=== PATIENT | male | born 1950 | race Two or more races ===

== ENCOUNTER 2022-12-19 10:37 | Outpatient (OUT) | payer MEDICARE, SELFPAY ==
[2022-12-19 11:01] LABS: Basophils Absolute Auto 0.1 10^3/uL (0.0-0.1); Basophils Percent Auto 0.8 % (0.2-2.0); Eosinophils Absolute Auto 0.1 10^3/uL (0.0-0.7); Eosinophils Percent Auto 1.6 % (0.9-7.0); Hematocrit 41.3 % (42.0-54.0); Hemoglobin 13.6 g/dL (14.0-18.0); Immature Granulocytes Abs Auto 0.02 10^3/uL (0.00-0.03); Immature Granulocytes Pct Auto 0.3 % (0.0-0.5); Lymphocytes Absolute Auto 2.2 10^3/uL (1.2-3.8); Lymphocytes Percent Auto 30.1 % (20.5-60.0); Mean Corpuscular HGB Conc 32.9 g/dL (29.9-35.2); Mean Corpuscular Hemoglobin 27.7 pg (25.9-34.0); Mean Corpuscular Volume 84.1 fL (80.0-94.0); Mean Platelet Volume 9.8 fL (9.5-13.5); Monocytes Absolute Auto 0.5 10^3/uL (0.3-0.8); Monocytes Percent Auto 6.6 % (1.7-12.0); Neutrophils Absolute Auto 4.4 10^3/uL (1.4-6.5); Neutrophils Percent Auto 60.6 % (43.0-75.0); Platelet Count 244 10^3/uL (150-450); Red Blood Count 4.91 10^6/uL (4.70-6.10); Red Cell Distribution Width 12.3 % (11.0-15.0); White Blood Count 7.3 10^3/uL (4.0-11.0)
[2022-12-19 13:53] LABS: Alanine Aminotransferase 29 U/L (16-63); Albumin Globulin Ratio 0.8; Albumin Level 3.5 g/dL (3.4-5.0); Alkaline Phosphatase 108 U/L (46-116); Anion Gap 11.7; Aspartate Amino Transferase 14 U/L (15-37); BUN Creatinine Ratio 12.7; Bilirubin Total 0.4 mg/dL (0.2-1.0); Calcium 8.7 mg/dL (8.5-10.1); Carbon Dioxide 27.7 mmol/L (21.0-32.0); Chloride 103 mmol/L (98-107); Chol HDL Ratio 3.4; Cholesterol 151 mg/dL (<=200); Estimated GFR (African America >60 (>=60); Estimated GFR (Non-African Ame >60 (>=60); Globulin 4.3 g/dL; Glucose 103 mg/dL (74-106); HDL Cholesterol 44 mg/dL (40-60); LDL Cholesterol Calculated 78.8 mg/dL; Potassium 4.4 mmol/L (3.5-5.1); Sodium 138 mmol/L (136-145); Total Protein 7.8 g/dL (6.4-8.2); Triglycerides 141 mg/dL (<=150); VLDL CHOLESTEROL 28.2 mg/dL
== END 2022-12-19 10:38 | disposition home or self-care (01) ==
PROVIDERS: PCP Family Medicine; Visit Provider Nurse Practitioner Acute Care
DX: I25.10 Atherosclerotic heart disease of native coronary artery without angina pectoris (principal); R06.09 Other forms of dyspnea; R06.02 Shortness of breath
CPT/HCPCS: 36415; 80053; 80061; 83880; 85025

== ENCOUNTER 2024-05-14 13:32 | Outpatient (OUT) | payer MEDICARE, SELFPAY ==
[2024-05-14 14:20] LABS: BUN Creatinine Ratio 15.3; Calcium 9.3 mg/dL (8.5-10.1); Carbon Dioxide 26.2 mmol/L (21.0-32.0); Chloride 106 mmol/L (98-107); Estimated GFR (African America >60 (>=60 mL/min/1.73m^2); Estimated GFR (Non-African Ame >60 (>=60 mL/min/1.73m^2); Glucose 89 mg/dL (74-106); Potassium 4.2 mmol/L (3.5-5.1); Sodium 138 mmol/L (136-145)
== END 2024-05-14 13:33 | disposition home or self-care (01) ==
PROVIDERS: PCP Family Medicine
DX: I25.10 Atherosclerotic heart disease of native coronary artery without angina pectoris (principal); I10 Essential (primary) hypertension; R06.09 Other forms of dyspnea
CPT/HCPCS: 36415; 80048

== ENCOUNTER 2024-06-25 12:32 | Outpatient (OUT) | payer MEDICARE, SELFPAY ==
--- NOTE | 2024-06-25 13:00 | CA_ITS ---
Patient Name: FUAD PATEL MR#: [id number] : 1950 Exam Date: 06/25/2024 Ordering Doctor: MAGGI YOUNG ECHOCARDIOGRAM REPORT PROCEDURE: CA ECHO DOPPLER COMPLETE INDICATIONS: Dyspnea on exertion, hypertension, coronary artery disease, MO, cardiac stents x 4 COMPARISON: None. DESCRIPTION: COMPLETE ECHOCARDIOGRAM Real-time transthoracic echocardiography with 2D, M-mode, spectral and color flow Doppler performed. QUALITY: Technical quality was good. LEFT VENTRICLE: Normal chamber size. Borderline left ventricular hypertrophy. Normal systolic function. LV EF: Normal left ventricular ejection fraction, (>55%). DIASTOLIC: Normal diastolic function. ATRIAL SEPTUM: Visually appears intact. LEFT ATRIUM: Normal chamber size. RIGHT ATRIUM: Normal chamber size. RIGHT VENTRICLE: Normal chamber size. Normal right ventricular systolic function. TRICUSPID VALVE: Normal mobility and thickness. No stenosis with trivial regurgitation. No evidence of pulmonary hypertension. RVSP 34 mmHg MITRAL VALVE: Normal mobility and thickness. No evidence of mitral valve stenosis. There is no mitral annular calcification. No mitral regurgitation. AORTIC VALVE: Normal trileaflet appearance. No visible sclerosis. Normal leaflet mobility. No evidence of aortic valve stenosis. No aortic regurgitation. AORTIC ROOT: Normal diameter and appearance, measuring 3.5 cm. PULMONIC VALVE: Normal thickness and mobility. No stenosis. No regurgitation. PERICARDIUM: No evidence of pericardial effusion. IVC: Collapses with inspirations. IVC is normal in size. PLEURA: CONCLUSION: 1. Normal left ventricular size and systolic function. LVEF is estimated at 55 to 60%. 2. Normal right ventricular size and systolic function. 3. No significant valvular dysfunction. 4. Normal diastolic function. 5. Normal right-sided pressures. Adult Echocardiography Procedure Report Left Ventricle LVEDD (3.7 - 5.6 cm): 4.16 cm LVESD (2.2 - 4.0 cm): 3.00 cm LVIVS thickness (0.6 - 1.2 cm): 1.09 cm LVPW thickness (0.5 - 1.0 cm): 1.08 cm e': 0.12 m/s E - e': 6.11 LVOT Max Gradient: 3.00 mm[Hg] LVOT Area (cm2): 0.87 m/s Peak Velocity (LVOT): 0.87 m/s Mean Velocity (LVOT): 0.62 m/s LVOT Diameter 2.14 cm Left Atrium LA Volume Index (2D A2C): 25.04 ml/m2 Left Atrium Systolic Dimension: 3.59 cm Mitral Valve MV E to A Ratio: 0.92 Mitral Valve A-Wave Peak Velocity: 0.79 m/s Mitral Valve E-Wave Peak Velocity: 0.72 m/s Right Ventricle Aorta AO Root Diam: 3.46 cm Aortic Valve AoV Area (Peak Lenin): 2.62 cm2, 2.62 cm2 AoV Area (VTI): 2.67 cm2, 2.67 cm2 Peak Velocity(Antegrade Flow): 1.19 m/s Peak Gradient(Antegrade Flow): 5.68 mm[Hg] Mean Velocity(Antegrade Flow): 0.80 m/s Mean Gradient(Antegrade Flow): 2.97 mm[Hg] Velocity Time Integral: 26.53 cm Tricuspid Valve Peak Velocity (Regurgitant Flow): 2.18 m/s, 2.77 m/s Pulmonic Valve Mean Gradient: 2.18 mm[Hg] Mean Velocity: 0.68 m/s Peak Velocity: 1.13 m/s, 1.10 m/s Peak Gradient: 4.81 mm[Hg], 5.13 mm[Hg] Right Atrium Right Atrium Systolic Pressure: 37.89 ml, 37.89 ml Dictated by: Lyndon Hall M.D. on 06/25/2024 at 18:07 Approved by: Lyndon Hall M.D. on 06/25/2024 at 18:10
== END 2024-06-25 12:33 | disposition home or self-care (01) ==
LOC: CARD 12:33
PROVIDERS: PCP Family Medicine
DX: R06.09 Other forms of dyspnea (principal); I25.10 Atherosclerotic heart disease of native coronary artery without angina pectoris; I10 Essential (primary) hypertension
CPT/HCPCS: 93306

== ENCOUNTER 2024-07-24 08:48 | Outpatient (OUT) | payer MEDICARE, SELFPAY ==
--- NOTE | 2024-07-24 | NM_ITS ---
Patient Name: FUAD PATEL MR#: [id number] : 1950 Exam Date: 07/24/2024 Ordering Doctor: DR TIERRA ALBRIGHT M.D. RADIOLOGY REPORT PROCEDURE: NM DENA PERF SPECT REST STR COMPARISON: None. INDICATIONS: CAD, DYSPNEA ON EXERTION TECHNIQUE: Exam Description: Stress/Rest one day protocol gated SPECT Rest Imagin.0 mCi Tc-99m Cardiolite IV on 07/24/2024 Stress Imaging 28.5 mCi Tc-99m Cardiolite IV on 07/24/2024 Exercise Protocol: Haris Heart Rate (bpm): Rest: 74 Max: 127 PMHR: 86 Blood Pressure: Rest: 131/74 Max: 150/80 Exercise Time: Minutes: 6 Seconds: 25 Stage Reached: Stage: 2 Mets 7.0 Symptoms: SOB Rest and peak stress ECG findings were pending and the exercise portion of the study was pending per attending physician [facility] . For more details please see separate cardiac stress test report. FINDINGS: QUALITY OF STUDY: Good PERFUSION DEFECT: LOCATION: Inferolateral SIZE: small SEVERITY: mild TYPE: Reversible WALL MOTION: Normal LV SIZE: 79 mL. TID / TCD: 1.0 LVEF: Calculated EF 67%. SUMMARY: Abnormal Myocardial perfusion imaging study CONCLUSION: Abnormal myocardial nuclear perfusion stress test, evidence of small defect of mild ischemia at inferolateral wall Normal left ventricle systolic function, EF 67% No transient ischemic dilatation, TID 1.0 EKG portion of stress test is reported separately Dictated by: Blanca Stubbs MD on 07/24/2024 at 13:45 Approved by: Blanca Stubbs MD on 07/24/2024 at 13:52
--- OUTSIDE RECORDS SUMMARY | 2024-07-24 09:08 | XMS_ITS | CCD ---
Author Organization [facility] Care Team Providers Care Ux Design Lead Name Role Phone FLACO SINGH Admitting Unavailable FLACO SINGH Consulting Unavailable FLACO SINGH Attending Unavailable DR NETTA CHAUDHARI Primary Care Unavailable FARA, DR NETTA Ford Consulting Unavailable DR NETTA CHAUDHARI Attending Unavailable FARA, DR NETTA Ford Admitting Unavailable FARA, DR NETTA Ford Primary Care Unavailable Netta Chaudhari MD Primary Care Provider LEVAR YOUNG Attending Unavailable LEVAR YOUNG Attending Unavailable Allergies Allergy Classification Reported Allergen(s) Allergy Type Date of Onset Reaction(s) Facility (1 source) rosuvastatin; Translations: [ROSUVASTATIN] Drug Allergy 04-25-2023 [facility] Repository Medications Current Medications Medication Drug Class(es) Dates Sig (Normalized) Sig (Original) aspirin 81 mg delayed release oral tablet (2 sources) Platelet Aggregation Inhibitor, Nonsteroidal Anti-inflammatory Drug take 1 tablet by mouth in the morning aspirin 81 MG EC tablet Take 81 mg by mouth in the morning. Active atorvastatin 40 mg oral tablet (2 sources) HMG-CoA Reductase Inhibitor take 1 tablet by mouth in the morning atorvastatin (Lipitor) 40 MG tablet Take 40 mg by mouth in the morning. Active lisinopril 10 mg oral tablet (2 sources) Angiotensin Converting Enzyme Inhibitor take 1 tablet by mouth in the morning lisinopril 10 MG tablet Take 10 mg by mouth in the morning. Active metoprolol tartrate 25 mg oral tablet (2 sources) beta-Adrenergic Duy take 1 tablet by mouth in the morning metoprolol tartrate (Lopressor) 25 MG tablet Take 25 mg by mouth in the morning and 25 mg before bedtime. Active Problems Active Problems Problem Classification Problem Date Documented Date Episodic/Chronic Coronary atherosclerosis and other heart disease (8 sources) Atherosclerotic heart disease of [place] coronary artery without angina pectoris; Translations: [Coronary atherosclerosis] Onset: 09-26-2021 Chronic Disorders of lipid metabolism (5 sources) Hyperlipidemia, unspecified; Translations: [Dyslipidemia] Onset: 02-05-2022 01-31-2023 Chronic Essential hypertension (8 sources) Essential (primary) hypertension; Translations: [Benign hypertension] Onset: 01-04-2022 Chronic Other aftercare (1 source) Other detention (current) drug therapy; Translations: [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] Onset: 02-05-2022 Episodic Other lower respiratory disease (2 sources) Other forms of dyspnea; Translations: [Other forms of dyspnea] Onset: 06-04-2024 Episodic Other nutritional; endocrine; and metabolic disorders (1 source) Obesity, unspecified; Translations: [OBESITY UNSPECIFIED] Onset: 02-05-2022 Chronic Other nutritional; endocrine; and metabolic disorders (1 source) Body mass index (BMI) 30.0-30.9, adult; Translations: [BODY MASS INDEX BMI 30.0-30.9 ADULT] Onset: 02-05-2022 Chronic Other screening for suspected conditions (not mental disorders or infectious disease) (1 source) Encounter for screening for malignant neoplasm of prostate; Translations: [ENC SCREEN MALIG NEOPLASM PROSTATE] Onset: 02-05-2022 Episodic Past or Other Problems Problem Classification Problem Date Documented Da te Episodic/Chronic Screening and history of mental health and substance abuse codes (2 sources) Patient encounter status; Translations: [Encounter for screening for depression] Onset: 01-31-2023 01-31-2023 Episodic Results Test Name Value Interpretation Reference Range Facility CA ECHO DOPPLER COMPLETEon 0 06-25-2024 [place] [address] Cardiology Report Signed Patient: LAZARO JAMES MR#: [id number] : 1950 Acct:[id number] Age/Sex: 73 / M ADM Date: 06/25/24 Loc: CARD Attending Dr: Levar Young NP Ordering Physician: Levar Young NP Date of Service: 06/25/24 Procedure(s): CA echo doppler complete Accession Number(s): [id number] cc: Netta Chaudhari M.D.; Levar Young NP Patient Name: LAZARO JAMES MR#: [id number] : 1950 Exam Date: 06/25/2024 Ordering Doctor: LEVAR YOUNG ECHOCARDIOGRAM REPORT PROCEDURE: CA ECHO DOPPLER COMPLETE INDICATIONS: Dyspnea on exertion, hypertension, coronary artery disease, CT, cardiac stents x 4 COMPARISON: None. DESCRIPTION: COMPLETE ECHOCARDIOGRAM Real-time transthoracic echocardiography with 2D, M-mode, spectral and color flow Doppler performed. QUALITY: Technical quality was good. LEFT VENTRICLE: Normal chamber size. Borderline left ventricular hypertrophy. Normal systolic function. LV EF: Normal left ventricular ejection fraction, (>55%). DIASTOLIC: Normal diastolic function. ATRIAL SEPTUM: Visually appears intact. LEFT ATRIUM: Normal chamber size. RIGHT ATRIUM: Normal chamber size. RIGHT VENTRICLE: Normal chamber size. Normal right ventricular systolic function. TRICUSPID VALVE: Normal mobility and thickness. No stenosis with trivial regurgitation. No evidence of pulmonary hypertension. RVSP 34 mmHg MITRAL VALVE: Normal mobility and thickness. No evidence of mitral valve stenosis. There is no mitral annular calcification. No mitral regurgitation. AORTIC VALVE: Normal trileaflet appearance. No visible sclerosis. Normal leaflet mobility. No evidence of aortic valve stenosis. No aortic regurgitation. AORTIC ROOT: Normal diameter and appearance, measuring 3.5 cm. PULMONIC VALVE: Normal thickness and mobility. No stenosis. No regurgitation. PERICARDIUM: No evidence of pericardial effusion. IVC: Collapses with inspirations. IVC is normal in size. PLEURA: CONCLUSION: 1. Normal left ventricular size and systolic function. LVEF is estimated at 55 to 60%. 2. Normal right ventricular size and systolic function. 3. No significant valvular dysfunction. 4. Normal diastolic function. 5. Normal right-sided pressures. Adult Echocardiography Procedure Report Left Ventricle LVEDD (3.7 - 5.6 cm): 4.16 cm LVESD (2.2 - 4.0 cm): 3.00 cm LVIVS thickness (0.6 - 1.2 cm): 1.09 cm LVPW thickness (0.5 - 1.0 cm): 1.08 cm e': 0.12 m/s E - e': 6.11 LVOT Max Gradient: 3.00 mm[Hg] LVOT Area (cm2): 0.87 m/s Peak Velocity (LVOT): 0.87 m/s Mean Velocity (LVOT): 0.62 m/s LVOT Diameter 2.14 cm Left Atrium LA Volume Index (2D A2C): 25.04 ml/m2 Left Atrium Systolic Dimension: 3.59 cm Mitral Valve MV E to A Ratio: 0.92 Mitral Valve A-Wave Peak Velocity: 0.79 m/s Mitral Valve E-Wave Peak Velocity: 0.72 m/s Right Ventricle Aorta AO Root Diam: 3.46 cm Aortic Valve AoV Area (Peak Lenin): 2.62 cm2, 2.62 cm2 AoV Area (VTI): 2.67 cm2, 2.67 cm2 Peak Velocity(Antegrade Flow): 1.19 m/s Peak Gradient(Antegrade Flow): 5.68 mm[Hg] Mean Velocity(Antegrade Flow): 0.80 m/s Mean Gradient(Antegrade Flow): 2.97 mm[Hg] Velocity Time Integral: 26.53 cm Tricuspid Valve Peak Velocity (Regurgitant Flow): 2.18 m/s, 2.77 m/s Pulmonic Valve Mean Gradient: 2.18 mm[Hg] Mean Velocity: 0.68 m/s Peak Velocity: 1.13 m/s, 1.10 m/s Peak Gradient: 4.81 mm[Hg], 5.13 mm[Hg] Right Atrium Right Atrium Systolic Pressure: 37.89 ml, 37.89 ml Dictated by: Mari Hall M.D. on 06/25/2024 at 18:07 Approved by: Mari Hall M.D. on 06/25/2024 at 18:10 Dictated By: MARI HALL Signed By: (more content not included)... [facility] Radiology, Radiologist, MD - 06/25/2024 [place] [address] Cardiology Report Signed Patient: LAZARO JAMES MR#: [id number] : 1950 Acct:[id number] Age/Sex: 73 / M ADM Date: 06/25/24 Loc: CARD Attending Dr: Levar Young NP Ordering Physician: Levar Young NP Date of Service: 06/25/24 Procedure(s): CA echo doppler complete Accession Number(s): [id number] cc: Netta Chaudhari M.D.; Levar Young NP Patient Name: LAZARO JAMES MR#: [id number] : 1950 Exam Date: 06/25/2024 Ordering Doctor: LEVAR YOUNG ECHOCARDIOGRAM REPORT PROCEDURE: CA ECHO DOPPLER COMPLETE INDICATIONS: Dyspnea on exertion, hypertension, coronary artery disease, CT, cardiac stents x 4 COMPARISON: None. DESCRIPTION: COMPLETE ECHOCARDIOGRAM Real-time transthoracic echocardiography with 2D, M-mode, spectral and color flow Doppler performed. QUALITY: Technical quality was good. LEFT VENTRICLE: Normal chamber size. Borderline left ventricular hypertrophy. Normal systolic function. LV EF: Normal left ventricular ejection fraction, (>55%). DIASTOLIC: Normal diastolic function. ATRIAL SEPTUM: Visually appears intact. LEFT ATRIUM: Normal chamber size. RIGHT ATRIUM: Normal chamber size. RIGHT VENTRICLE: Normal chamber size. Normal right ventricular systolic function. TRICUSPID VALVE: Normal mobility and thickness. No stenosis with trivial regurgitation. No evidence of pulmonary hypertension. RVSP 34 mmHg MITRAL VALVE: Normal mobility and thickness. No evidence of mitral valve stenosis. There is no mitral annular calcification. No mitral regurgitation. AORTIC VALVE: Normal trileaflet appearance. No visible sclerosis. Normal leaflet mobility. No evidence of aortic valve stenosis. No aortic regurgitation. AORTIC ROOT: Normal diameter and appearance, measuring 3.5 cm. PULMONIC VALVE: Normal thickness and mobility. No stenosis. No regurgitation. PERICARDIUM: No evidence of pericardial effusion. IVC: Collapses with inspirations. IVC is normal in size. PLEURA: CONCLUSION: 1. Normal left ventricular size and systolic function. LVEF is estimated at 55 to 60%. 2. Normal right ventricular size and systolic function. 3. No significant valvular dysfunction. 4. Normal diastolic function. 5. Normal right-sided pressures. Adult Echocardiography Procedure Report Left Ventricle LVEDD (3.7 - 5.6 cm): 4.16 cm LVESD (2.2 - 4.0 cm): 3.00 cm LVIVS thickness (0.6 - 1.2 cm): 1.09 cm LVPW thickness (0.5 - 1.0 cm): 1.08 cm e': 0.12 m/s E - e': 6.11 LVOT Max Gradient: 3.00 mm[Hg] LVOT Area (cm2): 0.87 m/s Peak Velocity (LVOT): 0.87 m/s Mean Velocity (LVOT): 0.62 m/s LVOT Diameter 2.14 cm Left Atrium LA Volume Index (2D A2C): 25.04 ml/m2 Left Atrium Systolic Dimension: 3.59 cm Mitral Valve MV E to A Ratio: 0.92 Mitral Valve A-Wave Peak Velocity: 0.79 m/s Mitral Valve E-Wave Peak Velocity: 0.72 m/s Right Ventricle Aorta AO Root Diam: 3.46 cm Aortic Valve AoV Area (Peak Lenin): 2.62 cm2, 2.62 cm2 AoV Area (VTI): 2.67 cm2, 2.67 cm2 Peak Velocity(Antegrade Flow): 1.19 m/s Peak Gradient(Antegrade Flow): 5.68 mm[Hg] Mean Velocity(Antegrade Flow): 0.80 m/s Mean Gradient(Antegrade Flow): 2.97 mm[Hg] Velocity Time Integral: 26.53 cm Tricuspid Valve Peak Velocity (Regurgitant Flow): 2.18 m/s, 2.77 m/s Pulmonic Valve Mean Gradient: 2.18 mm[Hg] Mean Velocity: 0.68 m/s Peak Velocity: 1.13 m/s, 1.10 m/s Peak Gradient: 4.81 mm[Hg], 5.13 mm[Hg] Right Atrium Right Atrium Systolic Pressure: 37.89 ml, 37.89 ml Dictated by: Mari Hall M.D. on 06/25/2024 at 18:07 Approved by: Mari Hall M.D. on 06/25/2024 at 18:10 Dictated By: MARI HALL Signed By: 06/25/241810 DD/ 09 TD/TT: Service Center Representative: [facility] [employer] Radiology Study observation (narrative) [facility] CA ECHO DOPPLER COMPLETEOrde red By: Radiologist Radiology on 06-25-2024 [facility] [employer] Work Phone: Office Visiton 06-04-2024 Follow-up visit [id number] Lazaro James 1950 M Date Provider Department Center 06/04/2024 [id number] [facility]ARD [facility] Family History Problem Relation Age of Onset Dementia Mother Diabetes Father Heart attack Other Coronary artery disease Other Family Status - Relation Status Age at Mother Father Sister Alive Brother Alive Other Level of Service:58391 [place] OFFICE/OUTPATIENT ESTABLISHED LOW MDM 20 MIN Normal [facility] ALL BASIC METABOLIC PANELon 05-14-2024 Anion gap [Moles/Vol] 10 mmol/L [facility] Calcium [Mass/Vol] 9.3 mg/dL 8.5 - 10. 1 mg/dL [facility] Chloride [Moles/Vol] 106 mmol/L 98 - 10 7 mmol/L [facility] CO2 [Moles/Vol] 26.2 mmol/L 21.0 - 32.0 mmol/L [facility] Creatinine [Mass/Vol] 1.18 mg/dL 0.70 - 1.30 mg/dL [facility] GFR/1.73 sq M.predicted CKD-EPI (S/P/Bld) [Vol rate/Area] >60 >=60 mL/min/1.73m 2 [facility] Glucose [Mass/Vol] 89 mg/dL 74 - 106 mg/dL [facility] Potassium [Moles/Vol] 4.2 mmol/L 3.5 - 5.1 mmol/L [facility] Sodium [Moles/Vol] 138 mmol/L 136 - 145 mmol/L [facility] TBH EGFR-NON AF CAMEROONIAN >60 >=60 mL/min/1.73m 2 [facility] Urea nitrogen [Mass/Vol] 18 mg/dL 7.0 - 18.0 mg/dL [facility] Urea nitrogen/Creatinine [Mass ratio] 15.3 mg/mg [facility] Healthcare Office Visiton 05-14-2024 Follow-up visit [id number] Lazaro James 1950 M Date Provider Department Center 05/14/2024 [id number] CHAPIN [facility] Family History Problem Relation Age of Onset Diabetes Brother Heart attack Other Coronary artery disease Other Family Status - Relation Status Age at Brother Other Level of Service:56479 [place] OFFICE/OUTPATIENT ESTABLISHED LOW MDM 20 MIN Normal [facility] CBC AUTO DIFFon 02-01-2022 BASO # 0.1 103/ul Normal 0.0-0.1 [facility] Comment on above: Performed By: #### C BC #### [facility] [address] [place] [address] Dr. Loyda French Basophils/100 WBC (Bld) 0.9 % Normal 0.2-2.0 [facility] Comment on above: Performed By: #### C BC #### [facility] [address] [place] [address] Dr. Loyda French EO # 0.2 103/ul Normal 0.0-0.7 [facility] Comment on above: Performed By: #### C BC #### [facility] [address] [address] [address] Loyda French Eosinophils/100 WBC (Bld) 2.3 % Normal 0.9-7.0 [facility] Comment on above: Performed By: #### C BC #### [facility] [address] [place] [address] Dr. Loyda French Erythrocyte distribution width (RBC) [Ratio] 12.5 % Normal 11.0-15.0 [facility] Comment on above: Performed By: #### C BC #### [facility] [address] [place] [address] Dr. Loyda French Hematocrit (Bld) [Volume fraction] 41.2 % Critically low 42.0-54.0 [facility] Comment on above: Performed By: #### C BC #### [facility] [address] [place] [address] Dr. Loyda French Hemoglobin (Bld) [Mass/Vol] 14.1 g/dL Normal 14.0-18.0 [facility] Comment on above: Performed By: #### C BC #### [facility] [address] [place] [address] Dr. Loyda French IG # 0.02 10e3/ul Normal 0.00-0.03 [facility] Comment on above: Performed By: #### C BC #### [facility] [address] [place] [address] Dr. Loyda French IG % 0.3 % Normal 0.0-0.5 [facility] Comment on above: Performed By: #### C BC #### [facility] [address] [place] [address] Dr. Loyda French LYMPH # 2.1 103/ul Normal 1.2-3.8 [facility] Comment on above: Performed By: #### C BC #### [facility] [address] [place] [address] Dr. Loyda French Lymphocytes/100 WBC (Bld) 28.7 % Normal 20.5-60.0 [facility] Comment on above: Performed By: #### C BC #### [facility] [address] [place] [address] Dr. Loyda French MANUAL DIFF REQ NO Normal [facility] Comment on above: Performed By: #### C BC #### [facility] [address] [place] [address] Dr. Loyda French MCH (RBC) [Entitic mass] 27.9 pg Normal 25.9-34.0 [facility] Comment on above: Performed By: #### C BC #### [facility] [address] [place] [address] Dr. Loyda French MCHC (RBC) [Mass/Vol] 34.2 g/dL Normal 29.9-35.2 [facility] Comment on above: Performed By: #### C BC #### [facility] [address] [place] [address] Dr. Loyda French MCV (RBC) [Entitic vol] 81.4 fL Normal 80.0-94.0 [facility] Comment on above: Performed By: #### C BC #### [facility] [address] [place] [address] Dr. Loyda French MONO # 0.6 103/ul Normal 0.3-0.8 [facility] Comment on above: Performed By: #### C BC #### [facility] [address] [place] [address] Dr. Loyda French Monocytes/100 WBC (Bld) 7.4 % Normal 1.7-12.0 [facility] Comment on above: Performed By: #### C BC #### [facility] [address] [place] [address] Dr. Loyda French NEUT # 4.5 103/ul Normal 1.4-6.5 [facility] Comment on above: Performed By: #### C BC #### [facility] [address] [place] [address] Dr. Loyda French Neutrophils/100 WBC (Bld) 60.4 % Normal 43.0-75.0 [facility] Comment on above: Performed By: #### C BC #### [facility] [address] [place] [address] Dr. Loyda French Platelet mean volume (Bld) [Entitic vol] 10.1 fL Normal 9.5-13.5 [facility] Comment on above: Performed By: #### C BC #### [facility] [address] [place] [address] Dr. Loyda French PLT 261 103/ul Normal 150-450 [facility] Comment on above: Performed By: #### C BC #### [facility] [address] [place] [address] Dr. Loyda French RBC 5.06 106/ul Normal 4.70-6.10 [facility] Comment on above: Performed By: #### C BC #### [facility] [address] [place] [address] Dr. Loyda French WBC 7.5 103/ul Normal 4.0-11.0 [facility] Comment on above: Performed By: #### C BC #### [facility] [address] [place] [address] Dr. Loyda French LIPID PROFILEon 02-01-2022 CHOL-HDL RATIO NORM SEE BELOW Normal [facility] Comment on above: Result Comment: 3.3 - 4.4 LOW RISK 4.4 - 7.1 AVERAGE RISK 7.1 - 11.0 MODERATE RISK >11.0 HIGH RISK Performed By: #### L IPID, LIVER, BMP, TSH #### [facility] [address] [place] [address] Dr. Loyda French Cholesterol [Mass/Vol] 145 mg/dL Normal <=200 [facility] Comment on above: Performed By: #### L IPID, LIVER, BMP, TSH #### [facility] [address] [address] [address] Loyda Frnech Cholesterol in HDL [Mass/Vol] 48 mg/dL Normal 40-60 [facility] Comment on above: Performed By: #### L IPID, LIVER, BMP, TSH #### [facility] [address] [address] [address] Loyda French Cholesterol in LDL [Mass/Vol] 67.0 mg/dL Normal [facility] Comment on above: Performed By: #### L IPID, LIVER, BMP, TSH #### [facility] [address] [address] [address] Loyda French Cholesterol.total/Ch olesterol in HDL [Mass ratio] 3.0 {ratio} Normal [facility] Comment on above: Performed By: #### L IPID, LIVER, BMP, TSH #### [facility] [address] [address] [address] Loyda French HDL NORMAL > or = 60 mg/dl - LO W CARDIOVASCULAR RISK <40 mg/dl - HIGH CARDIOVASCULAR RISK Normal [facility] Comment on above: Performed By: #### L IPID, LIVER, BMP, TSH #### [facility] [address] [address] [address] Loyda French LDL CALC NORMAL SEE BELOW Normal [facility] Comment on above: Result Comment: <100 mg/dl OPTIMAL 100 - 129 mg/dl NEAR OR ABOVE OPTIMAL 130 - 159 mg/dl BORDERLINE HIGH 160 - 189 mg/dl HIGH >190 mg/dl VERY HIGH Performed By: #### L IPID, LIVER, BMP, TSH #### [facility] [address] [address] [address] Loyda French Triglyceride [Mass/Vol] 150 mg/dL Normal <=150 [facility] Comment on above: Performed By: #### L IPID, LIVER, BMP, TSH #### [facility] [address] [address] [address] Loyda French VLDL CALC 30.0 mg/dL Normal [facility] Comment on above: Performed By: #### L IPID, LIVER, BMP, TSH #### [facility] [address] [place] [address] Dr. Loyda French LIVER PROFILEon 02-01-2022 Albumin [Mass/Vol] 3.8 g/dL Normal 3.4-5.0 [facility] Comment on above: Performed By: #### L IPID, LIVER, BMP, TSH #### [facility] [address] [place] [address] Dr. Loyda French Albumin/Globulin [Mass ratio] 0.9 {ratio} Normal [facility] Comment on above: Performed By: #### L IPID, LIVER, BMP, TSH #### [facility] [address] [place] [address] Dr. Loyda French ALP [Catalytic activity/Vol] 105 U/L Normal 46-116 [facility] Comment on above: Performed By: #### L IPID, LIVER, BMP, TSH #### [facility] [address] [place] [address] Dr. Loyda French ALT [Catalytic activity/Vol] 32 U/L Normal 16-63 [facility] Comment on above: Performed By: #### L IPID, LIVER, BMP, TSH #### [facility] [address] [place] [address] Dr. Loyda French AST [Catalytic activity/Vol] 17 U/L Normal 15-37 [facility] Comment on above: Performed By: #### L IPID, LIVER, BMP, TSH #### [facility] [address] [place] [address] Dr. Loyda French BILI, CONJUGATED 0.1 mg/dL Normal 0.0-0.2 [facility] Comment on above: Performed By: #### L IPID, LIVER, BMP, TSH #### [facility] [address] [place] [address] Dr. Loyda French Bilirubin [Mass/Vol] 0.6 mg/dL Normal 0.2-1.0 [facility] Comment on above: Performed By: #### L IPID, LIVER, BMP, TSH #### [facility] [address] [place] [address] Dr. Loyda French Globulin (S) [Mass/Vol] 4.4 g/dL Normal [facility] Comment on above: Performed By: #### L IPID, LIVER, BMP, TSH #### [facility] [address] [address] [address] Loyda French Protein [Mass/Vol] 8.2 g/dL Normal 6.4-8.2 [facility] Comment on above: Performed By: #### L IPID, LIVER, BMP, TSH #### [facility] [address] [address] [address] Loyda French PROF CHEM 8 (BAS METB)on Anion gap [Moles/Vol] 12.7 mmol/L Normal [facility] Comment on above: Performed By: #### L IPID, LIVER, BMP, TSH #### [facility] [address] [address] [address] Loyda French Calcium [Mass/Vol] 9.1 mg/dL Normal 8.5-10.1 [facility] Comment on above: Performed By: #### L IPID, LIVER, BMP, TSH #### [facility] [address] [address] [address] Loyda French Chloride [Moles/Vol] 104 mmol/L Normal 98-107 [facility] Comment on above: Performed By: #### L IPID, LIVER, BMP, TSH #### [facility] [address] [address] [address] Loyda French CO2 [Moles/Vol] 27.3 mmol/L Normal 21.0-32.0 [facility] Comment on above: Performed By: #### L IPID, LIVER, BMP, TSH #### [facility] [address] [address] [address] Loyda French Creatinine [Mass/Vol] 1.15 mg/dL Normal 0.70-1.30 [facility] Comment on above: Performed By: #### L IPID, LIVER, BMP, TSH #### [facility] [address] [address] [address] Loyda French EGFR-AF CAMEROONIAN >60 Normal >=60 [facility] Comment on above: Performed By: #### L IPID, LIVER, BMP, TSH #### [facility] [address] [address] [address] Loyda French EGFR-NON AF CAMEROONIAN >60 Normal >=60 [facility] Comment on above: Performed By: #### L IPID, LIVER, BMP, TSH #### [facility] [address] [address] [address] Loyda French Glucose [Mass/Vol] 120 mg/dL Critically high 74-106 [facility] Comment on above: Performed By: #### L IPID, LIVER, BMP, TSH #### [facility] [address] [address] [address] Loyda French Potassium [Moles/Vol] 4.0 mmol/L Normal 3.5-5.1 [facility] Comment on above: Performed By: #### L IPID, LIVER, BMP, TSH #### [facility] [address] [address] [address] Loyda French Sodium [Moles/Vol] 140 mmol/L Normal 136-145 [facility] Comment on above: Performed By: #### L IPID, LIVER, BMP, TSH #### [facility] [address] [address] [address] Loyda French Urea nitrogen [Mass/Vol] 13.0 mg/dL Normal 7.0-18.0 [facility] Comment on above: Performed By: #### L IPID, LIVER, BMP, TSH #### [facility] [address] [place] [address] Dr. Loyda French Urea nitrogen/Creatinine [Mass ratio] 11.3 mg/mg Normal [facility] Comment on above: Performed By: #### L IPID, LIVER, BMP, TSH #### [facility] [address] [address] [address] Loyda French TSHon 02-01-2022 TSH 1.301 uIU/mL Normal 0.358-3.[address] [facility] Comment on above: Performed By: #### L IPID, LIVER, BMP, TSH #### [facility] [address] [address] [address] Loyda French LIPID PROFILEon 09-26-2021 CHOL-HDL RATIO NORM SEE BELOW Normal [facility] Comment on above: Result Comment: 3.3 - 4.4 LOW RISK 4.4 - 7.1 AVERAGE RISK 7.1 - 11.0 MODERATE RISK >11.0 HIGH RISK Performed By: #### L IPID, LIVER #### [facility] [address] [address] [address] Loyda French Cholesterol [Mass/Vol] 145 mg/dL Normal <=200 [facility] Comment on above: Performed By: #### L IPID, LIVER #### [facility] [address] [address] [address] Loyda French Cholesterol in HDL [Mass/Vol] 36 mg/dL Critically low 40-60 [facility] Comment on above: Performed By: #### L IPID, LIVER #### [facility] [address] [address] [address] Loyda French Cholesterol in LDL [Mass/Vol] 70.8 mg/dL Normal [facility] Comment on above: Performed By: #### L IPID, LIVER #### [facility] [address] [address] [address] Loyda French Cholesterol.total/Ch olesterol in HDL [Mass ratio] 4.0 {ratio} Normal [facility] Comment on above: Performed By: #### L IPID, LIVER #### [facility] [address] [address] [address] Loyda French HDL NORMAL > or = 60 mg/dl - LO W CARDIOVASCULAR RISK <40 mg/dl - HIGH CARDIOVASCULAR RISK Normal [facility] Comment on above: Performed By: #### L IPID, LIVER #### [facility] [address] [address] [address] Loyda French LDL CALC NORMAL SEE BELOW Normal [facility] Comment on above: Result Comment: <100 mg/dl OPTIMAL 100 - 129 mg/dl NEAR OR ABOVE OPTIMAL 130 - 159 mg/dl BORDERLINE HIGH 160 - 189 mg/dl HIGH >190 mg/dl VERY HIGH Performed By: #### L IPID, LIVER #### [facility] [address] [address] [address] Loyda French Triglyceride [Mass/Vol] 191 mg/dL Critically high <=150 [facility] Comment on above: Performed By: #### L IPID, LIVER #### [facility] [address] [address] [address] Loyda French VLDL CALC 38.2 mg/dL Normal [facility] Comment on above: Performed By: #### L IPID, LIVER #### [facility] [address] [address] [address] Loyda French LIVER PROFILEon 09-26-2021 Albumin [Mass/Vol] 3.5 g/dL Normal 3.4-5.0 [facility] Comment on above: Performed By: #### L IPID, LIVER #### [facility] [address] [place] [address] Dr. Loyda French Albumin/Globulin [Mass ratio] 0.9 {ratio} Normal [facility] Comment on above: Performed By: #### L IPID, LIVER #### [facility] [address] [place] [address] Dr. Loyda French ALP [Catalytic activity/Vol] 104 U/L Normal 46-116 [facility] Comment on above: Performed By: #### L IPID, LIVER #### [facility] [address] [place] [address] Dr. Loyda French ALT [Catalytic activity/Vol] 23 U/L Normal 16-63 [facility] Comment on above: Performed By: #### L IPID, LIVER #### [facility] [address] [place] [address] Dr. Loyda French AST [Catalytic activity/Vol] 14 U/L Critically low 15-37 [facility] Comment on above: Performed By: #### L IPID, LIVER #### [facility] [address] [place] [address] Dr. Loyda French BILI, CONJUGATED 0.1 mg/dL Normal 0.0-0.2 [facility] Comment on above: Performed By: #### L IPID, LIVER #### [facility] [address] [address] [address] Loyda French Bilirubin [Mass/Vol] 0.4 mg/dL Normal 0.2-1.0 [facility] Comment on above: Performed By: #### L IPID, LIVER #### [facility] [address] [address] [address] Loyda French Globulin (S) [Mass/Vol] 4.0 g/dL Normal [facility] Comment on above: Performed By: #### L IPID, LIVER #### [facility] [address] [address] [address] Loyda French Protein [Mass/Vol] 7.5 g/dL Normal 6.4-8.2 [facility] Comment on above: Performed By: #### L IPID, LIVER #### [facility] [address] [address] [address] Loyda French Encounters Encounter Date Encounter Type Care Provider Facility Start: 06-25-2024 End: 06-25-2024 [facility] Result Encounter Generic External Data Provider [facility] Unsolicited Start: 06-25-2024 End: 06-25-2024 [facility] Result Encounter Generic External Data Provider [facility] Unsolicited Start: 06-04-2024 End: 06-04-2024 ambulatory [facility] Start: 05-14-2024 End: 05-14-2024 Clinisync Result Encounter Generic External Data Provider [facility] Unsolicited Start: 05-14-2024 End: 05-14-2024 [facility] Result Encounter Generic External Data Provider [facility] Unsolicited Start: 05-14-2024 End: 05-14-2024 ambulatory [facility] Start: 02-01-2022 End: 02-02-[address] NETTA CHAUDHARI Facility:[facility] Start: 09-26-2021 End: 09-27-2021 ambulatory FLACO SINGH Facility:[facility] Procedures Date Procedure Procedure Detail Performing Clinician Start: 06-25-2024 CA ECHO DOPPLER COMPLETE Generic External Data Provider Start: 05-14-2024 ALL BASIC METABOLIC PANEL Generic External Data Provider Start: 02-01-2022 PSA screening FLACO EAGLE Comment on above: Performed By: #### P [facility] #### [facility] [address] [address] [address] Loyda French Plan of Treatment Date Care Activity Detail Author Start: 10-20-2024 Influenza vaccination Influenz a Vaccine (Season Ended) [facility] Start: 10-21-2023 Influenza vaccination Influenza Vacc ine (#1) [facility] Start: 1950 Medicare Annual Well ness (AWV) Medicare Annual Wellness (AWV) [facility] Start: 1950 Screening for malign ant neoplasm of colon [facility] Immunizations Immunization Date Immunization Notes Care Provider Rosmery daly 09-28-2022 influenza virus vacc ine, unspecified formulation Generic Provider [facility] Payers Date Payer Category Payer Medicare MEDICARE [id number] 1960 Medicare [id number] 1950 Unknown [id number] 1950 Unknown [id number] Social History Date Type Detail Facility Start: 01-31-2023 Tobacco smoking status NHIS Never sm oked tobacco [facility] Start: 01-31-2023 History of Social function [facility] Start: 01-31-2023 Tobacco use panel [facility] Start: 1950 Sex assigned at Not on file [facility] Progress note 04-16-2025 Note Date & Type Note Facility 06-04-2024 Note SUBJECTIVE Reason for Visit: Lazaro James is a 73 y.o. year old male patient being seen for follow-up visit. HPI: Lazaro James is a 73 y.o. year old male with significant medical history of CAD and CT s/p CHINMAY to RCA 2009, MCMAHON, hypertension, and hyperlipidemia. 06/04/2024 office visit: Patient was seen and evaluated in the office today for follow-up hypertension management. He reports he has not yet obtained a home blood pressure monitor. In-office blood pressure was elevated at 149/81. He otherwise has no complaints and denies chest pain, shortness of breath, palpitations, lightheadedness, or dizziness. 05/14/2024 office visit: Patient was seen and evaluated in the office today. His chief complaint is inability to obtain his lisinopril prescription. He reports that he has been off his blood pressure medication, including lisinopril, for at least the past few weeks. He attempted to refill it at the pharmacy, but was informed that he should still have pills remaining, and the prescription could not be filled. He otherwise denies chest pain, palpitations, lightheadedness, or dizziness. Endorses MCMAHON which he reports has remained stable without progression over the past year. 04/25/2023 office visit (Dr. Steven): Patient here for 6 mo follow up CAD, MCMAHON, hypertension, and hyperlipidemia. Lisinopril was increased to 20mg daily at last apt in Oct 2022. He had routine labs in Nov 2022. He denies chest pain, SOB, palpitations, and lightheadedness/syncope. Doing very well. He was unable to tolerate Crestor so he now takes Lipitor. Tolerating it well so far. Past Medical History: Diagnosis Date Coronary artery disease Hyperlipidemia Hypertension Myocardial infarction (CMS/HCC) Past Surgical History: Procedure Laterality Date CARDIAC CATHETERIZATION CORONARY STENT PLACEMENT Patient Active Problem List Diagnosis Benign prostatic hyperplasia Coronary atherosclerosis Essential hypertension Kidney stone Malaise and fatigue Old myocardial infarction Palpitations Sleep apnea Type 1 diabetes mellitus (CMS/HCC) Depression screen Dyslipidemia Tinnitus family history includes Coronary artery disease in an other family member; Diabetes in his brother; Heart attack in an other family member. Social History Tobacco Use Smoking status: Never Smokeless tobacco: Never Substance Use Topics Alcohol use: Yes Comment: occasional OBJECTIVE Visit Vitals Smoking Status Never Physical Exam Constitutional: General Appearance: well-developed, appears stated age. Level of Distress: no acute distress. Neck: Jugular Veins: normal jugular venous pressure. Lungs: Auscultation: no rales or rhonchi and normal breath sounds. Cardiovascular: Rate And Rhythm: regular Heart Sounds: normal S1 and s2; Systolic Murmur: not heard. Diastolic Murmur: not heard. Extremities: no edema Peripheral Pulses: Pulses: full and equal in all extremities except if noted. Abdomen: Inspection and Palpation: non distended or tender and soft. Musculoskeletal: Inspection: no joint tenderness or swelling. Neurologic: Gait: normal gait. Psychiatric: Mental Status: alert and normal affect. Skin: Inspection and Palpation: warm and dry. Allergies: Allergies Allergen Reactions Rosuvastatin cramping Outpatient Medications: Current Outpatient Medications Medication Instructions aspirin 81 mg EC tablet Take 1 tablet every day by oral route. atorvastatin (LIPITOR) 40 mg, oral, Daily RT ezetimibe (ZETIA) 10 mg, oral, Once Daily lisinopril 20 mg, oral, Every morning metoprolol tartrate (LOPRESSOR) 25 mg, oral, 2 times daily rosuvastatin (CRESTOR) 40 mg, oral, Nightly Recent Labs: No visits with results within 2 Month(s) from this visit. Latest known visit with results is: No results found for any previous visit. Labs 05/14/2024: Sodium 138, potassium 4.2, glucose 89, BUN 18, creatinine 1.18, EGFR greater than 60, calcium 9.3 I have personally reviewed and interpreted the following laboratory results: CBC, CMP, lipid profile, and any additional relevant lab work available at this time. These findings have been analyzed in the context of the patient's clinical presentation. Cardiovascular Diagnostic Studies: Coronary angiogram 04/20/2008: S/p CHINMAY to RCA 2008 Conclusion: 1. Acute coronary syndrome. 2. Single-vessel coronary artery disease. 3. Successful angioplasty and drug-eluting stent placement in the right coronary artery. 4. Normal right common femoral artery. ANGIOGRAPHY: Left ventriculography: This study demonstrated normal overall left ventricular systolic function with an estimated ejection fraction of 55%. There was no mitral regurgitation. 12 Lead ECG: No results found for this or any previous visit (from the past 4464 hour(s)). I have personally reviewed and interpreted all available cardiac diagnostic tests and imaging reports. Findings have been (more content not included)... [facility] Progress note 05-14-2024 Note Date & Type Note Facility 05-14-2024 Note SUBJECTIVE Reason for Visit: Lazaro James is a 73 y.o. year old male patient being seen for 1 year follow-up visit. HPI: Lazaro James is a 73 y.o. year old male with significant medical history of CAD and CT s/p CHINMAY to RCA 2009, MCMAHON, hypertension, and hyperlipidemia. 05/14/2024 office visit: Patient was seen and evaluated in the office today. His chief complaint is inability to obtain his lisinopril prescription. He reports that he has been off his blood pressure medication, including lisinopril, for at least the past few weeks. He attempted to refill it at the pharmacy, but was informed that he should still have pills remaining, and the prescription could not be filled. He otherwise denies chest pain, palpitations, lightheadedness, or dizziness. Endorses MCMAHON which he reports has remained stable without progression over the past year. 04/25/2023 office visit (Dr. Steven): Patient here for 6 mo follow up CAD, MCMAHON, hypertension, and hyperlipidemia. Lisinopril was increased to 20mg daily at last apt in Oct 2022. He had routine labs in Nov 2022. He denies chest pain, SOB, palpitations, and lightheadedness/syncope. Doing very well. He was unable to tolerate Crestor so he now takes Lipitor. Tolerating it well so far. Past Medical History: Diagnosis Date Coronary artery disease Hyperlipidemia Hypertension Myocardial infarction (CMS/HCC) Past Surgical History: Procedure Laterality Date CARDIAC CATHETERIZATION CORONARY STENT PLACEMENT Patient Active Problem List Diagnosis Benign prostatic hyperplasia Coronary atherosclerosis Essential hypertension Kidney stone Malaise and fatigue Old myocardial infarction Palpitations Sleep apnea Type 1 diabetes mellitus (CMS/HCC) Depression screen Dyslipidemia Tinnitus family history includes Coronary artery disease in an other family member; Diabetes in his brother; Heart attack in an other family member. Social History Tobacco Use Smoking status: Never Smokeless tobacco: Never Substance Use Topics Alcohol use: Yes Comment: occasional OBJECTIVE Visit Vitals BP 169/81 (BP Location: Right arm, Patient Position: Sitting) Pulse 79 Ht 1.727 m (5' 8 ) Wt 100 kg (221 lb) SpO2 97% BMI 33.60 kg/m??? Smoking Status Never BSA 2.19 m??? Physical Exam Constitutional: General Appearance: well-developed, appears stated age. Level of Distress: no acute distress. Neck: Jugular Veins: normal jugular venous pressure. Lungs: Auscultation: no rales or rhonchi and normal breath sounds. Cardiovascular: Rate And Rhythm: regular Heart Sounds: normal S1 and s2; Systolic Murmur: not heard. Diastolic Murmur: not heard. Extremities: no edema Peripheral Pulses: Pulses: full and equal in all extremities except if noted. Abdomen: Inspection and Palpation: non distended or tender and soft. Musculoskeletal: Inspection: no joint tenderness or swelling. Neurologic: Gait: normal gait. Psychiatric: Mental Status: alert and normal affect. Skin: Inspection and Palpation: warm and dry. Allergies: Allergies Allergen Reactions Rosuvastatin cramping Outpatient Medications: Current Outpatient Medications Medication Instructions aspirin 81 mg EC tablet Take 1 tablet every day by oral route. atorvastatin (LIPITOR) 40 mg, oral, Daily RT ezetimibe (ZETIA) 10 mg, oral, Once Daily lisinopril 20 mg, oral, Every morning metoprolol tartrate (LOPRESSOR) 25 mg, oral, 2 times daily rosuvastatin (CRESTOR) 40 mg, oral, Nightly Recent Labs: No visits with results within 2 Month(s) from this visit. Latest known visit with results is: No results found for any previous visit. I have personally reviewed and interpreted the following laboratory results: CBC, CMP, lipid profile, and any additional relevant lab work available at this time. These findings have been analyzed in the context of the patient's clinical presentation. Cardiovascular Diagnostic Studies: Coronary angiogram: S/p CHINMAY to RCA 2009 12 Lead ECG: No results found for this or any previous visit (from the past 4464 hour(s)). I have personally reviewed and interpreted all available cardiac diagnostic tests and imaging reports. Findings have been analyzed in the context of the patient's clinical status. Assessment and Plan #CORONARY ARTERY DISEASE Coronary angiography: 04/20/2008 Acute coronary syndrome: Single-vessel coronary artery disease successful angioplasty of drug-eluting stent placement in right coronary artery, normal right common femoral artery [x] Denies angina/chest pain [] Stable angina [] Exertional symptoms [x] Post-PCI/CABG [x] Prior CT: [x] Yes [] No Stress test: [x] Not indicated [] Pending [] Completed (Date: ___) LVEF: ___% (from last TTE on ___) GDMT / Secondary Prevention: [x] Aspirin (81 mg) [] High-intensity statin [x] Beta-duy (post-CT/LV dysfunction) [] ACEi/ARB/ARNI (EF <=40% or DM/CKD) [] SGLT2i (if (more content not included)... [facility] Summary Purpose Family History No Family History Records FoundNo Family History Records Found Advance Directives No Advanced Directives Records FoundNo Advanced Directives Records Found Additional Source Comments (unrecognized sect ion and content) No Status Records FoundNo Status Records Found INFORMATION SOURCE (unrecogn ized section and content) DATE CREATED AUTHOR 02/08/2022 [facility] DATE CREATED AUTHOR 'S ORGANIZ ATION 06/06/2024 [facility] Care Teams (unrecognized sec tion and content) [employer] Lead Relationship Specialty Start Date End Date Netta Chaudhari MD PCP - General Family Medicine 01/31/23 FOR RECORDS PERTAINING TO PATIENTS WHO ARE OR HAVE BEEN ENROLLED IN A CHEMICAL DEPENDENCY/SUBSTANCEABUSE PROGRAM, SOME INFORMATION MAY BE OMITTED. This clinical summary was aggregated from multiple sources. Caution should be exercised in using it in the provision of clinical care. This summary normalizes information from multiple sources, and as a consequence, information in this document may materially change the coding, format and clinical context of patient data. In addition, data may be omitted in some cases. CLINICAL DECISIONS SHOULD BE BASED ON THE PRIMARY CLINICAL RECORDS. [employer] provides no warranty or guarantee of the accuracy or completeness of information in this document.
--- NOTE | 2024-07-24 11:23 | PC.NURSE ---
Nursing Note Cardiac Stress Test Reviewed: Medication, allergies and patient history reviewed. Stress Test: [ ] Patient tolerated stress test well. [ ] Patient unable to tolerate walking on treadmill. Switched to Lexiscan stress test. [x ] No chest pain noted per patient [ ] Chest pain that resolved prior to leaving stress lab. [ ] No dyspnea noted. [x ] Dyspnea that resolved prior to leaving stress lab. [x ] Patient left stress lab asymptomatic and hemodynamically stable. [ ] Patient taken to the Emergency Room due to non-resolving symptoms following stress test. [x ] Patient achieved target heart rate. [ ] Patient unable to achieve target heart rate. [ ] Aminophylline administered as reversal agent to Lexiscan (Regadenoson). [ ] Nitro administered. Nursing Comments:Pt had Cardiolite test done. Pt had SOB while walking that subsided and went away with rest. Pt had no CP but had EKG changes which were shown to [facility] provider. These results along with the Nuclear images will be sent stat for [facility] Dr to read. When pt left the stress lab he was asymptomatic and aware that if he has any SOB or chest pain that he needs to go to the ER immediately. Pt states he understands and will do this if needed. Pt ambulated to cafeteria for breakfast prior to second set of images.
--- NOTE | 2024-07-24 20:02 | PM.STRESS ---
Stress Test Stress Test Requesting physician: Antoine Steven Procedure: This was a treadmill stress test with myocardial perfusion imaging performed at the [facility] on 07/24/2024. The patient exercised on the treadmill for 6 minutes and 25 seconds, reaching stage 2 of the Haris protocol and achieving 7.0 METS. Baseline heart rate was 74 bpm, and baseline blood pressure was 131/74. Peak heart rate was 127 bmp representing 86% of MPHR. Peak blood pressure was 150/80. The test was stopped due to reaching target heart rate and due to shortness of breath. General Information: Reason for Stress Test: dyspnea. Cardiac History and Risk Factors: hypertension, CAD, stents, hyperlipidemia, myocardial infarction. Resting 12 - Lead Electrocardiogram: Normal sinus rhythm. Stress Test: Protocol: Haris. Exercise Capacity: Average. Blood Pressure Response: resting hypertension, appropriate response to exercise. Rhythm: Sinus with no arrhythmias. ST - Response: Ischemic ST depressions up to 3 mm seen in leads II, III, aVF, V4, V5, V6. Those persisted into the recovery period. Final ECG was comparable to baseline. Patient Response: shortness of breath. Interpretation: 1. Positive treadmill stress test for exercise-induced ischemic ECG changes. 2. Tom treadmill score of -12.5 is associated with high risk of cardiac events. 3. Myocardial perfusion images will be reported separately.
== END 2024-07-24 08:49 | disposition home or self-care (01) ==
LOC: NM 08:49
PROVIDERS: PCP Family Medicine; Visit Provider Internal Medicine Interventional Cardiology
DX: R06.09 Other forms of dyspnea (principal); I25.10 Atherosclerotic heart disease of native coronary artery without angina pectoris; R94.8 Abnormal results of function studies of other organs and systems
CPT/HCPCS: 78452; 93017; A9500

== ENCOUNTER 2024-07-28 13:17 | Outpatient (OUT) | payer MEDICARE, SELFPAY ==
--- OUTSIDE RECORDS SUMMARY | 2024-07-23 11:00 | XMS_ITS | Encounter Summary ---
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 Phone Chris Villanueva MD Primary Care Provider [phone] Encounter Details Date Type Department Care Team (Late st Contact Info) Description 07/23/2024 11:00 AM EDT Office Visit [facility] Heart at [facility] [address] [place] [address] Antoine Steven MD [address] [facility] [address] [facility] [place] [address] Coronary artery disease, unspecified vessel or lesion type, unspecified whether angina present, unspecified whether pai[place]shoshone or transplanted heart (Primary Dx); MCMAHON (dyspnea on exertion); Essential hypertension Social History Tobacco Use Types Packs/Day Years Used Date Smoking Tobacco: Never Smokeless Tobacco: Never Alcohol Use Standard Drinks/Week Comments Yes 0 (1 standard drink = 0.6 oz pur e alcohol) occasional [place] Safety & Environment Answer Date Rec orded Fear of Current or Ex-Partner Not on file Emotionally Abused Not on file 04/12/2023 Physically Abused Not on file 04/12/2023 Sexually Abused Not on file 04/12/2023 Physically or Sexually Abused Not on file Sex and Gender Information Value Date Recorded Sex Assigned at Not on file Gender Identity Not on file Sexual Orientation Not on file documented as of this encounter Last Filed Vital Signs Vital Sign Reading Time Taken Comments Blood Pressure 145/77 07/23/2024 11:00 AM EDT Pulse 91 07/23/2024 11:00 AM EDT Temperature - - Respiratory Rate - - Oxygen Saturation 96% 07/23/2024 11:00 AM EDT Inhaled Oxygen Concentration - - Weight 103 kg (228 lb) 07/23/2024 11:00 AM EDT Height 172.7 cm (5' 8 ) 07/23/2024 11:00 AM EDT Body Mass Index 34.67 07/23/2024 11:00 AM EDT documented in this encounter Progress Notes * Antoine Steven MD - 07/23/2024 11:00 AM EDT Images from the original note were not included. [facility] Note Chief Complaint: Patient here for 3 mo follow up with ECHO. Patient states he needs a paper signed so he can drive. Patient states he is feel good. Patient states he has MCMAHON. HPI: Lazaro James is a 73 y.o. male with CAD and VT s/p CHINMAY to RCA 2008, HTN seen in follow-up. Doing well from a heart standpoint; no chest pain, no orthopnea, no paroxysmal, dyspnea, no lower extremity edema Had COVID recently and has noticed wheezing in the morning when he gets up. This resolves after some time Update 07/2024: Feels okay overall; his states that he is more short of breath when he climbs stairs. No chest pain. No orthopnea, paroxysmal external dyspnea, or lower extremity edema. Denies palpitations. Blood pressure has been improved after initiation of Norvasc. Cardiology ROS: Review of Systems Cardiovascular: Positive for dyspnea on exertion. All other systems reviewed and are negative. Past Medical History He has a past medical history of Coronary artery disease, Hyperlipidemia, Hypertension, and Myocardial infarction ([facility]). Surgical History He has a past surgical history that includes Cardiac catheterization and Coronary stent placement. Social History He reports that he has never smoked. He has never used smokeless tobacco. He reports current alcohol use. No history on file for drug use. Family History Family History Problem Relation Name Age of Onset Dementia Mother Diabetes Father Heart attack Other Coronary artery disease Other Allergies Rosuvastatin Medications Current Outpatient Medications: amLODIPine (Norvasc) 5 mg tablet, Take 1 tablet (5 mg) by mouth once daily as directed., Disp: 90 tablet, Rfl: 3 aspirin 81 mg EC tablet, Take 1 tablet every day by oral route., Disp: , Rfl: atorvastatin (Lipitor) 40 mg tablet, Take 40 mg by mouth in the morning., Disp: , Rfl: ezetimibe (Zetia) 10 mg tablet, Take 1 tablet (10 mg) by mouth once daily as directed., Disp: 90 tablet, Rfl: 3 lisinopril 20 mg tablet, Take 1 tablet (20 mg) by mouth in the morning., Disp: 90 tablet, Rfl: 3 metoprolol tartrate (Lopressor) 25 mg tablet, Take 1 tablet (25 mg) by mouth two times daily., Disp: 180 tablet, Rfl: 3 rosuvastatin (Crestor) 40 mg tablet, Take 1 tablet (40 mg) by mouth at bedtime., Disp: 90 tablet, Rfl: 3 Last Recorded Vitals BP 145/77 (BP Location: Right arm, Patient Position: Sitting) Pulse 91 Ht 1.727 m (5' 8 ) Wt 103 kg (228 lb) SpO2 96% BMI 34.67 kg/m?? Physical Examination: GENERAL: alert and oriented x3, well developed, in no acute distress. HEAD: atraumatic, normocephalic. EYES: TERRY, EOMI. NECK: trachea midline, no JVD present, no carotid bruits present. CARDIAC: S1, S2 present. RRR. No murmur, rubs, or gallops. RESPIRATORY: CTAB, no increased effort of breathing, no rales, rhonchi, or wheezing. ABDOMEN: soft, nontender, nondistended. EXTREMITIES: no lower extremity edema, peripheral pulses are 2+ bilaterally. No rash/skin discoloration present. NEURO: strength/sensation equal and symmetric in bilateral upper and lower extremities. PSYCH: appropriate mood, affect, and judgement. Investigations: Imaging and other tests Coronary angiography: 04/20/2008 Acute coronary syndrome Single-vessel coronary artery disease Successful angioplasty of drug-eluting stent placement in right coronary artery Normal right common femoral artery 02/01/2022 WBC 7.5, Hgb 14.1, Hct 41.2, platelets 261 Sodium 140, potassium 4, Chloride 104, BUN 13, SCr 1.15, eGFR >60%, AST 17, ALT 32 Cholesterol 145, HDL 48, TG 150, LDL 67 Labs 08/11/2020: CBC unremarkable, creatinine 1.16, BUN 16, K4.1, GFR greater than 60 Lipids: Cholesterol 147, HDL 39, trig 236, LDL 60 Lab 12/19/2022: Electrolytes, serum creatinine normal Cholesterol 151, LDL 70.8, HDL 44 Echocardiogram 06/26/2024: Global left ventricular systolic function is normal; EF 55 to 60% Normal right ventricular size and systolic function No significant valvular dysfunction Normal diastolic function Normal right-sided pressures Assessment: Coronary artery disease: History of prior PCI/stent placement Dyslipidemia Hypertension - Poorly controlled 'Wheezing' after recent COVID Plan: Continue optimal medical therapy for coronary artery disease including aspirin, moderate intensity statin, a beta-eulalia and an angiotensin-converting enzyme inhibitor His blood pressure is still poorly controlled; we will switch metoprolol tartrate to Coreg 25 mg p.o. twice daily Given the patient's worsening exertional shortness of breath, his history of coronary artery disease, and the need for clearance prior to driving, I have recommended a stress test; we will schedule him for an exercise treadmill Cardiolite stress test. If he is unable to exercise, this will be switched to a Lexiscan stress test. Return to clinic in 6 months or sooner should problems arise Antoine Steven MD, MPH, FACC, [facility], [facility] Interventional Cardiology Pager Email: [email or web address] documented in this encounter Plan of Treatment Upcoming Encounters Date Type Department Care Team (Late st Contact Info) Description 08/13/2024 12:30 PM EDT Hospital Encounter [facility] Heart formerly [facility] [address] [place] [address] Antoine Steven MD [address] [place] [address] Abnormal stress test 08/13/2024 12:30 PM EDT - 08/13/2024 1:30 PM EDT Surgery [facility] Heart formerly [facility] V[facility] [address] [place] [id number] Antoine Steven MD [address] [place] [address] Coronary angiography Scheduled Orders Name Type Priority Associated Diagnoses Orde r Schedule Treadmill Stress Myocardial Perfusion Imaging Cardiac Services Routine Coronary artery disease, unspecified vessel or lesion type, unspecified whether angina present, unspecified whether [place]sh[place] or transplanted heart MCMAHON (dyspnea on exertion) Expected: 07/23/2024 (Approximate), Expires: 07/23/2026 documented as of this encounter Visit Diagnoses Diagnosis Coronary artery disease, unspecified vessel or lesion type, unspecified whether angina present, unspecified whether [place]sh[place] or transplanted heart- Primary MCMAHON (dyspnea on exertion) Other dyspnea and respiratory abnormality Essential hypertension Unspecified essential hypertension Abnormal stress test- Primary Other nonspecific abnormal cardiovascular system function study Abnormal stress test Other nonspecific abnormal cardiovascular system function study documented in this encounter Care Teams 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
--- OUTSIDE RECORDS SUMMARY | 2024-07-28 13:21 | XMS_ITS | Encounter Summary ---
Author Organization [facility] Address [address] [place] [address] Care Team Providers Care Barrel Cap Setter Name Role Phone Chris Villanueva MD Primary Care Provider [phone] Encounter Details Date Type Department Care Team (Late st Contact Info) Description 07/25/2024 Orders Only [facility] [address] [place] [address] Kathy Garcia RN Coronary atherosclerosis (Primary Dx) Social History Tobacco Use Types Packs/Day Years [...] on file documented as of this encounter Plan of Treatment Upcoming Encounters Date Type Department Care Team (Late st Contact Info) Description 08/13/2024 12:30 PM EDT Hospital Encounter [facility] [address] [place] [address] Antoine Steven MD [address] [facility] [address] [facility] [place] [phone] Abnormal stress test 08/13/2024 12:30 PM EDT - 08/13/2024 1:30 PM EDT Surgery [facility] [address] [place] [phone] Antoine Steven MD [address] [facility] [address] [place] [address] Coronary angiography Scheduled Orders Name Type Priority Associated Diagnoses Orde r Schedule CBC Lab Routine Coronary atherosclerosis Expected: 07/25/2024 (Approximate), Expires: 07/25/2025 Basic metabolic panel Lab Routine Coronary atherosclerosis Expected: 07/25/2024 (Approximate), Expires: 07/25/2025 documented as of this encounter Visit Diagnoses Diagnosis Abnormal stress test- Primary Other nonspecific abnormal cardiovascular system function study Coronary atherosclerosis- Primary Coronary atherosclerosis of unspecified type of vessel, [place] or graft Abnormal stress test Other nonspecific abnormal cardiovascular system function study documented in this encounter Care Teams Barrel Cap Setter Relationship Specialty Start Date End Date Chris Villanueva MD [address] [place] [address] PCP - General 10/30/22 documented as of this encounter
--- OUTSIDE RECORDS SUMMARY | 2024-07-28 13:21 | XMS_ITS | Clinical Summary ---
Author Organization [facility] Address [address] [place] [address] Care Team Providers Care Booster Assembler Name Role Phone Chris Villanueva MD Primary Care Provider [phone] Allergies Active Allergy Reactions Criticality Noted Date Comments Rosuvastatin 04/25/2023 cramping Medications Medication Sig Dispensed Refills Start Date End Date Status aspirin 81 mg EC tablet Take 1 tablet every day by oral route. Active atorvastatin (Lipitor) 40 mg tablet Take 40 mg by mouth in the morning. Active lisinopril 20 mg tabletIndications:Es sential hypertension Take 1 tablet (20 mg) by mouth in the morning. 90 tablet 3 05/06/2024 Active rosuvastatin (Crestor) 40 mg tabletIndications:Hy perlipidemia, unspecified hyperlipidemia type Take 1 tablet (40 mg) by mouth at bedtime. 90 tablet 3 05/06/2024 Active metoprolol tartrate (Lopressor) 25 mg tabletIndications:Es sential hypertension Take 1 tablet (25 mg) by mouth two times daily. 180 tablet 3 05/06/2024 Active amLODIPine (Norvasc) 5 mg tabletIndications:Es sential hypertension Take 1 tablet (5 mg) by mouth once daily as directed. 90 tablet 3 06/04/2024 06/04/2025 Active ezetimibe (Zetia) 10 mg tabletIndications:Hy perlipidemia, unspecified hyperlipidemia type Take 1 tablet (10 mg) by mouth once daily as directed. 90 tablet 3 06/25/2024 Active carvedilol (Coreg) 25 mg tabletIndications:Co ronary artery disease, unspecified vessel or lesion type, unspecified whether angina present, unspecified whether [place] or transplanted heart Take 1 tablet (25 mg) by mouth with breakfast and with evening meal. STOP METOPROLOL 180 tablet 3 07/23/2024 07/23/2025 Active Active Problems Problem Noted Date Diagnosed Date Abnormal stress test 07/25/2024 Tinnitus 05/14/2024 Depression screen 01/31/2023 04/25/2023 Dyslipidemia 01/31/2023 04/25/2023 Malaise and fatigue 11/03/2013 Palpitations 03/27/2012 Benign prostatic hyperplasia 03/06/2012 Coronary atherosclerosis 03/06/2012 Essential hypertension 03/06/2012 Kidney stone 03/06/2012 Old myocardial infarction 03/06/2012 Sleep apnea 03/06/2012 Type 1 diabetes mellitus 03/06/2012 Encounters Date Type Department Care Team Description 07/28/2024 Orders Only [address] [address] ProviderParis MD 07/25/2024 Orders Only [facility] Vascular Lab [address] [place] [address] Kathy Garcia RN Coronary atherosclerosis (Primary Dx) 07/25/2024 Orders Only [address] [address] Anita Gray MA Abnormal stress test; Dyspnea, unspecified type; Encounter for pre-operative examination; Abnormal findings on diagnostic imaging of heart and coronary circulation 07/23/2024 11:00 AM EDT Office Visit [address] [place] [address] Antoine Steven MD Coronary artery disease, unspecified vessel or lesion type, unspecified whether angina present, unspecified whether [place] or transplanted heart (Primary Dx); MCMAHON (dyspnea on exertion); Essential hypertension 06/25/[address] [address] Anita Gray MA Hyperlipidemia, unspecified hyperlipidemia type 06/04/2024 1:00 PM EDT Office Visit [place] [address] [facility] [place] [address] Levar Peña CNP Coronary artery disease involving [place] coronary artery of [place] heart without angina pectoris (Primary Dx); Essential hypertension; Mixed hyperlipidemia; MCMAHON (dyspnea on exertion); Coronary artery disease, unspecified vessel or lesion type, unspecified whether angina present, unspecified whether [place] or transplanted heart 05/14/2024 1:00 PM EDT Office Visit [facility] [address] [place] [address] Levar Peña CNP Coronary artery disease involving [place] coronary artery of [place] heart without angina pectoris (Primary Dx); Dyspnea on exertion; Essential hypertension; Mixed hyperlipidemia 05/06/2024 Refill [facility] [address] [place] [address] Nicole Kenney MA Essential hypertension; Hyperlipidemia, unspecified hyperlipidemia type from Last 3 Months Family History Medical History Relation Name Comments Diabetes Father Dementia Mother Coronary artery disease Other Heart attack Other Relation Name Status Comments Brother Alive Father Mother Other Sister Alive Social History Tobacco Use Types Packs/Day Years Used Date Smoking Tobacco: Never Smokeless Tobacco: Never Tobacco Cessation:Counseling Given: Not Answered Alcohol Use Standard Drinks/Week Comments Yes 0 [...] on file Sexual Orientation Not on file Last Filed Vital Signs Vital Sign Reading [...] Mass Index 34.67 07/23/2024 11:00 AM EDT Plan of Treatment Upcoming Encounters Date Type Department Care Team (Late st Contact Info) Description 08/13/2024 12:30 PM EDT Hospital Encounter [facility] [place] [facility] [address] [place] [address] Antoine Steven MD [address] [place] [address] Abnormal stress test 08/13/2024 12:30 PM EDT - 08/13/2024 1:30 PM EDT Surgery [facility] [place] [facility] [address] [place] [address] Antoine Steven MD [address] [place] [address] Coronary angiography Health Maintenance Due Date Last Done Comments CT Colonography 1950 Colonoscopy 1950 Colorectal Cancer Screening 1950 Diabetes: Hemoglobin A1C 1950 FIT-DNA 1950 FIT 1950 FOBT 1950 Medicare Annual Wellness (AWV) 1950 Sigmoidoscopy 1950 Diabetes: Retinopathy Screening 10/28/1959 Depression Screening 1961 Diabetes: Urine Protein Screening 1968 Adult Tetanus 10/28/1971 Fall Risk Screening 2014 COVID-19 Vaccine ( season) 2023 07/22/2021, 12/16/2020, 05/18/2020, Additional history exists Influenza Vaccine (Season Ended) 2024 09/28/2022, 11/20/2019, 11/07/2019, Additional history exists Zoster Vaccines Completed 01/16/2020, 10/20, 11/29/2016 Pneumococcal Vaccine: 65+ Years Completed 09/28/2022, 06/10/2016, 01/01/2015 HIB Vaccines Aged Out No longer eligi ble based on patient's age to complete this topic HPV Vaccines Aged Out No longer eligi ble based on patient's age to complete this topic IPV Vaccines Aged Out No longer eligi ble based on patient's age to complete this topic Meningococcal B Vaccine Aged Out No l onger eligible based on patient's age to complete this topic Meningococcal Vaccine Aged Out No hector cathi eligible based on patient's age to complete this topic Rotavirus Vaccines Aged Out No longer eligible based on patient's age to complete this topic Procedures Procedure Name Priority Date/Time Associated Diagnosis Comments TREADMILL STRESS MYOCARDIAL PERFUSION IMAGING Routine 07/24/2024 8:40 AM EDT from Last 3 Months Results * Treadmill Stress Myocardial Perfusion Imaging (07/24/2024 8:40 AM EDT) Anatomical Region Laterality Modality Other Historical Provider CV STRESS PROCEDU RES from Last 3 Months Care Teams Booster Assembler Relationship Specialty Start Date End Date Chris Villanueva MD [address] [place] [address] PCP - General 10/30/22
--- OUTSIDE RECORDS SUMMARY | 2024-07-28 13:21 | XMS_ITS | Encounter Summary ---
Author Organization [facility] Address [address] [place] [address] Care Team Providers Care Pst Manager Name Role Phone Chris Villanueva MD Primary Care Provider Encounter Details Date Type Department Care Team (Late Contact Info) Description 07/28/2024 Orders Only [facility] Heart [facility] [address] [place] [address] Provider, MD Paris [address] [place] [address] Social History Tobacco Use Types Packs/Day Years [...] Description 08/13/2024 12:30 PM EDT Hospital Encounter [facility] Heart and Vascular Center Vascular Lab [address] [place] [address] Antoine Steven MD [address] [facility] [address] [facility] [place] [address] Abnormal stress test 08/13/2024 12:30 PM EDT - 08/13/2024 1:30 PM EDT Surgery [facility] Vascular Lab [address] [place] [address] Antoine Steven MD [address] [place] [address] [facility] [place] [address] Coronary angiography documented as of this encounter Procedures Procedure Name Priority Date/Time Associated Diagnosis Comments TREADMILL STRESS MYOCARDIAL PERFUSION IMAGING Routine 07/24/2024 8:40 AM EDT documented in this encounter Results * Treadmill Stress Myocardial Perfusion Imaging (07/24/2024 8:40 AM EDT) Anatomical Region Laterality Modality Other Historical Provider CV STRESS PROCEDU RES documented in this encounter Visit Diagnoses Not on filedocumented in this encounter Care Teams Pst Manager Relationship Specialty Start Date End Date Chris Villanueva MD [address] [place] [address] PCP - General 10/30/22 documented as of this encounter
--- OUTSIDE RECORDS SUMMARY | 2024-07-28 13:21 | XMS_ITS | Encounter Summary ---
Author Organization [facility] Address [address] [place] [address] Care Team Providers Care Electrician Helper Automotive Name Role Phone Chris Villanueva MD Primary Care Provider [phone] Encounter Details Date Type Department Care Team ([facility] Contact Info) Description 07/24/2024 Clinisync Result Encounter [facility] External Department Unsolicited Provider, Generic External Data Social History Tobacco Use Types Packs/Day Years Used Date Smoking Tobacco: Never Sex and Gender Information Value Date Recorded Sex Assigned at Not on file Legal Sex Male 6:37 PM EDT Gender Identity Not on file Sexual Orientation Not on file documented as of this encounter Plan of Treatment Upcoming Encounters Date Type Department Care Team (Late Contact Info) Description 09/03/2024 7:15 AM EDT Office Visit [facility] [address] [place] [address] Chris Villanueva MD [address] [place] [address] documented as of this encounter Procedures Procedure Name Priority Date/Time Associated Diagnosis Comments NM DENA PERF SPECT REST STR 07/24/2024 1:52 PM EDT documented in this encounter Results * NM DENA PERF SPECT REST STR (07/24/2024 1:52 PM EDT) Anatomical Region Laterality Modality Other 07/24/2024 1:52 PM EDT Narrative 07/24/2024 1:53 PM EDT The [address] [address] Nuclear Medicine Report Signed Patient: LAZARO JAMES MR#: [id number] : 1950 Acct:[id number] Age/Sex: 73 / M ADM Date: 07/24/24 Loc: [place] Attending Dr: Tierra Albright M.D. Ordering Physician: Tierra Albright M.D. Date of Service: 07/24/24 Procedure(s): NM dena perf SPECT rest str Accession Number(s): [id number] cc: Tierra Albright M.D.; Chris Villanueva M.D. Patient Name: LAZARO JAMES MR#: [id number] : 1950 Exam Date: 07/24/2024 Ordering Doctor: DR TIERRA ALBRIGHT M.D. RADIOLOGY REPORT PROCEDURE: NM DENA PERF SPECT REST STR COMPARISON: None. INDICATIONS: CAD, DYSPNEA ON EXERTION TECHNIQUE: Exam Description: Stress/Rest one day protocol gated SPECT Rest Imagin.0 mCi Tc-99m Cardiolite IV on 07/24/2024 Stress Imaging 28.5 mCi Tc-99m Cardiolite IV on 07/24/2024 Exercise Protocol: Haris Heart Rate (bpm): Rest: 74 Max: 127 PMHR: 86 Blood Pressure: Rest: 131/74 Max: 150/80 Exercise Time: Minutes: 6 Seconds: 25 Stage Reached: Stage: 2 Mets 7.0 Symptoms: SOB Rest and peak stress ECG findings were pending and the exercise portion of the study was pending per attending physician [facility] . For more details please see separate cardiac stress test report. FINDINGS: QUALITY OF STUDY: Good PERFUSION DEFECT: LOCATION: Inferolateral SIZE: small SEVERITY: mild TYPE: Reversible WALL MOTION: Normal LV SIZE: 79 mL. TID / TCD: 1.0 LVEF: Calculated EF 67%. SUMMARY: Abnormal Myocardial perfusion imaging study CONCLUSION: Abnormal myocardial nuclear perfusion stress test, evidence of small defect of mild ischemia at inferolateral wall Normal left ventricle systolic function, EF 67% No transient ischemic dilatation, TID 1.0 EKG portion of stress test is reported separately Dictated by: Blanca Stubbs MD on 07/24/2024 at 13:45 Approved by: Blanca Stubbs MD on 07/24/2024 at 13:52 Dictated By: Blanca Stubbs M.D. Signed By: 07/24/24 1353 DD/ 1352 TD/TT: Epic Trainer: Procedure Note Radiology, Radiologist, - 07/24/2024 [place] [address] Nuclear Medicine Report Signed Patient: LAZARO JAMESMR#: [id number] : 1950Acct:[id number] Age/Sex: 73 / MADM Date: 07/24/24 Loc: NM Attending Dr: Tierra Albright M.D. Ordering Physician: Tierra Albright M.D. Date of Service: 07/24/24 Procedure(s): NM dena perf SPECT rest str Accession Number(s): [id number] cc: Tierra Albright M.D.; Chris Villanueva M.D. Patient Name: LAZARO JAMES MR#: [id number] : 1950 Exam Date: 07/24/2024 Ordering Doctor: DR TIERRA ALBRIGHT M.D. RADIOLOGY REPORT PROCEDURE: NM DENA PERF SPECT REST STR COMPARISON: None. INDICATIONS: CAD, DYSPNEA ON EXERTION TECHNIQUE: Exam Description: Stress/Rest one day protocol gated SPECT Rest Imagin.0 mCi Tc-99m Cardiolite IV on 07/24/2024 Stress Imaging 28.5 mCi Tc-99m Cardiolite IV on 07/24/2024 Exercise Protocol: Haris Heart Rate (bpm): Rest: 74 Max: 127 PMHR: 86 Blood Pressure: Rest: 131/74 Max: 150/80 Exercise Time: Minutes: 6 Seconds: 25 Stage Reached: Stage: 2 Mets 7.0 Symptoms: SOB Rest and peak stress ECG findings were pending and the exercise portion ofthe study was pending per attending physician [facility] . For more details pleasesee separate cardiac stress test report. FINDINGS: QUALITY OF STUDY: Good PERFUSION DEFECT: LOCATION: Inferolateral SIZE: small SEVERITY: mild TYPE: Reversible WALL MOTION: Normal LV SIZE: 79 mL. TID / TCD: 1.0 LVEF: Calculated EF 67%. SUMMARY: Abnormal Myocardial perfusion imaging study CONCLUSION: Abnormal myocardial nuclear perfusion stress test, evidence of smalldefect of mild ischemia at inferolateral wall Normal left ventricle systolic function, EF 67% No transient ischemic dilatation, TID 1.0 EKG portion of stress test is reported separately Dictated by: Blanca Stubbs MD on 07/24/2024 at 13:45 Approved by: Blanca Stubbs MD on 07/24/2024 at 13:52 Dictated By: Blanca Stubbs M.D. Signed By:07/24/24 1353 DD/ 1352 TD/TT: Epic Trainer: us Generic External Data Provider [facility] Final Result documented in this encounter Visit Diagnoses Not on filedocumented in this encounter Care Teams Electrician Helper Automotive Relationship Specialty Start Date End Date Chris Villanueva MD PCP - General Family Medicine 01/31/23 documented as of this encounter
--- OUTSIDE RECORDS SUMMARY | 2024-07-28 13:21 | XMS_ITS | Referral Summary ---
Author Organization [facility] Address [address] [place] [address] Care Team Providers Care Plastic Parts Designer Name Role Phone Chris Villanueva MD Primary Care Provider [phone] Encounters Date Type Department Care Team Description 07/28/2024 Orders Only [address] [address] Paris Samuels MD 07/25/2024 Orders Only [facility] Heart and [facility] Vascular Lab [address] [place] [address] Kathy Garcia RN Coronary atherosclerosis (Primary Dx) 07/25/2024 Orders Only [address] [address] Anita Gray MA Abnormal stress test; Dyspnea, unspecified type; Encounter for pre-operative examination; Abnormal findings on diagnostic imaging of heart and coronary circulation 07/23/2024 11:00 AM EDT Office Visit [address] [address] Antoine Steven MD Coronary artery disease, unspecified vessel or lesion type, unspecified whether angina present, unspecified whether [place] or transplanted heart (Primary Dx); MCMAHON (dyspnea on exertion); Essential hypertension 06/25/[address] [address] Anita Gray MA Hyperlipidemia, unspecified hyperlipidemia type 06/04/2024 1:00 PM EDT Office Visit [address] [address] MarianaLevar win CNP Coronary artery disease involving [place] coronary artery of [place] heart without angina pectoris (Primary Dx); Essential hypertension; Mixed hyperlipidemia; MCMAHON (dyspnea on exertion); Coronary artery disease, unspecified vessel or lesion type, unspecified whether angina present, unspecified whether [place] or transplanted heart 05/14/2024 1:00 PM EDT Office Visit [facility] [address] [place] [facility] [address] Mariana MINESH Cristobal Coronary artery disease involving [place] coronary artery of [place] heart without angina pectoris (Primary Dx); Dyspnea on exertion; Essential hypertension; Mixed hyperlipidemia 05/06/2024 Refill [facility] [address] [place] [facility] [address] Nicole Kenney MA Essential hypertension; Hyperlipidemia, unspecified hyperlipidemia type from Last 3 Months Allergies Active Allergy Reactions Criticality Noted Date [...] type, unspecified whether angina present, unspecified whether [place] or transplanted heart Take 1 tablet (25 [...] apnea 03/06/2012 Type 1 diabetes mellitus 03/06/2012 Social History Tobacco Use Types Packs/Day Years [...] Description 08/13/2024 12:30 PM EDT Hospital Encounter [facility] [place] [facility] [address] [place] [address] Antoine Steven MD [address] [place] [address] Abnormal stress test 08/13/2024 12:30 PM EDT - 08/13/2024 1:30 PM EDT Surgery [facility] [place] [facility] [address] [place] [address] Antoine Steven MD [address] [place] [address] Coronary angiography Procedures Procedure Name Priority Date/Time Associated Diagnosis Comments TREADMILL STRESS MYOCARDIAL PERFUSION IMAGING Routine 07/24/2024 8:40 AM EDT from Last 3 Months Results * Treadmill Stress Myocardial Perfusion Imaging (07/24/2024 8:40 AM EDT) Anatomical Region Laterality Modality Other Historical Provider CV STRESS PROCEDU RES from Last 3 Months Care Teams Plastic Parts Designer Relationship Specialty Start Date End Date Chris Villanueva MD [address] [place] [address] PCP - General 10/30/22
--- OUTSIDE RECORDS SUMMARY | 2024-07-28 13:21 | XMS_ITS | Encounter Summary ---
Author Organization [facility] Address [address] [place] [address] Care Team Providers Care Glass Deposition Tender Name Role Phone Chris Villanueva MD Primary Care Provider [phone] Reason for Visit * Reason Comments Med Change Request Encounter Details Date Type Department Care Team (Late st Contact Info) Description 02/19/2023 Refill [facility] Heart at [facility] [address] [place] [address] Antoine Steven MD [address] [place] [address] Hyperlipidemia, unspecified hyperlipidemia type Social History Tobacco Use Types Packs/Day Years Used Date Smoking Tobacco: Never Smokeless Tobacco: Never Alcohol Use Standard Drinks/Week Comments Yes 0 (1 standard drink = 0.6 oz pur e alcohol) occasional Sex and Gender Information Value Date Recorded Sex Assigned at Not on file Gender Identity Not on file Sexual Orientation Not on file documented as of this encounter Plan of Treatment Upcoming Encounters Date Type Department Care Team (Late st Contact Info) Description 08/13/2024 12:30 PM EDT Hospital Encounter [facility] Vascular Lab [address] [place] [address] Antoine Stveen MD [address] [place] [address] Abnormal stress test 08/13/2024 12:30 PM EDT - 08/13/2024 1:30 PM EDT Surgery [facility] [address] [facility] [place] [address] Antoine Steven MD [address] [facility] [address] [facility] [place] [address] Coronary angiography documented as of this encounter Visit Diagnoses Diagnosis Hyperlipidemia, unspecified hyperlipidemia type Abnormal stress test- Primary Other nonspecific abnormal cardiovascular system function study Abnormal stress test Other nonspecific abnormal cardiovascular system function study documented in this encounter Care Teams Glass Deposition Tender Relationship Specialty Start Date End Date Chris Villanueva MD [address] [place] [address] PCP - General 10/30/22 documented as of this encounter
--- OUTSIDE RECORDS SUMMARY | 2024-07-28 13:21 | XMS_ITS | Clinical Summary ---
Author Organization [facility] Address [address] [place] [address] Care Team Providers Care Manager Restaurant Name Role Phone Chris Villanueva MD Primary Care Provider [phone] Allergies No known active allergies Medications aspirin 81 MG EC tablet Take 81 mg by mouth in the morning. Active atorvastatin (Lipitor) 40 MG tablet Take 40 mg by mouth in the morning. Active lisinopril 10 MG tablet Take 10 mg by mouth in the morning. Active metoprolol tartrate (Lopressor) 25 MG tablet Take 25 mg by mouth in the morning and 25 mg before bedtime. Active Active Problems Problem Noted Date Diagnosed Date Benign hypertension 01/31/2023 Coronary atherosclerosis of [place] coronary latisha ry 01/31/2023 Depression screen 01/31/2023 Dyslipidemia 01/31/2023 Encounters Date Type Department Care Team Description 07/25/2024 Orders Only [facility] [address] [place] [address] Antoine Albright MD 07/24/2024 Clinisync Result Encounter [facility] External Department Unsolicited Provider, Generic External Data 06/25/2024 Clinisync Result Encounter [facility] External Department Unsolicited Provider, Generic External Data 05/14/2024 Clinisync Result Encounter [facility] External Department Unsolicited Provider, Generic External Data from Last 3 Months Family History Medical History Relation Name Comments Coronary artery disease Father Relation Name Status Comments Father Social History Tobacco Use Types Packs/Day Years Used Date Smoking Tobacco: Never Tobacco Cessation:Counseling Given: Not Answered Sex and Gender Information Value Date Recorded Sex Assigned at Not on file Legal Sex Male 6:37 PM EDT Gender Identity Not on file Sexual Orientation Not on file Plan of Treatment Upcoming Encounters Date Type Department Care Team (Late st Contact Info) Description 09/03/2024 7:15 AM EDT Office Visit [facility] [address] [place] [address] Chris Villanueva MD [address] [place] [address] Health Maintenance Due Date Last Done Comments CT Colonography 1950 Colonoscopy 1950 Colorectal Cancer Screening 1950 FIT-DNA 1950 FIT 1950 FOBT 1950 Medicare Annual Wellness (AWV) 1950 Sigmoidoscopy 1950 Influenza Vaccine (Season Ended) 2024 09/28/2022, 11/07/2019, 10/19/2018, Additional history exists Pneumococcal Vaccine: 65+ Years Completed 09/28/2022, 06/10/2016, 01/01/2015 Procedures Procedure Name Priority Date/Time Associated Diagnosis Comments STRESS TEST Routine 07/25/2024 9:55 AM EDT NM MEÑO PERF SPECT REST STR 07/24/2024 1:52 PM EDT CA ECHO DOPPLER COMPLETE 06/25/2024 6:10 PM EDT ALL BASIC METABOLIC PANEL Routine 05/14/2024 1:54 PM EDT from Last 3 Months Results * STRESS TEST (07/25/2024 9:55 AM EDT) Anatomical Region Laterality Modality Radiographic Josi ging Ehab Maurizio GLOVER IMG XR PROCEDURES Final Result * NM MEÑO PERF SPECT REST STR (07/24/2024 1:52 PM EDT) Anatomical Region Laterality Modality Other 07/24/2024 1:52 PM EDT Narrative 07/24/2024 1:53 PM EDT The [address] [address] Nuclear Medicine Report Signed Patient: FUAD JAMES MR#: [id number] : 1950 Acct:[id number] Age/Sex: 73 / M ADM Date: 07/24/24 Loc: NM Attending Dr: Antoine Albright M.D. Ordering Physician: Antoine Albright M.D. Date of Service: 07/24/24 Procedure(s): NM meño perf SPECT rest str Accession Number(s): [id number] cc: Antoine Albright M.D.; Chris Villanueva M.D. Patient Name: FUAD JAMES MR#: [id number] : 1950 Exam Date: 07/24/2024 Ordering Doctor: DR ANTOINE ALBRIGHT M.D. RADIOLOGY REPORT PROCEDURE: NM MEÑO PERF SPECT REST STR COMPARISON: None. INDICATIONS: [...] the study was pending per attending physician [facility] . For more details please see [...] Signed By: 07/24/24 1353 DD/ 1352 TD/TT: Supplier Quality Specialist: Procedure Note Radiology, Radiologist, - 07/24/2024 [place] [address] Nuclear Medicine Report Signed Patient: FUAD JAMESMR#: [id number] : 1950Acct:[id number] Age/Sex: 73 / MADM Date: 07/24/24 Loc: NM Attending Dr: Antoine Albright M.D. Ordering Physician: Antoine Albright M.D. Date of Service: 07/24/24 Procedure(s): NM meño perf SPECT rest str Accession Number(s): [id number] cc: Antoine Albright M.D.; Chris Villanueva M.D. Patient Name: FUAD JAMES MR#: [id number] : 1950 Exam Date: 07/24/2024 Ordering Doctor: DR ANTOINE ALBRIGHT M.D. RADIOLOGY REPORT PROCEDURE: NM MEÑO PERF SPECT REST STR COMPARISON: None. INDICATIONS: [...] ofthe study was pending per attending physician [facility] . For more details pleasesee separate [...] M.D. Signed By:07/24/24 1353 DD/ 1352 TD/TT: Supplier Quality Specialist: us Generic External Data Provider [facility] Final Result * CA ECHO DOPPLER COMPLETE (06/25/2024 6:10 PM EDT) Anatomical Region Laterality Modality Other 06/25/2024 6:10 PM EDT Narrative 06/25/2024 6:11 [place] [address] Cardiology Report Signed Patient: FUAD JAMES MR#: [id number] : 1950 Acct:[id number] Age/Sex: 73 / M ADM Date: 06/25/24 Loc: CARD Attending Dr: Levar Young NP Ordering Physician: Levar Young NP Date of Service: 06/25/24 Procedure(s): CA echo doppler complete Accession Number(s): [id number] cc: Chris Villanueva M.D.; Levar Young NP Patient Name: FUAD JAMES MR#: [id number] : 1950 Exam Date: 06/25/2024 Ordering Doctor: LEVAR YOUNG ECHOCARDIOGRAM REPORT PROCEDURE: CA ECHO DOPPLER COMPLETE INDICATIONS: Dyspnea on exertion, hypertension, coronary artery disease, [place], cardiac stents x 4 COMPARISON: None. DESCRIPTION: [...] HALL Signed By: 06/25/241810 DD/ 09 TD/TT: Supplier Quality Specialist: Procedure Note Radiology, Radiologist, MD - 06/25/2024 [place] [address] Cardiology Report Signed Patient: FUAD JAMESMR#: [id number] : 1950Acct:[id number] Age/Sex: 73 / MADM Date: 06/25/24 Loc: CARD Attending Dr: Levra Young NP Ordering Physician: Levar Young NP Date of Service: 06/25/24 Procedure(s): CA echo doppler complete Accession Number(s): [id number] cc: Chris Villanueva M.D.; Levar Young NP Patient Name: FUAD JAMES MR#: [id number] : 1950 Exam Date: 06/25/2024 Ordering Doctor: LEVAR YOUNG ECHOCARDIOGRAM REPORT PROCEDURE: CA ECHO DOPPLER COMPLETE INDICATIONS: Dyspnea on exertion, hypertension, coronary arterydisease, [place], cardiac stents x 4 COMPARISON: None. DESCRIPTION: COMPLETE ECHOCARDIOGRAM Real-time transthoracic echocardiography with 2D, M-mode, spectral and color flow Dopplerperformed. QUALITY: Technical quality was good. LEFT VENTRICLE: Normal chamber size. Borderline left ventricular hypertrophy. Normal systolic function. LV EF: Normal left ventricular ejection fraction, (>55%). DIASTOLIC: Normal diastolic function. ATRIAL SEPTUM: Visually appears intact. LEFT ATRIUM: Normal chamber size. RIGHT ATRIUM: Normal chamber size. RIGHT VENTRICLE: Normal chamber size. Normal right ventricularsystolic function. TRICUSPID VALVE: Normal mobility and thickness. No stenosis withtrivial regurgitation. No evidence of pulmonary hypertension. RVSP 34 mmHg MITRAL VALVE: Normal mobility and thickness. No evidence of mitralvalve stenosis. There is no mitral annular calcification. No mitralregurgitation. AORTIC VALVE: Normal trileaflet appearance. No visible sclerosis.Normal leaflet mobility. No evidence of aortic valve stenosis. No aortic regurgitation. AORTIC ROOT: Normal diameter and appearance, measuring 3.5 cm. PULMONIC VALVE: Normal thickness and mobility. No stenosis. No regurgitation. PERICARDIUM: No evidence of pericardial effusion. IVC: Collapses with inspirations. IVC is normal in size. PLEURA: CONCLUSION: 1. Normal left ventricular size and systolic function. LVEF is estimatedat 55 to 60%. 2. Normal right ventricular [...] at 18:10 Dictated By: MARI HALL Signed By:06/25/241810 DD/ 09 TD/TT: Supplier Quality Specialist: [facility] [place] Data Provider [facility] Final Result * ALL BASIC METABOLIC PANEL (05/14/2024 1:54 PM EDT) SODIUM 138 136 - 145 mmol/L TBH POTASSIUM 4.2 3.5 - 5.1 mmol/L TB[facility] CHLORIDE 106 98 - 107 mmol/L TBH CARBON DIOXIDE 26.2 21.0 - 32.0 mmol/L TB[facility] ANION GAP 10.0 TBH GLUCOSE 89 74 - 106 mg/dL TB[facility] BLOOD UREA NITROGEN 18.0 7.0 - 18.0 mg/dL TB[facility] CREATININE 1.18 0.70 - 1.30 mg/dL TBH TBH EGFR-AF YEMENI >60 >=60 mL/min/1.7 3m 2 TBH TBH EGFR-NON AF YEMENI >60 >=60 mL/min/1.7 3m 2 TBH BUN CREATININE RATIO 15.3 TBH CALCIUM 9.3 8.5 - 10.1 mg/dL [facility] 05/14/2024 1:54 PM EDT 05/14/2024 1:56 PM EDT Narrative [facility] - 05/14/2024 2:21 PM EDT us Generic External Data Provider [facility] F inal Result [facility] TB from Last 3 Months Insurance MEDICARE Care Teams Manager Restaurant Relationship Specialty Start Date End Date Chris Villanueva MD PCP - General Family Medicine 01/31/23
--- OUTSIDE RECORDS SUMMARY | 2024-07-28 13:21 | XMS_ITS | Encounter Summary ---
Author Organization [facility] Address [address] [place] [address] Care Team Providers Care Airborne And Air Delivery Specialist Name Role Phone Chris Villanueva MD Primary Care Provider [phone] Encounter Details Date Type Department Care Team (Late Contact Info) Description 07/25/2024 Orders Only [facility] [address] [place] [address] Antoine Steven MD [address] [facility] [address] [facility] [place] [address] Social History Tobacco Use Types Packs/Day Years [...] 09/03/2024 7:15 AM EDT Office Visit [facility] [address] [place] [address] Chris Villanueva MD [address] [place] [address] documented as of this encounter Procedures Procedure Name Priority Date/Time Associated Diagnosis Comments STRESS TEST Routine 07/25/2024 9:55 AM EDT documented in this encounter Results * STRESS TEST (07/25/2024 9:55 AM EDT) Anatomical Region Laterality Modality Radiographic Josi ging Ehab Maurizio GLOVER IMG XR PROCEDURES Final Result documented in this encounter Visit Diagnoses Not on filedocumented in this encounter Care Teams Airborne And Air Delivery Specialist Relationship Specialty Start Date End Date Chris Villanueva MD PCP - General Family Medicine 01/31/23 documented as of this encounter
--- OUTSIDE RECORDS SUMMARY | 2024-07-28 13:21 | XMS_ITS | Encounter Summary ---
Author Organization [facility] Address [address] [place] [address] Care Team Providers Care [place]. Senator Name Role Phone Chris Villanueva MD Primary Care Provider [phone] Encounter Details Date Type Department Care Team (Late st Contact Info) Description 07/25/2024 Orders Only [facility] Heart at [facility] [address] [place] [address] Anita Gray MA Abnormal stress test; Dyspnea, unspecified type; Encounter for pre-operative examination; Abnormal findings on diagnostic imaging of heart and coronary circulation Social History Tobacco Use Types Packs/Day Years [...] Description 08/13/2024 12:30 PM EDT Hospital Encounter [facility] Heart and Vascular Center Vascular Lab [address] [place] [address] Antoine Steven MD [address] [facility] [place] [address] Abnormal stress test 08/13/2024 12:30 PM EDT - 08/13/2024 1:30 PM EDT Surgery [facility] Heart and Vascular Center Vascular Lab [address] [place] [address] Antoine Steven MD [address] [place] [address] Coronary angiography Scheduled Orders Name Type Priority Associated Diagnoses Orde r Schedule CBC and differential Lab Routine Encounter for pre-operative examination Expected: 07/25/2024 (Approximate), Expires: 07/25/2025 documented as of this encounter Visit Diagnoses Diagnosis Abnormal stress test Other nonspecific abnormal cardiovascular system function study Dyspnea, unspecified type Encounter for pre-operative examination Abnormal findings on diagnostic imaging of heart and coronary circulation Abnormal stress test- Primary Other nonspecific abnormal cardiovascular system function study Abnormal stress test Other nonspecific abnormal cardiovascular system function study documented in this encounter Care Teams U.[place]. Senator Relationship Specialty Start Date End Date Chris Villanueva MD [address] [place] [address] PCP - General 10/30/22 documented as of this encounter
--- OUTSIDE RECORDS SUMMARY | 2024-07-28 13:21 | XMS_ITS | Encounter Summary ---
Author Organization [facility] Address [address] [place] [address] Care Team Providers Care Manager Department Name Role Phone Chris Villanueva MD Primary Care Provider [phone] Reason for Visit * Reason Comments Med Refill Encounter Details Date Type Department Care Team (Late st Contact Info) Description 06/23/2023 Refill [facility] at [facility] [address] [place] [address] Antoine Steven MD [address] [place] [address] Hyperlipidemia, unspecified hyperlipidemia type Social [...] Description 08/13/2024 12:30 PM EDT Hospital Encounter [facility] Heart and Vascular Center Vascular Lab [address] [place] [phone] Antoine Steven MD [address] [place] [address] Abnormal stress test 08/13/2024 12:30 PM EDT - 08/13/2024 1:30 PM EDT Surgery [facility] Heart and Vascular Center Vascular Lab [address] [place] [address] Antoine Steven MD [address] [facility] [address] [facility] [address] Coronary angiography documented as of this encounter Visit Diagnoses Diagnosis Hyperlipidemia, unspecified hyperlipidemia type Abnormal stress test- Primary Other nonspecific abnormal cardiovascular system function study Abnormal stress test Other nonspecific abnormal cardiovascular system function study documented in this encounter Care Teams Manager Department Relationship Specialty Start Date End Date Chris Villanueva MD [address] [place] [address] PCP - General 10/30/22 documented as of this encounter
--- OUTSIDE RECORDS SUMMARY | 2024-07-28 13:21 | XMS_ITS | Encounter Summary ---
Author Organization [facility] Address [address] [place] [address] Care Team Providers Care Roving Weight Gauger Name Role Phone Chris Villanueva MD Primary Care Provider [phone] Reason for Visit * Reason Comments Med Refill Encounter Details Date Type Department Care Team (Late st Contact Info) Description 12/27/2021 Refill [facility] Cardiology [address] [place] [address] Pamela Martínez CNP [address] [place] [address] Hyperlipidemia, unspecified hyperlipidemia type Social History Tobacco Use Types Packs/Day Years Used Date Smoking Tobacco: Never Assessed Sex and Gender Information Value Date Recorded Sex Assigned at Not on file Gender Identity Not on file Sexual Orientation Not on file documented as of this encounter Plan of Treatment Upcoming Encounters Date Type Department Care Team (Late st Contact Info) Description 08/13/2024 12:30 PM EDT Hospital Encounter [facility] Heart [facility] Vascular [place] [facility] [address] [place] [address] Antoine Steven MD [address] [place] [address] Abnormal stress test 08/13/2024 12:30 PM EDT - 08/13/2024 1:30 PM EDT Surgery [facility] Heart [facility] Vascular [place] V[facility] Lab [address] [facility] [place] [address] Antoine Steven MD [address] [place] [address] Coronary angiography documented as of this encounter Visit Diagnoses Diagnosis Hyperlipidemia, unspecified hyperlipidemia type Abnormal stress test- Primary Other nonspecific abnormal cardiovascular system function study Abnormal stress test Other nonspecific abnormal cardiovascular system function study documented in this encounter Care Teams Roving Weight Gauger Relationship Specialty Start Date End Date Chris Villanueva MD [address] [place] [address] PCP - General 10/30/22 documented as of this encounter
[2024-07-28 13:54] LABS: Basophils Absolute Auto 0.1 10^3/uL (0.0-0.1); Eosinophils Absolute Auto 0.1 10^3/uL (0.0-0.7); Eosinophils Percent Auto 1.8 % (0.9-7.0); Hematocrit 37.9 % (42.0-54.0); Immature Granulocytes Abs Auto 0.02 10^3/uL (0.00-0.03); Immature Granulocytes Pct Auto 0.3 % (0.0-0.5); Lymphocytes Absolute Auto 2.2 10^3/uL (1.2-3.8); Lymphocytes Percent Auto 30.6 % (20.5-60.0); Mean Corpuscular HGB Conc 34.3 g/dL (29.9-35.2); Mean Corpuscular Hemoglobin 28.1 pg (25.9-34.0); Mean Corpuscular Volume 81.9 fL (80.0-94.0); Mean Platelet Volume 10.2 fL (9.5-13.5); Monocytes Absolute Auto 0.6 10^3/uL (0.3-0.8); Neutrophils Absolute Auto 4.2 10^3/uL (1.4-6.5); Neutrophils Percent Auto 58.3 % (43.0-75.0); Platelet Count 234 10^3/uL (150-450); Red Blood Count 4.63 10^6/uL (4.70-6.10); Red Cell Distribution Width 12.3 % (11.0-15.0); White Blood Count 7.3 10^3/uL (4.0-11.0)
== END 2024-07-28 13:18 | disposition home or self-care (01) ==
LOC: LAB 13:19
PROVIDERS: PCP Family Medicine; Visit Provider Internal Medicine Interventional Cardiology
DX: Z01.812 Encounter for preprocedural laboratory examination (principal); Z01.818 Encounter for other preprocedural examination
CPT/HCPCS: 36415; 85025

== ENCOUNTER 2024-08-06 13:15 | Outpatient (OUT) | payer MEDICARE, SELFPAY ==
--- OUTSIDE RECORDS SUMMARY | 2024-08-06 13:20 | XMS_ITS | Encounter Summary ---
Author Organization [facility] Address [address] [place] [address] Care Team Providers Care Health And Safety Advisor Name Role Phone Chris Villanueva MD Primary Care Provider [phone] Encounter Details Date Type Department Care Team ([facility] Contact Info) Description 07/24/2024 Clinisync Result Encounter [...] 09/03/2024 7:15 AM EDT Office Visit [facility] [address] [place] [address] Chris Villanueva MD [address] [place] [address] documented as of this encounter Procedures Procedure Name Priority Date/Time Associated Diagnosis Comments NM DENA PERF SPECT REST STR 07/24/2024 1:52 PM EDT documented in this encounter Results * NM DENA PERF SPECT REST STR (07/24/2024 1:52 PM EDT) Anatomical Region Laterality Modality Other 07/24/2024 1:52 PM EDT Narrative 07/24/2024 1:53 PM EDT The [address] [address] Nuclear Medicine Report Signed Patient: LAZARO JAMES MR#: [id number] : 1950 Acct:[id number] Age/Sex: 73 / M ADM Date: 07/24/24 Loc: NM Attending Dr: Tierra Albright M.D. Ordering Physician: Tierra Albright M.D. Date of Service: 07/24/24 Procedure(s): NM dena perf SPECT rest str Accession Number(s): [id number] cc: Tierra Albright M.D.; Chris Villanueva M.D. Patient Name: LAZARO JAMES MR#: [id number] : 1950 Exam Date: 07/24/2024 Ordering Doctor: [...] the study was pending per attending physician [facility] . For more details please see [...] Signed By: 07/24/24 1353 DD/ 1352 TD/TT: Business Management Specialist: Procedure Note Radiology, Radiologist, - 07/24/2024 [place] [address] Nuclear Medicine Report Signed Patient: LAZARO JAMESMR#: [id number] : 1950Acct:[id number] Age/Sex: 73 / MADM Date: 07/24/24 Loc: NM Attending Dr: Tierra Albright M.D. Ordering Physician: Tierra Albright M.D. Date of Service: 07/24/24 Procedure(s): NM dena perf SPECT rest str Accession Number(s): [id number] cc: Tierra Albright M.D.; Chris Villanueva M.D. Patient Name: LAZARO JAMES MR#: [id number] : 1950 Exam Date: 07/24/2024 Ordering Doctor: [...] ofthe study was pending per attending physician [facility] . For more details pleasesee separate [...] M.D. Signed By:07/24/24 1353 DD/ 1352 TD/TT: Business Management Specialist: us Generic External Data Provider [facility] Final Result documented in this encounter Visit Diagnoses Not on filedocumented in this encounter Care Teams Health And Safety Advisor Relationship Specialty Start Date End Date Chris Villanueva MD PCP - General Family Medicine 01/31/23 documented as of this encounter
--- OUTSIDE RECORDS SUMMARY | 2024-08-06 13:20 | XMS_ITS | Encounter Summary ---
Author Organization [facility] Address [address] [place] [address] Care Team Providers Care Project Management Instructor Name Role Phone Chris Villanueva MD Primary Care Provider [phone] Encounter Details Date Type Department Care Team ([facility] Contact Info) Description 07/28/2024 Clinisync Result Encounter [facility] External Department Unsolicited [...] 09/03/2024 7:15 AM EDT [facility] Visit [facility] [address] [place] [address] Chris Villanueva MD [address] [place] [phone] documented as of this encounter Procedures Procedure Name Priority Date/Time Associated Diagnosis Comments ALL CBC WITH AUTO DIFF Routine 07/28/2024 1:32 PM EDT documented in this encounter Results * (ABNORMAL) ALL CBC WITH AUTO DIFF (07/28/2024 1:32 PM EDT) [facility] WBC 7.3 4.0 - 11.0 10 3/uL TBH TBH RBC 4.63(L) 4.70 - 6.10 10 6/uL TBH TBH HGB 13.0(L) 14.0 - 18.0 g/dL TBH TBH HCT 37.9(L) 42.0 - 54.0 % TBH TBH MCV 81.9 80.0 - 94.0 fL TBH TBH MCH 28.1 25.9 - 34.0 pg TBH TBH MCHC 34.3 29.9 - 35.2 g/dL TBH TBH RDW 12.3 11.0 - 15.0 % TBH TBH PLT 234 150 - 450 10 3/uL TBH TBH MPV 10.2 9.5 - 13.5 fL TBH NEUTROPHILS PERCENT AUTO 58.3 43.0 - 75.0 % TBH LYMPHOCYTES PERCENT AUTO 30.6 20.5 - 60.0 % TBH MONOCYTES PERCENT AUTO 8.0 1.7 - 12.0 % TBH TBH EO % 1.8 0.9 - 7.0 % TBH BASOPHILS PERCENT AUTO 1.0 0.2 - 2.0 % TBH IMMATURE GRANULOCYTES PCT AUTO 0.3 0.0 - 0.5 % TBH NEUTROPHILS ABSOLUTE AUTO 4.2 1.4 - 6.5 10 3/uL TBH LYMPHOCYTES ABSOLUTE AUTO 2.2 1.2 - 3.8 10 3/uL TBH MONOCYTES ABSOLUTE AUTO 0.6 0.3 - 0.8 10 3/uL TBH TBH EO # 0.1 0.0 - 0.7 10 3/uL TBH BASOPHILS ABSOLUTE AUTO 0.1 0.0 - 0.1 10 3/uL TBH IMMATURE GRANULOCYTES ABS AUTO 0.02 0.00 - 0.03 10 3/uL TBH 07/28/2024 1:32 PM EDT 07/28/2024 1:33 PM EDT Narrative [facility] - 07/28/2024 1:55 PM EDT us Generic External Data Provider [facility] documented in this encounter Visit Diagnoses Not on filedocumented in this encounter Care Teams Project Management Instructor Relationship Specialty Start Date End Date Chris Villanueva MD PCP - General Family Medicine 01/31/23 documented as of this encounter
--- OUTSIDE RECORDS SUMMARY | 2024-08-06 13:20 | XMS_ITS | Encounter Summary ---
Author Organization [facility] Address [address] [place] [address] Care Team Providers Care Surveyor Instrument Assistant Name Role Phone Chris Villanueva MD Primary Care Provider [phone] Reason for Visit * Reason Comments Med Change Request Encounter Details Date Type Department Care Team (Late st Contact Info) Description 02/19/2023 Refill [facility] Heart at [facility] [address] [place] [address] Antoine Steven MD [address] [facility] [place] [address] Hyperlipidemia, unspecified hyperlipidemia type Social History Tobacco Use Types Packs/Day Years Used Date Smoking Tobacco: Never Smokeless Tobacco: Never Alcohol Use Standard Drinks/Week Comments Yes 0 (1 standard drink = 0.6 oz pur e alcohol) occasional Sex and Gender Information Value Date Recorded Sex Assigned at Not on file Legal Sex Male 10:28 PM EDT Gender Identity Not on file Sexual Orientation Not on file documented as of this encounter Plan of Treatment Upcoming Encounters Date Type Department Care Team (Late st Contact Info) Description 08/13/2024 12:30 PM EDT Hospital Encounter [facility] Heart and Vascular Center Vascular Lab [address] [place] [phone] Antoine Steven MD [address] [facility] [place] [address] Abnormal stress test 08/13/2024 12:30 PM EDT - 08/13/2024 1:30 PM EDT Surgery [facility] Heart and Vascular Center Vascular Lab [address] [place] [phone] Antoine Steven MD [address] [facility] [place] [address] Coronary angiography documented as of this encounter Visit Diagnoses Diagnosis Hyperlipidemia, unspecified hyperlipidemia type Abnormal stress test- Primary Other nonspecific abnormal cardiovascular system function study Abnormal stress test Other nonspecific abnormal cardiovascular system function study documented in this encounter Care Teams Surveyor Instrument Assistant Relationship Specialty Start Date End Date Chris Villanueva MD [address] [place] [address] PCP - General 10/30/22 documented as of this encounter
--- OUTSIDE RECORDS SUMMARY | 2024-08-06 13:20 | XMS_ITS | Encounter Summary ---
Author Organization [facility] Address [address] [place] [address] Care Team Providers Care Quality Systems Manager Name Role Phone Chris Villanueva MD Primary Care Provider [phone] Encounter Details Date Type Department Care Team (Late Contact Info) Description 07/25/2024 Orders Only [facility] [address] [place] [address] Antoine Steven MD [address] [facility] [facility] 1 [facility] [place] [address] Social History Tobacco Use Types Packs/Day Years [...] Visit [facility] [address] [place] [address] Chris Villanueva MD [address] [place] [phone] documented as of this encounter Procedures Procedure Name Priority Date/Time Associated Diagnosis Comments STRESS TEST Routine 07/25/2024 9:55 AM EDT documented in this encounter Results * STRESS TEST (07/25/2024 9:55 AM EDT) Anatomical Region Laterality Modality Radiographic Josi ging Ehab Maurizio GLOVER IMG XR PROCEDURES Final Result documented in this encounter Visit Diagnoses Not on filedocumented in this encounter Care Teams Quality Systems Manager Relationship Specialty Start Date End Date Chris Villanueva MD PCP - General Family Medicine 01/31/23 documented as of this encounter
--- OUTSIDE RECORDS SUMMARY | 2024-08-06 13:20 | XMS_ITS | Encounter Summary ---
Author Organization [facility] Address [address] [place] [address] Care Team Providers Care Product Manager Financial Services Name Role Phone Chris Villanueva MD Primary Care Provider Encounter Details Date Type Department Care Team (Late st Contact Info) Description 07/28/2024 Orders Only [facility] Heart at [facility] [address] [place] [address] Provider, MD [place] [facility] [place] [address] Social History Tobacco Use Types [...] Description 08/13/2024 12:30 PM EDT Hospital Encounter [facility] Heart and Vascular Center Vascular Lab [address] [place] [phone] Antoine Steven MD [address] [place] [address] [facility] [place] [address] Abnormal stress test 08/13/2024 12:30 PM EDT - 08/13/2024 1:30 PM EDT Surgery [facility] Heart and Vascular Center Vascular Lab [address] [place] [address] Antoine Steven MD [address] [place] [address] [facility] [place] [phone] Coronary angiography documented as of this encounter Procedures Procedure Name Priority Date/Time Associated Diagnosis Comments TREADMILL STRESS MYOCARDIAL PERFUSION IMAGING Routine 07/24/2024 8:40 AM EDT documented in this encounter Results * Treadmill Stress Myocardial Perfusion Imaging (07/24/2024 8:40 AM EDT) Anatomical Region Laterality Modality Other us Historical Provider CV STRESS PROCEDURES Tena l Result documented in this encounter Visit Diagnoses Not on filedocumented in this encounter Care Teams Product Manager Financial Services Relationship Specialty Start Date End Date Chris Villanueva MD [address] [place] [address] PCP - General 10/30/22 documented as of this encounter
--- OUTSIDE RECORDS SUMMARY | 2024-08-06 13:20 | XMS_ITS | Encounter Summary ---
Author Organization [facility] Address [address] [place] [address] Care Team Providers Care Ski Molder Name Role Phone Chris Villanueva MD Primary Care Provider [phone] Reason for Visit * Reason Onset Date Comments Med Refill 08/04/2024 Encounter Details Date Type Department Care Team (Late st Contact Info) Description 08/04/2024 Refill [facility] Heart at [facility] [address] [place] [address] Anita Gray MA Essential hypertension Social History Tobacco Use Types [...] Description 08/13/2024 12:30 PM EDT Hospital Encounter [facility] Heart and Vascular Center Vascular Lab [address] [place] [phone] Antoine Steven MD [address] [place] [address] [facility] [place] [address] Abnormal stress test 08/13/2024 12:30 PM EDT - 08/13/2024 1:30 PM EDT Surgery [facility] Heart and Vascular Center Vascular Lab [address] [place] [address] Antoine Steven MD [address] [facility] [address] [facility] [place] [address] Coronary angiography documented as of this encounter Visit Diagnoses Diagnosis Abnormal stress test- Primary Other nonspecific abnormal cardiovascular system function study Essential hypertension Unspecified essential hypertension Abnormal stress test Other nonspecific abnormal cardiovascular system function study documented in this encounter Care Teams Ski Molder Relationship Specialty Start Date End Date Chris Villanueva MD [address] [place] [address] PCP - General 10/30/22 documented as of this encounter
--- OUTSIDE RECORDS SUMMARY | 2024-08-06 13:20 | XMS_ITS | Clinical Summary ---
Author Organization [facility] Address [address] [place] [address] Care Team Providers Care Electrical Systems Design Engineer Name Role Phone Chris Villanueva MD Primary Care Provider [phone] Allergies No known active allergies Medications aspirin [...] Date Benign hypertension 01/31/2023 Coronary atherosclerosis of [place] coronary latisha ry 01/31/2023 Depression screen 01/31/2023 Dyslipidemia 01/31/2023 Encounters Date Type Department Care Team Description 07/28/2024 Clinisync Result Encounter [facility] External Department Unsolicited Provider, Generic External Data 07/25/2024 Orders Only [facility] [address] [place] [address] Antoine Albright MD 07/24/2024 Clinisync Result Encounter [...] EDT Office Visit [facility] [address] [place] [address] Chris Villanueva MD [address] [place] [address] Health Maintenance Due Date Last Done Comments [...] AUTO DIFF Routine 07/28/2024 1:32 PM EDT STRESS TEST Routine 07/25/2024 9:55 AM EDT NM MEÑO PERF SPECT REST STR 07/24/2024 1:52 PM EDT CA ECHO DOPPLER COMPLETE 06/25/2024 6:10 PM EDT ALL BASIC METABOLIC PANEL Routine 05/14/2024 1:54 PM EDT from Last 3 Months Results * (ABNORMAL) ALL CBC WITH AUTO [...] External Data Provider [facility] * STRESS TEST (07/25/2024 9:55 AM EDT) Anatomical Region Laterality Modality Radiographic Josi ging Ehab Maurizio GLOVER IMG XR PROCEDURES Final Result * NM MEÑO PERF SPECT REST STR (07/24/2024 1:52 PM EDT) Anatomical Region Laterality Modality Other 07/24/2024 1:52 PM EDT Narrative 07/24/2024 1:53 PM EDT [facility] [place] [id number] Nuclear Medicine Report Signed Patient: FUAD JAMES MR#: [id number] : 1950 Acct:[id number] Age/Sex: 73 / M ADM Date: 07/24/24 Loc: NM Attending Dr: Antoine Albright M.D. Ordering Physician: Antoine Albright M.D. Date of Service: 07/24/24 Procedure(s): NM meño perf SPECT rest str Accession Number(s): [id number] cc: Antoine Albright M.D.; Chris Villanueva M.D. Patient Name: FUAD JAMES MR#: [id number] : 1950 Exam Date: 07/24/2024 Ordering Doctor: [...] the study was pending per attending physician [facility] . For more details please see separate [...] Signed By: 07/24/24 1353 DD/ 1352 TD/TT: Geoduck Diver: Procedure Note Radiology, Radiologist, MD - 07/24/2024 [place] [address] Nuclear Medicine Report Signed Patient: FUAD JAMESMR#: [id number] : 1950Acct:[id number] Age/Sex: 73 / MADM Date: 07/24/24 Loc: NM Attending Dr: nAtoine Albright M.D. Ordering Physician: Antoine Albright M.D. Date of Service: 07/24/24 Procedure(s): NM meño perf SPECT rest str Accession Number(s): [id number] cc: Antoine Albright M.D.; Chris Villanueva M.D. Patient Name: FUAD JAMES MR#: [id number] : 1950 Exam Date: 07/24/2024 Ordering Doctor: [...] ofthe study was pending per attending physician [facility] . For more details pleasesee separate cardiac [...] M.D. Signed By:07/24/24 1353 DD/ 1352 TD/TT: Geoduck Diver: Generic External Data Provider [facility] IMAGING Final Result * CA ECHO DOPPLER COMPLETE (06/25/2024 6:10 PM EDT) Anatomical Region Laterality Modality Other 06/25/2024 6:10 PM EDT Narrative 06/25/2024 6:11 [place] [address] Cardiology Report Signed Patient: FUAD JAMES MR#: [id number] : 1950 Acct:[id number] Age/Sex: 73 / M ADM Date: 06/25/24 Loc: CARD Attending Dr: Levar Young NP Ordering Physician: Levar Young NP Date of Service: 06/25/24 Procedure(s): CA echo doppler complete Accession Number(s): [id number] cc: Chris Villanueva M.D.; Levar Young NP Patient Name: FUAD JAMES MR#: [id number] : 1950 Exam Date: 06/25/2024 Ordering Doctor: LEVAR YOUNG ECHOCARDIOGRAM REPORT PROCEDURE: CA ECHO DOPPLER COMPLETE INDICATIONS: Dyspnea on exertion, hypertension, coronary artery disease, ID, cardiac stents x 4 COMPARISON: None. DESCRIPTION: [...] HALL Signed By: 06/25/241810 DD/ 09 TD/TT: Geoduck Diver: Procedure Note Radiology, Radiologist, MD - 06/25/2024 [place] [address] Cardiology Report Signed Patient: FUAD JAMESMR#: [id number] : 1950Acct:[id number] Age/Sex: 73 / MADM Date: 06/25/24 Loc: CARD Attending Dr: Levar Young NP Ordering Physician: Levar Young NP Date of Service: 06/25/24 Procedure(s): CA echo doppler complete Accession Number(s): [id number] cc: Chris Villanueva M.D.; Levar Young NP Patient Name: FUAD JAMES MR#: [id number] : 1950 Exam Date: 06/25/2024 Ordering Doctor: LEVAR YOUNG ECHOCARDIOGRAM REPORT PROCEDURE: CA ECHO DOPPLER COMPLETE INDICATIONS: Dyspnea on exertion, hypertension, coronary arterydisease, ID, cardiac stents x 4 COMPARISON: None. DESCRIPTION: [...] MARI HALL Signed By:06/25/241810 DD/ 09 TD/TT: Geoduck Diver: Generic External Data Provider [facility] Final [...] 0.70 - 1.30 mg/dL TBH TBH EGFR-AF SUDANESE >60 >=60 mL/min/1.7 3m 2 TBH TBH EGFR-NON AF SUDANESE >60 >=60 mL/min/1.7 3m 2 TBH BUN CREATININE RATIO 15.3 TBH CALCIUM 9.3 8.5 - 10.1 mg/dL TBH 05/14/2024 1:54 PM EDT 05/14/2024 1:56 PM EDT Narrative [facility] - 05/14/2024 2:21 PM EDT us Generic External Data Provider [facility] F inal Result [facility] from Last 3 Months Insurance MEDICARE Care Teams Electrical Systems Design Engineer Relationship Specialty Start Date End Date Chris Villanueva MD PCP - General Family Medicine 01/31/23
--- OUTSIDE RECORDS SUMMARY | 2024-08-06 13:20 | XMS_ITS | Clinical Summary ---
Author Organization [facility] Address [address] [place] [address] Care Team Providers Care Shoe Handler Name Role Phone Chris Villanueva MD Primary Care Provider [phone] Allergies Active Allergy Reactions Criticality Noted Date Comments Rosuvastatin 04/25/2023 cramping Medications aspirin 81 mg EC tablet Take 1 tablet every day by oral route. Active atorvastatin (Lipitor) 40 mg tablet Take 40 mg by mouth in the morning. Active rosuvastatin (Crestor) 40 mg tabletIndications: Hyperlipidemia, unspecified hyperlipidemia type Take 1 tablet (40 mg) by mouth at bedtime. 90 tablet 3 05/07/19 25 Active metoprolol tartrate (Lopressor) 25 mg tabletIndications: Essential hypertension Take 1 tablet (25 mg) by mouth two times daily. 180 tablet 3 05/07/19 25 Active amLODIPine (Norvasc) 5 mg tabletIndications: Essential hypertension Take 1 tablet (5 mg) by mouth once daily as directed. 90 tablet 3 06/05/19 25 026 Active ezetimibe (Zetia) 10 mg tabletIndications: Hyperlipidemia, unspecified hyperlipidemia type Take 1 tablet (10 mg) by mouth once daily as directed. 90 tablet 3 06/26/19 25 Active carvedilol (Coreg) 25 mg tabletIndications: Coronary artery disease, unspecified vessel or lesion type, unspecified whether angina present, unspecified whether pilot station or transplanted heart Take 1 tablet (25 mg) by mouth with breakfast and with evening meal. STOP METOPROLOL 180 tablet 3 07/24/19 25 026 Active lisinopril 20 mg tabletIndications: Essential hypertension Take 1 tablet (20 mg) by mouth in the morning. 90 tablet 3 08/05/19 25 Active lisinopril 20 mg tabletIndications: Essential hypertension Take 1 tablet (20 mg) by mouth in the morning. 90 tablet 3 05/07/19 25 025 Discontin ued(Reord er) Active Problems Problem Noted Date Diagnosed Date Abnormal stress test 07/25/2024 Tinnitus 05/14/2024 Depression screen 01/31/2023 04/25/2023 Dyslipidemia 01/31/2023 04/25/2023 Malaise and fatigue 11/03/2013 Palpitations 03/27/2012 Benign prostatic hyperplasia 03/06/2012 Coronary atherosclerosis 03/06/2012 Essential hypertension 03/06/2012 Kidney stone 03/06/2012 Old myocardial infarction 03/06/2012 Sleep apnea 03/06/2012 Encounters Date Type Department Care Team Description 08/05/2024 Travel 08/04/2024 Refill [place] [address] [place] [address] Anita Gray MA Essential hypertension 07/28/[address] [address] Anita Gray MA 07/28/2024 Orders Only [address] [phone] ProviderParis MD 07/25/2024 Orders Only [facility] Heart and Vascular Center Vascular Lab [address] [place] [address] Kathy Garcia RN Coronary atherosclerosis (Primary Dx) 07/25/2024 Orders Only [address] [address] Anita Gray MA Abnormal stress test; Dyspnea, unspecified type; Encounter for pre-operative examination; Abnormal findings on diagnostic imaging of heart and coronary circulation 07/23/2024 11:00 AM EDT Office Visit [address] [address] Antoine Steven MD Coronary artery disease, unspecified vessel or lesion type, unspecified whether angina present, unspecified whether pilot station or transplanted heart (Primary Dx); MCMAHON (dyspnea on exertion); Essential hypertension 06/25/[address] [facility] [address] [place] [address] Anita Gray MA Hyperlipidemia, unspecified hyperlipidemia type 06/04/2024 1:00 PM EDT Office Visit [facility] [address] [place] [address] Levar Peña CNP Coronary artery disease involving pilot station coronary artery of pilot [place] heart without angina pectoris (Primary Dx); Essential hypertension; Mixed hyperlipidemia; MCMAHON (dyspnea on exertion); Coronary artery disease, unspecified vessel or lesion type, unspecified whether angina present, unspecified whether pilot station or transplanted heart 05/14/2024 1:00 PM EDT Office Visit [facility] [address] [place] [address] Levar Peña CNP Coronary artery disease involving [place] coronary artery of [place] heart without angina pectoris (Primary Dx); Dyspnea on exertion; Essential hypertension; Mixed hyperlipidemia 05/06/[address] [facility] [address] [place] [address] Nicole Kenney MA Essential hypertension; Hyperlipidemia, unspecified [...] Description 08/13/2024 12:30 PM EDT Hospital Encounter [facility] Heart [facility] Vascular [place] [facility] [address] [place] [address] Antoine Steven MD [address] [place] [address] Abnormal stress test 08/13/2024 12:30 PM EDT - 08/13/2024 1:30 PM EDT Surgery [facility] Heart [facility] Vascular [place] [facility] [address] [place] [address] Antoine Steven MD [address] [place] [address] Coronary angiography Health Maintenance Due Date Last Done Comments CT Colonography 1950 Colonoscopy 1950 Colorectal Cancer Screening 1950 FIT-DNA 1950 FIT 1950 FOBT 1950 Medicare Annual Wellness (AWV) 1950 Sigmoidoscopy 1950 Depression Screening 1961 Adult Tetanus 10/28/1971 Fall Risk Screening 2014 COVID-19 Vaccine ( season) 2023 07/22/2021, 12/16/2020, 05/18/2020, Additional history exists Influenza Vaccine (Season Ended) 2024 09/28/2022, 11/20/2019, 11/07/2019, Additional history exists Zoster Vaccines Completed 01/16/2020, 10/20, 11/29/2016 Pneumococcal Vaccine: 50+ Years Completed 09/28/2022, 06/10/2016, 01/01/2015 HIB Vaccines [...] Provider CV STRESS PROCEDURES Tena l Result from Last 3 Months Insurance MEDICARE Care Teams Shoe Handler Relationship Specialty Start Date End Date Chris Villanueva MD [address] [place], [place] [phone] PCP - General 10/30/22
--- OUTSIDE RECORDS SUMMARY | 2024-08-06 13:20 | XMS_ITS | Encounter Summary ---
Author Organization [facility] Address [address] [place] [address] Care Team Providers Care Certified Family Mediator Name Role Phone Chris Villanueva MD Primary Care Provider [phone] Reason for Visit * Reason Comments Med Refill Encounter Details Date Type Department Care Team (Late st Contact Info) Description 06/23/2023 Refill [facility] Heart at [facility] [address] [place] [address] Antoine Steven MD [address] [place] [address] [facility] [place] [address] Hyperlipidemia, unspecified hyperlipidemia type Social [...] Description 08/13/2024 12:30 PM EDT Hospital Encounter [facility] Heart and Vascular Center Vascular Lab [address] [place] [address] Antoine Steven MD [address] [place] [address] [facility] [address] Abnormal stress test 08/13/2024 12:30 PM EDT - 08/13/2024 1:30 PM EDT Surgery [facility] Heart and Vascular Center Vascular Lab [address] [place] [address] Antoine Steven MD [address] [place] [address] [facility] [address] Coronary angiography documented as of this encounter Visit Diagnoses Diagnosis Hyperlipidemia, unspecified hyperlipidemia type Abnormal stress test- Primary Other nonspecific abnormal cardiovascular system function study Abnormal stress test Other nonspecific abnormal cardiovascular system function study documented in this encounter Care Teams Certified Family Mediator Relationship Specialty Start Date End Date Chris Villanueva MD [address] [place] [address] PCP - General 10/30/22 documented as of this encounter
--- OUTSIDE RECORDS SUMMARY | 2024-08-06 13:20 | XMS_ITS | Encounter Summary ---
Author Organization [facility] Address [address] [address] Care Team Providers Care Drying Tunnel Operator Name Role Phone Chris Villanueva MD Primary Care Provider [phone] Encounter Details Date Type Department Care Team (Latest Contact Info) Description 08/05/2024 Travel Social History Tobacco Use Types Packs/Day Years [...] Description 08/13/2024 12:30 PM EDT Hospital Encounter [facility] Heart [facility] Vascular Center Vascular Lab [address] [place] [address] Antoine Steven MD [address] [facility] [address] [facility] [place] [address] Abnormal stress test 08/13/2024 12:30 PM EDT - 08/13/2024 1:30 PM EDT Surgery [facility] Heart and Vascular Center Vascular Lab [address] [place] [address] Antoine Steven MD [address] [facility] [place] [address] Coronary angiography documented as of this encounter Visit Diagnoses Not on filedocumented in this encounter Care Teams Drying Tunnel Operator Relationship Specialty Start Date End Date Chris Villanueva MD [address] [place] [address] PCP - General 10/30/22 documented as of this encounter
--- OUTSIDE RECORDS SUMMARY | 2024-08-06 13:20 | XMS_ITS | Encounter Summary ---
Author Organization [facility] Address [address] [place] [address] Care Team Providers Care Television Anchor Name Role Phone Chris Villanueva MD Primary Care Provider [phone] Encounter Details Date Type Department Care Team (Late st Contact Info) Description 07/25/2024 Orders Only [facility] Heart at [facility] [address] [place] [address] Anita Gray MA Abnormal stress [...] Description 08/13/2024 12:30 PM EDT Hospital Encounter [facility] Heart and Vascular Center Vascular Lab [address] [place] [address] Antoine Steven MD [address] [facility] [address] [facility] [place] [address] Abnormal stress test 08/13/2024 12:30 PM EDT - 08/13/2024 1:30 PM EDT Surgery [facility] Heart and Vascular Center Vascular Lab [address] [place] [address] Antoine Steven MD [address] [facility] [address] [facility] [place] [address] Coronary angiography Scheduled Orders Name Type Priority [...] study documented in this encounter Care Teams Television Anchor Relationship Specialty Start Date End Date Chris Villanueva MD [address] [place] [address] PCP - General 10/30/22 documented as of this encounter
--- OUTSIDE RECORDS SUMMARY | 2024-08-06 13:20 | XMS_ITS | Referral Summary ---
Author Organization [facility] Address [address] [place] [address] Care Team Providers Care Carburizer Name Role Phone Chris Villanueva MD Primary Care Provider Encounters Date Type Department Care Team Description 08/05/2024 Travel 08/04/2024 Refill [facility] [address] [place] [address] Anita Gray MA Essential hypertension 07/28/[address] [address] Anita Gray MA 07/28/2024 Orders Only [facility] [address] [place] [address] Paris Samuels MD 07/25/2024 Orders Only [facility] Vascular Lab [address] [place] [address] Kathy Garcia RN Coronary atherosclerosis (Primary Dx) 07/25/2024 Orders Only [facility] [address] [place] [address] Anita Gray MA Abnormal stress test; Dyspnea, unspecified type; Encounter for pre-operative examination; Abnormal findings on diagnostic imaging of heart and coronary circulation 07/23/2024 11:00 AM EDT Office Visit [facility] [address] [place] [address] Antoine Steven MD Coronary artery disease, unspecified vessel or lesion type, unspecified whether angina present, unspecified whether [place] or transplanted heart (Primary Dx); MCMAHON (dyspnea on exertion); Essential hypertension 06/25/2024 Refill [facility] [address] [facility] [place] [address] Anita Gray MA Hyperlipidemia, unspecified hyperlipidemia type 06/04/2024 1:00 PM EDT Office Visit [facility] [address] [facility] [place] [address] Levar Peña CNP Coronary artery disease involving [place] coronary artery of [place] heart without angina pectoris (Primary Dx); Essential hypertension; Mixed hyperlipidemia; MCMAHON (dyspnea on exertion); Coronary artery disease, unspecified vessel or lesion type, unspecified whether angina present, unspecified whether [place] or transplanted heart 05/14/2024 1:00 PM EDT Office Visit [facility] [address] [facility] [place] [address] Levar Peña CNP Coronary artery disease involving [place] coronary artery of [place] heart without angina pectoris (Primary Dx); Dyspnea on exertion; Essential hypertension; Mixed hyperlipidemia 05/06/2024 Refill [facility] [address] [facility] [place] [address] Nicole Kenney MA Essential hypertension; Hyperlipidemia, unspecified [...] once daily as directed. 90 tablet 3 04/16/ 026 Active ezetimibe (Zetia) 10 mg tabletIndications: Hyperlipidemia, unspecified hyperlipidemia type Take 1 tablet (10 mg) by mouth once daily as directed. 90 tablet 3 06/26/19 25 Active carvedilol (Coreg) 25 mg tabletIndications: Coronary artery disease, unspecified vessel or lesion type, unspecified whether angina present, unspecified whether [place] or transplanted heart Take 1 tablet (25 [...] Old myocardial infarction 03/06/2012 Sleep apnea 03/06/2012 Social History Tobacco Use Types Packs/Day [...] Description 08/13/2024 12:30 PM EDT Hospital Encounter [facility] Heart [facility]ascular [place] [facility] [address] [place] [address] Antoine Steven MD [address] [place] [address] Abnormal stress test 08/13/2024 12:30 PM EDT - 08/13/2024 1:30 PM EDT Surgery [facility] Heart [facility] Vascular Lab [address] [place] [address] Antoine Steven MD [address] [place] [address] Coronary angiography Procedures Procedure Name Priority Date/Time Associated Diagnosis Comments TREADMILL STRESS MYOCARDIAL PERFUSION IMAGING Routine 07/24/2024 8:40 AM EDT from Last 3 Months Results * Treadmill Stress Myocardial Perfusion Imaging (07/24/2024 8:40 AM EDT) Anatomical Region Laterality Modality Other us Historical Provider CV STRESS PROCEDURES Tena jameson Result from Last 3 Months Insurance MEDICARE Care Teams Carburizer Relationship Specialty Start Date End Date Chris Villanueva MD [address] [place] [address] PCP - General 10/30/22
--- OUTSIDE RECORDS SUMMARY | 2024-08-06 13:20 | XMS_ITS | Encounter Summary ---
Author Organization [facility] Address [address] [place] [address] Care Team Providers Care Chip Washer Name Role Phone Chris Villanueva MD Primary Care Provider [phone] Reason for Visit * Reason Comments Med Refill Encounter Details Date Type Department Care Team (Late st Contact Info) Description 12/27/2021 Refill [facility] Cardiology [address] [place] [address] Pamela Martínez CNP [address] [place] [address] Hyperlipidemia, unspecified hyperlipidemia type Social [...] Hospital Encounter [facility] Lab [address] [place] [address] Antoine Steven MD [address] [place] [address] Abnormal stress test 08/13/2024 12:30 PM EDT - 08/13/2024 1:30 PM EDT Surgery [facility] Lab [address] [place] [address] Antoine Steven MD [address] [facility] [place] [address] Coronary angiography documented as of this encounter Visit Diagnoses Diagnosis Hyperlipidemia, unspecified hyperlipidemia type Abnormal stress test- Primary Other nonspecific abnormal cardiovascular system function study Abnormal stress test Other nonspecific abnormal cardiovascular system function study documented in this encounter Care Teams Chip Washer Relationship Specialty Start Date End Date Chrsi Villanueva MD [address] [place] [address] PCP - General 10/30/22 documented as of this encounter
--- OUTSIDE RECORDS SUMMARY | 2024-08-06 13:20 | XMS_ITS | Encounter Summary ---
Author Organization [facility] Address [address] [place] [address] Care Team Providers Care Structural Steel Painter Name Role Phone Chris Villanueva MD Primary Care Provider [phone] Encounter Details Date Type Department Care Team (Late st Contact Info) Description 07/25/2024 Orders Only [facility] Heart [facility] Vascular [place] Vascular Lab [address] [place] [address] Kathy Garcia RN Coronary atherosclerosis [...] Description 08/13/2024 12:30 PM EDT Hospital Encounter [facility] Heart [facility] Vascular [place] V[facility] Lab [address] [place] [address] Antoine Steven MD [address] [facility] [address] [facility] [place] [address] Abnormal stress test 08/13/2024 12:30 PM EDT - 08/13/2024 1:30 PM EDT Surgery [facility] Heart and [facility]ascular Center Vascular Lab [address] [place] [address] Antoine Steven MD [address] [facility] [place] [address] Coronary angiography Scheduled Orders Name Type Priority Associated Diagnoses Orde r Schedule CBC Lab Routine Coronary atherosclerosis Expected: 07/25/2024 (Approximate), Expires: 07/25/2025 Basic metabolic panel Lab Routine Coronary atherosclerosis Expected: 07/25/2024 (Approximate), Expires: 07/25/2025 documented as of this encounter Visit Diagnoses Diagnosis Abnormal stress test- Primary Other nonspecific abnormal cardiovascular system function study Coronary atherosclerosis- Primary Coronary atherosclerosis of unspecified type of vessel, jena or graft Abnormal stress test Other nonspecific abnormal cardiovascular system function study documented in this encounter Care Teams Structural Steel Painter Relationship Specialty Start Date End Date Chris Villanueva MD [address] [place] [address] PCP - General 10/30/22 documented as of this encounter
--- OUTSIDE RECORDS SUMMARY | 2024-08-06 13:20 | XMS_ITS | Encounter Summary ---
Author Organization [facility] Address [address] [place] [address] Care Team Providers Care Radio Adjuster Name Role Phone Chris Villanueva MD Primary Care Provider [phone] Encounter Details Date Type Department Care Team (Late Contact Info) Description 07/28/2024 Telephone [facility] Heart at [facility] [address] [place] [address] Anita Gray MA Social History Tobacco Use Types Packs/Day Years [...] 08/13/2024 12:30 PM EDT Hospital Encounter [facility] Vascular Lab [address] [place] [address] Antoine Steven MD [address] [facility] [place] [address] Abnormal stress test 08/13/2024 12:30 PM EDT - 08/13/2024 1:30 PM EDT Surgery [facility] Vascular Lab [address] [place] [address] Antoine Steven MD [address] [facility] [address] [facility] [place] [address] Coronary angiography documented as of this encounter Visit Diagnoses Not on filedocumented in this encounter Care Teams Radio Adjuster Relationship Specialty Start Date End Date Chris Villanueva MD [address] [place] [address] PCP - General 10/30/22 documented as of this encounter
[2024-08-06 13:53] LABS: Anion Gap 12.1; BUN Creatinine Ratio 12.2; Calcium 8.7 mg/dL (8.5-10.1); Carbon Dioxide 27.3 mmol/L (21.0-32.0); Chloride 105 mmol/L (98-107); Estimated GFR (African America >60 (>=60 mL/min/1.73m^2); Estimated GFR (Non-African Ame >60 (>=60 mL/min/1.73m^2); Glucose 117 mg/dL (74-106); Potassium 4.4 mmol/L (3.5-5.1); Sodium 140 mmol/L (136-145)
[2024-08-06 14:22] LABS: Basophils Percent Auto 0.6 % (0.2-2.0); Eosinophils Absolute Auto 0.1 10^3/uL (0.0-0.7); Eosinophils Percent Auto 1.9 % (0.9-7.0); Hematocrit 38.4 % (42.0-54.0); Hemoglobin 13.1 g/dL (14.0-18.0); Immature Granulocytes Abs Auto 0.02 10^3/uL (0.00-0.03); Immature Granulocytes Pct Auto 0.3 % (0.0-0.5); Lymphocytes Absolute Auto 2.1 10^3/uL (1.2-3.8); Lymphocytes Percent Auto 29.2 % (20.5-60.0); Mean Corpuscular HGB Conc 34.1 g/dL (29.9-35.2); Mean Corpuscular Hemoglobin 27.9 pg (25.9-34.0); Mean Corpuscular Volume 81.9 fL (80.0-94.0); Mean Platelet Volume 10.8 fL (9.5-13.5); Monocytes Absolute Auto 0.5 10^3/uL (0.3-0.8); Monocytes Percent Auto 7.1 % (1.7-12.0); Neutrophils Absolute Auto 4.4 10^3/uL (1.4-6.5); Neutrophils Percent Auto 60.9 % (43.0-75.0); Platelet Count 247 10^3/uL (150-450); Red Blood Count 4.69 10^6/uL (4.70-6.10); Red Cell Distribution Width 12.5 % (11.0-15.0); White Blood Count 7.2 10^3/uL (4.0-11.0)
== END 2024-08-06 13:16 | disposition home or self-care (01) ==
LOC: LAB 13:17
PROVIDERS: PCP Family Medicine; Visit Provider Internal Medicine Interventional Cardiology
DX: Z01.812 Encounter for preprocedural laboratory examination (principal); Z01.818 Encounter for other preprocedural examination; I25.10 Atherosclerotic heart disease of native coronary artery without angina pectoris
CPT/HCPCS: 36415; 80048; 85025

== ENCOUNTER 2024-08-20 12:14 | Outpatient (OUT) | payer MEDICARE, SELFPAY ==
--- OUTSIDE RECORDS SUMMARY | 2024-08-13 07:44 | XMS_ITS | Encounter Summary ---
Author Organization [facility] Address [address] [facility] [place] [address] Care Team Providers Care Landfill Gas Technician Name Role Phone Chris Villanueva MD Primary Care Provider [phone] Reason for Referral * (Routine) - Pending Review Specialty Diagnoses / Procedures Referred By Chris caballero Referred To Contact Diagnoses Abnormal stress test Procedures ECG 12 lead Antoine Steven MD [address] [facility] [place] [address] Phone: tel: fax: Referral ID Status Reason Start Date Expiration Date V isits Requested Visits Authorized [id number] Pending Review 08/13/2024 08/13/2025 1 1 Reason for Visit * Auth/Cert (Routine) Specialty Diagnoses / Procedures Referred By Chris caballero Referred To Contact Diagnoses Abnormal stress test Abnormal stress test [R94.39] Procedures HI RIGHT HEART CATH O2 SATURATION & CARDIAC OUTPUT Coronary angiography Right heart cath Antoine Steven MD [address] [facility] [address] [facility] [address] Phone: tel: fax: [facility] Heart and Vascular Center Vascular Lab [address] [place] [address] Phone: tel: fax: Referral ID Status Reason Start Date Expiration Date Visits Re quested Visits Authorized [id number] 1 1 Encounter Details Date Type Department Care Team (Late st Contact Info) Description 08/13/2024 7:44 AM EDT - 08/13/2024 1:50 PM EDT Hospital Encounter [facility] Heart and Vascular Center Vascular Lab [address] [place] [address] Antoine Steven MD [address] [facility] [place] [address] Atherosclerosis of [place] coronary artery of [place] heart with unstable angina pectoris (CMS/HCC) (Primary Dx); Abnormal stress test Discharge Disposition: Home or Self Care (01) Social History Tobacco Use Types Packs/Day Years [...] Sign Reading Time Taken Comments Blood Pressure 153/76 08/13/2024 1:30 PM EDT Pulse 65 08/13/2024 1:30 PM EDT Temperature - - Respiratory Rate 22 08/13/2024 1:30 PM EDT Oxygen Saturation 99% 08/13/2024 1:30 PM EDT Inhaled Oxygen Concentration - - Weight - - Height - - Body Mass Index - - documented in this encounter Discharge Instructions * Attachments The following attachments cannot be sent through Care Everywhere. * Moderate Conscious Sedation Adult Care After (Zambian) * Coronary Angiogram Care After ([place]ambian) documented in this encounter Medications at Time of Discharge amLODIPine (Norvasc) 5 mg tabletIndications:E ssential hypertension Take 1 tablet (5 mg) by mouth once daily as directed. 90 tablet 3 06/04/2024 6 aspirin 81 mg EC tablet Take 1 tablet every day by oral route. atorvastatin (Lipitor) 40 mg tablet Take 40 mg by mouth in the morning. carvedilol (Coreg) 25 mg tabletIndications:C oronary artery disease, unspecified vessel or lesion type, unspecified whether angina present, unspecified whether [place] or transplanted heart Take 1 tablet (25 mg) by mouth with breakfast and with evening meal. STOP METOPROLOL 180 tablet 3 07/23/2024 ezetimibe (Zetia) 10 mg tabletIndications:H yperlipidemia, unspecified hyperlipidemia type Take 1 tablet (10 mg) by mouth once daily as directed. 90 tablet 3 06/25/2024 lisinopril 20 mg tabletIndications:E ssential hypertension Take 1 tablet (20 mg) by mouth in the morning. 90 tablet 3 08/04/2024 documented as of this encounter H&P Notes * Antoine Steven MD - 08/13/2024 9:26 AM EDT H&P reviewed. The patient was examined and there are no changes to the H&P. Stress test abnormal; significant inferolateral ST depressions as well as a small reversible inferolateral perfusion defect. Risks, benefits, and alternatives to cardiac catheterization plus or minus intervention were discussed. The patient agrees and wishes to proceed. Antoine Steven MD, MPH, FACC, [facility] Interventional Cardiology Pager Email: [email or web address] Source Note - Antoine Steven MD - 07/23/2024 11:00 AM EDT Images from the original note were not included. [facility] Cardiology Clinic Note Chief Complaint: Patient here for 3 mo follow up with ECHO. Patient states he needs a paper signed so he can drive. Patient states he is feel good. Patient states he has MCMAHON. HPI: Lazaro James is a 73 y.o. male with CAD and CA s/p CHINMAY to RCA 2008, HTN seen [...] artery disease, Hyperlipidemia, Hypertension, and Myocardial infarction (CMS/HCC). Surgical History He has a past surgical [...] kg (228 lb) SpO2 96% BMI 34.67 kg/m² Physical Examination: GENERAL: alert and oriented x3, [...] should problems arise Antoine Steven MD, MPH, [facility], [facility] Interventional Cardiology Pager Email: [email or web address] documented in this encounter Nursing Notes * Janet Haskins RN - 08/13/2024 1:37 PM EDT RN educated pt on d/c instructions. This included: site care, limited physical activity, resume normal diet, future appointments, medications, and moderate sedation instructions. RN educated pt on when to notify physician and when to go to the hospital. RN provided pt with arm sling and educated pt on importance of not using arm for 24 hours for radial sites. RN encouraged pt to voice any questions or concerns, and answered any questions or concerns if pt verbalized. Pt was wheeled off of unit with all of belongings. * Debbie Foss RN - 08/13/2024 1:05 PM EDT Banquet Chef spoke to Dr. Steven regarding patient's recurrent bleeding with TR band let downs. Dr. Steven instructed documentation writer to remove TR band and replace with pressure dressing at this time. documented in this encounter Miscellaneous Notes * Pre-Sedation Documentation - Antoine Steven MD - 08/13/2024 9:48 AM EDT Patient: Lazaro James Procedure Information Date/Time: 08/13/24 1035 Procedures: Coronary angiography - Needs Precert, Labs at [facility] pre procedure Right heart cath Location: [facility] CONDUCTOR AND ENGINEER 2 [facility] VASCULAR LAB (Cath) Providers: Antoine Steven MD Clinical information reviewed: Allergies Meds Physical Exam Airway Mallampati: III TM distance: >3 FB Cardiovascular Rhythm: regular Dental Pulmonary Breath sounds clear to auscultation Neurological Abdominal (+) obese Anesthesia Plan Additional Equipment Requests Antoine Steven MD, MPH, [facility], [facility] Interventional Cardiology Pager Email: [email or web address] documented in this encounter Plan of Treatment Upcoming Encounters Date Type Department Care Team (Late st Contact Info) Description 10/15/2024 9:45 AM EDT Follow-Up [facility] [address] [place] [address] Antoine Steven MD [address] [facility] [address] [facility] [address] documented as of this encounter Procedures Procedure Name Priority Date/Time Associated Diagnosis Comments CORONARY ANGIOGRAPHY Routine 08/13/2024 10:15 AM EDT Abnormal stress test ECG 12-LEAD Routine 08/13/2024 9:29 AM EDT Abnormal stress test documented in this encounter Results * CORONARY ANGIOGRAPHY (08/13/2024 10:15 AM EDT) Anatomical Region Laterality Modality Other Narrative 08/13/2024 10:30 AM EDT Cardiovascular Laboratory Report FINAL IMPRESSIONS: Severe, three-vessel coronary artery disease including the left main coronary artery Normal global left ventricular systolic function by noninvasive imaging RECOMMENDATIONS: Consult cardiothoracic surgery for potential coronary artery bypass graft surgery Aggressive cardiovascular risk factor modification Optimal medical therapy for coronary artery disease should include aspirin, high intensity statin therapy, a beta-eulalia plus or minus a RAAS inhibitor Follow-up with Dr. Steven in the [place] office in the next 2 to 4 weeks PROCEDURES: Ultrasound-guided access to the left radial artery, bilateral selective coronary angiography via a left radial approach METHODS: After risks, benefits, and alternatives were explained, written informed consent was obtained. The patient was prepped and draped in usual sterile fashion over the left wrist. Local infiltration anesthesia was achieved of the left wrist. Using a micropuncture kit, access to the left radial artery was obtained. A 6 [place] glide sheath was inserted without difficulty. Bilateral selective coronary angiography was performed using JR 4.0 and JL 4.0 catheters. After reviewing the images, it was elected to conclude the procedure. The catheters were removed. The radial sheath was removed with application of a TR band per protocol to achieve optimal hemostasis. FINDINGS: Hemodynamics: AO 111/55 [71] LEFT VENTRICULOGRAPHY: This was not performed. Ejection fraction is 67% by noninvasive stress test. CORONARY ARTERIES: Left main coronary artery: This arises from the left coronary cusp and bifurcates into the left anterior descending and left circumflex coronary arteries. It shows a mid to distal 60 to 70% stenosis. The entire vessel is of small caliber. There is pressure dampening on catheter engagement. Left anterior descending coronary artery: This shows diffuse caliber reduction particular in the mid to distal portion. There is a proximal 40% stenosis. Diagonal branches show diffuse caliber reduction. High originating first diagonal shows a proximal 60% stenosis. There is evidence of left to left collaterals supplying the left circumflex coronary artery. Left circumflex coronary artery: This is occluded in the proximal portion. Distal filling is seen via left to left collaterals via the obtuse marginal branches. Right coronary artery: This is a dominant vessel giving rise to the posterior descending and posterolateral branches. There is a proximal stent with mild in-stent restenosis. There is a mid to distal vessel stent with 50 to 60% stenosis in the distal half. The distal vessel just prior to the crux shows a long segment 60 to 70% stenosis. The posterior circulation shows caliber reduction. The posterior descending branch shows a 70% ostial stenosis. INDICATIONS: Unstable angina, coronary artery disease Coronary Findings Diagnostic Dominance: Right Left Circumflex: Second Obtuse Marginal Branch: 2nd Mrg filled by collaterals from Oct. Third Obtuse Marginal Branch: 3rd Mrg filled by collaterals from Oct. Intervention No interventions have been documented. us Antoine Steven MD CV CARDIAC CATH PROCEDURES Tena trino Result * ECG 12 lead (08/13/2024 9:29 AM EDT) [facility] Ventricular Rate 61 BPM GE MUSE Atrial Rate 61 BPM GE MUSE HI Interval 174 ms GE MUSE QRS DURATION 86 ms GE MUSE QT Interval 402 ms GE MUSE QTC CALCULATION(BAZE TT) 404 ms GE MUSE P Ohlman 3 degrees GE MUSE R-Ohlman 41 degrees GE MUSE T Wave Ohlman 44 degrees GE MUSE 08/13/2024 8:23 AM EDT 08/13/2024 10:43 AM EDT Impressions GE MUSE - 08/13/2024 10:43 AM EDT Normal sinus rhythm Normal ECG When compared with ECG of 20-APR-2008 03:43, Borderline criteria for Inferior infarct are no longer Present T wave inversion no longer evident in Inferior lead Confirmed by Moshe GONZALEZ SAMER J. ([id number]) on 08/13/2024 10:43:16 AM Narrative Procedure Note Hamida Gonzalez MD - 08/13/2024 IMPRESSION: Normal sinus rhythm Normal ECG When compared with ECG of 20-APR-2008 03:43, Borderline criteria for Inferior infarct are no longer Present T wave inversion no longer evident in Inferior lead Confirmed by Moshe GONZALEZ SAMER J. ([id number]) on 08/13/2024 10:43:16 AM Antoine Steven MD ECG ORDERABLES Final Result GE MUSE documented in this encounter Visit Diagnoses Diagnosis Abnormal stress test- Primary Other nonspecific abnormal cardiovascular system function study Abnormal stress test Other nonspecific abnormal cardiovascular system function study Atherosclerosis of [place] coronary artery of [place] heart with unstable angina pectoris (CMS/HCC) Angina pectoris, unstable (CMS/HCC) Intermediate coronary syndrome Abnormal stress test Other nonspecific abnormal cardiovascular system function study documented in this encounter Admitting Diagnoses Diagnosis Abnormal stress test Other nonspecific abnormal cardiovascular system function study documented in this encounter Active and Recently Administered Medications Times are shown in EDT. PRN Medication Order 08/11/2024 08/12/2024 08/13/2024 fentaNYL (Sublimaze) injection (CANCELED) As needed, Starting on Sun08/13/24 at 0949, Intraprocedure 0949 (Given - Provid er: Karen Arreguin RN - Comment: Given by Ana Maria Aguilar RN)0955 (Given - Provider: Karen Arreguin RN - Comment: Given by Ana Maria Aguilar RN)1005 (Given - Provider: Karen Arreguin RN - Comment: given by Ana Maria Aguilar RN) heparin (porcine) injection (CANCELED) As needed, Starting on Sun08/13/24 at 1003, Intraprocedure 1003 (Given - Provid er: Karen Arreguin RN - Comment: given by Ana Maria Aguilar RN) heparin irrigation 2 units/mL in NS (CANCELED) As needed, Starting on Sun08/13/24 at 0934, Intraprocedure 0934 (Given - Provid er: Antoine Steven MD) iodixanol (VISIPaque) 320 mg iodine/mL injection (CANCELED) As needed, Starting on Sun08/13/24 at 1011, Intraprocedure 1011 (Given - Provid er: Antoine Steven MD) lidocaine (PF) (Xylocaine) 10 mg/mL (1 %) injection (CANCELED) As needed, Starting on Sun08/13/24 at 0935, Intraprocedure 0935 (Given - Provid er: Antoine Steven MD) midazolam (Versed) injection (CANCELED) As needed, Starting on Sun08/13/24 at 0950, Intraprocedure 0950 (Given - Provid er: Karen Arreguin RN - Comment: Given by Ana Maria Aguilar RN)0956 (Given - Provider: Karen Arreguin RN - Comment: Given by Ana Maria Aguilar RN)1005 (Given - Provider: Karen Arreguin RN - Comment: given by Ana Maria Aguilar RN) sodium chloride 0.9 % infusion (COMPLETED) Continuous PRN, Starting on Sun08/13/24 at 0935, Intraprocedure 0935 (New Bag - Prov ider: Karen Arreguin RN - Comment: Given by Ana Maria Aguilar RN) verapamil (Isoptin) injection (CANCELED) As needed, Starting on Sun08/13/24 at 1001, Intraprocedure 1001 (Given - Provid er: Antoine Steven MD) documented in this encounter Care Teams Landfill Gas Technician Relationship Specialty Start Date End Date Naderer, Chris, MD [address] [place] [address] PCP - General 10/30/22 documented as of this encounter
--- OUTSIDE RECORDS SUMMARY | 2024-08-13 10:35 | XMS_ITS | Encounter Summary ---
Author Organization [facility] Address [address] [place] [address] Care Team Providers Care Anti Tank Missileman Name Role Phone Chris Villanueva MD Primary Care Provider [phone] Reason for Visit * Auth/Cert (Routine) Specialty Diagnoses / Procedures Referred By Chris t Referred To Contact Diagnoses Abnormal stress test Abnormal stress test [R94.39] Procedures MD RIGHT HEART CATH O2 SATURATION & CARDIAC OUTPUT Coronary angiography Right heart cath Antoine Steven MD [address] [place] [address] Phone: tel: fax: [facility] Heart count includes the [facility] [address] [place] [address] Phone: tel: fax: Referral ID Status Reason Start Date Expiration Date Visits Re quested Visits Authorized [id number] 1 1 Encounter Details Date Type Department Care Team (Late st Contact Info) Description 08/13/2024 10:35 AM EDT - 08/13/2024 11:35 AM EDT Surgery [facility] Heart count includes the [facility] [address] [place] [address] Antoine Steven MD [address] [place] [address] Coronary angiography Social History Tobacco Use Types Packs/Day Years [...] Sign Reading Time Taken Comments Blood Pressure 108/62 08/13/2024 11:30 AM EDT Pulse 59 08/13/2024 11:30 AM EDT Temperature - - Respiratory Rate 11 08/13/2024 11:30 AM EDT Oxygen Saturation 98% 08/13/2024 11:30 AM EDT Inhaled Oxygen Concentration - - Weight - - Height - - Body Mass Index - - documented in this encounter Discharge Instructions * Attachments The following attachments cannot be sent through Care Everywhere. * Moderate Conscious Sedation Adult Care After (German) * Coronary Angiogram Care After (German) documented in this encounter Medications at Time [...] type, unspecified whether angina present, unspecified whether [place] or transplanted heart Take 1 tablet (25 mg) by mouth with breakfast and with evening meal. STOP METOPROLOL 180 tablet 3 07/23/2024 6 ezetimibe (Zetia) 10 mg tabletIndications:H yperlipidemia, unspecified [...] wishes to proceed. Antoine Steven MD, MPH, [facility], [facility] Interventional Cardiology Pager Email: [email or web address] Source Note - Antoine Steven MD - 07/23/2024 11:00 AM EDT Images from the original note were not included. [facility] Cardiology Clinic Note Chief Complaint: Patient here for 3 mo follow up with ECHO. Patient states he needs a paper signed so he can drive. Patient states he is feel good. Patient states he has MCMAHON. HPI: Lazaro aJmes is a 73 y.o. male with CAD [...] should problems arise Antoine Steven MD, MPH, [facility], [facility] Interventional Cardiology Pager Email: [email or web address] documented in this encounter Nursing Notes * [...] Foss RN - 08/13/2024 1:05 PM EDT Golf Coach spoke to Dr. Steven regarding patient's recurrent bleeding with TR band let downs. Dr. Steven instructed procedure writer to remove TR band and replace with pressure dressing at this time. documented in this encounter Miscellaneous Notes * Pre-Sedation Documentation - Antoine Steven MD - 08/13/2024 9:48 AM EDT Patient: Lazaro James Procedure Information Date/Time: 08/13/24 1035 Procedures: Coronary angiography - Needs Precert, Labs at [facility] pre procedure Right heart cath Location: [facility] E LEARNING MANAGER 2 [address] / [facility] VASCULAR LAB (Cath) Providers: Antoine Steven MD Clinical information reviewed: Allergies Meds Physical Exam Airway Mallampati: III TM distance: >3 FB Cardiovascular Rhythm: regular Dental Pulmonary Breath sounds clear to auscultation Neurological Abdominal (+) obese Anesthesia Plan Additional Equipment Requests Antoine Steven MD, MPH, FACC, [facility], [facility] Interventional Cardiology Pager Email: [email or web address] documented in this encounter Plan of Treatment Upcoming Encounters Date Type Department Care Team (Late st Contact Info) Description 10/15/2024 9:45 AM EDT Follow-Up [facility] [address] [place] [address] Antoine Steven MD [address] [facility] [place] [phone] documented as of this encounter Procedures Procedure [...] inhibitor Follow-up with Dr. Steven in the [place] office in the next 2 to 4 [...] left radial artery was obtained. A 6 Fijian glide sheath was inserted without difficulty. Bilateral [...] Branch: 2nd Mrg filled by collaterals from 1st Sept. Third Obtuse Marginal Branch: 3rd Mrg filled by collaterals from Sept. Intervention No interventions have been documented. Antoine Steven MD CV CARDIAC CATH PROCEDURES Tena l Result * ECG 12 lead (08/13/2024 9:29 AM EDT) [facility] Ventricular Rate 61 BPM GE MUSE Atrial Rate 61 BPM GE MUSE MD Interval 174 ms GE MUSE QRS DURATION 86 ms GE MUSE QT Interval 402 ms GE MUSE QTC CALCULATION(BAZE TT) 404 ms GE MUSE P Rapidan 3 degrees GE MUSE R-Rapidan 41 degrees GE MUSE T Wave Rapidan 44 degrees GE MUSE 08/13/2024 8:23 AM EDT 08/13/2024 10:43 AM EDT Impressions GE MUSE - 08/13/2024 10:43 AM EDT Normal sinus rhythm Normal ECG When compared with ECG of 20-APR-2008 03:43, Borderline criteria for Inferior infarct are no longer Present T wave inversion no longer evident in Inferior lead Confirmed by Moshe GONZALEZ, HAMIDA Flores (56) on 08/13/2024 10:43:16 AM Narrative Procedure Note Hamida Gonzalez MD - 08/13/2024 IMPRESSION: Normal sinus rhythm Normal ECG When compared with ECG of 20-APR-2008 03:43, Borderline criteria for Inferior infarct are no longer Present T wave inversion no longer evident in Inferior lead Confirmed by Moshe GONZALEZ, HAMIDA Flores (57) on 08/13/2024 10:43:16 AM us Antoine Steven MD ECG ORDERABLES Final Result GE MUSE documented in this encounter Visit Diagnoses Diagnosis Abnormal stress test- Primary Other nonspecific abnormal cardiovascular system function study Abnormal stress test Other nonspecific abnormal cardiovascular system function study Atherosclerosis of [place] coronary artery of [place] heart with unstable angina pectoris (CMS/HCC) Angina pectoris, unstable (CMS/HCC) Intermediate coronary syndrome Abnormal stress test Other nonspecific abnormal cardiovascular system function study documented in this encounter Admitting Diagnoses Diagnosis Abnormal stress test Other nonspecific abnormal cardiovascular system function study documented in this encounter Administered Medications Inactive Administered Medications - up to 3 most recent administrations Medication Order MAR Action Action Date Dose Rate Site fentaNYL (Sublimaze) injection As needed, Starting on Sun08/13/24 at 0949, Intraprocedure Given 08/13/2024 10:05 AM EDT 25 mcg Given 08/13/2024 9:55 AM EDT 50 mcg Given 08/13/2024 9:49 AM EDT 25 mcg heparin (porcine) injection As needed, Starting on Sun08/13/24 at 1003, Intraprocedure Given 08/13/2024 10:03 AM EDT 7,300 Units heparin irrigation 2 units/mL in NS As needed, Starting on Sun08/13/24 at 0934, Intraprocedure Given 08/13/2024 9:34 AM EDT 2,000 mL iodixanol (VISIPaque) 320 mg iodine/mL injection As needed, Starting on Sun08/13/24 at 1011, Intraprocedure Given 08/13/2024 10:11 AM EDT 50 mL lidocaine (PF) (Xylocaine) 10 mg/mL (1 %) injection As needed, Starting on Sun08/13/24 at 0935, Intraprocedure Given 08/13/2024 9:35 AM EDT 10 mL midazolam (Versed) injection As needed, Starting on Sun08/13/24 at 0950, Intraprocedure Given 08/13/2024 10:05 AM EDT 1 mg Given 08/13/2024 9:56 AM EDT 1 mg Given 08/13/2024 9:50 AM EDT 1 mg sodium chloride 0.9 % infusion Continuous PRN, Starting on Sun08/13/24 at 0935, Intraprocedure New Bag 08/13/2024 9:35 AM EDT 50 mL/hr 50 mL/hr verapamil (Isoptin) injection As needed, Starting on Sun08/13/24 at 1001, Intraprocedure Given 08/13/2024 10:01 AM EDT 1.5 mg documented in this encounter Active and Recently [...] MD) documented in this encounter Care Teams Anti Tank Missileman Relationship Specialty Start Date End Date Chris Villanueva MD [address] [place] [address] PCP - General 10/30/22 documented as of this encounter
--- OUTSIDE RECORDS SUMMARY | 2024-08-19 | XMS_ITS | Encounter Summary ---
Author Organization [facility] Address [address] [place] [address] Care Team Providers Care Information Systems Administrator Name Role Phone Chris Villanueva MD Primary Care Provider [phone] Encounter Details Date Type Department Care Team (Latest Contact Info) Description 08/19/2024 - 08/19/2024 12:04 AM EDT Hospital Encounter [facility] Radiology External Films [address] [place] [address] Arrived Discharge Disposition: Home or Self Care () Social History Tobacco Use Types Packs/Day Years Used Date Smoking Tobacco: Never Smokeless Tobacco: Never Alcohol Use Standard Drinks/Week Comments Not Currently 0 (1 standard drink = 0.6 oz pur e alcohol) occasional PHQ-2 Answer Date Recorded Patient Health Questionnaire-2 Score 0 08/19/2024 [place] Safety & Environment Answer Date Rec orded [...] on file documented as of this encounter Medications at Time of Discharge amLODIPine (Norvasc) 5 mg tabletIndications:E ssential hypertension Take 1 tablet (5 mg) by mouth once daily as directed. 90 tablet 3 06/04/2024 aspirin 81 mg EC tablet Take 1 tablet every day by oral route. atorvastatin (Lipitor) 40 mg tablet Take 40 mg by mouth in the morning. carvedilol (Coreg) 25 mg tabletIndications:C oronary artery disease, unspecified vessel or lesion type, unspecified whether angina present, unspecified whether [place] or transplanted heart Take 1 tablet (25 [...] 3 08/04/2024 documented as of this encounter Plan of Treatment Upcoming Encounters Date Type Department Care Team (Late st Contact Info) Description 10/15/2024 9:45 AM EDT Follow-Up [facility] [address] [place] [address] Antoine Steven MD [address] [facility] [address] [facility] [place] [phone] documented as of this encounter Procedures Procedure Name Priority Date/Time Associated Diagnosis Comments XR TRANSFER OF OUTSIDE FILMS Routine 08/19/2024 12:00 AM EDT documented in this encounter Results * XR transfer of outside films (08/19/2024 12:00 AM EDT) Narrative IMAGING - 08/19/2024 9:21 AM EDT This order has been auto-finalized and does not contain a result. Alphonso Dillon MD IMG XR PROCEDURES Final Result IMAGING documented in this encounter Visit Diagnoses Not on filedocumented in this encounter Care Teams Information Systems Administrator Relationship Specialty Start Date End Date Chris Villanueva MD [address] [place] [address] PCP - General 10/30/22 documented as of this encounter
--- OUTSIDE RECORDS SUMMARY | 2024-08-19 00:10 | XMS_ITS | Encounter Summary ---
Author Organization [facility] Address [address] [place] [address] Care Team Providers Care Recruiting Associate Name Role Phone Chris Villanueva MD Primary Care Provider [phone] Encounter Details Date Type Department Care Team (Latest Contact Info) Description 08/19/2024 12:10 AM EDT - 08/19/2024 11:59 PM EDT Hospital Encounter [facility] Radiology External Films [address] [place] [phone] Arrived Discharge Disposition: Home or Self Care () Social History Tobacco Use Types Packs/Day Years Used Date Smoking Tobacco: Never Smokeless Tobacco: Never Alcohol Use Standard Drinks/Week Comments Not Currently 0 (1 standard drink = 0.6 oz pur e alcohol) occasional PHQ-2 Answer Date Recorded Patient Health Questionnaire-2 Score 0 08/19/2024 [place] Safety & Environment Answer Date Rec orded [...] on file documented as of this encounter Functional Status documented as of this encounter Medications at [...] Info) Description 10/15/2024 9:45 AM EDT Follow-Up [facility] [address] [place] [address] Antoine Steven MD [address] [facility] [address] [facility] [place] [address] documented as of this encounter Procedures Procedure Name Priority Date/Time Associated Diagnosis Comments US TRANSFER OF OUTSIDE FILMS Routine 08/19/2024 12:10 AM EDT documented in this encounter Results * US transfer of outside films (08/19/2024 12:10 AM EDT) Narrative IMAGING - 08/19/2024 9:25 AM EDT This order has been auto-finalized and does not contain a result. Alphonso Dillon MD [facility] US PROCEDURES Final Result IMAGING documented in this encounter Visit Diagnoses Not on filedocumented in this encounter Care Teams Recruiting Associate Relationship Specialty Start Date End Date Chris Villanueva MD [address] [place] [address] PCP - General 10/30/22 documented as of this encounter
--- OUTSIDE RECORDS SUMMARY | 2024-08-19 15:00 | XMS_ITS | Encounter Summary ---
Author Organization [facility] Address [address] [place] [address] Care Team Providers Care Office Electrician Name Role Phone Chris Villanueva MD Primary Care Provider [phone] Reason for Visit * Reason Comments Consult Left main and MVD, p atient takes that he get tired easy when walking Encounter Details Date Type Department Care Team (Late st Contact Info) Description 08/19/2024 3:00 PM EDT Consult [facility] [address] [place] [address] Delmer Yeea, DATA TRANSCRIBER [address] [place] [address] Shortness of breath (Primary Dx); Atherosclerosis of [place] coronary artery of [place] heart without angina pectoris; Essential hypertension; Dyslipidemia; Abnormal stress test; Sleep apnea, unspecified type; Benign prostatic hyperplasia with lower urinary tract symptoms, symptom details unspecified Social History Tobacco Use Types Packs/Day Years Used Date Smoking Tobacco: Never Smokeless Tobacco: Never Alcohol Use Standard Drinks/Week Comments Not Currently 0 (1 standard drink = 0.6 oz pur e alcohol) occasional PHQ-2 Answer Date Recorded Patient Health Questionnaire-2 Score 0 08/19/2024 [place] Safety & Environment Answer Date Rec orded [...] Sign Reading Time Taken Comments Blood Pressure 119/74 08/19/2024 2:43 PM EDT Pulse 56 08/19/2024 2:43 PM EDT Temperature - - Respiratory Rate - - Oxygen Saturation 98% 08/19/2024 2:43 PM EDT Inhaled Oxygen Concentration - - Weight 95.3 kg (210 lb) 08/19/2024 2:43 PM EDT Height 175.3 cm (5' 9 ) 08/19/2024 2:43 PM EDT Body Mass Index 31.01 08/19/2024 2:43 PM EDT documented in this encounter Functional Status documented as of this encounter Progress Notes * Berna Carrasco RN - 08/19/2024 3:00 PM EDT STS For Isolated CABG without pulmonary or carotid evaluation: Procedure Type: Isolated CABG Perioperative Outcome Estimate % Operative Mortality 0.997% Morbidity & Mortality 5.02% Stroke 0.525% Renal Failure 1.02% Reoperation 1.51% Prolonged Ventilation 2.84% Deep Sternal Wound Infection 0.111% Long Hospital Stay (>14 days) 2.44% Short Hospital Stay (<6 days)* 51% Clinical Summary Planned Surgery: Isolated CABG, First cardiovascular surgery Demographics: 73 year old, , male, 103kg, 172.72cm, BMI: 34.5 kg/m² Insurance/Payor: Medicare Lab Values: Creatinine: 1.15 mg/dL, Hematocrit: 39.4%, WBC Count: 7.2 10³/?L, Platelet Count: 966982 cells/?L Substance Abuse: Never smoker, Alcohol use: <= 1 drink/week Risk Factors / Comorbidities: Hypertension, Family Hx of CAD Pulmonary RF: Unknown CLD, Sleep Apnea Cardiac Status: Ejection Fraction = 55% Coronary Artery Disease: 3 vessels diseased, Left Main Stenosis >= 50%, Other, LA: > 21 Days Valve Disease: Trivial/Trace TR Prev. Cardiac Interv: Previous PCI: At this facility > 6 hours * Lasha Yee CNP - 08/19/2024 3:00 PM EDT Images from the original note were not included. Cardiothoracic Surgery Outpatient Consultation Note 08/19/2024 Reason For Visit Chief Complaint Patient presents with Consult Left main and MVD, patient takes that he get tired easy when walking Referring Provider: No ref. provider found Dr. Steven History Of Present Illness Lazaro James is a 73 y.o. male presenting with Consult. CAD with history of LA x2 and s/p CHINMAY to RCA 2008, HTN, BPH, HTN, and MALKA(CPAP compliant). He was being seen by cardiology earlier this month for routing follow-up after echocardiogram. At that appt he complained of worsening exertional dyspnea and with his history of CAD he was recommended for stress test which he underwent on 07/24/24 and it showed defects in the inferolateral leads. Dr. Andrade recommended a LHC, which he underwent on 08/13/24. The LHC showed multivessel CAD: Left main coronary artery: This arises from the left coronary cusp and bifurcates into the left anterior descending and left circumflex coronary arteries. It shows a mid to distal 60 to 70% stenosis.The entire vessel is of small caliber. There [...] There is a proximal stent with mild in- stent restenosis. There is a mid to distalvessel stent with 50 to 60% stenosis in the distal half. The distal vessel just prior to the crux shows a long segment 60 to 70% stenosis. The posterior circulation shows caliber reduction. The posterior descending branch shows a 70% ostial stenosis. 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 Able to independently perform all ADLs, chores, outside yard work, and other mild activities. His shortness of breath has been worsening for the past 8 months or so. He has been having a more difficult time completing usual activities. No history of arrhythmia, no history of CVA or TIA or syncope. No history of cancer or history of radiation. No history of DVT or PE. No history of COPD or Asthma. Never smoker. No history of illicits. No ETOH use or history of alcoholism. Assessment: Diagnosis Plan 1. Atherosclerosis of [place] coronary artery of [place] heart without angina pectoris 2. Essential hypertension 3. Dyslipidemia 4. Abnormal stress test 5. Sleep apnea, unspecified type 6. Benign prostatic hyperplasia with lower urinary tract symptoms, symptom details unspecified Plan : -Patient seen and evaluated for multivessel CAD. Available medical records and cardiac catherization and echocardiogram reviewed by this automatic typewriter inspector and by Dr. Gonzalez. Explained disease process of CAD andtreatment options. - The RCA does not appear to have suitable targets. The LAD would be diffculty to graft as well. Will discuss case with interventional cardiology team at next cath conference or sooner to weight treatment options of surgical revascularization vs high risk PCI. -In the meantime, patient to continue medical therapy with statin, beta eulalia and ASA. Avoid strenuous activity. Monitor blood pressure at home and record readings. Reviewed blood pressure and HR parameters and when to call. Also instructed to go to the nearest ED if his shortness of breath worsens or if he develops chest pain or other new symptoms. -Patient requesting insurance information regarding coverage or future procedures (surgery vs PCI).Will defer his questions to financial counselor. -Will also order PFT's and CT Chest to further investigate shortness of breath. Past Medical History He has a past medical history of Coronary artery disease, Hyperlipidemia, Hypertension, and Myocardial infarction ([facility]). Surgical History He has a past surgical history that includes Cardiac catheterization and Coronary stent placement. Family History Family History[1] Social History He reports that he has never smoked. He has never used smokeless tobacco. He reports that he does not currently use alcohol. He reports that he does not use drugs. Allergies Rosuvastatin Medications Current Medications[2] Review of Systems Review of Systems: All 14 Systems Reviewed and Negative unless otherwise indicated in the above HPI. Last Recorded Vitals Visit Vitals BP 119/74 (BP Location: Right arm, Patient Position: Sitting, BP Cuff Size: Adult) Pulse 56 Physical Exam Physical Exam Relevant Results No visits with results within 1 Day(s) from this visit. Latest known visit with results is: Admission on 08/13/2024, Discharged on 08/13/2024 Component Date Value Ref Range Status Ventricular Rate 08/13/2024 61 BPM Final Atrial Rate 08/13/2024 61 BPM Final MO Interval 08/13/2024 174 ms Final QRS DURATION 08/13/2024 86 ms Final QT Interval 08/13/2024 402 ms Final QTC CALCULATION(BAZETT) 08/13/2024 404 ms Final P [place] 08/13/2024 3 degrees Final R-[place] 08/13/2024 41 degrees Final T Wave [place] 08/13/2024 44 degrees Final No echocardiogram results found for the past [address] results found for the past 6 months No X-ray results found for the past 3 days Cardiothoracic Surgery outpatient Office Number [phone]. Cardiothoracic Surgery outpatient . STS For Isolated CABG without pulmonary or carotid evaluation: Procedure Type: Isolated CABG Perioperative Outcome Estimate % Operative Mortality 0.997% Morbidity & Mortality 5.02% Stroke 0.525% Renal Failure 1.02% Reoperation 1.51% Prolonged Ventilation 2.84% Deep Sternal Wound Infection 0.111% Long Hospital Stay (>14 days) 2.44% Short Hospital Stay (<6 days)* 51% Clinical Summary Planned Surgery: Isolated CABG, First cardiovascular surgery Demographics: 73 year old, , male, 103kg, 172.72cm, BMI: 34.5 kg/m² Insurance/Payor: Medicare Lab Values: Creatinine: 1.15 mg/dL, Hematocrit: 39.4%, WBC Count: 7.2 10³/?L, Platelet Count: 996802 cells/?L Substance Abuse: Never smoker, Alcohol use: <= 1 drink/week Risk Factors / Comorbidities: Hypertension, Family Hx of CAD Pulmonary RF: Unknown CLD, Sleep Apnea Cardiac Status: Ejection Fraction = 55% Coronary Artery Disease: 3 vessels diseased, Left Main Stenosis >= 50%, Other, LA: > 21 Days Valve Disease: Trivial/Trace TR Prev. Cardiac Interv: Previous PCI: At this facility > 6 hours [1] Family History Problem Relation Name Age of Onset Dementia Mother Diabetes Father Heart attack Other Coronary artery disease Other [2] Current Outpatient Medications Medication Sig Dispense Refill amLODIPine (Norvasc) 5 mg tablet Take 1 tablet (5 mg) by mouth once daily as directed. 90 tablet 3 aspirin 81 mg EC tablet Take 1 tablet every day by oral route. atorvastatin (Lipitor) 40 mg tablet Take 40 mg by mouth in the morning. carvedilol (Coreg) 25 mg tablet Take 1 tablet (25 mg) by mouth with breakfast and with evening meal. STOP METOPROLOL 180 tablet 3 ezetimibe (Zetia) 10 mg tablet Take 1 tablet (10 mg) by mouth once daily as directed. 90 tablet 3 lisinopril 20 mg tablet Take 1 tablet (20 mg) by mouth in the morning. 90 tablet 3 No current facility-administered medications for this visit. documented in this encounter Plan of Treatment Upcoming Encounters Date Type Department Care Team (Late st Contact Info) Description 10/15/2024 9:45 AM EDT Follow-Up [facility] [address] [place] [phone] Antoine Steven MD [facility] [address] [facility] [place] [address] Scheduled Orders Name Type Priority Associated Diagnoses Orde r Schedule TSH Lab Routine Atherosclerosis of [place] coronary artery of [place] heart without angina pectoris Abnormal stress test Sleep apnea, unspecified type Shortness of breath Expected: 08/19/2024 (Approximate), Expires: 08/19/2025 Pulmonary function testing Spirometry; DLCO PFT Routine Atherosclerosis of [place] coronary artery of [place] heart without angina pectoris Abnormal stress test Sleep apnea, unspecified type Shortness of breath Expected: 08/19/2024 (Approximate), Expires: 09/19/2024 XR chest 2 views Imaging Routine Atherosclerosis of [place] coronary artery of [place] heart without angina pectoris Abnormal stress test Sleep apnea, unspecified type Shortness of breath Expected: 08/19/2024, Expires: 08/19/2025 documented as of this encounter Visit Diagnoses Diagnosis Shortness of breath- Primary Atherosclerosis of [place] coronary artery of [place] heart without angina pectoris Essential hypertension Unspecified essential hypertension Dyslipidemia Other and unspecified hyperlipidemia Abnormal stress test Other nonspecific abnormal cardiovascular system function study Sleep apnea, unspecified type Benign prostatic hyperplasia with lower urinary tract symptoms, symptom details unspecified documented in this encounter Care Teams Office Electrician Relationship Specialty Start Date End Date Chris Villanueva MD [address] [place] [address] PCP - General 10/30/22 documented as of this encounter
--- OUTSIDE RECORDS SUMMARY | 2024-08-20 12:18 | XMS_ITS | Clinical Summary ---
Author Organization [facility] Address [address] [place] [address] Care Team Providers Care Geomagnetist Name Role Phone Chris Villanueva MD Primary Care Provider [phone] Allergies Active Allergy Reactions Criticality Noted Date Comments Rosuvastatin 04/25/2023 cramping Medications aspirin 81 mg EC tablet Take 1 tablet every day by oral route. Active atorvastatin (Lipitor) 40 mg tablet Take 40 mg by mouth in the morning. Active amLODIPine (Norvasc) 5 mg tabletIndications: Essential [...] type, unspecified whether angina present, unspecified whether [place] or transplanted heart Take 1 tablet (25 [...] 3 05/07/19 25 025 Discontin ued(Reord er) rosuvastatin (Crestor) 40 mg tabletIndications: Hyperlipidemia, unspecified hyperlipidemia type Take 1 tablet (40 mg) by mouth at bedtime. 90 tablet 3 05/07/19 25 025 Discontin ued(Stop Taking at Discharge ) metoprolol tartrate (Lopressor) 25 mg tabletIndications: Essential hypertension Take 1 tablet (25 mg) by mouth two times daily. 180 tablet 3 05/07/19 25 025 Discontin ued(Stop Taking at Discharge ) Hospital, Clinic, or Other Facility Administered Medication Ordered Dose Route Frequency Start Date End Date Status sodium chloride 0.9 % infusionIndications:Athero sclerosis of [place] coronary artery of [place] heart with unstable angina pectoris (CMS/HCC) 125 mL/hr IV Continuous 08/13/2024 08/13/2024 Ended Active Problems Problem Noted Date Diagnosed Date Abnormal stress test 07/25/2024 Tinnitus 05/14/2024 Depression screen 01/31/2023 04/25/2023 Dyslipidemia 01/31/2023 04/25/2023 Malaise and fatigue 11/03/2013 Palpitations 03/27/2012 Benign prostatic hyperplasia 03/06/2012 Coronary atherosclerosis 03/06/2012 Essential hypertension 03/06/2012 Kidney stone 03/06/2012 Old myocardial infarction 03/06/2012 Sleep apnea 03/06/2012 Encounters Date Type Department Care Team Description 08/20/2024 Orders Only [facility] [place] [address] [place] [phone] Aureliano Barker MA 08/20/2024 Orders Only [facility]acic [facility] [place] [address] [place] [phone] Berna Carrasco, RN Type 2 diabetes mellitus without complication, unspecified whether longterm insulin use ([facility]) (Primary Dx) 08/19/2024 3:00 PM EDT Consult [facility] Cardiothoracic [facility] [place] [address] [place] [phone] Lasha Yee CNP Shortness of breath (Primary Dx); Atherosclerosis of [place] coronary artery of [place] heart without angina pectoris; Essential hypertension; Dyslipidemia; Abnormal stress test; Sleep apnea, unspecified type; Benign prostatic hyperplasia with lower urinary tract symptoms, symptom details unspecified 08/19/2024 12:10 AM EDT - 08/19/2024 11:59 PM EDT Hospital Encounter [facility] [address] [place] [address] Arrived Discharge Disposition: Home or Self Care () 08/19/2024 12:05 AM EDT - 08/19/2024 12:09 AM EDT Hospital Encounter [facility] [employer] [address] [place] [address] Arrived Discharge Disposition: Home or Self Care () 08/19/2024 - 08/19/2024 12:04 AM EDT Hospital Encounter [facility] [employer] [facility] [address] [place] [address] Arrived Discharge Disposition: Home or Self Care () 08/19/2024 Telephone [facility] [address] [place] [address] Aureliano Barker MA images being pushed to PAC's 08/13/2024 10:35 AM EDT - 08/13/2024 11:35 AM EDT Surgery [facility] [place] [facility] [address] [place] [address] Antoine Steven MD Coronary angiography 08/13/2024 7:44 AM EDT - 08/13/2024 1:50 PM EDT Hospital Encounter [facility] [place] [facility] [address] [place] [address] Antoine Steven MD Atherosclerosis of [place] coronary artery of [place] heart with unstable angina pectoris (CMS/HCC) (Primary Dx); Abnormal stress test Discharge Disposition: Home or Self Care () 08/13/2024 Travel 08/05/2024 Travel 08/04/2024 Refill [facility] [address] [place] [address] Anita Gray MA Essential hypertension 07/28/2024 Telephone [facility] [address] [place] [address] Anita Gray MA 07/28/2024 Orders Only [address] [address] Paris Samuels MD 07/25/2024 Orders Only [facility] Vascular Lab [address] [place] [phone] Kathy Garcia RN Coronary atherosclerosis (Primary Dx) 07/25/2024 Orders Only [address] [address] Anita Gray MA Abnormal stress test; Dyspnea, unspecified type; Encounter for pre-operative examination; Abnormal findings on diagnostic imaging of heart and coronary circulation 07/23/2024 11:00 AM EDT Office Visit [address] [place] [address] Antoine Steven MD Coronary artery disease, unspecified vessel or lesion type, unspecified whether angina present, unspecified whether [place] or transplanted heart (Primary Dx); MCMAHON (dyspnea on exertion); Essential hypertension 06/25/[address] [place] [address] Anita Gray MA Hyperlipidemia, unspecified hyperlipidemia type 06/04/2024 1:00 PM EDT Office Visit [address] [place] [address] Levar Peña CNP Coronary artery disease involving [place] coronary artery of [place] heart without angina pectoris (Primary Dx); Essential hypertension; Mixed hyperlipidemia; MCMAHON (dyspnea on exertion); Coronary artery disease, unspecified vessel or lesion type, unspecified whether angina present, unspecified whether [place] or transplanted heart from Last 3 Months Family History Medical History Relation Name Comments Diabetes Father Dementia Mother Coronary artery disease Other Heart attack Other Relation Name Status Comments Brother Alive Father Mother Other Sister Alive Social History Tobacco Use Types Packs/Day Years Used Date Smoking Tobacco: Never Smokeless Tobacco: Never Tobacco Cessation:Counseling Given: Not Answered Alcohol Use Standard Drinks/Week Comments Not Currently 0 (1 standard drink = 0.6 oz pur e alcohol) occasional PHQ-2 Answer Date Recorded Patient Health Questionnaire-2 Score 0 08/19/2024 [place] Safety & Environment Answer Date Rec [...] 22 08/13/2024 1:30 PM EDT Oxygen Saturation 98% 08/19/2024 2:43 PM EDT Inhaled Oxygen Concentration - - Weight 95.3 kg (210 lb) 08/19/2024 2:43 PM EDT Height 175.3 cm (5' 9 ) 08/19/2024 2:43 PM EDT Body Mass Index 31.01 08/19/2024 2:43 PM EDT Plan of Treatment Upcoming Encounters Date Type Department Care Team (Late st Contact Info) Description 10/15/2024 9:45 AM EDT Follow-Up [facility] Heart at [facility] [address] [place] [address] Antoine Steven MD [address] [place] [address] [facility] [place] [address] Health Maintenance Due Date Last Done Comments CT Colonography 1950 Colonoscopy 1950 Colorectal Cancer Screening 1950 Diabetes: Hemoglobin A1C 1950 FIT-DNA 1949 FIT 1949 FOBT 1950 Medicare Annual Wellness (AWV) 1950 Sigmoidoscopy 1950 Diabetes: Retinopathy Screening 10/28/1959 Diabetes: Urine Protein Screening 1968 Adult Tetanus 10/28/1971 COVID-19 Vaccine ( season) 2023 07/22/2021, 12/16/2020, 05/18/2020, Additional history exists Influenza Vaccine (#1) 2024 , 11/20/2019, 11/07/2019, Additional history exists Depression Screening 08/19/2025 08/19/2024 Fall Risk Screening 08/19/2025 08/19/2024 Zoster Vaccines Completed 01/16/2020, 10/20, 11/29/2016 Pneumococcal [...] OUTSIDE FILMS Routine 08/19/2024 12:10 AM EDT XR TRANSFER OF OUTSIDE FILMS Routine 08/19/2024 12:05 AM EDT XR TRANSFER OF OUTSIDE FILMS Routine 08/19/2024 12:00 AM EDT CORONARY ANGIOGRAPHY Routine 08/13/2024 10:15 AM EDT Abnormal stress test ECG 12-LEAD Routine 08/13/2024 9:29 AM EDT Abnormal stress test TREADMILL STRESS MYOCARDIAL PERFUSION IMAGING Routine 07/24/2024 8:40 AM EDT from Last 3 Months Results * US transfer of outside films (08/19/2024 12:10 AM EDT) Narrative IMAGING - 08/19/2024 9:25 AM EDT This order has been auto-finalized and does not contain a result. Alphonso Dillon MD IMG US PROCEDURES Final Result Performing Organization Address [facility] Co de Phone Number IMAGING * XR transfer of outside films (08/19/2024 12:05 AM EDT) Only the most recent of2 resultswithin the time period is included. Narrative IMAGING - 08/19/2024 9:22 AM EDT This order has been auto-finalized and does not contain a result. Alphonso Dillon MD IM XR PROCEDURES Final Result Performing Organization Address [facility] de Phone Number IMAGING * CORONARY ANGIOGRAPHY (08/13/2024 10:15 AM EDT) [...] inhibitor Follow-up with Dr. Steven in the [place] office in the next 2 to 4 [...] left radial artery was obtained. A 6 [place] glide sheath was inserted without difficulty. Bilateral [...] Branch: 3rd Mrg filled by collaterals from 2nd Sept. Intervention No interventions have been documented. Ehab Maurizio GLOVER CV CARDIAC CATH PROCEDURES Tena jameson Result * ECG 12 lead (08/13/2024 9:29 AM EDT) [facility] Ventricular Rate 61 BPM GE MUSE Atrial Rate 61 BPM GE MUSE TX Interval 174 ms GE MUSE QRS DURATION 86 ms GE MUSE QT Interval 402 ms GE MUSE QTC CALCULATION(BAZE TT) 404 ms GE MUSE P [place] 3 degrees GE MUSE R-[place] 41 degrees GE MUSE T Wave [place] 44 degrees GE MUSE 08/13/2024 8:23 AM [...] SAMER J. (57) on 08/13/2024 10:43:16 AM Ehab Maurizio GLOVER ECG ORDERABLES Final Result GE MUSE * Treadmill Stress Myocardial Perfusion Imaging (07/24/2024 8:40 AM EDT) Anatomical Region Laterality Modality Other Historical Provider CV STRESS PROCEDURES Tena l Result from Last 3 Months Insurance MEDICARE Member Subscriber Plan / Payer (Ef fective 2014-Present) Name:Lazaro James Member ID:[id number] Relation to Subscriber:Self Name:Lazaro James Subscriber ID:[id number] Payer ID:[id number] Group ID:Not on file Type:Medicare Address: [facility] [place] [id number] Care Teams Geomagnetist Relationship Specialty Start Date End Date Chris Villanueva MD [address] [place] [address] PCP - General 10/30/22
--- OUTSIDE RECORDS SUMMARY | 2024-08-20 12:18 | XMS_ITS | Encounter Summary ---
Author Organization [facility] Address [address] [place] [address] Care Team Providers Care Psych Assistant Name Role Phone Chris Villanueva MD Primary Care Provider [phone] Encounter Details Date Type Department Care Team (Late st Contact Info) Description 08/20/2024 Orders Only [facility] [address] [place] [phone] Berna Carrasco RN Type 2 diabetes mellitus without complication, unspecified whether group home insulin use (CMS/[facility]) (Primary Dx) Social History Tobacco Use Types Packs/Day Years Used Date Smoking Tobacco: Never Smokeless Tobacco: Never Alcohol Use Standard Drinks/Week Comments Not Currently 0 (1 standard drink = 0.6 oz pur e alcohol) occasional PHQ-2 Answer Date Recorded Patient Health Questionnaire-2 Score 0 08/19/2024 [place] Safety & Environment Answer Date Rec orded [...] EDT Follow-Up [facility] [address] [place] [address] Antoine Steven MD [address] [facility] [place] [address] Scheduled Orders Name Type Priority Associated Diagnoses Orde r Schedule Hemoglobin A1c Lab Routine Type 2 diabetes mellitus without complication, unspecified whether terminal makeup operator insulin use (CMS/HCC) Expected: 08/20/2024 (Approximate), Expires: 08/20/2025 documented as of this encounter Visit Diagnoses Diagnosis Type 2 diabetes mellitus without complication, unspecified whether group home insulin use (CMS/HCC)- Primary documented in this encounter Care Teams Psych Assistant Relationship Specialty Start Date End Date Chris Villanueva MD [address] [place] [address] PCP - General 10/30/22 documented as of this encounter
--- OUTSIDE RECORDS SUMMARY | 2024-08-20 12:18 | XMS_ITS | Encounter Summary ---
Author Organization [facility] Address [address] [place] [address] Care Team Providers Care Cable Stretcher And Tester Name Role Phone Chris Villanueva MD Primary Care Provider [phone] Encounter Details Date Type Department Care Team (Late st Contact Info) Description 08/20/2024 Orders Only [facility] [address] [place] [phone] Aureliano Barker MA Social History Tobacco Use Types Packs/Day Years Used Date Smoking Tobacco: Never Smokeless Tobacco: Never Alcohol Use Standard Drinks/Week Comments Not Currently 0 (1 standard drink = 0.6 oz pur e alcohol) occasional PHQ-2 Answer Date Recorded Patient Health Questionnaire-2 Score 0 08/19/2024 [place] Safety & Environment Answer Date Rec orded [...] Info) Description 10/15/2024 9:45 AM EDT Follow-Up [facility] [address] [place] [address] Antoine Steven MD [address] [facility] [address] [facility] [address] documented as of this encounter Visit Diagnoses Not on filedocumented in this encounter Care Teams Cable Stretcher And Tester Relationship Specialty Start Date End Date Chris Villanueva MD [address] [place] [address] PCP - General 10/30/22 documented as of this encounter
--- OUTSIDE RECORDS SUMMARY | 2024-08-20 12:19 | XMS_ITS | Encounter Summary ---
Author Organization [facility] Address [address] [place] [address] Care Team Providers Care Mfg Assoc Name Role Phone Chris Villanueva MD Primary Care Provider [phone] Encounter Details Date Type Department Care Team ([facility] Contact Info) Description 08/06/2024 Clinisync Result Encounter [facility] External Department Unsolicited [...] 09/03/2024 7:15 AM EDT Office Visit [facility] [address] [place] [address] Chris Villanueva MD [address] [place] [phone] documented as of this encounter Procedures Procedure Name Priority Date/Time Associated Diagnosis Comments ALL CBC WITH AUTO DIFF Routine 08/06/2024 1:29 PM EDT ALL BASIC METABOLIC PANEL Routine 08/06/2024 1:29 PM EDT documented in this encounter Results * (ABNORMAL) ALL CBC WITH AUTO DIFF (08/06/2024 1:29 PM EDT) TBH WBC 7.2 4.0 - 11.0 10 3/uL TB TBH RBC 4.69(L) 4.70 - 6.10 10 6/uL TBH TBH HGB 13.1(L) 14.0 - 18.0 g/dL TBH TBH HCT 38.4(L) 42.0 - 54.0 % TBH TBH MCV 81.9 80.0 - 94.0 fL TBH TBH MCH 27.9 25.9 - 34.0 pg TBH TBH MCHC 34.1 29.9 - 35.2 g/dL TBH TBH RDW 12.5 11.0 - 15.0 % TBH TBH PLT 247 150 - 450 10 3/uL TBH TBH MPV 10.8 9.5 - 13.5 fL TBH NEUTROPHILS PERCENT AUTO 60.9 43.0 - 75.0 % TBH LYMPHOCYTES PERCENT AUTO 29.2 20.5 - 60.0 % TBH MONOCYTES PERCENT AUTO 7.1 1.7 - 12.0 % TBH TBH EO % 1.9 0.9 - 7.0 % TBH BASOPHILS PERCENT AUTO 0.6 0.2 - 2.0 % TBH IMMATURE GRANULOCYTES PCT AUTO 0.3 0.0 - 0.5 % TBH NEUTROPHILS ABSOLUTE AUTO 4.4 1.4 - 6.5 10 3/uL TBH LYMPHOCYTES ABSOLUTE AUTO 2.1 1.2 - 3.8 10 3/uL TBH MONOCYTES ABSOLUTE AUTO 0.5 0.3 - 0.8 10 3/uL TBH TBH EO # 0.1 0.0 - 0.7 10 3/uL TBH BASOPHILS ABSOLUTE AUTO 0.0 0.0 - 0.1 10 3/uL TBH IMMATURE GRANULOCYTES ABS AUTO 0.02 0.00 - 0.03 10 3/uL TBH 08/06/2024 1:29 PM EDT 08/06/2024 1:30 PM EDT Narrative CLINISYNC - 08/06/2024 2:36 PM EDT us Generic External Data Provider CLINISYNC F inal Result [facility] * (ABNORMAL) ALL BASIC METABOLIC PANEL (08/06/2024 1:29 PM EDT) SODIUM 140 136 - 145 mmol/L TBH POTASSIUM 4.4 3.5 - 5.1 mmol/L TBH CHLORIDE 105 98 - 107 mmol/L TBH CARBON DIOXIDE 27.3 21.0 - 32.0 mmol/L TBH ANION GAP 12.1 TBH GLUCOSE 117(H) 74 - 106 mg/dL TBH BLOOD UREA NITROGEN 14.0 7.0 - 18.0 mg/dL TBH CREATININE 1.15 0.70 - 1.30 mg/dL TBH TBH EGFR-AF MALAYSIAN >60 >=60 mL/min/1.7 3m 2 TBH TBH EGFR-NON AF MALAYSIAN >60 >=60 mL/min/1.7 3m 2 TBH BUN CREATININE RATIO 12.2 TBH CALCIUM 8.7 8.5 - 10.1 mg/dL TBH 08/06/2024 1:29 PM EDT 08/06/2024 1:30 PM EDT Narrative CLINISYNC - 08/06/2024 1:56 PM EDT us Generic External Data Provider CLINISYNC F inal Result CLINIS[facility]NC [facility] documented in this encounter Visit Diagnoses Not on filedocumented in this encounter Care Teams Mfg Assoc Relationship Specialty Start Date End Date Chris Villanueva MD PCP - General Family Medicine 01/31/23 documented as of this encounter
--- OUTSIDE RECORDS SUMMARY | 2024-08-20 12:19 | XMS_ITS | Encounter Summary ---
Author Organization [facility] Address [address] [place] [address] Care Team Providers Care Community Health Educator Name Role Phone Chris Villanueva MD Primary Care Provider Reason for Visit * Reason Comments Med Refill Encounter Details Date Type Department Care Team (Late st Contact Info) Description 06/23/[address] [address] Antoine Steven MD [address] [facility] [address] [facility] [place] [address] Hyperlipidemia, unspecified hyperlipidemia type Social [...] Info) Description 10/15/2024 9:45 AM EDT Follow-Up [facility] [address] [place] [phone] Antoine Steven MD [address] [facility] [address] [facility] [place] [phone] documented as of this encounter Visit Diagnoses Diagnosis Hyperlipidemia, unspecified hyperlipidemia type documented in this encounter Care Teams Community Health Educator Relationship Specialty Start Date End Date Chris Villanueva MD [address] [place] [address] PCP - General 10/30/22 documented as of this encounter
--- OUTSIDE RECORDS SUMMARY | 2024-08-20 12:19 | XMS_ITS | Encounter Summary ---
Author Organization [facility] Address [address] [place] [address] Care Team Providers Care Caramel Coloring Operator Name Role Phone Chris Villanueva MD Primary Care Provider Encounter Details Date Type Department Care Team (Late Contact Info) Description 07/25/2024 Orders Only [facility] [address] [place] [phone] Antoine Steven MD [address] [facility] 1 [facility] [place] [phone] Social History Tobacco Use Types Packs/Day Years [...] Visit [facility] [address] [place] [address] Chris Villanueva MD [address] [place] [phone] documented as of this encounter Procedures Procedure Name Priority Date/Time Associated Diagnosis Comments STRESS TEST Routine 07/25/2024 9:55 AM EDT documented in this encounter Results * STRESS TEST (07/25/2024 9:55 AM EDT) Anatomical Region Laterality Modality Radiographic Josi ging Ehab Maurizio GLOVER IMG XR PROCEDURES Final Result documented in this encounter Visit Diagnoses Not on filedocumented in this encounter Care Teams Caramel Coloring Operator Relationship Specialty Start Date End Date Chris Villanueva MD PCP - General Family Medicine 01/31/23 documented as of this encounter
--- OUTSIDE RECORDS SUMMARY | 2024-08-20 12:19 | XMS_ITS | Encounter Summary ---
Author Organization [facility] Address [address] [place] [address] Care Team Providers Care Supervisor Fabrication And Assembly Name Role Phone Chris Villanueva MD Primary Care Provider [phone] Reason for Visit * Reason Comments Med Change Request Encounter Details Date Type Department Care Team (Late st Contact Info) Description 02/19/2023 Refill [place] [address] [place] [address] Antoine Steven MD [address] [place] [address] Hyperlipidemia, unspecified hyperlipidemia type Social [...] Info) Description 10/15/2024 9:45 AM EDT Follow-Up [place] [address] [place] [address] Antoine Steven MD [address] [place] [address] documented as of this encounter Visit Diagnoses Diagnosis Hyperlipidemia, unspecified hyperlipidemia type documented in this encounter Care Teams Supervisor Fabrication And Assembly Relationship Specialty Start Date End Date Chris Villanueva MD [address] [place] [address] PCP - General 10/30/22 documented as of this encounter
--- OUTSIDE RECORDS SUMMARY | 2024-08-20 12:19 | XMS_ITS | Encounter Summary ---
Author Organization [facility] Address [address] [place] [address] Care Team Providers Care Environment Artist Name Role Phone Chris Villanueva MD Primary Care Provider [phone] Reason for Visit * Reason Onset Date Comments images being pushed to PAC's 08/19/2024 Encounter Details Date Type Department Care Team (Late st Contact Info) Description 08/19/2024 Telephone [facility] [address] [place] [phone] Aureliano Barker MA images being pushed to PAC's Social History Tobacco Use Types Packs/Day Years Used Date Smoking Tobacco: Never Smokeless Tobacco: Never Alcohol Use Standard Drinks/Week Comments Not Currently 0 (1 standard drink = 0.6 oz pur e alcohol) occasional PHQ-2 Answer Date Recorded Patient Health Questionnaire-2 Score 0 08/19/2024 [place] Safety & Environment Answer Date Rec orded [...] Functional Status documented as of this encounter Miscellaneous Notes * Telephone Encounter - Aureliano Barker MA - 08/19/2024 8:31 AM EDT Call placed to [place] to have images pushed over to PACs. Radiology stated that they are pushing images. Form was completed and faxed to our radiology. documented in this encounter Plan of Treatment Upcoming Encounters Date Type Department Care Team (Late st Contact Info) Description 10/15/2024 9:45 AM EDT Follow-Up [facility] [address] [place] [address] Antoine Steven MD [address] [facility] [address] [facility] [place] [address] documented as of this encounter Visit Diagnoses Not on filedocumented in this encounter Care Teams Environment Artist Relationship Specialty Start Date End Date Chris Villanueva MD [address] [place] [address] PCP - General 10/30/22 documented as of this encounter
--- OUTSIDE RECORDS SUMMARY | 2024-08-20 12:19 | XMS_ITS | Encounter Summary ---
Author Organization [facility] Address [address] [place] [address] Care Team Providers Care Artificial Flowers Supervisor Name Role Phone Chris Villanueva MD Primary Care Provider [phone] Encounter Details Date Type Department Care Team (Latest Contact Info) Description 08/13/2024 Travel Social History Tobacco Use Types Packs/Day [...] Info) Description 10/15/2024 9:45 AM EDT Follow-Up [facility] [address] [place] [address] Antoine Steven MD [address] [facility] [place] [facility] 1 [facility] [place] [address] documented as of this encounter Visit Diagnoses Not on filedocumented in this encounter Care Teams Artificial Flowers Supervisor Relationship Specialty Start Date End Date Chris Villanueva MD [address] [place] [address] PCP - General 10/30/22 documented as of this encounter
--- OUTSIDE RECORDS SUMMARY | 2024-08-20 12:19 | XMS_ITS | Clinical Summary ---
Author Organization [facility] Address [address] [place] [address] Care Team Providers Care Senior Research Fellow Name Role Phone Chris Villanueva MD Primary Care Provider [phone] Allergies No known active allergies Medications aspirin [...] Date Benign hypertension 01/31/2023 Coronary atherosclerosis of [place] coronary latisha ry 01/31/2023 Depression screen 01/31/2023 Dyslipidemia 01/31/2023 Encounters Date Type Department Care Team Description 08/06/2024 Clinisync Result Encounter NOMS External Department Unsolicited Provider, Generic External Data 07/28/2024 Clinisync Result Encounter NOMS External Department Unsolicited Provider, Generic External Data 07/25/2024 Orders Only [facility] [address] [place] [address] Antoine Albright MD 07/24/2024 Clinisync Result Encounter [...] Office Visit [facility] [address] [place] [address] Chris Villanueva MD [address] [place] [address] Health Maintenance Due Date Last Done Comments CT Colonography 1950 Colonoscopy 1950 Colorectal Cancer Screening 1950 FIT-DNA 1950 FIT 1950 FOBT 1950 Medicare Annual Wellness (AWV) 1950 Sigmoidoscopy 1950 Influenza Vaccine (#1) 2024 3, 11/07/2019, 10/19/2018, Additional history exists Pneumococcal Vaccine: 65+ Years Completed 09/28/2022, 06/10/2016, 01/01/2015 Procedures Procedure Name Priority Date/Time Associated Diagnosis Comments ALL CBC WITH AUTO DIFF Routine 08/06/2024 1:29 PM EDT ALL BASIC METABOLIC PANEL Routine 08/06/2024 1:29 PM EDT ALL CBC WITH AUTO DIFF Routine 07/28/2024 1:32 PM EDT STRESS TEST Routine 07/25/2024 9:55 AM EDT NM MEÑO PERF SPECT REST STR 07/24/2024 1:52 PM EDT CA ECHO DOPPLER COMPLETE 06/25/2024 6:10 PM EDT from Last 3 Months Results * (ABNORMAL) ALL CBC WITH AUTO DIFF (08/06/2024 1:29 PM EDT) Only the most recent of2 resultswithin the time period is included. Pathologist [facility] WBC 7.2 4.0 - 11.0 10 3/uL TBH TBH RBC 4.69(L) 4.70 - 6.10 10 [...] External Data Provider [facility] * (ABNORMAL) ALL BASIC METABOLIC PANEL [...] 0.70 - 1.30 mg/dL TBH TBH EGFR-AF URUGUAYAN >60 >=60 mL/min/1.7 3m 2 TBH TBH EGFR-NON AF URUGUAYAN >60 >=60 mL/min/1.7 3m 2 TBH BUN CREATININE RATIO 12.2 TBH CALCIUM 8.7 8.5 - 10.1 mg/dL TBH 08/06/2024 1:29 PM EDT 08/06/2024 1:30 PM EDT Narrative CLINISYNC - 08/06/2024 1:56 PM EDT us Generic External Data Provider CLINISYNC F inal Result [facility] * STRESS TEST (07/25/2024 9:55 AM EDT) Anatomical Region Laterality Modality Radiographic Josi ging Antoine Albright MD IMG XR PROCEDURES Final Result * NM MEÑO PERF SPECT REST STR (07/24/2024 1:52 PM EDT) Anatomical Region Laterality Modality Other 07/24/2024 1:52 PM EDT Narrative 07/24/2024 1:53 [place] [address] Nuclear Medicine Report Signed Patient: FUAD JAMES MR#: [id number] : 1950 Acct:[id number] Age/Sex: 73 / M ADM Date: 07/24/24 Loc: NM Attending Dr: Antoine Albright M.D. Ordering Physician: Antoine Albright M.D. Date of Service: 07/24/24 Procedure(s): NM meño perf SPECT rest str Accession Number(s): [id number] cc: Antoine Albright M.D.; Chris Villanueva M.D. Patient Name: FUAD JAMES MR#: [id number] : 1950 Exam Date: 07/24/2024 Ordering Doctor: [...] the study was pending per attending physician [facility] . For more details please [...] Signed By: 07/24/24 1353 DD/ 1352 TD/TT: Panman: Procedure Note Radiology, Radiologist, - 07/24/2024 The [place] [phone] Nuclear Medicine Report Signed Patient: FUAD JAMESMR#: [id number] : 1950Acct:[id number] Age/Sex: 73 / MADM Date: 07/24/24 Loc: NM Attending Dr: Antoine Albright M.D. Ordering Physician: Antoine Albright M.D. Date of Service: 07/24/24 Procedure(s): NM meño perf SPECT rest str Accession Number(s): [id number] cc: Antoine Albright M.D.; Chris Villanueva M.D. Patient Name: FUAD JAMES MR#: [id number] : 1950 Exam Date: 07/24/2024 Ordering Doctor: [...] ofthe study was pending per attending physician [facility] . For more details pleasesee [...] M.D. Signed By:07/24/24 1353 DD/ 1352 TD/TT: Panman: us Generic External Data Provider CLINISYNC IMAGING Final Result * CA ECHO DOPPLER COMPLETE (06/25/2024 6:10 PM EDT) Anatomical Region Laterality Modality Other 06/25/2024 6:10 PM EDT Narrative 06/25/2024 6:11 [place] [address] Cardiology Report Signed Patient: FUAD JAMES MR#: [id number] : 1950 Acct:[id number] Age/Sex: 73 / M ADM Date: 06/25/24 Loc: CARD Attending Dr: Levar Young NP Ordering Physician: Levar Young NP Date of Service: 06/25/24 Procedure(s): CA echo doppler complete Accession Number(s): [id number] cc: Chris Villanueva M.D.; Levar Young NP Patient Name: FUAD JAMES MR#: [id number] : 1950 Exam Date: 06/25/2024 Ordering Doctor: LEVAR YOUNG ECHOCARDIOGRAM REPORT PROCEDURE: CA ECHO DOPPLER COMPLETE INDICATIONS: Dyspnea on exertion, hypertension, coronary artery disease, SC, cardiac stents x 4 COMPARISON: None. DESCRIPTION: [...] HALL Signed By: 06/25/241810 DD/ 09 TD/TT: Panman: Procedure Note Radiology, Radiologist, MD - 06/25/2024 [place] [address] Cardiology Report Signed Patient: FUAD JAMESMR#: [id number] : 1950Acct:[id number] Age/Sex: 73 / MADM Date: 06/25/24 Loc: CARD Attending Dr: Levar Young NP Ordering Physician: Levar Young NP Date of Service: 06/25/24 Procedure(s): CA echo doppler complete Accession Number(s): [id number] cc: Chris Villanueva M.D.; Levar Young NP Patient Name: FUAD JAMES MR#: [id number] : 1950 Exam Date: 06/25/2024 Ordering Doctor: LEVAR YOUNG ECHOCARDIOGRAM REPORT PROCEDURE: CA ECHO DOPPLER COMPLETE INDICATIONS: Dyspnea on exertion, hypertension, coronary arterydisease, SC, cardiac stents x 4 COMPARISON: None. DESCRIPTION: [...] MARI HALL Signed By:06/25/241810 DD/ 09 TD/TT: Panman: us Generic External Data Provider CLINISYNC IMAGING Final Result from Last 3 Months Insurance MEDICARE Care Teams Senior Research Fellow Relationship Specialty Start Date End Date Chris Villanueva MD PCP - General Family Medicine 01/31/23
--- NOTE | 2024-08-20 12:45 | XR_ITS ---
The [address] [address] Patient Name: FUAD PATEL MRN: [id number] date: 1950 Sex: M Assigned Patient Location: LAB Current Patient Location: LAB Accession/Order Number: [id number] Exam Date: 08/20/2024 13:43 Report Date: 08/20/2024 13:43 At the request of: RASHMI PATRICIA NP Procedure: XR chest 2V Chest 2 views CLINICAL HISTORY: Shortness of breath, Sleep apnea COMPARISON: None FINDINGS: Heart normal in size. Lungs are clear. No free air. XR/XR chest 2V IMPRESSION: NO ACUTE CARDIOPULMONARY ABNORMALITY. Impression dictated by: Fritz Gonzalez Jr., D.OBrodie 08/20/2024 1:43 PM Dictation Location: [facility] Electronically authenticated by: [id number] Y Date: 08/20/2024 13:43
== END 2024-08-20 12:15 | disposition home or self-care (01) ==
LOC: LAB 12:17
PROVIDERS: PCP Family Medicine; Visit Provider Nurse Practitioner
DX: I25.10 Atherosclerotic heart disease of native coronary artery without angina pectoris (principal); R94.39 Abnormal result of other cardiovascular function study; G47.30 Sleep apnea, unspecified; R06.02 Shortness of breath
CPT/HCPCS: 71046

== ENCOUNTER 2024-08-20 12:19 | Outpatient (OUT) | payer MEDICARE, SELFPAY ==
[2024-08-20 13:29] LABS: Thyroid Stimulating Hormone 1.789 uIU/mL (0.358-3.740)
== END 2024-08-20 12:20 | disposition home or self-care (01) ==
LOC: LAB 12:21
PROVIDERS: PCP Family Medicine; Visit Provider Thoracic Surgery (Cardiothoracic Vascular Surgery)
DX: E11.9 Type 2 diabetes mellitus without complications (principal)
CPT/HCPCS: 36415; 83036; 84443

== ENCOUNTER 2024-10-13 12:28 | Outpatient (OUT) | payer MEDICARE, SELFPAY ==
--- OUTSIDE RECORDS SUMMARY | 2024-10-01 10:00 | XMS_ITS | Encounter Summary ---
Author Organization [facility] Address [address] [place] [address] Care Team Providers Care Packaging Manager Name Role Phone Antoine Steven MD Unavailable [phone] Alexis Rizzo MD Unavailable [phone] Chris Villanueva MD Primary Care Provider [phone] Source Comments In the event this information is protected by the Federal Confidentiality of Alcohol and Drug AbusePatient Records regulations: The Federal rules restrict any use of the information to criminally investigate or prosecute any alcohol or drug abuse patient.[facility] Reason for Visit * Outpatient Procedure (Routine) - Closed Specialty Diagnoses / Procedures Referred By Contac t Referred To Contact [facility] [place] Diagnoses Surgery follow-up Procedures ECG COMPLETE ECG ROUTINE ECG W/LEAST 12 LDS W/I&R Alexis Rizzo MD [address] [place] [address] Phone: tel: fax: [facility] [address] [address] Referral ID Status Reason Start Date Expiration Date V isits Requested Visits Authorized [id number] Closed Auto-Generate d Referral 09/24/2024 09/24/2025 1 1 Encounter Details Date Type Department Care Team (Late st Contact Info) Description 10/01/2024 10:00 AM EDT Procedure Cardiology [address] [place] [address] Social History Tobacco Use Types Packs/Day Years Used Date Smoking Tobacco: Never Smokeless Tobacco: Never Alcohol Use Standard Drinks/Week Comments Not Asked 0 (1 standard drink = 0.6 oz pur e alcohol) rare [facility] Utilities Answer Date Recorded In the past 12 months has th e electric, gas, oil, or water company threatened to shut off services in your home? No 09/23/2024 Hunger Vital Sign Answer Date Recorded Within the past 12 months, y ou worried that your food would run out before you got the money to buy more. Never true 09/24/19 25 Within the past 12 months, t he food you bought just didn't last and you didn't have money to get more. Never true 09/23/2024 PRAPARE - Transportation Answer Date Re corded In the past 12 months, has l ack of transportation kept you from medical appointments or from getting medications? No 06/2024 In the past 12 months, has l ack of transportation kept you from meetings, work, or from getting things needed for daily living? No 09/23/2024 Housing Stability Vital Sign Answer Michael e Recorded In the last 12 months, was t here a time when you were not able to pay the mortgage or rent on time? No 09/23/2024 In the past 12 months, how m any times have you moved where you were living? 0 09/23/2024 At any time in the past 12 m [facility], were you homeless or living in a usp (including now)? No 09/23/2024 Area Deprivation Index Answer Date Gunner rded National Score (1-100), lower number is lower ri sk 76 09/17/2024 State Score (1-10), lower number is lower risk 6 09/17/2024 Data from: https://www.neighborhoodatlas.medicine.[facility].edu/. Last address used for calculation [address] 09/17/2024 Sex and Gender Information Value Date Recorded Sex Assigned at Not on file Legal Sex Male 10:29 AM EDT Gender Identity Not on file Sexual Orientation Not on file documented as of this encounter Plan of Treatment Pending Results Name Type Priority Associated Diagnoses Date /Time ECG COMPLETE ECG Routine Surgery follow-up 10/01/2024 10:15 AM EDT documented as of this encounter Goals Goal Patient Goal Type Associated Problems Recent Progress Patient-Stated? Author Blood Pressure < 130/80 Blood Pressure 100/68( 025 10:56 AM EDT) No Favio Erwin MD documented as of this encounter Procedures Procedure Name Priority Date/Time Associated Diagnosis Comments ECG COMPLETE Routine 10/01/2024 10:15 AM EDT Surgery follow-up documented in this encounter Visit Diagnoses Diagnosis Surgery follow-up Follow-up examination, following unspecified surgery documented in this encounter Care Teams Packaging Manager Relationship Specialty Start Date End Date Chris Villanueva MD [address] [place] [address] PCP - General Family Medicine 09/09/24 Antoine Steven MD [address] [place] [address] Referring Cardiology 09/03/24 Alexis Rizzo MD [address] [place] [address] Surgeon Cardiac Surg 09/05/24 documented as of this encounter
--- OUTSIDE RECORDS SUMMARY | 2024-10-01 10:12 | XMS_ITS | Encounter Summary ---
Author Organization [facility] Address [address] [place] [address] Care Team Providers Care Burnishing Machine Operator Name Role Phone Antoine Steven MD Unavailable [phone] Alexis Rizzo MD Unavailable [phone] Chris Villanueva MD Primary Care Provider [phone] Source Comments In the event this information is protected by the Federal Confidentiality of Alcohol and Drug AbusePatient Records regulations: The Federal rules restrict any use of the information to criminally investigate or prosecute any alcohol or drug abuse patient.[facility] Reason for Visit * Reason Comments Radio Main J1 Encounter Details Date Type Department Care Team (Latest Contact Info) Description 10/01/2024 10:12 AM EDT - 10/01/2024 11:59 PM EDT Hospital Encounter Radiology [address] [place], [place] [id number] Surgery follow-up [Z09] Discharge Disposition: Home Social History Tobacco Use Types Packs/Day Years Used Date Smoking Tobacco: Never Smokeless Tobacco: Never Alcohol Use Standard Drinks/Week Comments Not Asked 0 (1 standard drink = 0.6 oz pur e alcohol) rare [facility] Utilities Answer Date Recorded In the past 12 months has th e [employer], gas, oil, or water company threatened to [...] any time in the [facility] 12 m [facility], were you homeless or living in a correction (including now)? No 09/23/2024 Area Deprivation Index Answer Date Gunner rded National Score (1-100), lower number is lower ri sk 76 09/17/2024 State Score (1-10), lower number is lower risk 6 09/17/2024 Data from: https://www.neighborhoodatlas.medicine.[facility].edu/. Last address used for calculation [address] 09/17/2024 Sex and Gender Information Value Date Recorded Sex Assigned at Not on file Legal Sex Male 10:29 AM EDT Gender Identity Not on file Sexual Orientation Not on file documented as of this encounter Medications at Time of Discharge rosuvastatin (CRESTOR) 40 mg tablet Take 1 tablet by mouth daily at bedtime. 90 tablet 10/01/2024 ezetimibe (ZETIA) 10 mg tablet Take 1 tablet by mouth once daily. 90 tablet 10/01/2024 acetaminophen (TYLENOL) 325 mg tablet 2 tablets by ORAL/FEEDING TUBE route every 4 hours as needed for pain. 09/26/2024 MULTIVITAMIN-BRAD LIZ FUMARATE-FOLIC ACID 18 MG-400 MCG TABLET Take 1 tablet by mouth daily with breakfast. 30 tablet 2 09/26/2024 1:21 PM EDT 09/26/[address] (PROTONIX) 20 mg tablet Take 1 tablet by mouth daily at 6 am. 30 tablet 09/26/2024 1:21 PM EDT 09/27/2024 senna-docusate (SENNA-S) 8.6-50 mg per tablet Take 1 tablet by mouth once daily. 30 tablet 09/26/2024 1:21 PM EDT 09/26/2024 lisinopril (ZESTRIL) 5 mg tablet Take 1 tablet by mouth once daily. 30 tablet 2 09/26/2024 1:21 PM EDT 09/26/2024 furosemide (LASIX) 40 mg tablet Take 1 tablet by mouth once daily for 7 days. 7 tablet 09/26/2024 1:21 PM EDT 09/26/2024 amLODIPine (NORVASC) 5 mg tablet Take 5 mg by mouth once daily. 08/21/2024 aspirin, enteric coated (ASPIRIN, ENTERIC COATED) 81 mg EC tablet Take 81 mg by mouth once daily. 09/12/2017 carvedilol (COREG) 25 mg tablet Take 25 mg by mouth two times a day with meals. 07/23/2024 07/23/2025 ezetimibe (ZETIA) 10 mg tablet Take 10 mg by mouth once daily. 06/25/2024 lidocaine (SALONPAS) 4 % patch Apply 1 patch as directed once daily for 10 days. Remove patch after 12 hours, wait 12 hours before applying a new patch. 10 patch 09/26/2024 1:21 PM EDT 09/26/2024 10/06/2024 oxyCODONE IR (ROXICODONE) 5 mg immediate release tabletIndication s:Post-op pain Take 1-2 tablets by mouth every 4 hours as needed for up to 7 days. 28 tablet 09/26/2024 1:21 PM EDT 09/26/2024 10/03/2024 potassium chloride ER (KLOR-CON) 20 mEq tablet Take 2 tablets by mouth once daily for 7 days. 14 tablet 09/26/2024 1:21 PM EDT 09/26/2024 10/03/2024 documented as of this encounter Progress Notes * Miguelangel Wilburn RT(R) - 10/01/2024 10:30 AM EDT Radiology Service Progress Note PATIENT NAME: Lazaro James DATE OF SERVICE: October 01, 2024 TIME: 10:31 AM PATIENT IDENTITY VERIFICATION COMPLETED USING TWO (2) IDENTIFIERS: Name and Date of confirmedby patient verbally. FALL SCREENING: Has the patient had 2 falls in the last year or 1 fall with injury or currently using an Ambulatory Assistive Device (Walker, Cane, Wheelchair, Crutches, etc.)? No PATIENT GENDER DATA: Assigned male at PATIENT RELEVANT IMPLANT DATA REVIEWED: Not Applicable PATIENT PRESENTS WITH AN IMPLANTABLE OR ATTACHED LAWYER: No RADIOLOGY DEPARTMENT: General X-ray: Exam(s) Completed: Chest X-Ray PERIPHERAL IV DATA: Not applicable SIGNED BY: RT King(R) October 01, 2024 10:31 AM documented in this encounter Plan of Treatment Not on file documented as of this encounter Goals Goal Patient Goal Type Associated Problems Recent Progress Patient-Stated? Author Blood Pressure < 130/80 Blood Pressure 100/68( 025 10:56 AM EDT) No Favio Erwin MD documented as of this encounter Procedures Procedure Name Priority Date/Time Associated Diagnosis Comments XR CHEST 2V FRONTAL/LAT Routine 10/01/2024 10:30 AM EDT Surgery follow-up documented in this encounter Results * XR CHEST 2V FRONTAL/LAT (10/01/2024 10:30 AM EDT) Anatomical Region Laterality Modality Chest Other 10/01/2024 10:3 0 AM EDT Impressions 10/01/2024 2:01 PM EDT IMPRESSION: Mildly improving. Sew Out Operator: MCKENZIE Transcribe Date/Time: Oct 01 2024 1:55P Dictated by : KAL VANN MD This examination was interpreted and the report reviewed and electronically signed by: KAL VANN MD on Oct 01 2024 1:59PM EST Narrative 10/01/2024 2:01 PM EDT * * *Final Report* * * DATE OF EXAM: Oct 01 2024 10:30AM [id number] - XR CHEST 2V FRONTAL/LAT / PROCEDURE REASON: Surgery follow-up * * * * Physician Interpretation * * * * EXAMINATION: CHEST RADIOGRAPH (2 VIEW FRONTAL & LATERAL) CLINICAL HISTORY: Surgery follow-up MQ: XC2_6 EXAM DATE/TIME: 10/01/2024 10:30 AM COMPARISON: 09/23/2024 RESULT: Lines, tubes, and devices: None. Status post median sternotomy and CABG. Mildly lordotic projection noted on the frontal sitting upright view. Lungs and pleura: Small pleural effusions noted, left greater than right with posterior costophrenic angle blunting and left lateral costophrenic angle blunting. Suspect tiny left apical pneumothorax, with faintly visible displaced visceral pleural margin, pleural separation estimated to be about 6-7 mm superolaterally, previously measured as 12 mm. Larger lung volume noted. Cardiomediastinal silhouette: Enlarged cardiomediastinal silhouette. On the lateral view, prior noted retrosternal postoperative gas lucencies appear less prominent, presumably resolved. Bones and soft tissues: Degenerative changes are present within the thoracic spine. Procedure Note Provider, [facility] [place] - 10/01/2024 * * *Final Report* * * DATE OF EXAM: Oct 01 2024 10:30AM [id number] - XR CHEST 2V FRONTAL/LAT / PROCEDURE REASON: Surgery follow-up * * * * Physician Interpretation * * * * EXAMINATION: CHEST RADIOGRAPH (2 VIEW FRONTAL & LATERAL) CLINICAL HISTORY: Surgery follow-up MQ: XC2_6 EXAM DATE/TIME: 10/01/2024 10:30 AM COMPARISON: 09/23/2024 RESULT: Lines, tubes, and devices: None. Status post median sternotomy and CABG. Mildly lordotic projection noted on the frontal sitting upright view. Lungs and pleura: Small pleural effusions noted, left greater than right with posterior costophrenic angle blunting and left lateral costophrenic angle blunting. Suspect tiny left apical pneumothorax, with faintly visible displaced visceral pleural margin, pleural separation estimated to be about 6-7 mm superolaterally, previously measured as 12 mm. Larger lung volume noted. Cardiomediastinal silhouette: Enlarged cardiomediastinal silhouette. On the lateral view, prior noted retrosternal postoperative gas lucencies appear less prominent, presumably resolved. Bones and soft tissues: Degenerative changes are present within the thoracic spine. IMPRESSION IMPRESSION: Mildly improving. Sew Out Operator: PSCB Transcribe Date/Time: Oct 01 2024 1:55P Dictated by : KAL VANN MD This examination was interpreted and the report reviewed and electronically signed by: KAL VANN MD on Oct 01 2024 1:59PM EST Alexis Rizzo MD RAD-PAMA Final Result documented in this encounter Visit Diagnoses Diagnosis Surgery follow-up Follow-up examination, following unspecified surgery documented in this encounter Care Teams Burnishing Machine Operator Relationship Specialty Start Date End Date Chris Villanueva MD [address] [place] [address] PCP - General Family Medicine 09/09/24 Antoine Steven MD [address] [place] [address] Referring Cardiology 09/03/24 Alexis Rizzo MD [address] [place] [address] Surgeon Cardiac Surg 09/05/24 documented as of this encounter
--- OUTSIDE RECORDS SUMMARY | 2024-10-01 11:00 | XMS_ITS | Encounter Summary ---
Author Organization [facility] Address [address] [place] [address] Care Team Providers Care Verifying Specialist Name Role Phone Antoine Steven MD Unavailable [phone] Alexis Rizzo MD Unavailable [phone] Chris Villanueva MD Primary Care Provider [phone] Source Comments In the event this information is protected by the Federal Confidentiality of Alcohol and Drug AbusePatient Records regulations: The Federal rules restrict any use of the information to criminally investigate or prosecute any alcohol or drug abuse patient.[facility] Encounter Details Date Type Department Care Team (Latest Contact Info) Description 10/01/2024 11:00 AM EDT Office Visit Cardiothoracic [address] [place], [place] [id number] Sourav Horta, DA.STOPPERER ASSEMBLER [address] [place] [address] Postoperative visit (Primary Dx) Social History Tobacco Use Types Packs/Day Years Used Date Smoking Tobacco: Never Smokeless Tobacco: Never Alcohol Use Standard Drinks/Week Comments Not Asked 0 (1 standard drink = 0.6 oz pur e alcohol) rare [facility] Utilities Answer Date Recorded In the past [...] any time in the past 12 m [facility], were you homeless or living in a prison (including now)? No 09/23/2024 Area Deprivation Index Answer Date Gunner rded National Score (1-100), lower number is lower ri sk 76 09/17/2024 State Score (1-10), lower number is lower risk 6 09/17/2024 Data from: https://www.neighborhoodatlas.medicine.[facility].edu/. Last address used for calculation [address] 09/17/2024 Sex and Gender Information Value Date Recorded Sex Assigned at Not on file Legal Sex Male 10:29 AM EDT Gender Identity Not on file Sexual Orientation Not on file documented as of this encounter Last Filed Vital Signs Vital Sign Reading Time Taken Comments Blood Pressure 100/68 10/01/2024 10:56 AM EDT Pulse 74 10/01/2024 10:56 AM EDT Temperature 36.7 C (98 F) 10/01/2024 10:56 AM EDT Respiratory Rate - - Oxygen Saturation 98% 10/01/2024 10:56 AM EDT Inhaled Oxygen Concentration - - Weight 95 kg (209 lb 6.4 oz) 10/01/2024 10:56 AM EDT Height 175.3 cm (5' 9 ) 10/01/2024 10:56 AM EDT Body Mass Index 30.92 10/01/2024 10:56 AM EDT documented in this encounter Patient Instructions * Patient Instructions* Sourav Horta APRN.CNP - 10/01/2024 11:30 AM EDT Stop lipitor and start crestor Monitor incisions for signs and symptoms of infection Follow up with PCP within 7-10 days. You will need labs (CBC/CMP), EKG and CXR on this follow up visit. Follow up with your local Lens Inserter within 4 weeks. documented in this encounter Progress Notes * Sourav Horta APRN.CNP - 10/01/2024 11:00 AM EDT Images from the original note were not included. [facility] Department of Cardiovascular Medicine DEPARTMENT OF CARDIAC SURGERY OUTPATIENT VISIT DATE September 30, 2024 OUTPATIENT VISIT TYPE POSTOPERATIVE Lazaro James is a 73 year old male who presents who is here for post operative follow up HPI: S/P on 09/19/2024: CABG x4 (PHILLIPS-LAD, SVG-Diag1, SVG-Om1 seq to PL) - poor targets Discharged on 09/26/2024 PAST MEDICAL HISTORY Diagnosis Date CAD (coronary artery disease) Heart attack (HCC) x2, CHINMAY to RCA HLD (hyperlipidemia) HTN (hypertension) Kidney stones MALKA (obstructive sleep apnea) PAST SURGICAL HISTORY Procedure Laterality Date PCI/STENT x2 ALLERGIES No Known Allergies Current Outpatient Medications Medication Sig acetaminophen (TYLENOL) 325 mg tablet 2 tablets by ORAL/FEEDING TUBE route every 4 hours as needed for pain. lidocaine (SALONPAS) 4 % patch Apply 1 patch as directed once daily for 10 days. Remove patch after12 hours, wait 12 hours before applying a new patch. MULTIVITAMIN-FERROUS FUMARATE-FOLIC ACID 18 MG-400 MCG TABLET Take 1 tablet by mouth daily with breakfast. oxyCODONE IR (ROXICODONE) 5 mg immediate release tablet Take 1-2 tablets by mouth every 4 hours as needed for up to [address] (PROTONIX) 20 mg tablet Take 1 tablet by mouth daily at 6 am. senna-docusate (SENNA-S) 8.6-50 mg per tablet Take 1 tablet by mouth once daily. lisinopril (ZESTRIL) 5 mg tablet Take 1 tablet by mouth once daily. furosemide (LASIX) 40 mg tablet Take 1 tablet by mouth once daily for 7 days. potassium chloride ER (KLOR-CON) 20 mEq tablet Take 2 tablets by mouth once daily for 7 days. amLODIPine (NORVASC) 5 mg tablet Take 5 mg by mouth once daily. aspirin, enteric coated (ASPIRIN, ENTERIC COATED) 81 mg EC tablet Take 81 mg by mouth once daily. carvedilol (COREG) 25 mg tablet Take 25 mg by mouth two times a day with meals. ezetimibe (ZETIA) 10 mg tablet Take 10 mg by mouth once daily. rosuvastatin (CRESTOR) 40 mg tablet Take 1 tablet by mouth daily at bedtime. No current facility-administered medications for this visit. Chief Complaints: I only got 3 hours of sleep last night Discharge Post Operative Course: Pain scale :No 0 on a scale of 0 to 10 Appetite: appetite good Activity: Walking ad carey around the house Elimination: normal, no constipation Sleep: difficulty staying asleep Mood: normal Incisions/Wounds: healing well Review of Systems: HEENT: No complaints offered Cardiac: Denies significant problems Respiratory: denies patient denies a history of any respiratory problems Musculoskeletal: No history of joint swelling, joint pain, or loss of range of motion. Neuro: Denies neurological complaints Physical Exam: BP 100/68 Pulse 74 Temp 36.7 ??C (98 ??F) (Oral) Ht 175.3 cm (5' 9 ) Wt 95 kg (209 lb 6.4 oz) SpO2 98% BMI 30.92 kg/m?? Appearance: well developed, well nourished, well groomed, in no acute distress Neck: No neck vein distention Cardiac: regular S1, S2 Lungs: Diminished breath sounds at the bases bilaterally Abdomen: soft, non tender, non-distended, Normal bowel sounds Extremities: Edema: bilateral Trace Sternum: stable Sternotomy site: healing, clean, dry and intact Wound: NA SV Rayne sites: Location: Right LE, mid and distal, clean, dry and intact, and small swelling below the SVG site Radial Artery Rayne site: n/a Procedures: N/A IMPRESSION & PLAN: This is a 73 year old male from [place], [place]. Past medical history of STEMI, CAD s/p CHINMAY to RCA 2008, Mixed hyperlipidemia, Hypertension, MALKA, Obesity. On 09/19/2024: CABG x4 (PHILLIPS-LAD, SVG-Diag1, SVG-Om1 seq to PL) - poor targets by Dr. Rizzo. He was discharged without skilled needs on 09/26/2024 History: CAD Assessment: s/p CABG Plan: on ASA, Coreg and lipitor History: HTN Assessment: BP100/68 Plan: continue norvasc, lopressor and lisinopril History: postop pleural effusion Assessment: CXR RESULT: Lines, tubes, and devices: None. Status [...] changes are present within the thoracic spine. Plan: continue lasix Continue to use incentive spirometer History: HPL Assessment: LDL 126 Plan: start crestor 40 at HS History: insomnia Assessment: c/o waking up after 3hrs of sleep since surgery Taking naps during the day Plan: declined prescription sleep medicine Advised to try OTC melatonin History: postop Assessment: WBC 12.7 Afebrile Incisions c/d/i Plan: follow up with PCP for a repeat CBC early next week. Sooner if needed History: hyperkalemia Assessment: K 5.4 Was taking 40mg lasix with 40meq kdur Plan: continue lasix and stop kdur Repeat labs with PCP early next week. EKG Diagnosis: NORMAL SINUS RHYTHM ANTEROLATERAL T WAVE ABNORMALITY ABNORMAL ECG Summary: S/P 09/19/2024: CABG x4 (PHILLIPS-LAD, SVG-Diag1, SVG-Om1 seq to PL) - poor targets by Dr. Rizzo. Post op care and discharge orders reviewed with the patient- all questions were answered. Surgical sites healing without complication Discussed new medications, dosage, route of administration and side effects Reviewed walking program at home Reviewed diet guidelines for recovery from surgery Return to the clinic prn with signs or symptoms of infection, fevers, SOB, or pleural effusion SBE prophylaxis reviewed Discussed wound care Sourav Horta APRN.STOPPERER ASSEMBLER documented in this encounter Plan of Treatment Not on file documented as of this encounter Goals Goal Patient Goal Type Associated Problems Recent Progress Patient-Stated? Author Blood Pressure < 130/80 Blood Pressure 100/68( 025 10:56 AM EDT) No Favio Erwin MD documented as of this encounter Visit Diagnoses Diagnosis Postoperative visit- Primary Other specified aftercare following surgery documented in this encounter Care Teams Verifying Specialist Relationship Specialty Start Date End Date Chris Villanueva MD [address] [place] [address] PCP - General Family Medicine 09/09/24 Antoine Steven MD [address] [place] [address] Referring Cardiology 09/03/24 Alexis Rizzo MD [address] [place] [address] Surgeon Cardiac Surg 09/05/24 documented as of this encounter
--- OUTSIDE RECORDS SUMMARY | 2024-10-10 11:00 | XMS_ITS | Encounter Summary ---
Author Organization [facility] Address [address] [place] [address] Care Team Providers Care Manager Dish Name Role Phone Chris iVllanueva MD Primary Care Provider [phone] Reason for Visit * Reason Comments Follow-up F/up quad bypass Encounter Details Date Type Department Care Team (Late st Contact Info) Description 10/10/2024 11:00 AM EDT Office Visit [facility] [address] [place] [address] Chris Villanueva MD [address] [place] [address] Atherosclerosis of tuscarora coronary artery of tuscarora heart without angina pectoris (Primary Dx); Benign hypertension ; Ischemic cardiomyopathy ; SOB (shortness of breath) on exertion; Encounter for long-term (current) use of medications Social History Tobacco Use Types Packs/Day Years Used Date Smoking Tobacco: Never Smokeless Tobacco: Never PHQ-2 Answer Date Recorded Patient Health Questionnaire-2 Score 0 09/05/2024 Sex and Gender Information Value Date Recorded Sex Assigned at Not on file Legal Sex Male 6:37 PM EDT Gender Identity Not on file Sexual Orientation Not on file documented as of this encounter Last Filed Vital Signs Vital Sign Reading Time Taken Comments Blood Pressure 118/48 10/10/2024 11:17 AM EDT Pulse 50 10/10/2024 11:17 AM EDT Temperature 36.2 C (97.1 F) 10/10/2024 11:17 AM EDT Respiratory Rate 24 10/10/2024 11:17 AM EDT Oxygen Saturation 98% 10/10/2024 11:17 AM EDT Inhaled Oxygen Concentration - - Weight 95.7 kg (211 lb) 10/10/2024 11:17 AM EDT Height 174 cm (5' 8.5 ) 10/10/2024 11:17 AM EDT Body Mass Index 31.62 10/10/2024 11:17 AM EDT documented in this encounter Progress Notes * Chris Villanueva MD - 10/10/2024 12:08 PM EDTAssociated Problem(s): Ischemic cardiomyopathy Follow with specialists. * Chris Villanueva MD - 10/10/2024 12:07 PM EDTAssociated Problem(s): Coronary atherosclerosis of tuscarora coronary artery Doing well after CABG and follow with specialists. Repeat labs, EKG, and CXR. * Chris Villanueva MD - 10/10/2024 12:07 PM EDTAssociated Problem(s): Benign hypertension BP controlled and monitor PRN. * Chris Villanueva MD - 10/10/2024 11:00 AM EDT Images from the original note were not included. Subjective Patient ID: Lazaro James is a 73 y.o. male who presents for Follow-up (F/up quad bypass). Hospital follow up from 09/19-09/26 after 4 vessel CABG. Initially had abnormal cath in [place] and referred to [facility] due to small vessels. Able to perform 4 vessel bypass and did well. Adjusted medication.Seen by surgeon 10/01 and found elevated potassium. Stopped supplement and continued lasix. Recommended repeat CBC, CMP, EKG, and CXR. Patient feels well. Still fatigue with exertion. Mild pain. No gertrudis ma. Hard to take deep breath due to symptoms. Scheduled with cardiology next week and will start cardiac rehab in few weeks. Review of Systems Constitutional: Negative for fatigue. Respiratory: Negative for cough, shortness of breath and wheezing. Cardiovascular: Negative for chest pain and palpitations. Gastrointestinal: Negative for abdominal pain, diarrhea, nausea and vomiting. Genitourinary: Negative for dysuria. Objective Physical Exam Constitutional: General: He is not in acute distress. Appearance: Normal appearance. HENT: Head: Normocephalic. Right Ear: Tympanic membrane and ear canal normal. Left Ear: Tympanic membrane and ear canal normal. Eyes: Extraocular Movements: Extraocular movements intact. Pupils: Pupils are equal, round, and reactive to light. Cardiovascular: Rate and Rhythm: Normal rate and regular rhythm. Heart sounds: No murmur heard. No friction rub. No gallop. Pulmonary: Breath sounds: Normal breath sounds. No wheezing, rhonchi or rales. Abdominal: General: Bowel sounds are normal. There is no distension. Palpations: Abdomen is soft. Tenderness: There is no abdominal tenderness. There is no guarding or rebound. Musculoskeletal: Left lower leg: No edema. Neurological: Mental Status: He is alert. Assessment/Plan Problem List Items Addressed This Visit Benign hypertension BP controlled and monitor PRN. Relevant Orders Comprehensive metabolic panel Coronary atherosclerosis of tuscarora coronary artery - Primary Doing well after CABG and follow with specialists. Repeat labs, EKG, and CXR. Relevant Orders ECG 12 lead Ischemic cardiomyopathy Follow with specialists. Relevant Orders XR chest 2 views Encounter for long-term (current) use of medications Relevant Orders Comprehensive metabolic panel CBC and differential SOB (shortness of breath) on exertion Relevant Orders XR chest 2 views documented in this encounter Plan of Treatment Upcoming Encounters Date Type Department Care Team (Late st Contact Info) Description 03/11/2025 10:30 AM EST Office Visit [facility] [address] [place] [address] Chris Villanueva MD [address] [place] [address] Scheduled Orders Name Type Priority Associated Diagnoses Orde r Schedule Comprehensive metabolic panel Lab Routine Benign hypertension Encounter for long-term (current) use of medications Expected: 10/10/2024 (Approximate), Expires: 10/10/2025 CBC and differential Lab Routine Encounter for long-term (current) use of medications Expected: 10/10/2024 (Approximate), Expires: 10/10/2025 ECG 12 lead ECG Routine Atherosclerosis of tuscarora coronary artery of tuscarora heart without angina pectoris Expected: 10/10/2024 (Approximate), Expires: 10/10/2025 XR chest 2 views Imaging Routine Ischemic cardiomyopathy SOB (shortness of breath) on exertion Expected: 10/10/2024, Expires: 10/10/2025 documented as of this encounter Visit Diagnoses Diagnosis Atherosclerosis of tuscarora coronary artery of tuscarora heart without angina pectoris- Primary Benign hypertension Essential hypertension, benign Ischemic cardiomyopathy Other specified forms of chronic ischemic heart disease SOB (shortness of breath) on exertion Shortness of breath Encounter for long-term (current) use of medications Encounter for long-term (current) use of other medications documented in this encounter Additional Health Concerns Assessment Noted Time PHQ-9 Depression Total Score: 0 09/06/19 11:00 AM EDT documented as of this encounter Care Teams Manager Dish Relationship Specialty Start Date End Date Chris Villanueva MD [address] [place] [address] PCP - General Family Medicine 09/05/24 documented as of this encounter
--- OUTSIDE RECORDS SUMMARY | 2024-10-13 12:32 | XMS_ITS | Encounter Summary ---
Author Organization [facility] Address [address] [place] [address] Care Team Providers Care Veterans' Counselor Name Role Phone Chris Villanueva MD Primary Care Provider [phone] Reason for Visit * Reason Comments Med Refill Encounter Details Date Type Department Care Team (Late st Contact Info) Description 06/23/2023 Refill [facility] [address] [place] [address] Antoine Steven MD [address] [facility] [place] [address] Hyperlipidemia, unspecified hyperlipidemia type Social [...] Information Value Date Recorded Sex Assigned at Male 10/07/2024 4:07 PM EDT Legal Sex Male 10:28 PM EDT Gender Identity Male 10/07/2024 4:07 PM EDT Sexual Orientation Heterosexual or Straight 09/19 4:07 PM EDT documented as of this encounter Plan of Treatment Upcoming Encounters Date Type Department Care Team (Late st Contact Info) Description 10/15/2024 9:45 AM EDT Follow-Up [facility] [address] [place] [address] Antoine Steven MD [address] [facility] [place] [address] documented as of this encounter Visit Diagnoses Diagnosis Hyperlipidemia, unspecified hyperlipidemia type documented in this encounter Care Teams Veterans' Counselor Relationship Specialty Start Date End Date Chris Villanueva MD [address] [place] [address] PCP - General 10/30/22 documented as of this encounter
--- OUTSIDE RECORDS SUMMARY | 2024-10-13 12:32 | XMS_ITS | Encounter Summary ---
Author Organization [facility] Address [address] [place] [address] Care Team Providers Care Certified Genetic Counselor Name Role Phone Antoine Steven MD Unavailable [phone] Alexis Rizzo MD Unavailable [phone] Chris Villanueva MD Primary Care Provider [phone] Source Comments In the event this information is protected by the Federal Confidentiality of Alcohol and Drug AbusePatient Records regulations: The Federal rules restrict any use of the information to criminally investigate or prosecute any alcohol or drug abuse patient.[facility] Encounter Details Date Type Department Care Team (Latest Contact Info) Description 10/01/2024 Travel Social History Tobacco Use Types Packs/Day Years Used Date Smoking Tobacco: Never Smokeless Tobacco: Never Alcohol Use Standard Drinks/Week Comments Not Asked 0 (1 standard drink = 0.6 oz pur e alcohol) rare [facility] Utilities Answer Date Recorded In the past 12 months has e electric, gas, oil, or water company [...] any time in the past 12 m [place], were you homeless or living in a long term (including now)? No 09/23/2024 Area Deprivation Index Answer Date Gunner rded National Score (1-100), lower number is lower ri sk 76 09/17/2024 State Score (1-10), lower number is lower risk 6 09/17/2024 Data from: https://www.neighborhoodatlas.medicine.[facility].edu/. Last address used for calculation [address] 09/17/2024 Sex and Gender Information Value Date Recorded Sex Assigned at Not on file Legal Sex Male 10:29 AM EDT Gender Identity Not on file Sexual Orientation Not on file documented as of this encounter Plan of Treatment Not on file documented as of this encounter Goals Goal Patient Goal Type Associated Problems Recent Progress Patient-Stated? Author Blood Pressure < 130/80 Blood Pressure 100/68( 025 10:56 AM EDT) No Favio Erwin MD documented as of this encounter Visit Diagnoses Not on filedocumented in this encounter Care Teams Certified Genetic Counselor Relationship Specialty Start Date End Date Chris Villanueva MD [address] [place] [address] PCP - General Family Medicine 09/09/24 Antoine Steven MD [address] [place] [address] Referring Cardiology 09/03/24 Alexis Rizzo MD [address] [place] [address] Surgeon Cardiac Surg 09/05/24 documented as of this encounter
--- OUTSIDE RECORDS SUMMARY | 2024-10-13 12:32 | XMS_ITS | Encounter Summary ---
Author Organization [facility] Address [address] [place] [address] Care Team Providers Care Shorts Sifter Name Role Phone Chris Villanueva MD Primary Care Provider [phone] Chris Villanueva MD Primary Care Provider [phone] Encounter Details Date Type Department Care Team (Late Contact Info) Description 07/25/2024 Orders Only [facility] [address] [place] [address] Antoine Steven MD [address] [facility] [address] [facility] [place] [address] Social History Tobacco Use Types Packs/Day Years Used Date Smoking Tobacco: Never Sex and Gender Information Value Date Recorded Sex Assigned at Not on file Legal Sex Male 6:37 PM EDT Gender Identity Not on file Sexual Orientation Not on file documented as of this encounter Plan of Treatment Upcoming Encounters Date Type Department Care Team (Late Contact Info) Description 03/11/2025 10:30 AM EST Office Visit [facility] [address] [place] [address] Chris Villanueva MD [address] [place] [address] documented as of this encounter Procedures Procedure Name Priority Date/Time Associated Diagnosis Comments STRESS TEST Routine 07/25/2024 9:55 AM EDT documented in this encounter Results * STRESS TEST (07/25/2024 9:55 AM EDT) Anatomical Region Laterality Modality Radiographic Josi ging us [facility] Maurizio GLOVER IMG XR PROCEDURES Final Result documented in this encounter Visit Diagnoses Not on filedocumented in this encounter Care Teams Shorts Sifter Relationship Specialty Start Date End Date Chris Villanueva MD PCP - General Family Medicine 01/31/23 09/04/24 Chris Villanueva MD [address] [place] [address] PCP - General Family Medicine 09/05/24 documented as of this encounter
--- OUTSIDE RECORDS SUMMARY | 2024-10-13 12:32 | XMS_ITS | Encounter Summary ---
Author Organization [facility] Address [address] [place] [address] Care Team Providers Care Web Analytics Specialist Name Role Phone Antoine Steven MD Unavailable [phone] Alexis Rizzo MD Unavailable [phone] Chris Villanueva MD Primary Care Provider [phone] Source Comments In the event this information is protected by the Federal Confidentiality of Alcohol and Drug AbusePatient Records regulations: The Federal rules restrict any use of the information to criminally investigate or prosecute any alcohol or drug abuse patient.[facility] Reason for Visit * Reason Comments Medication Problem Post Dc Program Call - Needs Attn Encounter Details Date Type Department Care Team (Late st Contact Info) Description 10/01/2024 Telephone [address]iology [address] [place] [address] Alexis Rizzo MD [facility] [place] [address] Medication Problem; Post Dc Program Call - Needs Attn Social History Tobacco Use Types Packs/Day Years Used Date Smoking Tobacco: Never Smokeless Tobacco: Never Alcohol Use Standard Drinks/Week Comments Not Asked 0 (1 standard drink = 0.6 oz pur e alcohol) rare [facility] Utilities Answer Date Recorded In [...] any time in the past 12 m [facility], were you homeless or living in a snf (including now)? No 09/23/2024 Area Deprivation Index Answer Date Gunner rded National Score (1-100), lower number is lower ri sk 76 09/17/2024 State Score (1-10), lower number is lower risk 6 09/17/2024 Data from: https://www.neighborhoodatlas.medicine.[facility].edu/. Last address used for calculation [address] 09/17/2024 Sex and Gender Information Value Date Recorded Sex Assigned at Not on file Legal Sex Male 10:29 AM EDT Gender Identity Not on file Sexual Orientation Not on file documented as of this encounter Miscellaneous Notes * Telephone Encounter - Loren Galo RN - 10/01/2024 4:56 PM EDT Pt Daughter calling regarding compression socks. She states he was given size small today and they cannot get them on. She is asking if he can have a prescription for a larger size so they can be covered under insurance vs buying OTC. * Telephone Encounter - Jc Mendoza APRN.CNP - 10/01/2024 3:28 PM EDT Noted. To be completed by provider who saw patient today. Jc Mendoza APRN.CNP CTS OPD * Telephone Encounter - Gaye Washington RN - 10/01/2024 2:38 PM EDT Marii called the [facility] resource line stating she noticed her father only had a couple more pills ofthe zetia left. She was request a refill be sent to pharmacy on file ([facility]) if he continues to require it. documented in this encounter Plan of Treatment Not on file documented as of this encounter Goals Goal Patient Goal Type Associated Problems Recent Progress Patient-Stated? Author Blood Pressure < 130/80 Blood Pressure 100/68( 025 10:56 AM EDT) No [place] Favio zamarripa MD documented as of this encounter Visit Diagnoses Not on filedocumented in this encounter Care Teams Web Analytics Specialist Relationship Specialty Start Date End Date Chris Villanueva MD [address] [place] [address] PCP - General Family Medicine 09/09/24 Antoine Steven MD [address] [place] [address] Referring Cardiology 09/03/24 Alexis Rizzo MD [address] [place] [address] Surgeon Cardiac Surg 09/05/24 documented as of this encounter
--- OUTSIDE RECORDS SUMMARY | 2024-10-13 12:32 | XMS_ITS | Encounter Summary ---
Author Organization [facility] Address [address] [facility] [place] [address] Care Team Providers Care Night Guard Name Role Phone Chris Villanueva MD Primary Care Provider [phone] Encounter Details Date Type Department Care Team (Late st Contact Info) Description 10/10/2024 Telephone [facility] [address] [place] [phone] Chris Villanueva MD [address] [place] [address] Social History Tobacco Use Types Packs/Day Years [...] encounter Miscellaneous Notes * Telephone Encounter - Chris Villanueva MD - 10/10/2024 12:18 PM EDT Noted * Telephone Encounter - Lisa Porter - 10/10/2024 10:44 AM EDT eliane Joseph, Krish Rutherford here. Hey, you are going to see a real good friend of mine today, Husam. He had a bypass like, quadruple bypass about 10 days ago. Anyway, I went over and saw him and I do not know if he is not taken good enough lam all day, but he is. I thought I heard A few crackles at his bases and and he felt kind of warm. And I did not know if he needed a test. That Ray, when you see here. So anyway, I just started let you know that. Thanks a lot. documented in this encounter Plan of Treatment Upcoming Encounters Date Type Department Care Team (Late st Contact Info) Description 03/11/2025 10:30 AM EST Office Visit [facility] [address] [place] [address] Chris Villanueva MD [address] [place] [address] documented as of this encounter Visit Diagnoses Not on filedocumented in this encounter Additional Health Concerns Assessment Noted Time PHQ-9 Depression Total Score: 0 09/06/19 11:00 AM EDT documented as of this encounter Care Teams Night Guard Relationship Specialty Start Date End Date Chris Villanueva MD [address] [place] [address] PCP - General Family Medicine 09/05/24 documented as of this encounter
--- OUTSIDE RECORDS SUMMARY | 2024-10-13 12:32 | XMS_ITS | Clinical Summary ---
Author Organization [facility] Address [address] [place], [place] [id number] Care Team Providers Care Charter Coach Driver Name Role Phone Antoine Steven MD Unavailable [phone] Alexis Andrews MD Unavailable [phone] Chris Villanueva MD Primary Care Provider [phone] Allergies No known active allergies Medications amLODIPine (NORVASC) 5 mg tablet Take 5 mg by mouth once daily. 08/22/19 25 Active aspirin, enteric coated (ASPIRIN, ENTERIC COATED) 81 mg EC tablet Take 81 mg by mouth once daily. 09/13/19 18 Active carvedilol (COREG) 25 mg tablet Take 25 mg by mouth two times a day with meals. 07/24/19 25 026 Active ezetimibe (ZETIA) 10 mg tablet Take 10 mg by mouth once daily. 06/26/19 25 Active acetaminophen (TYLENOL) 325 mg tablet 2 tablets by ORAL/FEEDING TUBE route every 4 hours as needed for pain. 09/27/19 25 Active MULTIVITAMIN-F ERROUS FUMARATE-FOLIC ACID 18 MG-400 MCG TABLET Take 1 tablet by mouth daily with breakfast. 30 tablet 2 5 1:21 PM EDT 09/27/[address] (PROTONIX) 20 mg tablet Take 1 tablet by mouth daily at 6 am. 30 tablet 5 1:21 PM EDT 09/28/19 25 Active senna-docusate (SENNA-S) 8.6-50 mg per tablet Take 1 tablet by mouth once daily. 30 tablet 5 1:21 PM EDT 09/27/19 25 Active lisinopril (ZESTRIL) 5 mg tablet Take 1 tablet by mouth once daily. 30 tablet 2 5 1:21 PM EDT 09/27/19 25 Active furosemide (LASIX) 40 mg tablet Take 1 tablet by mouth once daily for 7 days. 7 tablet 5 1:21 PM EDT 09/27/19 25 Active rosuvastatin (CRESTOR) 40 mg tablet Take 1 tablet by mouth daily at bedtime. 90 tablet 10/02/19 25 Active ezetimibe (ZETIA) 10 mg tablet Take 1 tablet by mouth once daily. 90 tablet 10/02/19 25 Active atorvastatin (LIPITOR) 80 mg tablet Take 80 mg by mouth once daily. 09/13/19 18 025 Discontinued(Co urse of therapy completed) lisinopril (ZESTRIL) 20 mg tablet Take 20 mg by mouth once daily. 08/05/19 25 025 Discontinued rosuvastatin (CRESTOR) 40 mg tablet Take 40 mg by mouth once daily. 05/07/19 25 025 Discontinued lidocaine (SALONPAS) 4 % patch Apply 1 patch as directed once daily for 10 days. Remove patch after 12 hours, wait 12 hours before applying a new patch. 10 patch 5 1:21 PM EDT 09/27/19 25 025 oxyCODONE IR (ROXICODONE) 5 mg immediate release tabletIndicati ons:Post-op pain Take 1-2 tablets by mouth every 4 hours as needed for up to 7 days. 28 tablet 5 1:21 PM EDT 09/27/19 25 025 potassium chloride ER (KLOR-CON) 20 mEq tablet Take 2 tablets by mouth once daily for 7 days. 14 tablet 5 1:21 PM EDT 09/27/19 25 025 Active Problems Patient Care Coordination No te Formatting of this note migh t be different from the original. Indication for Surgery: Complex vessel coronary artery disease Preop LVEF: 60%, Mild LVH RVF: Normal Postop LVEF: Normal RVF: Normal Important/Relevant PMH/PSH: NSTEMI, CAD s/p CHINMAY to RCA 2008, Mixed hyperlipidemia, Hypertension, MALKA, Obesity Preoperative Hospital Course: Presented for cardiac surgery with Dr. Andrews. Airway Difficulty: Grade I - [place] Pacing Wires: pulled 09/24 Chronological List of Surgeries and Major Events (Diagnosis): 09/19/2024: CABG x4 (PHILLIPS-LAD, SVG-Diag1, SVG-Om1 seq to PL) - poor targets A/P of Major Active Problems (excluding routine care and common problems): Neuro: Postop pain- Pain controlled. Continue scheduled Tylenol, Lido patch, and PRN Oxycodone. Pulm: Atelectasis- On RA. Encourage cough and deep breathing exercises, EzPAP therapy, PEP therapy, OOB, PT/OT, and optimize pain control. . Diuresis - discharging with oral diuretic MALKA- Continue home CPAP QHS and PRN. Card: NSTEMI/CAD s/p CHINMAY RCA 2008- Now s/p CABG x4. Home medications ASA, Coreg, Lipitor, and Zetia. Continue scheduled ASA, BB (Lopressor) and statin. Changed back to coreg Cardiac insufficiency following cardiac surgery- Arrived to CVICU on Epinephrine infusion- weaned over overnight. CI/CO stable overnight. PAC removal . Hypotension- Immediately post op requiring Levophed - weaned off. BPs stable off support. Cont BB, lasix HTN- Home medications Norvasc, Coreg, and Zestril. Resume Norvasc and changed back to coreg HLD- Home medications Lipitor and Zetia. Resume Lipitor. Trend LFT's. Will discuss starting DAPT with Plavix with CTS - Not needed per Dr Andrews GI: Nausea: Reglan/Zofran-resolved. Diet advanced to Hh 4gm. Routine postop PPI. Renal: Hypervolemia- Weight is above pre op continue ID diuresis today and plan to transition to oral at discharge. +1 non pitting edema on exam - discharging with oral diuretic . Heme: ABLA- H/H 10.3/30.9. Trend H/H and transfuse as clinically indicated. Minimal CT output overnight. Remove pleural CTs and keo Endo: Obesity- POA. Estimated body mass index is 34.77 kg/m as calculated from the following: Height as of this encounter: 170.2 cm (5' 7 ). Weight as of this encounter: 100.7 kg (222 lb 0.1 oz). Encourage lifestyle modifications upon discharge. Encourage physical activity and weight loss as appropriate when recovered from surgery. ID: Leukocytosis- Normalized to WBC 9.54. Likely reactive. Afebrile. Continue postop antibiotics. CBC daily. Disposition: 73 yo male from [facility]. Discharge Planning: Anticipated Discharge Date: 09/26 Barriers to Discharge: Other: None Care Management Discharge Needs: Needs Prior to Discharge: To Be Determined, Discharge Prescriptions, Equipment Delivery, Home Care Order, Facility or Agency Choices, Pharmacy Bedside Delivery Problem Noted Date Diagnosed Date Leukocytosis 09/20/2024 ABLA (acute blood loss anemia) 09/20/2024 Hypervolemia 09/20/2024 Atelectasis 09/20/2024 NSTEMI (non-ST elevated myocardial infarction) 0 09/20/2024 Ischemic cardiomyopathy 09/19/2024 Post-op pain 09/19/2024 MALKA (obstructive sleep apnea) 09/19/2024 On mechanically assisted ventilation 09/19/2024 Cardiac insufficiency following cardiac surgery 09/19/2024 Coronary artery disease invo lving [place] coronary artery of [place] heart without angina pectoris 09/19/2024 Other hyperlipidemia 09/19/2024 Hypovolemia 09/19/2024 Other hypotension 09/19/2024 Stress hyperglycemia 09/19/2024 Obesity (BMI 30.0-34.9) 09/19/2024 Pre-op testing 09/18/2024 Overview (09/18/2024): [facility] PRE-OP CHECKLIST Surgeon: Alexis Andrews MD Intended procedure: CABG Informed Consent Completed: Yes STS Score: CAD: Yes - CAD on Problem List: No Is intended procedure a CABG: Yes - is a beta eulalia ordered? No - reason: taking carvedilol H & P completed: No pending completion of Cards note - Palak emailed PA/LAT: N/A CT: Completed MRI: N/A LE US: N/A Cath: Yes - reviewed: Yes EKG: Completed Is patient on Amiodarone? No Echo:Completed EF %: 60 PI's: N/A Carotid: Completed Mapping: Completed Dental: Cleared PFT's: N/A Recent Labs 09/17/24 1053 09/17/24 0941 WBC -- 6.95 HB -- 13.6 HCT -- 41.1 PLT -- 275 INR -- 1.0 CREAT 1.40 1.22 UA: Normal HCG:N/A ABO/ABO Confirmed: Yes Blood ordered: No Willing to accept blood: Yes SA Swab: Yes - results: Negative Last Dose of Anticoagulation: Anticoagulant & Antiplatelet Medications Patient Encounter Information Not Found Op Note: No Pacer Check: NA Implants: no Consults: DM: No Cardiac Surgical prep: No SIGNATURE: Rut Haynes RN DATE of SERVICE: 09/18/2024 TIME of SERVICE: 8:05 AM CHECKED BY: Encounters Date Type Department Care Team Description 10/01/2024 11:00 AM EDT Office Visit Cardiothoracic [address] [place] [address] Sourav Horta, FIELD HOCKEY AND LACROSSE COACH.DECORATING CONSULTANT Postoperative visit (Primary Dx) 10/01/2024 10:12 AM EDT - 10/01/2024 11:59 PM EDT Hospital Encounter Radiology [address] [place], [place] [id number] Surgery follow-up [Z09] Discharge Disposition: Home 10/01/2024 10:00 AM EDT Procedure Cardiology [address] [place] [address] 10/01/2024 Telephone Cardiology [address] [place] [address] Alexis Andrews MD Medication Problem; Post Dc Program Call - Needs Attn 10/01/2024 Travel 09/24/2024 Orders Only Cardiothoracic [address] [place] [phone] Alexis Andrews MD Surgery follow-up (Primary Dx); Chest pain, unspecified type 09/19/2024 11:06 AM EDT Anesthesia Event Admitting [address] [place] [phone] Caroline Cohn MD Welch, Jasmine, SRNA 09/19/2024 9:09 AM EDT - 09/19/2024 4:28 PM EDT Surgery Admitting [address] [place] [address] Alexis Andrews MD BYPASS GRAFT ARTERY CORONARY OFF PUMP VENOUS GRAFT(S) AND ARTERIAL GRAFT(S) THREE VENOUS GRAFTS 09/19/2024 5:57 AM EDT - 09/26/2024 2:41 PM EDT Hospital Encounter [id number] [address] [place] [address] Alexis Andrews MD 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 [I25.119], Primary hypertension [I10], Hyperlipidemia, unspecified hyperlipidemia type [E78.5], Disorder of artery or arteriole [I77.9] Discharge Disposition: Home Health Care 09/18/2024 2:30 PM EDT Office Visit Cardiothoracic [address] [place] [address] Alexis Andrews MD 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; Primary hypertension; Hyperlipidemia, unspecified hyperlipidemia type; Disorder of artery or arteriole 09/18/2024 2:00 PM EDT Office Visit Cardiothoracic [address] [place] [phone] Encounter for preoperative anesthesiology assessment for cardiac surgery (Primary Dx) 09/18/2024 1:30 PM EDT Office Visit Cardiothoracic [address] [place] [address] Pre-op testing (Primary Dx) 09/18/2024 Education Cardiothoracic [address] [place] [address] Alexis Andrews MD Patient Education 09/17/2024 10:39 AM EDT - 09/17/2024 11:59 PM EDT Hospital Encounter Radiology [address] [address] 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 [I25.119] Discharge Disposition: Home 09/17/2024 10:30 AM EDT Office Visit Cardiology [address] [place] [address] Favio Ko MD Pre-op testing (Primary Dx); 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; Primary hypertension; Hyperlipidemia, unspecified hyperlipidemia type; Disorder of artery or arteriole 09/17/2024 10:15 AM EDT Procedure Cardiology [address] [place] [address] 09/11/2024 Orders Only Cardiology [address] [place] [address] Favio Ko MD Hyperlipidemia, unspecified hyperlipidemia type (Primary Dx) 09/09/2024 Travel 09/03/2024 Telephone Cardiothoracic [address] [place] [phone] Unspecified, Cardiac Surgeon - Insurance Inquiry 09/03/2024 Telephone Cardiothoracic [address] [place] [phone] Alexis Andrews MD Referral Information; Cardiac Preop Checklist 09/03/2024 Patient Update Cardiothoracic [address] [place] [address] Care Everywhere, Provider from Last 3 Months Family History Medical History Relation Comments Diabetes Brother 1 Diabetes Brother 2 Diabetes Father No Known Problems Maternal Grandfather No Known Problems Maternal Grandmother Dementia Mother No Known Problems Paternal Grandfather No Known Problems Paternal Grandmother Relation Status Comments Brother 1 Alive Brother 2 Alive Father Maternal Grandfather Maternal Grandmother Mother Paternal Grandfather Paternal Grandmother Sister Alive Social History Tobacco Use Types Packs/Day Years Used Date Smoking Tobacco: Never Smokeless Tobacco: Never Tobacco Cessation:Counseling Given: Not Answered Alcohol Use Standard Drinks/Week Comments Not Asked 0 (1 standard drink = 0.6 oz pur e alcohol) rare [facility] Utilities Answer Date Recorded In the past 12 months has e Cell[employer], gas, oil, or water [employer] threatened to shut off services in your [...] any time in the past 12 m [facility], were you homeless or living in a [...] F) 10/01/2024 10:56 AM EDT Respiratory Rate 16 09/26/2024 1:07 PM EDT Oxygen Saturation 98% 10/01/2024 10:56 AM EDT Inhaled Oxygen Concentration - - Weight 95 kg (209 lb 6.4 oz) 10/01/2024 10:56 AM EDT Height 175.3 cm (5' 9 ) 10/01/2024 10:56 AM EDT Body Mass Index 30.92 10/01/2024 10:56 AM EDT Plan of Treatment Health Maintenance Due Date Last Done Comments Annual PCP Team Chronic Dise ase Visit 10/28/1967 Anxiety Screening 10/28/1967 Depression Screening 10/28/1967 Hepatitis C Screening 10/28/1967 DTaP,Tdap,Td Vaccine (1 - Tdap) 1968 CT Colonography 1994 Cologuard (FIT-DNA) 1994 Colonoscopy 1994 Colorectal Cancer Screening 1994 Fecal Occult Blood 1994 Sigmoidoscopy 1994 RSV Vaccine (1 - Risk 60-74 years 1-dose series) 2009 Medicare Annual Wellness Visit 10/20/2014 Advance Directive Discussion 02/20/2024 Influenza Vaccine (#1) 2024 , 11/20/2019, 11/07/2019, Additional history exists LDL Cholesterol 09/17/2025 09/17/2024, 09/17/2024 Diabetes Screening 10/02/2027 10/01/2024, 0 09/26/2024, 09/25/2024, Additional history exists Lipid Screening 09/17/2029 09/17/2024, 09/17/2024 Shingrix Vaccine Completed 01/16/2020, , 11/29/2016 Pneumococcal Vaccine: 50+ Completed 2022, 06/10/2016, 01/01/2015 Goals Goal Patient Goal Type Associated Problems Recent Progress Patient-Stated? Author Blood Pressure < 130/80 Blood Pressure 100/68( 025 10:56 AM EDT) No Favio Erwin MD Medical Devices Implanted Type Area Salesperson Corsets Device Identifier Shelf Expiration Date Model / Serial / Lot Patch Thk.2-.4mm Bovine Pericardium Encap 14x9cm Cardiovascular Soft - [id number] Implanted:Qty: 1 on 09/19/2024 by Alexis Andrews MD at [facility] Patch [employer] 11/20/2026 [id number] / / [id number] Stent Stent Artery - Coronary Procedures Procedure Name Priority Date/Time Associated Diagnosis Comments COMPREHENSIVE METABOLIC PANEL Routine 10/01/2024 10:50 AM EDT Surgery follow-up COMPLETE BLOOD COUNT Routine 10/01/2024 10:50 AM EDT Chest pain, unspecified type XR CHEST 2V FRONTAL/LAT Routine 10/01/2024 10:30 AM EDT Surgery follow-up ECG COMPLETE Routine 10/01/2024 10:15 AM EDT Surgery follow-up COMPREHENSIVE METABOLIC PANEL Routine 09/26/2024 8:54 AM EDT COMPLETE BLOOD COUNT Routine 09/26/2024 8:54 AM EDT COMPREHENSIVE METABOLIC PANEL Routine 09/25/2024 9:11 AM EDT COMPLETE BLOOD COUNT Routine 09/25/2024 9:11 AM EDT GLUCOSE, BLOOD (POC) Routine 09/24/2024 8:01 PM EDT GLUCOSE, BLOOD (POC) Routine 09/24/2024 4:37 PM EDT GLUCOSE, BLOOD (POC) Routine 09/24/2024 11:08 AM EDT COMPREHENSIVE METABOLIC PANEL Routine 09/24/2024 10:00 AM EDT COMPLETE BLOOD COUNT Routine 09/24/2024 10:00 AM EDT GLUCOSE, BLOOD (POC) Routine 09/24/2024 7:26 AM EDT GLUCOSE, BLOOD (POC) Routine 09/23/2024 8:13 PM EDT GLUCOSE, BLOOD (POC) Routine 09/23/2024 5:43 PM EDT GLUCOSE, BLOOD (POC) Routine 09/23/2024 12:03 PM EDT XR CHEST 2V FRONTAL/LAT Routine 09/23/2024 10:44 AM EDT COMPREHENSIVE METABOLIC PANEL Routine 09/23/2024 9:13 AM EDT COMPLETE BLOOD COUNT Routine 09/23/2024 9:13 AM EDT GLUCOSE, BLOOD (POC) Routine 09/23/2024 8:07 AM EDT ECG COMPLETE Routine 09/23/2024 5:59 AM EDT GLUCOSE, BLOOD (POC) Routine 09/22/2024 7:45 PM EDT GLUCOSE, BLOOD (POC) Routine 09/22/2024 4:47 PM EDT ARTERIAL BLOOD GASES Timed Stat 09/22/2024 12:12 PM EDT VENOUS BLOOD GASES STAT 09/22/2024 8: 23 AM EDT ARTERIAL BLOOD GASES Timed Stat 09/22/2024 8:23 AM EDT VENOUS BLOOD GASES STAT 09/22/2024 4: 56 AM EDT ARTERIAL BLOOD GASES Timed Stat 09/22/2024 4:56 AM EDT XR CHEST 1V FRONTAL Routine 09/22/2024 3 :51 AM EDT PHOSPHORUS INORGANIC STAT 09/22/2024 12:01 AM EDT MAGNESIUM BLD STAT 09/22/2024 12:01 AM EDT PROTHROMBIN TIME STAT 09/22/2024 12:0 1 AM EDT ACTIVATED PTT STAT 09/22/2024 12:01 AM EDT VENOUS BLOOD GASES STAT 09/22/2024 12 :01 AM EDT FIBRINOGEN STAT 09/22/2024 12:01 AM EDT COMPREHENSIVE METABOLIC PANEL STAT 09/22/2024 12:01 AM EDT ARTERIAL BLOOD GASES Timed Stat 09/22/2024 12:01 AM EDT COMPLETE BLOOD COUNT STAT 09/22/2024 12:01 AM EDT VENOUS BLOOD GASES STAT 09/21/2024 7: 53 PM EDT ARTERIAL BLOOD GASES Timed Stat 09/21/2024 7:53 PM EDT ARTERIAL BLOOD GASES Timed Stat 09/21/2024 5:41 PM EDT VENOUS BLOOD GASES STAT 09/21/2024 11 :10 AM EDT ARTERIAL BLOOD GASES Timed Stat 09/21/2024 11:10 AM EDT XR ABDOMEN 1V SUPINE STAT 09/21/2024 10:09 AM EDT VENOUS BLOOD GASES STAT 09/21/2024 7: 48 AM EDT ARTERIAL BLOOD GASES Timed Stat 09/21/2024 7:48 AM EDT XR CHEST 1V FRONTAL PORT Routine 09/21/2024 5:40 AM EDT VENOUS BLOOD GASES STAT 09/21/2024 5: 23 AM EDT ARTERIAL BLOOD GASES Timed Stat 09/21/2024 5:23 AM EDT VENOUS BLOOD GASES STAT 09/21/2024 3: 23 AM EDT ARTERIAL BLOOD GASES Timed Stat 09/21/2024 3:23 AM EDT VENOUS BLOOD GASES STAT 09/21/2024 12 :20 AM EDT PHOSPHORUS INORGANIC STAT 09/21/2024 12:20 AM EDT COMPLETE BLOOD COUNT STAT 09/21/2024 12:20 AM EDT COMPREHENSIVE METABOLIC PANEL STAT 09/21/2024 12:20 AM EDT HIGH SENSITIVITY TROPONIN T STAT 09/21/2024 12:20 AM EDT ARTERIAL BLOOD GASES Timed Stat 09/21/2024 12:20 AM EDT VENOUS BLOOD GASES STAT 09/20/2024 9: 17 PM EDT ARTERIAL BLOOD GASES Timed Stat 09/20/2024 9:17 PM EDT VENOUS BLOOD GASES STAT 09/20/2024 7: 12 PM EDT ARTERIAL BLOOD GASES Timed Stat 09/20/2024 7:12 PM EDT VENOUS BLOOD GASES STAT 09/20/2024 5: 03 PM EDT ARTERIAL BLOOD GASES Timed Stat 09/20/2024 5:03 PM EDT ARTERIAL BLOOD GASES Timed Stat 09/20/2024 2:13 PM EDT VENOUS BLOOD GASES STAT 09/20/2024 12 :11 PM EDT ARTERIAL BLOOD GASES Timed Stat 09/20/2024 12:11 PM EDT ARTERIAL BLOOD GASES Timed Stat 09/20/2024 10:11 AM EDT ARTERIAL BLOOD GASES STAT 09/20/2024 8:30 AM EDT VENOUS BLOOD GASES STAT 09/20/2024 8: 30 AM EDT VENOUS BLOOD GASES STAT 09/20/2024 6: 05 AM EDT ARTERIAL BLOOD GASES Timed Stat 09/20/2024 6:05 AM EDT RED BLOOD CELLS, ADULT Routine 09/20/2024 5:15 AM EDT ARTERIAL BLOOD GASES STAT 09/20/2024 4:57 AM EDT VENOUS BLOOD GASES STAT 09/20/2024 4: 22 AM EDT VENOUS BLOOD GASES STAT 09/20/2024 4: 00 AM EDT ARTERIAL BLOOD GASES STAT 09/20/2024 4:00 AM EDT VENOUS BLOOD GASES STAT 09/20/2024 3: 06 AM EDT ARTERIAL BLOOD GASES Timed Stat 09/20/2024 3:06 AM EDT VENOUS BLOOD GASES STAT 09/20/2024 2: 02 AM EDT ARTERIAL BLOOD GASES STAT 09/20/2024 2:02 AM EDT XR CHEST 1V FRONTAL PORT Routine 09/20/2024 1:43 AM EDT HIGH SENSITIVITY TROPONIN T Add-on 09/20/2024 12:00 AM EDT COMPREHENSIVE METABOLIC PANEL STAT 09/20/2024 12:00 AM EDT COMPLETE BLOOD COUNT STAT 09/20/2024 12:00 AM EDT PHOSPHORUS INORGANIC STAT 09/20/2024 12:00 AM EDT MAGNESIUM BLD STAT 09/20/2024 12:00 AM EDT FIBRINOGEN STAT 09/20/2024 12:00 AM EDT ACTIVATED PTT STAT 09/20/2024 12:00 AM EDT PROTHROMBIN TIME STAT 09/20/2024 12:0 0 AM EDT VENOUS BLOOD GASES STAT 09/20/2024 12 :00 AM EDT ARTERIAL BLOOD GASES STAT 09/20/2024 12:00 AM EDT XR CHEST 1V FRONTAL PORT STAT 09/19/2024 10:05 PM EDT VENOUS BLOOD GASES STAT 09/19/2024 10 :00 PM EDT ARTERIAL BLOOD GASES Timed Stat 09/19/2024 10:00 PM EDT ECG COMPLETE 09/19/2024 8:57 PM EDT STAPHYLOCOCCUS AUREUS & MRSA SCREEN, PCR, NASAL STAT 09/19/2024 8:47 PM EDT HIGH SENSITIVITY TROPONIN T Add-on 09/19/2024 8:37 PM EDT VENOUS BLOOD GASES STAT 09/19/2024 8: 37 PM EDT FIBRINOGEN STAT 09/19/2024 8:37 PM EDT PROTHROMBIN TIME STAT 09/19/2024 8:37 PM EDT ACTIVATED PTT STAT 09/19/2024 8:37 PM EDT COMPLETE BLOOD COUNT STAT 09/19/2024 8:37 PM EDT GLUCOSE RANDOM BLD STAT 09/19/2024 8: 37 PM EDT POTASSIUM BLD STAT 09/19/2024 8:37 PM EDT ARTERIAL BLOOD GASES Timed Stat 09/19/2024 8:37 PM EDT ACTIVATED PTT STAT 09/19/2024 7:13 PM EDT PLTCT (PLATELET COUNT) STAT 09/19/2024 7:13 PM EDT ARTERIAL BLOOD GASES STAT 09/19/2024 7:13 PM EDT PROTHROMBIN TIME STAT 09/19/2024 7:13 PM EDT FIBRINOGEN STAT 09/19/2024 7:13 PM EDT ACTIVATED CLOTTING TIME (POC) Routine 09/19/2024 6:35 PM EDT GASA + ALL + MG STAT 09/19/2024 6:32 PM EDT THROMBOGRAPH HEPARINASE PANEL STAT 09/19/2024 6:04 PM EDT FIBRINOGEN STAT 09/19/2024 6:04 PM EDT PLTCT (PLATELET COUNT) STAT 09/19/2024 6:04 PM EDT ACTIVATED CLOTTING TIME (POC) Routine 09/19/2024 6:00 PM EDT ARTERIAL BLOOD GASES STAT 09/19/2024 5:49 PM EDT INTRAOPERATIVE ECHO PRE Routine 09/19/2024 5:41 PM EDT ACTIVATED CLOTTING TIME (POC) Routine 09/19/2024 5:21 PM EDT ARTERIAL BLOOD GASES STAT 09/19/2024 5:10 PM EDT ACTIVATED CLOTTING TIME (POC) Routine 09/19/2024 5:05 PM EDT ACTIVATED CLOTTING TIME (POC) Routine 09/19/2024 4:35 PM EDT ARTERIAL BLOOD GASES STAT 09/19/2024 4:28 PM EDT FIBRINOGEN STAT 09/19/2024 4:25 PM EDT THROMBOGRAPH HEPARINASE PANEL STAT 09/19/2024 4:25 PM EDT PLTCT (PLATELET COUNT) STAT 09/19/2024 4:25 PM EDT ACTIVATED CLOTTING TIME (POC) Routine 09/19/2024 4:08 PM EDT ACTIVATED CLOTTING TIME (POC) Routine 09/19/2024 3:50 PM EDT ACTIVATED CLOTTING TIME (POC) Routine 09/19/2024 3:27 PM EDT ARTERIAL BLOOD GASES STAT 09/19/2024 3:17 PM EDT ACTIVATED CLOTTING TIME (POC) Routine 09/19/2024 3:08 PM EDT ACTIVATED CLOTTING TIME (POC) Routine 09/19/2024 2:46 PM EDT ACTIVATED CLOTTING TIME (POC) Routine 09/19/2024 2:34 PM EDT VENOUS BLOOD GASES STAT 09/19/2024 2: 34 PM EDT ARTERIAL BLOOD GASES STAT 09/19/2024 2:34 PM EDT ACTIVATED CLOTTING TIME (POC) Routine 09/19/2024 2:17 PM EDT ARTERIAL BLOOD GASES STAT 09/19/2024 1:59 PM EDT CABG OPERATIVE REPORT (W NOTE) Routine 09/19/2024 12:31 PM EDT MN AN PA CATHETER INTRODUCER SINGLE LUMEN Routine 09/19/2024 11:45 AM EDT INSERTION FLOW DIRECTED CATHETER FOR MONITORING Routine 09/19/2024 11:45 AM EDT INTUBATION Routine 09/19/2024 11:33 AM EDT ACTIVATED CLOTTING TIME (POC) Routine 09/19/2024 11:30 AM EDT GASA + ALL + MG STAT 09/19/2024 11:26 AM EDT INTRAOPERATIVE ECHO PRE Routine 09/19/2024 11:22 AM EDT ARTL CATHJ/CANNULJ MNTR/TRANSFUSION SPX PRQ Routine 09/19/2024 10:50 AM EDT NDSC SURG W/VIDEO-ASSISTED HARVEST VEIN CABG 09/19/2024 10:49 AM EDT 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 Primary hypertension Hyperlipidemia, unspecified hyperlipidemia type Disorder of artery or arteriole CABG W/ARTERIAL GRAFT SINGLE ARTERIAL GRAFT 09/19/2024 10:49 AM EDT 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 Primary hypertension Hyperlipidemia, unspecified hyperlipidemia type Disorder of artery or arteriole CORONARY ARTERY BYP W/VEIN & ARTERY GRAFT 3 VEIN 09/19/2024 10:49 AM EDT 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 Primary hypertension Hyperlipidemia, unspecified hyperlipidemia type Disorder of artery or arteriole LVEF TRANSTHORACIC ECHO Routine 09/17/2024 1:26 PM EDT ECHO Routine 09/17/2024 1:26 PM EDT 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 Primary hypertension Hyperlipidemia, unspecified hyperlipidemia type Disorder of artery or arteriole CTA CHEST (GATED) W IVCON Routine 09/17/2024 11:00 AM EDT 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 Primary hypertension Hyperlipidemia, unspecified hyperlipidemia type Disorder of artery or arteriole URINALYSIS, DIPSTICK ONLY Routine 09/17/2024 10:56 AM EDT 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 Primary hypertension Hyperlipidemia, unspecified hyperlipidemia type Disorder of artery or arteriole CREATININE, BLOOD (POC) Routine 09/17/2024 10:53 AM EDT ECG COMPLETE Routine 09/17/2024 10:32 AM EDT 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 Primary hypertension Hyperlipidemia, unspecified hyperlipidemia type Disorder of artery or arteriole CONFIRM BLOOD TYPE Routine 09/17/2024 9: 51 AM EDT 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 Primary hypertension Hyperlipidemia, unspecified hyperlipidemia type Disorder of artery or arteriole TYPE + SCREEN,30 DAY Routine 09/17/2024 9:41 AM EDT 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 Primary hypertension Hyperlipidemia, unspecified hyperlipidemia type Disorder of artery or arteriole LIPID PANEL, FASTING Routine 09/17/2024 9:41 AM EDT Hyperlipidemia, unspecified hyperlipidemia type STAPHYLOCOCCUS AUREUS & MRSA SCREEN, PCR, NASAL Routine 09/17/2024 9:41 AM EDT 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 Primary hypertension Hyperlipidemia, unspecified hyperlipidemia type Disorder of artery or arteriole ACTIVATED PTT Routine 09/17/2024 9:41 AM EDT 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 Primary hypertension Hyperlipidemia, unspecified hyperlipidemia type Disorder of artery or arteriole PROTHROMBIN TIME Routine 09/17/2024 9:41 AM EDT 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 Primary hypertension Hyperlipidemia, unspecified hyperlipidemia type Disorder of artery or arteriole CBC + DIFF Routine 09/17/2024 9:41 AM EDT 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 Primary hypertension Hyperlipidemia, unspecified hyperlipidemia type Disorder of artery or arteriole LD LACTATE DEHYDRO Routine 09/17/2024 9: 41 AM EDT 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 Primary hypertension Hyperlipidemia, unspecified hyperlipidemia type Disorder of artery or arteriole COMPREHENSIVE METABOLIC PANEL Routine 09/17/2024 9:41 AM EDT 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 Primary hypertension Hyperlipidemia, unspecified hyperlipidemia type Disorder of artery or arteriole LIPOPROTEIN (A) Routine 09/17/2024 9:41 AM EDT 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 Primary hypertension Hyperlipidemia, unspecified hyperlipidemia type Disorder of artery or arteriole US LEG VEIN MAP [facility] Routine 09/17/2024 8:09 AM EDT 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 Primary hypertension Hyperlipidemia, unspecified hyperlipidemia type Disorder of artery or arteriole US RADIAL ARTERY MAP [facility] Routine 09/17/2024 8:03 AM EDT 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 Primary hypertension Hyperlipidemia, unspecified hyperlipidemia type Disorder of artery or arteriole US CAROTID ARTERIES [facility] Routine 09/17/2024 7:23 AM EDT 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 Protein, Total 7.5 6.3 - 8.0 g/dL 10/01/2024 7:15 PM EDT [facility] Albumin 3.9 3.9 - 4.9 g/dL 10/01/2024 7:15 PM EDT [facility] Calcium, Total 9.5 8.5 - 10.2 mg/dL 10/01/2024 7:15 PM EDT [facility] Bilirubin, Total 0.7 0.2 - 1.3 mg/dL 10/01/2024 7:15 PM T [facility] Alkaline Phosphatase 119(H) 38 - 113 U/L 10/01/2024 7:15 PM T [facility] AST 19 14 - 40 U/L 10/01/2024 7:15 PM T [facility] ALT 45 10 - 54 U/L 10/01/2024 7:15 PM [facility] Glucose 122(H) 74 - 99 mg/dL 10/01/2024 7:15 PM [facility] Comment: The [place] [employer] (ADA) provides guidance for cutoff values for fasting glucose and random glucose. The ADA defines fasting as no caloric intake for at least 8 hours. Fasting plasma glucose results between 100 to 125 mg/dL indicate increased risk for diabetes (prediabetes). Fasting plasma glucose results greater than or equal to 126 mg/dL meet the criteria for diagnosis of diabetes. In the absence of unequivocal hyperglycemia, results should be confirmed by repeat testing. In a patient with classic symptoms of hyperglycemia or hyperglycemic crisis, random plasma glucose results greater than or equal to 200 mg/dL meet the criteria for diagnosis of diabetes. Reference: Standards of Medical Care in Diabetes 2016, [place] [employer]. Diabetes Care. 2016.39(Suppl 1). BUN 21 9 - 24 mg/dL 10/01/2024 7:15 PM T [facility] Creatinine 1.21 0.73 - 1.22 mg/dL 10/01/2024 7:15 PM [facility] Sodium 134(L) 136 - 144 mmol/L 10/01/2024 7:15 PM [facility] Potassium 5.4(H) 3.7 - 5.1 mmol/L 10/01/2024 7:15 PM [facility] Chloride 101 98 - 107 mmol/L 10/01/2024 7:15 PM EDT [facility] CO2 19(L) 22 - 30 mmol/L 10/01/2024 7:15 PM EDT [facility] Anion Gap 14 8 - 15 mmol/L 10/01/2024 7:15 PM EDT [facility] Estimated Glomerular Filtration Rate 63 >=60 mL/min/1.7 3m 10/01/2024 7:15 PM EDT [facility] Comment:Estimated Glomerular Filtration Rate (eGFR) is calculated using the 2020 CKD-EPI creatinine equation. This equation utilizes serum creatinine, sex, and age as parameters. The creatinine assay has traceable calibration to isotope dilution- mass spectrometry. Refer to KDIGO guidelines for clinical interpretation. In patients with unstable renal function, e.g. those with acute kidney injury, the eGFR may not accurately reflect actual GFR. Blood BLOOD SPECIMEN / Unknown Venipuncture / Unknown 10/01/2024 10:50 AM EDT 10/01/2024 10:50 AM EDT us Alexis Andrews MD LABORATORY Final Result [facility] [address] [place] [address], * (ABNORMAL) COMPLETE BLOOD COUNT (10/01/2024 10:50 AM EDT) Only the most recent of9 resultswithin the time period is included. WBC 12.78(H) 3.70 - 11.00 k/uL 10/01/2024 11:43 AM EDT [facility] RBC 4.17(L) 4.20 - 6.00 m/uL 10/01/2024 11:43 AM EDT [facility] Hemoglobin 11.8(L) 13.0 - 17.0 g/dL 10/01/2024 11:43 AM EDT [facility] Hematocrit 35.2(L) 39.0 - 51.0 % 10/01/2024 11:43 AM EDT [facility] MCV 84.4 80.0 - 100.0 fL 10/01/2024 11:43 AM EDT [facility] MCH 28.3 26.0 - 34.0 pg 10/01/2024 11:43 AM EDT [facility] MCHC 33.5 30.5 - 36.0 g/dL 10/01/2024 11:43 AM EDT [facility] RDW-CV 14.3 11.5 - 15.0 % 10/01/2024 11:43 AM EDT [facility] Platelet Count 750(H) 150 - 400 k/uL 10/01/2024 11:43 AM EDT [facility] MPV 9.2 9.0 - 12.7 fL 10/01/2024 11:43 AM EDT [facility] Absolute nRBC <0.01 <0.01 k/uL 10/01/2024 11:43 AM EDT [facility] Blood BLOOD SPECIMEN / Unknown Venipuncture / Unknown 10/01/2024 10:50 AM EDT 10/01/2024 10:50 AM EDT us Alexis Andrews MD LABORATORY Final Result Performing Organization Address City/State/[facility] Co de Phone Number [facility] [address] [place] [address], * XR CHEST 2V FRONTAL/LAT (10/01/2024 10:30 AM EDT) Anatomical Region Laterality Modality Chest Other 10/01/2024 10:3 0 AM EDT Impressions 10/01/2024 2:01 PM EDT IMPRESSION: Mildly improving. [employer] Development: PSCB Transcribe Date/Time: Oct 01 2024 1:55P [...] within the thoracic spine. Procedure Note Provider, [facility] - 10/01/2024 * * *Final Report* * [...] the thoracic spine. IMPRESSION IMPRESSION: Mildly improving. [employer] Customer Development: MCKENZIE Transcribe Date/Time: Oct 01 2024 1:55P Dictated by : KAL VANN MD This examination was interpreted and the report reviewed and electronically signed by: KAL VANN MD on Oct 01 2024 1:59PM EST Alexis Andrews MD RAD-PAMA Final Result * (ABNORMAL) GLUCOSE, BLOOD (POC) (09/24/2024 8:01 PM EDT) Only the most recent of10 resultswithin the time period is included. Glucose, Point of Care 142(A) 74 - 99 mg/dL [facility] Comment: Location:[facility], [address] [place] [address], [facility] The Accu-Chek Inform II glucose meter has not been approved for testing on patients receiving intensive medical intervention or therapy and results from this point of care glucose test should not be used for patient management decisions in these cases. Inaccurate results may also occur from other interfering factors, such as N-acetylcysteine (blood concentrations of greater than 5mg/dL), galactose, extremes of hematocrit (<10 or >65), or high doses of ascorbic acid (vitamin C) greater than 3mg/dL. Consider alternate testing mechanisms (e.g. core lab, blood gas instrument) in the above situations. 09/24/2024 8:01 PM EDT Alexis Andrwes MD POC TESTING Final Result [facility] [address] * XR CHEST 2V FRONTAL/LAT (09/23/2024 10:44 AM EDT) Anatomical Region Laterality Modality Chest Radiographic Josi ging 09/23/2024 10:4 4 AM EDT Impressions 09/24/2024 2:00 PM EDT IMPRESSION: See result. [employer]: MCKENZIE Transcribe Date/Time: Sep 24 2024 11:49A Dictated by : MUNA BONE, DO This examination was interpreted and the report reviewed and electronically signed by: KAL VANN MD on Sep 24 2024 1:57PM EST Narrative 09/24/2024 2:00 PM EDT * * *Final Report* * * DATE OF EXAM: Sep 23 2024 10:44AM SHAYLA [id number] - XR CHEST 2V FRONTAL/LAT / PROCEDURE REASON: Shortness of breath * * * * Physician Interpretation * * * * EXAMINATION: CHEST RADIOGRAPH (2 VIEW FRONTAL & LATERAL) CLINICAL HISTORY: Shortness of breath MQ: XC2_6 EXAM DATE/TIME: 09/23/2024 10:44 AM COMPARISON: 09/22/2024 RESULT: Lines, tubes, and devices: Interval removal of pulmonary artery catheter and left chest tube. Mediastinal drainage tube remains in place. Lungs and pleura: Small left apical pneumothorax, pleural separation measuring up to about 12 mm on the sitting upright radiograph. No right pneumothorax. Low lung volumes bilaterally. Similar appearing bibasilar airspace opacities, and some left greater than right perihilar opacities suggested, and may relate to atelectasis. Small right posterior pleural effusion likely present on the lateral view. Difficult to exclude presence of minimal- small left pleural effusion. Cardiomediastinal silhouette: Status post median sternotomy and CABG. Likely stable enlargement of the cardiomediastinal silhouette in conjunction with reduced lung volumes. Postoperative retrosternal gas lucencies. Bones and soft tissues: Degenerative changes are present within the thoracic spine. Procedure Note Provider, [facility] - 09/24/2024 * * *Final Report* * * DATE OF EXAM: Sep 23 2024 10:44AM SHAYLA [id number] - XR CHEST 2V FRONTAL/LAT / PROCEDURE REASON: Shortness of breath * * * * Physician Interpretation * * * * EXAMINATION: CHEST RADIOGRAPH (2 VIEW FRONTAL & LATERAL) CLINICAL HISTORY: Shortness of breath MQ: XC2_6 EXAM DATE/TIME: 09/23/2024 10:44 AM COMPARISON: 09/22/2024 RESULT: Lines, tubes, and devices: Interval removal of pulmonary artery catheter and left chest tube. Mediastinal drainage tube remains in place. Lungs and pleura: Small left apical pneumothorax, pleural separation measuring up to about 12 mm on the sitting upright radiograph. No right pneumothorax. Low lung volumes bilaterally. Similar appearing bibasilar airspace opacities, and some left greater than right perihilar opacities suggested, and may relate to atelectasis. Small right posterior pleural effusion likely present on the lateral view. Difficult to exclude presence of minimal- small left pleural effusion. Cardiomediastinal silhouette: Status post median sternotomy and CABG. Likely stable enlargement of the cardiomediastinal silhouette in conjunction with reduced lung volumes. Postoperative retrosternal gas lucencies. Bones and soft tissues: Degenerative changes are present within the thoracic spine. IMPRESSION IMPRESSION: See result. [employer]: MCKENZIE Transcribe Date/Time: Sep 24 2024 11:49A Dictated by : MUNA KEBEDE, This examination was interpreted and the report reviewed and electronically signed by: KAL VANN MD on Sep 24 2024 1:57PM EST us Nathalie Manuel [employer].DECORATING CONSULTANT RAD-PAMA Final Res ult * (ABNORMAL) ARTERIAL BLOOD GASES (09/22/2024 12:12 PM EDT) Only the most recent of33 resultswithin the time period is included. pH, Arterial 7.45 7.35 - 7.45 09/22/2024 12:20 PM EDT [facility] pCO2, Arterial 37 36 - 46 mm Hg 09/22/2024 12:20 PM EDT [facility] pO2, Arterial 133(H) 85 - 95 mm Hg 09/22/2024 12:20 PM EDT [facility] Bicarbonate, Arterial 25 22 - 26 mmol/L 09/22/2024 12:20 PM EDT [facility] O2 Saturation, Arterial 99(H) 95 - 98 % 09/22/2024 12:20 PM EDT [facility] Base Excess, Arterial 2 0 - 2 mmol/L 09/22/2024 12:20 PM EDT [facility] Oxyhemoglobin, Arterial 97 95 - 98 % 09/22/2024 12:20 PM EDT [facility] Carboxyhemoglo bin, Arterial 1.2 0.0 - 2.0 % 09/22/2024 12:20 PM EDT [facility] Comment:Carboxyhemoglobin Re ference Range for Smokers: 2.0-8.0% Methemoglobin, Arterial 0.8 0.0 - 1.5 % 09/22/2024 12:20 PM EDT [facility] Sodium, Whole Blood 136 136 - 144 mmol/L 09/22/2024 12:20 PM EDT [facility] Potassium, Whole Blood 4.0 3.5 - 5.0 mmol/L 09/22/2024 12:20 PM EDT [facility] Calcium Ionized, Whole Blood 1.10 1.08 - 1.30 mmol/L 09/22/2024 12:20 PM EDT [facility] Calcium Ionized, pH corrected 1.13 1.08 - 1.30 mmol/L 09/22/2024 12:20 PM EDT [facility] Glucose, Whole Blood 180(H) 60 - 105 mg/dL 09/22/2024 12:20 PM EDT [facility] Lactate 1.3 0.5 - 2.2 mmol/L 09/22/2024 12:20 PM EDT [facility] Hemoglobin, Whole Blood 10.3(L) 13.0 - 17.0 g/dL 09/22/2024 12:20 PM EDT [facility] Hematocrit, Whole Blood 31.8(L) 39.0 - 51.0 % 09/22/2024 12:20 PM EDT [facility] Temperature, Body 37.0 C 09/22/2024 12:20 PM EDT [facility] O2 Therapy NC = Nasal Cannula 09/22/2024 12:20 PM EDT [facility] Comment:3L Blood, Arterial BLOOD SPECIMEN / Unknown 09/22/2024 12:12 PM EDT 09/22/2024 12:18 PM EDT us Alexis Andrews MD BLOOD GASES Final Result [facility] [address] [address], * (ABNORMAL) VENOUS BLOOD GASES (09/22/2024 8:23 AM EDT) Only the most recent of23 resultswithin the time period is included. pH, Venous 7.37 7.32 - 7.42 09/22/2024 8:32 AM T [facility] pCO2, Venous 47 42 - 55 mmHg 09/22/2024 8:32 AM EDT [facility] pO2, Venous 35 35 - 45 mmHg 09/22/2024 8:32 AM EDT [facility] O2 Saturation, Venous 59(L) 60 - 85 % 09/22/2024 8:32 AM EDT [facility] Base Excess, Venous 2 0 - 2 mmol/L 09/22/2024 8:32 AM [facility] Bicarbonate, Venous 27 24 - 28 mmol/L 09/22/2024 8:32 AM [facility] Oxyhemoglobin, Venous 57(L) 60 - 85 % 09/22/2024 8:32 AM [facility] Carboxyhemoglo bin, Venous 1.4 0.0 - 2.0 % 09/22/2024 8:32 AM [facility] Comment:Carboxyhemoglobin Re ference Range for Smokers: 2.0-8.0% Methemoglobin, Venous 1.8(H) 0.0 - 1.5 % 09/22/2024 8:32 AM [facility] Sodium, Whole Blood 138 136 - 144 mmol/L 09/22/2024 8:32 AM [facility] Potassium, Whole Blood 4.3 3.5 - 5.0 mmol/L 09/22/2024 8:32 AM [facility] Calcium Ionized, Whole Blood 1.16 1.08 - 1.30 mmol/L 09/22/2024 8:32 AM [facility] Calcium Ionized, pH corrected 1.14 1.08 - 1.30 mmol/L 09/22/2024 8:32 AM [facility] Glucose, Whole Blood 145(H) 60 - 105 mg/dL 09/22/2024 8:32 AM [facility] Lactate 1.5 0.5 - 2.2 mmol/L 09/22/2024 8:32 AM EDT [facility] Hemoglobin, Whole Blood 10.5(L) 13.0 - 17.0 g/dL 09/22/2024 8:32 AM EDT [facility] Hematocrit, Whole Blood 32.4(L) 39.0 - 51.0 % 09/22/2024 8:32 AM EDT [facility] Temperature, Body 37.0 C 09/22/2024 8:32 AM EDT [facility] O2 Therapy NC = Nasal Cannula 09/22/2024 8:32 AM EDT [facility] Comment:4L Blood, Venous BLOOD SPECIMEN / Unknown Central Line / Unknown 09/22/2024 8:23 AM EDT 09/22/2024 8:30 AM EDT us Nathalie Manuel [employer].DECORATING CONSULTANT BLOOD GASES Final Res ult [facility] [address] [address], [place] * XR CHEST 1V FRONTAL (09/22/2024 3:51 AM EDT) Anatomical Region Laterality Modality Chest Radiographic Josi ging 09/22/2024 3:51 AM EDT Impressions 09/22/2024 8:50 AM EDT IMPRESSION: See result. [employer]p Customer Development: MCKENZIE Transcribe Date/Time: Sep 22 2024 8:46A Dictated by : EVELYN BOYKIN MD This examination was interpreted and the report reviewed and electronically signed by: EVELYN BOYKIN MD on Sep 22 2024 8:48AM EST Narrative 09/22/2024 8:50 AM EDT * * *Final Report* * * DATE OF EXAM: Sep 22 2024 3:51AM JIX [id number] - XR CHEST 1V FRONTAL / PROCEDURE REASON: Post-operative / post-procedure assessment, symptomatic * * * * Physician Interpretation * * * * EXAMINATION: CHEST RADIOGRAPH (PORTABLE SINGLE VIEW AP) Exam Date/Time: 09/22/2024 3:51 AM Clinical History: Post-operative / post-procedure assessment, symptomatic, Post-operative/post-procedure assessment MQ: XCPMC_6 Comparison: 1 day prior RESULT: Lines, tubes, and devices: The tip of the pulmonary artery catheter overlies the right pulmonary artery. A mediastinal drainage tube and single left thoracostomy tube remain in place. Lungs and pleura: The lungs appear hypoinflated. There are patchy bibasilar airspace opacities, most commonly secondary to atelectasis or pneumonia/aspiration. There has been development of a small left apical pneumothorax. No pleural effusion is identified. Cardiomediastinal silhouette: Stable cardiomediastinal silhouette. Status post median sternotomy and CABG. Apparent cardiomegaly is likely in part secondary to the reduced lung volumes. Procedure Note Provider, [facility] - 09/22/2024 * * *Final Report* * * DATE OF EXAM: Sep 22 2024 3:51AM [id number] [id number] - XR CHEST 1V FRONTAL / PROCEDURE REASON: Post-operative / post-procedure assessment,symptomatic * * * * Physician Interpretation * * * * EXAMINATION: CHEST RADIOGRAPH (PORTABLE SINGLE VIEW AP) Exam Date/Time: 09/22/2024 3:51 AM Clinical History: Post-operative / post-procedure assessment, symptomatic, Post-operative/post-procedure assessment MQ: XCPMC_6 Comparison: 1 day prior RESULT: Lines, tubes, and devices: The tip of the pulmonary artery catheter overlies the right pulmonary artery. A mediastinal drainage tube and single left thoracostomy tube remain in place. Lungs and pleura: The lungs appear hypoinflated. There are patchy bibasilar airspace opacities, most commonly secondary to atelectasis or pneumonia/aspiration. There has been development of a small left apical pneumothorax. No pleural effusion is identified. Cardiomediastinal silhouette: Stable cardiomediastinal silhouette. Status post median sternotomy and CABG. Apparent cardiomegaly is likely in part secondary to the reduced lung volumes. IMPRESSION IMPRESSION: See result. [employer] Customer Development: MCKENZIE Transcribe Date/Time: Sep 22 2024 8:46A Dictated by : EVELYN BOYKIN MD This examination was interpreted and the report reviewed and electronically signed by: EVELYN BOYKIN MD on Sep 22 2024 8:48AM EST Tiffany Aptos [employer].DECORATING CONSULTANT RAD-PAMA Final Re sult * MAGNESIUM (09/22/2024 12:01 AM EDT) Only the most recent of2 resultswithin the time period is included. Magnesium 2.3 1.7 - 2.3 mg/dL 09/22/2024 1:18 AM EDT [facility] Blood BLOOD SPECIMEN / Unknown Venipuncture / Unknown 09/22/2024 12:01 AM EDT 09/22/2024 12:20 AM EDT Alexis Andrews MD LABORATORY Final Result [facility] [address] [place] [address], * PROTHROMBIN TIME (09/22/2024 12:01 AM EDT) Only the most recent of5 resultswithin the time period is included. PT Sec 11.4 9.7 - 13.0 sec 09/22/2024 12:46 AM EDT [facility] INR 1.1 0.9 - 1.3 09/22/2024 12:46 AM EDT [facility] Comment: Vitamin K Antagonist (VKA) Therapeutic Range: INR 2 to 3 (Target INR of 2.5) Note: For patients treated with VKA drugs, such as warfarin, the [place] [employer] 2012 Guideline recommends a therapeutic INR range of 2 to 3 (target INR of 2.5). This recommendation includes high-risk patients with antiphospholipid syndrome with previous arterial or venous thromboembolism, current-generation mechanical or bioprosthetic aortic heart valve replacement. Note: Patients with mechanical aortic valve replacement and additional risk factors for thromboembolic events (atrial fibrillation, previous thromboembolism, LV dysfunction, hypercoagulable conditions) or an older generation mechanical AVR (i.e., ball in-Cage) or any mechanical MVR should have a INR therapeutic range of 2.5 to 3.5 (target INR of 3). Tristen GH, et al. Chest 2012, 141:7S-47S Isabelle KING, et al. [facility] 2017, 70: 252-289 Blood BLOOD SPECIMEN / Unknown Venipuncture / Unknown 09/22/2024 12:01 AM EDT 09/22/2024 12:22 AM EDT Alexis Andrews MD LABORATORY Final Result Performing Organization Address City/[facility]/ZIP Co de Phone Number [facility] [place] [address], [place] * (ABNORMAL) PHOSPHORUS INORGANIC (09/22/2024 12:01 AM EDT) Only the most recent of3 resultswithin the time period is included. Phosphorus 1.8(L) 2.7 - 4.8 mg/dL 09/22/2024 1:18 AM EDT [facility] Blood BLOOD SPECIMEN / Unknown Venipuncture / Unknown 09/22/2024 12:01 AM EDT 09/22/2024 12:20 AM EDT Alexis Andrews MD LABORATORY Final Result Performing Organization Address [facility] de Phone Number [facility] [address] [place] [address], [place] * (ABNORMAL) FIBRINOGEN (09/22/2024 12:01 AM EDT) Only the most recent of6 resultswithin the time period is included. Fibrinogen >860(H) 200 - 400 mg/dL 09/22/2024 12:46 AM EDT [facility] Comment: Result rechecked. Sample checked for clot. Blood BLOOD SPECIMEN / Unknown Venipuncture / Unknown 09/22/2024 12:01 AM EDT 09/22/2024 12:22 AM EDT Nathalie Manuel [employer] COACH.DECORATING CONSULTANT LABORATORY Final Res ult Performing Organization Address [facility] Co de Phone Number [facility] [address] [place] [address], [place] * (ABNORMAL) ACTIVATED PARTIAL THROMBOPLASTIN TIME (09/22/2024 12:01 AM EDT) Only the most recent of5 resultswithin the time period is included. APTT 34.7(H) 23.0 - 32.4 sec 09/22/2024 12:46 AM EDT [facility] Blood BLOOD SPECIMEN / Unknown Venipuncture / Unknown 09/22/2024 12:01 AM EDT 09/22/2024 12:22 AM EDT Narrative [facility] - 09/22/2024 12:46 AM EDT Unfractionated Heparin Therapeutic Ranges: Standard Heparin Nomogram: 53 to 78 seconds (anti-Xa level of 0.3 to 0.7 U/ml) Low Dose/ACS Nomogram: 49 to 67 seconds (anti-Xa level of 0.2 to 0.5 U/ml) Stroke Treatment Nomogram: 49 to 67 seconds (anti-Xa level of 0.2 to 0.5 U/ml) Note: The APTT therapeutic range has been determined for the current lot of laboratory APTT reagent in use throughout the [facility]. Alexis Andrews MD LABORATORY Final Result [facility] [address] [address], [place] * XR ABDOMEN 1V SUPINE (09/21/2024 10:09 AM EDT) Anatomical Region Laterality Modality Abdomen Radiographic Josi ging 09/21/2024 10:0 9 AM EDT Impressions 09/21/2024 3:11 PM EDT IMPRESSION: No dilated bowel. Pelvic temperature probe present. Epicardial pacing wires present. Mediastinal/thoracic drainage catheters course across the abdomen. Mild degenerative change in skeleton. Visualized lung bases are grossly clear. Vp Customer Development: MCKENZIE Transcribe Date/Time: Sep 21 2024 3:07P Dictated by : PATIENCE GARNICA MD This examination was interpreted and the report reviewed and electronically signed by: PATIENCE GARNICA MD on Sep 21 2024 3:08PM EST Narrative 09/21/2024 3:11 PM EDT * * *Final Report* * * DATE OF EXAM: Sep 21 2024 10:09AM [id number] - XR ABDOMEN 1V SUPINE / PROCEDURE REASON: Bowel obstruction suspected * * * * Physician Interpretation * * * * ABDOMEN, 1 VIEW labeled 06/21/2024 8:27 AM CLINICAL INFORMATION: Bowel obstruction suspected. TECHNIQUE: Supine frontal view, 2 image(s) COMPARISON: [<None.>] RESULT: See impression. Procedure Note Provider, [facility] - 09/21/2024 * * *Final Report* * * DATE OF EXAM: Sep 21 2024 10:09AM [id number] - XR ABDOMEN 1V SUPINE / PROCEDURE REASON: Bowel obstruction suspected * * * * Physician Interpretation * * * * ABDOMEN, 1 VIEW labeled 06/21/2024 8:27 AM CLINICAL INFORMATION: Bowel obstruction suspected. TECHNIQUE: Supine frontal view, 2 image(s) COMPARISON: [<None.>] RESULT: See impression. IMPRESSION IMPRESSION: No dilated bowel. Pelvic temperature probe present. Epicardial pacing wires present. Mediastinal/thoracic drainage catheters course across the abdomen. Mild degenerative change in skeleton. Visualized lung bases are grossly clear. Vp Customer Development: [facility] Transcribe Date/Time: Sep 21 2024 3:07P Dictated by : PATIENCE GARNICA MD This examination was interpreted and the report reviewed and electronically signed by: PATIENCE GARNICA MD on Sep 21 2024 3:08PM EST us Nathalie Manuel APRN.DECORATING CONSULTANT RAD-PAMA Final Res ult * XR CHEST 1V FRONTAL PORT (09/21/2024 5:40 AM EDT) Anatomical Region Laterality Modality Chest Radiographic Josi ging 09/21/2024 5:40 AM EDT Impressions 09/21/2024 9:04 AM EDT IMPRESSION: See result. Vp Customer Development: [facility] Transcribe Date/Time: Sep 21 2024 9:01A Dictated by : FRANCE CASTILLO MD This examination was interpreted and the report reviewed and electronically signed by: FRANCE CASTILLO MD on Sep 21 2024 9:02AM EST Narrative 09/21/2024 9:04 AM EDT * * *Final Report* * * DATE OF EXAM: Sep 21 2024 5:40AM [id number] - XR CHEST 1V FRONTAL PORT / PROCEDURE REASON: Post-operative / post-procedure assessment, symptomatic * * * * Physician Interpretation * * * * EXAMINATION: CHEST RADIOGRAPH (PORTABLE SINGLE VIEW AP) Exam Date/Time: 09/21/2024 5:40 AM Clinical History: Post-operative / post-procedure assessment, symptomatic, Post-operative/post-procedure assessment MQ: XCPMC_6 Comparison: 1 day prior RESULT: Lines, tubes, and devices: Stable support lines and tubes except for interval removal of endotracheal tube, NG/OG tube. Lungs and pleura: Hypoventilation with bronchovascular crowding. Mild pulmonary vascular congestion. No pneumothorax. Trace bilateral pleural effusions/thickening. Cardiomediastinal silhouette: Stable cardiomediastinal silhouette. Other: Intact and well aligned median sternotomy wires. Procedure Note Provider, [facility] - 09/21/2024 * * *Final Report* * * DATE OF EXAM: Sep 21 2024 5:40AM [id number] - XR CHEST 1V FRONTAL PORT / PROCEDURE REASON: Post-operative / post-procedure assessment,symptomatic * * * * Physician Interpretation * * * * EXAMINATION: CHEST RADIOGRAPH (PORTABLE SINGLE VIEW AP) Exam Date/Time: 09/21/2024 5:40 AM Clinical History: Post-operative / post-procedure assessment, symptomatic, Post-operative/post-procedure assessment MQ: XCPMC_6 Comparison: 1 day prior RESULT: Lines, tubes, and devices: Stable support lines and tubes except for interval removal of endotracheal tube, NG/OG tube. Lungs and pleura: Hypoventilation with bronchovascular crowding. Mild pulmonary vascular congestion. No pneumothorax. Trace bilateral pleural effusions/thickening. Cardiomediastinal silhouette: Stable cardiomediastinal silhouette. Other: Intact and well aligned median sternotomy wires. IMPRESSION IMPRESSION: See result. Vp Customer Development: MCKENZIE Transcribe Date/Time: Sep 21 2024 9:01A Dictated by : FRANCE CASTILLO MD This examination was interpreted and the report reviewed and electronically signed by: FRANCE CASTILLO MD on Sep 21 2024 9:02AM EST [facility] Provider RAD-PAMA Final Result * (ABNORMAL) HIGH SENSITIVITY TROPONIN T (09/21/2024 12:20 AM EDT) Only the most recent of3 resultswithin the time period is included. MINERVA High Sensitivity 288(H) <12 ng/L 09/21/2024 2:00 AM EDT [facility] Blood BLOOD SPECIMEN / Unknown Arterial Line / Unknown 09/21/2024 12:20 AM EDT 09/21/2024 12:48 AM EDT Alexis Andrews MD LABORATORY Final Result [facility] [address] [facility] [place] [address], [place] * RED BLOOD CELLS, ADULT (09/20/2024 5:15 AM EDT) Product Code M1210I75 [facility]LOOD [facility] Product Identification Red Blood Cells [facility]LOOD [facility] Status Information Transfused [facility]LOOD [facility] Product Expiration Date 10/07/2024 23:59 [facility]LOOD [facility] Unit Number [id number] CC M AIN BLOOD BANK Unit Blood Type B Pos CC M A[facility] BLOOD B[facility] XM RESULT Compatible [facility]LO[facility] Issue Date/Time 09/20/2024 05:17 [facility]LOOD [facility] Type and Screen Expiration 09/23/2024 23:59 [facility] Blood BLOOD SPECIMEN / Unknown 09/20/2024 5:15 AM EDT Curry Hu [employer] COACH.DECORATING CONSULTANT BLOOD PRODUCTS Final Result [facility] [address] [facility] [place] [address], [place] * XR CHEST 1V FRONTAL PORT (09/20/2024 1:43 AM EDT) Anatomical Region Laterality Modality Chest Radiographic Josi ging 09/20/2024 1:43 AM EDT Impressions 09/20/2024 7:57 AM EDT IMPRESSION: See result. Vp Customer Development: PSCB Transcribe Date/Time: Sep 20 2024 7:53A Dictated by : FERCHO PERDOMO MD This examination was interpreted and the report reviewed and electronically signed by: FERCHO PERDOMO MD on Sep 20 2024 7:55AM EST Narrative 09/20/2024 7:57 AM EDT * * *Final Report* * * DATE OF EXAM: Sep 20 2024 1:43AM [id number] - XR CHEST 1V FRONTAL PORT / PROCEDURE REASON: Post-operative / post-procedure assessment, symptomatic * * * * Physician Interpretation * * * * EXAMINATION: CHEST RADIOGRAPH (PORTABLE SINGLE VIEW AP) Exam Date/Time: 09/20/2024 1:43 AM Clinical History: Post-operative / post-procedure assessment, symptomatic, Post-operative/post-procedure assessment MQ: XCPMC_6 Comparison: 1 day prior RESULT: Lines, tubes, and devices: An NG/OG tube extends below the diaphragm. An endotracheal tube, left IJ PA catheter, mediastinal drains, and a left chest tube are present. The patient is status post median sternotomy0. Lungs and pleura: Stable mild bibasilar opacities, most commonly due to atelectasis. There may be a small left pleural effusion. No pulmonary edema or substantial pneumothorax. Cardiomediastinal silhouette: Stable enlargement of the cardiomediastinal silhouette. Other: . Procedure Note Provider, [facility] - 09/20/2024 * * *Final Report* * * DATE OF EXAM: Sep 20 2024 1:43AM [id number] - XR CHEST 1V FRONTAL PORT / PROCEDURE REASON: Post-operative / post-procedure assessment,symptomatic * * * * Physician Interpretation * * * * EXAMINATION: CHEST RADIOGRAPH (PORTABLE SINGLE VIEW AP) Exam Date/Time: 09/20/2024 1:43 AM Clinical History: Post-operative / post-procedure assessment, symptomatic, Post-operative/post-procedure assessment MQ: XCPMC_6 Comparison: 1 day prior RESULT: Lines, tubes, and devices: An NG/OG tube extends below the diaphragm. An endotracheal tube, left IJ PA catheter, mediastinal drains, and a left chest tube are present. The patient is status post median sternotomy0. Lungs and pleura: Stable mild bibasilar opacities, most commonly due to atelectasis. There may be a small left pleural effusion. No pulmonary edema or substantial pneumothorax. Cardiomediastinal silhouette: Stable enlargement of the cardiomediastinal silhouette. Other: . IMPRESSION IMPRESSION: See result. Vp Customer Development: MCKENZIE Transcribe Date/Time: Sep 20 2024 7:53A Dictated by : FERCHO PERDOMO MD This examination was interpreted and the report reviewed and electronically signed by: FERCHO PERDOMO MD on Sep 20 2024 7:55AM EST us [facility] Provider RAD-PAMA Final Result * XR CHEST 1V FRONTAL PORT (09/19/2024 10:05 PM EDT) Anatomical Region Laterality Modality Chest Radiographic Josi ging 09/19/2024 10:0 5 PM EDT Impressions 09/20/2024 1:48 AM EDT IMPRESSION: See result. Vp Customer Development: [facility] Transcribe Date/Time: Sep 20 2024 1:45A Dictated by : ANIA SALINAS MD This examination was interpreted and the report reviewed and electronically signed by: ANIA SALINAS MD on Sep 20 2024 1:46AM EST Narrative 09/20/2024 1:48 AM EDT * * *Final Report* * * DATE OF EXAM: Sep 19 2024 10:05PM [id number] - XR CHEST 1V FRONTAL PORT / PROCEDURE REASON: Post-operative / post-procedure assessment, asymptomatic * * * * Physician Interpretation * * * * EXAMINATION: CHEST RADIOGRAPH (PORTABLE SINGLE VIEW AP) Exam Date/Time: 09/19/2024 10:05 PM Clinical History: Post-operative / post-procedure assessment, asymptomatic, Post-operative/post-procedure assessment, Evaluate tube, line, or lead position MQ: XCPMC_6 Comparison: Ehr Trainer of CT dated 09/17/2024 RESULT: Lines, tubes, and devices: The patient has had median sternotomy in the interim between the 2 exams. Support devices are unremarkable. Left IJ PA catheter terminates in mid right pulmonary artery. Lungs and pleura: Increasing basilar atelectasis. Superimposed infiltrates/infection or edema cannot be entirely excluded. Increase in elevation of the diaphragm, right more than left. Cardiomediastinal silhouette: Stable cardiomediastinal silhouette. Other: . Procedure Note Provider, [facility] - 09/20/2024 * * *Final Report* * * DATE OF EXAM: Sep 19 2024 10:05PM [id number] - XR CHEST 1V FRONTAL PORT / PROCEDURE REASON: Post-operative / post-procedure assessment, asymptomatic * * * * Physician Interpretation * * * * EXAMINATION: CHEST RADIOGRAPH (PORTABLE SINGLE VIEW AP) Exam Date/Time: 09/19/2024 10:05 PM Clinical History: Post-operative / post-procedure assessment, asymptomatic, Post-operative/post-procedure assessment, Evaluate tube, line, or lead position MQ: XCPMC_6 Comparison: Ehr Trainer of CT dated 09/17/2024 RESULT: Lines, tubes, and devices: The patient has had median sternotomy in the interim between the 2 exams. Support devices are unremarkable. Left IJ PA catheter terminates in mid right pulmonary artery. Lungs and pleura: Increasing basilar atelectasis. Superimposed infiltrates/infection or edema cannot be entirely excluded. Increase in elevation of the diaphragm, right more than left. Cardiomediastinal silhouette: Stable cardiomediastinal silhouette. Other: . IMPRESSION IMPRESSION: See result. Vp Customer Development: MCKENZIE Transcribe Date/Time: Sep 20 2024 1:45A Dictated by : ANIA SALINAS MD This examination was interpreted and the report reviewed and electronically signed by: ANIA SALINAS MD on Sep 20 2024 1:46AM EST Alexis Andrews MD RAD-PAMA Final Result * STAPHYLOCOCCUS AUREUS & MRSA SCREEN, PCR, NASAL (09/19/2024 8:47 PM EDT) Only the most recent of2 resultswithin the time period is included. Staphylococcus aureus DNA Not Detected Not Detected CEPHEID GENEXPERT COVID19 09/20/2024 2:40 AM EDT [facility] Swab POSTERIOR NARES / Unknown Non Blood / Unknown 09/19/2024 8:47 PM EDT 09/19/2024 9:19 PM EDT us Alexis Andrews MD LABORATORY Final Result [facility] [address] [place] [id number], [place] * POTASSIUM (09/19/2024 8:37 PM EDT) Potassium 4.0 3.7 - 5.1 mmol/L 09/19/2024 9:02 PM EDT [facility] Blood BLOOD SPECIMEN / Unknown Venipuncture / Unknown 09/19/2024 8:37 PM EDT 09/19/2024 8:44 PM EDT us Alexis Andrews MD LABORATORY Final Result Performing Organization Address [facility] Co de Phone Number [facility] [place] [id number], [place] * GLUCOSE RANDOM BLOOD (09/19/2024 8:37 PM EDT) Glucose 88 74 - 99 mg/dL 09/19/2024 9:02 PM EDT [facility] Comment: The [place] [employer] (ADA) provides guidance for cutoff values for fasting glucose and random glucose. The ADA defines fasting as no caloric intake for at least 8 hours. Fasting plasma glucose results between 100 to 125 mg/dL indicate increased risk for diabetes (prediabetes). Fasting plasma glucose results greater than or equal to 126 mg/dL meet the criteria for diagnosis of diabetes. In the absence of unequivocal hyperglycemia, results should be confirmed by repeat testing. In a patient with classic symptoms of hyperglycemia or hyperglycemic crisis, random plasma glucose results greater than or equal to 200 mg/dL meet the criteria for diagnosis of diabetes. Reference: Standards of Medical Care in Diabetes 2016, [place] [employer]. Diabetes Care. 2016.39(Suppl 1). Blood BLOOD SPECIMEN / Unknown Venipuncture / Unknown 09/19/2024 8:37 PM EDT 09/19/2024 8:44 PM EDT Alexis Andrews MD LABORATORY Final Result Performing Organization Address [facility] Co de Phone Number [facility] [address] [place] [address], * (ABNORMAL) PLATELET COUNT (09/19/2024 7:13 PM EDT) Only the most recent of3 resultswithin the time period is included. Platelet Count 146(L) 150 - 400 k/uL 09/19/2024 7:31 PM EDT [facility] Blood BLOOD SPECIMEN / Unknown 09/19/2024 7:13 PM EDT 09/19/2024 7:22 PM EDT Mono Joy FIELD H[employer] AND [employer]OSSE COACH.AMNA LABORATORY Final R esult Performing Organization Address [facility] de Phone Number [facility] [address] [place] [address], [place] * ACTIVATED CLOTTING TIME (POC) (09/19/2024 6:35 PM EDT) Only the most recent of13 resultswithin the time period is included. Activated Clotting Time (POCT) 106 74 - 137 sec Perfusion [facility] 09/19/2024 6:35 PM EDT Narrative [facility] - 09/19/2024 6:35 PM EDT Location:Perfusion [facility], [address] [place] [address], [id number] Alexis Andrews MD POC TESTING Final Result Performing Organization Address [facility] Co de Phone Number [facility] Perfusion [address] * (ABNORMAL) ARTERIAL BLOOD GASES WITH IONIZED MAGNESIUM (09/19/2024 6:32 PM EDT) Only the most recent of2 resultswithin the time period is included. pH, Arterial 7.40 7.35 - 7.45 09/19/2024 6:46 PM EDT [facility] pH, Temp Corrected, Arterial 7.40 7.35 - 7.45 09/19/2024 6:46 PM EDT [facility] pCO2, Arterial 38 36 - 46 mm Hg 09/19/2024 6:46 PM EDT [facility] pCO2, Temp Corrected, Arterial 38 36 - 46 mmHg 09/19/2024 6:46 PM EDT [facility] pO2, Arterial 250(H) 85 - 95 mm Hg 09/19/2024 6:46 PM EDT [facility] pO2, Temp Corrected, Arterial 250(H) 85 - 95 mmHg 09/19/2024 6:46 PM EDT [facility] Bicarbonate, Arterial 23 22 - 26 mmol/L 09/19/2024 6:46 PM EDT [facility] O2 Saturation, Arterial 99(H) 95 - 98 % 09/19/2024 6:46 PM EDT [facility] Base Deficit, Arterial -1 -2 - 0 mmol/L 09/19/2024 6:46 PM EDT [facility] Oxyhemoglobin, Arterial 96 95 - 98 % 09/19/2024 6:46 PM T [facility] Carboxyhemoglo bin, Arterial 1.1 0.0 - 2.0 % 09/19/2024 6:46 PM T [facility] Comment:Carboxyhemoglobin Re ference Range for Smokers: 2.0-8.0% Methemoglobin, Arterial 1.9(H) 0.0 - 1.5 % 09/19/2024 6:46 PM EDT [facility] Sodium, Whole Blood 135(L) 136 - 144 mmol/L 09/19/2024 6:46 PM T [facility] Potassium, Whole Blood 3.5 3.5 - 5.0 mmol/L 09/19/2024 6:46 PM T [facility] Calcium Ionized, Whole Blood 1.37(H) 1.08 - 1.30 mmol/L 09/19/2024 6:46 PM T [facility] Calcium Ionized, pH corrected 1.37(H) 1.08 - 1.30 mmol/L 09/19/2024 6:46 PM EDT [facility] Glucose, Whole Blood 174(H) 60 - 105 mg/dL 09/19/2024 6:46 PM EDT [facility] Lactate 2.9(H) 0.5 - 2.2 mmol/L 09/19/2024 6:46 PM EDT [facility] Ionized Magnesium 0.66(H) 0.45 - 0.60 mmol/L 09/19/2024 6:46 PM EDT [facility] Hemoglobin, Whole Blood 8.6(L) 13.0 - 17.0 g/dL 09/19/2024 6:46 PM EDT [facility] Hematocrit, Whole Blood 26.8(L) 39.0 - 51.0 % 09/19/2024 6:46 PM EDT [facility] Blood, Arterial BLOOD SPECIMEN / Unknown 09/19/2024 6:32 PM EDT 09/19/2024 6:38 PM EDT Mono Joy [employer] AND [employer] COACH.MANAGER ANIMAL BLOOD GASES Final R esult [facility] [address] [place] [address], * THROMBOGRAPH HEPARINASE PANEL (09/19/2024 6:04 PM EDT) Only the most recent of2 resultswithin the time period is included. R Value (Heparinase) 6.9 4.0 - 10.0 minutes 09/19/2024 7:28 PM EDT [facility] Degree Angle (Heparinase) 67.8 47.0 - 74.0 degrees 09/19/2024 7:28 PM EDT [facility] Maximum Amplitude (Heparinase) 67.2 51.0 - 75.0 mm 09/19/2024 7:28 PM EDT [facility] Lysis Time 30 (Heparinase) 0.0 0.0 - 8.0 % 09/19/2024 7:28 PM EDT [facility] Coagulation Index (Heparinase) 0.5 -4.6 - 3.2 09/19/2024 7:28 PM EDT [facility] Comment:This test was develo ped, and its performance characteristics determined by the [facility] Department of Pathology and Laboratory Medicine. It has not been cleared or approved by the FDA. The [facility] Department of Pathology and Laboratory Medicine is regulated under CLIA as qualified to perform high- complexity testing. This test is used for clinical purposes. It should not be regarded as investigational or for research. Interpretation (Thrombograph) 09/19/2024 7:28 PM EDT [facility] Comment: A thromboelastograph (TEG) study was performed using a citrate-anticoagulated whole blood treated with heparinase to neutralize a heparin effect.The R value decreased to between 4.0 and 10.0 minutes after sample treatment with heparinase. This is consistent with heparin therapy with adequate residual hemostasis. The angle, a measure of fibrinogen function, is within normal range. This is indicative of normal fibrinogen concentration or function. The Maximal Amplitude (MA), a measure of platelet function, is within the normal range. The Ly30, a measure of fibrinolysis, is normal. This is indicative of normal fibrinolytic function. The coagulation index (CI), a measure of hemostasis function, is within the normal range. The CI is a calculated parameter based on the other TEG results. Viscoelastic testing is not intended for the monitoring of anticoagulation or antiplatelet medications or the diagnosis and/or management of platelet disorders and/or coagulopathies but may be useful for guiding blood product utilization in emergency and urgent (OR) circumstances when routine coagulation and cell blood counts are not available in a timely manner. Blood BLOOD SPECIMEN / Unknown 09/19/2024 6:04 PM EDT 09/19/2024 6:14 PM EDT us Mono Joy [employer] AND [employer]OS[employer] COACH.MANAGER ANIMAL LABORATORY Final R esult [facility] [address] [address], * INTRAOPERATIVE ECHO PRE (09/19/2024 5:41 PM EDT) 09/19/2024 5:41 PM EDT [facility] - 09/23/2024 8:45 AM EDT Echocardiography Report: Intraoperative Echo Pre (NAIF) [facility] OR - J4 Date of service: 09/19/2024 5:41:21 PM CASTER Exam indication: Chest Pain Technologist: staff Interpreting physician: Caroline Cohn MD PATIENT: Name: FUAD JAMES : 1950 Age: 73 years Gender: M Height: 175.30 cm BSA: 2.22 m Weight: 101.15 kg BMI: 32.9 kg/m (PRE PROCEDURE) MEASUREMENTS: (PRE PROCEDURE) FINDINGS: (PRE PROCEDURE) LEFT VENTRICLE RIGHT VENTRICLE MITRAL VALVE TRICUSPID VALVE AORTIC VALVE PULMONIC VALVE An intraoperative echo exam was not performed prior to the procedure. CONCLUSIONS: (PRE PROCEDURE) - Exam indication: Chest Pain - Exam was compared with the prior CC echocardiographic exam performed on CONCLUSIONS: (POST PROCEDURE) s/p CABG imemdiate post CPB X 2, hypokinesis of the inferior wall of LV, improved on inotropic support. Normal LV function on inotorpes. Normal RV function post CPB. trace tR. No AI. 1-2+ MR immediate post CPB, improved to 1+ after chest closure. visualzied portions of the aorta are intact. Images 1-18 acquired and interpreted by Dr. Nikos Veras All findings discussed with surgical team. 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 Post-Operative Diagnosis: Same as preop Findings/Additional Details: Mr James presented to the clinic with complex multi vessel disease, symptomatic Procedure.- CABG x 4 PHILLIPS-LAD, svg-diag1, svg-Om1 seq to PL Findings.- Very small targets, barely amenable for bypass, LAD seating deeply in the myocardium and a voluminous epicardial fat pad, PHILLIPS with good flow, svg good quality Description Of Procedure: Patient Status: Elective Reoperation: No previous surgerie(s) Operative Approach: Open approach Open Approach Type: Median sternotomy PUMP: On cardiopulmonary bypass Arterial Cannulation: Ascending Aorta Venous Cannulation: Right Atrial Epiaortic Ultrasound Used: No CARDIOPLEGIA: [place] Cardioplegia Delivery: Antegrade Coronary Artery Bypass Graft (CABG): Conduit Quality: Normal caliber with excellent flow Aorta Quality: Normal Coronary Artery Quality: Very small targets Proximal Technique: Single cross clamp GRAFTS: PHILLIPS in situ mammary end to side proximal LAD Vein graft ascending aorta end to side diagonal 1 Vein graft ascending aorta sequential (side to side) obtuse marginal 1 Vein graft ascending aorta end to side posterolateral (PLB) Left JOSI: Skeletonized [place] Technique: Direct vision (open) Vein(s) Harvested: Right leg greater saphenous [place] Technique: Endoscopic Post-Bypass: Aortic Occlusion: Aortic cross clamp WEANING FROM BYPASS: Requiring inotropes PACING WIRES: Right ventricle which can be pulled CHEST TUBES/DRAINS: Left chest tube and Mediastinal chest tube Mediastinal Keo CLOSURE: Routine with sternal wires Post Procedure Details: Patient Tolerance of Procedure: Tolerated well, no immediate complications Sponge/Instrument/Needle Counts: Final Counts Correct Estimated Blood Loss: 250 mL of shed blood was preserved by cardiopulmonary bypass pump and the cell saver. Complex Surgery: No Surgeon/Marine Equipment Engineer Participation: The primary Surgeon/Proceduralist performed the procedure with assistance. Erp Analyst: opened, closed and harvested grafts Grafts Harvested: PHILLIPS Second Assist: opened, closed and harvested grafts Grafts Harvested: SVG Alexis Andrews MD PROCEDURE Final Result * INSERTION FLOW DIRECTED CATHETER FOR MONITORING, [place] AN PA CATHETER INTRODUCER SINGLE LUMEN (09/19/2024 11:45 AM EDT) Narrative Thom Cortez APRN.MANAGER ANIMAL - 09/19/2024 11:45 AM EDT Thom Cortez APRN.MANAGER ANIMAL 09/19/2024 1:03 PM PA Catheter General Information Procedure Start Time/Medication Administration: 09/19/2024 11:45 AM Procedure End time: 09/19/2024 12:00 PM Patient location during procedure: OR Consent Obtained: Yes Patient identity confirmed: arm band and care freight team associate Staffing MANAGER ANIMAL: Thom Cortez APRN.MANAGER ANIMAL Performed by: AMNA Preparation Sterility Preparation: hand hygiene performed prior to procedure, sterile gloves, drapes, and procedure tray, gown used during line insertion, surgical cap used, mask used, sterile drape used during line insertion, skin prep agent completely dried prior to procedure Site Prep: Chloraprep Procedure Details New Introducer Placed: Yes Introducer Details Catheter Size: 9 Fr Number of Lumens: Single lumen Ultrasound Guided: Yes Image in Chart: Yes Sites: potential access sites evaluated, selected vessel patent, concurrent real time ultrasound visualization of vascular needle entry Vessel: target vessel identified and guidewire advanced into vessel Number of Attempts: 1 Number of Guidewires Used: 1 Number of Guidewires Removed Intact: 1 Post Insertion Ports and Catheter: all ports aspirate easily, all ports flush easily and ports flushed with saline Catheter Secured: suture(s) and antimicrobial dressing applied Events Events: patient tolerated procedure well with no complications PA Catheter Size: 7 Fr PA Catheter Length: 110 cm PA Catheter Side: left PA Catheter Site: internal jugular Indications: cardiac surgery Ports Flushed: Yes Distance inserted prior to balloon inflation: 20 cm Ballon inflated with: air PA waveform obtained: 50 cm Initial PAP: Systolic: 32 Diastolic: 18 Events PA Catheter events: patient tolerated procedure well with no complications and balloon deflated at conclusion of procedure () Obed Nina MD ANESTHESIA ORDERABLES Final Result * Airway (09/19/2024 11:33 AM EDT) Narrative Thom Cortez APRN.MANAGER ANIMAL - 09/19/2024 11:33 AM EDT Thom Cortez APRN.CRNA 09/19/2024 12:57 PM Airway General Information Procedure Start Time/Medication Administration: 09/19/2024 11:33 AM Procedure End Time: 09/19/2024 11:34 AM Patient location during procedure: OR Consent Obtained: Yes Patient identity confirmed: arm band and care freight team associate Staffing MANAGER ANIMAL: Thom Cortez APRN.CRNA Performed by: AMNA Indications and Patient Condition Indications for airway management: anesthesia and airway protection Preoxygenated: yes anesthesia circuit Patient position: sniffing Method: asleep Difficult Mask: No Airway Accessory: oral airway Final Airway Details Final airway type: endotracheal airway Final Endotracheal Airway: ETT Cuffed: yes Successful intubation technique: video laryngoscopy Devices used: Monte Endotracheal tube insertion site: oral Blade: Maritza Blade size: #4 ETT size (mm): 8.0 Measured from: lips Measurement (cm): 22 Placement verified by: capnometry Cormack-Lehane Classification: grade I - full view of glottis Number of attempts at approach: 1 Airway not difficult us Obed Nina MD ANESTHESIA ORDERABLES Final Result * INTRAOPERATIVE ECHO PRE (09/19/2024 11:22 AM EDT) 09/19/2024 11:2 2 AM EDT [facility] - 09/19/2024 5:03 PM EDT Echocardiography Report: Intraoperative Echo Pre (NAIF) [facility] OR - J4 Date of service: 09/19/2024 11:22:25 AM CASTER Ordering physician: ALEXIS ANDREWS Exam indication: CABG Technologist: staff Interpreting physician: Obed Nina MD PATIENT: Name: FUAD JAMES : 1950 Age: 73 years Gender: M Height: 175.30 cm BSA: 2.22 m Weight: 101.15 kg BMI: 32.9 kg/m (PRE PROCEDURE) Color Doppler was utilized to interrogate the cardiac valves assessed and spectral Doppler was utilized to determine the flow velocities and pressure gradients reported in this exam. MEASUREMENTS: (PRE PROCEDURE) Value Max aortic dimension 3.0 cm FINDINGS: (PRE PROCEDURE) LEFT VENTRICLE The left ventricle is normal in size. There is mild left ventricular hypertrophy. Left ventricular systolic function is normal. Wall Motion: Pre: All scored segments are normal. RIGHT VENTRICLE The right ventricle is normal in size. Right ventricular systolic function is normal. LEFT ATRIUM There is no left atrial appendage thrombus. Pulmonary Veins: The pulmonary venous pattern showed normal systolic flow. MITRAL VALVE There is trace mitral valve regurgitation. TRICUSPID VALVE There is trace tricuspid valve regurgitation. AORTIC VALVE There is no aortic valve regurgitation. PULMONIC VALVE AORTA The visualized aorta is normal in size. Measurements - Aortic valve annulus 1.8 cm. Sinus: 2.7 cm. Sinotubular junction 2.7 cm. Mid ascending aorta 3.0 cm. INTERATRIAL SEPTUM There is no patent foramen ovale. CONCLUSIONS: (PRE PROCEDURE) - Exam indication: CABG - The left ventricle is normal in size. There is mild left ventricular hypertrophy. Left ventricular systolic function is normal. - The right ventricle is normal in size. Right ventricular systolic function is normal. - Exam was compared with the prior echocardiographic exam performed on Final See Link below for Image us Alexis Andrews MD ECHO Final Result [facility] [address] [place], [place] [id number] * ARTL CATHJ/CANNULJ MNTR/TRANSFUSION SPX PRQ (09/19/2024 10:50 AM EDT) Narrative Thom Cortez APRN.MANAGER ANIMAL - 09/19/2024 10:50 AM EDT Thom Cortez APRN.MANAGER ANIMAL 09/19/2024 1:01 PM A-Line General Information Procedure Start Time/Medication Administration: 09/19/2024 10:50 AM Procedure End Time: 09/19/2024 11:00 AM Patient location during procedure: OR Timeout Performed Pre-procedure: timeout performed Indications: continuous blood pressure monitoring and blood sampling needed Staffing MANAGER ANIMAL: Thom Cortez APRN.MANAGER ANIMAL Performed by: AMNA Preparation Sterility Preparation: hand hygiene performed prior to procedure, sterile gloves, drapes, and procedure tray, surgical cap used, mask used, sterile drape used during line insertion, skin prep agent completely dried prior to procedure Site Prep: Chloraprep Procedure Details Catheter Type: arterial line Catheter Size: 20 G Catheter Length: 5.25 in Micropuncture Kit Used: No Guidewire Used: Yes Guidewire Removed Intact: Yes Laterality: left Site: brachial artery Ultrasound Guided: Yes Image in Chart: No Sites: potential access sites evaluated, selected vessel patent, concurrent real time ultrasound visualization of vascular needle entry Vessel: target vessel identified and guidewire advanced into vessel Line Secured: occlusive biodressing Events Events: patient tolerated procedure well with no complications Obed Nina MD ANESTHESIA ORDERABLES Final Result * ECHO (09/17/2024 1:26 PM EDT) 09/17/2024 1:26 PM EDT [facility] - 09/17/2024 2:08 PM EDT CONCLUSIONS: - Exam indication: Suspected Complication of LA - The left ventricle is normal in size. There is mild upper septal left ventricular hypertrophy. Left ventricular systolic function is normal. EF = 60 5% (visual est.) - The right ventricle is normal in size. Right ventricular systolic function is normal. - The patient has not had a prior CC echocardiographic exam for comparison. * * * Final * * * Narrative [facility] - 09/17/2024 2:08 PM EDT Echocardiography Report: Transthoracic Echo [facility] [id number] Date of service: 09/17/2024 1:26:57 PM CASTER Ordering physician: ALEXIS ANDREWS Exam indication: Suspected Complication of LA Symptom(s): Chest Pain Technologist: Litzy Maher Fellow: Vu Miller MD Interpreting physician: Charly Byrd MD PATIENT: Name: FUAD JAMES : 1950 Age: 73 years Gender: M History of hypertension and coronary artery disease. Primary rhythm: sinus. Height: 175.00 cm BSA: 2.27 m Weight: 105.69 kg BMI: 34.5 kg/m Heart rate 69 bpm Blood pressure 112/57 mmHg Color Doppler was utilized to interrogate the cardiac valves assessed and spectral Doppler was utilized to determine the flow velocities and pressure gradients reported in this exam. MEASUREMENTS: Value Indexed Normal Max aortic dimension 3.2 cm Ao < 3.8 Left atrial volume 37 ml (Pastor's) 17 ml/m Elijah <= 34 LV ID (diastole) 4.2 cm (2D) 1.84 cm/m LV ID (systole) 2.9 cm (2D) 1.30 cm/m IVS, leaflet tips 1.3 cm (2D) Posterior wall thickness 1.1 cm (2D) Left ventricular mass 177 g (2D) 78 g/m LV cardiac output 3.9 l/min (visual est.) LV end diastolic volume 90 ml (2D biplane) 41.1 ml/m 34<=EDVi<75 Ejection Fraction 60 % (visual est.) EF > 52 FINDINGS: LEFT VENTRICLE The left ventricle is normal in size. There is mild upper septal left ventricular hypertrophy. Left ventricular systolic function is normal. Grade I left ventricular diastolic dysfunction. Mitral annular lateral E/e': 7.4. Mitral annular septal E/e': 7.9. Wall Motion: All scored segments are normal. RIGHT VENTRICLE The right ventricle is normal in size. Right ventricular systolic function is normal. RV systolic tissue Doppler velocity is 14.4 cm/s. Tricuspid annular displacement is 2.1 cm. Estimated right ventricular systolic pressure is not reported due to an insufficient tricuspid regurgitation signal. Estimated right atrial pressure is 3 mmHg based on IVC assessment. LEFT ATRIUM The left atrial cavity is normal in size. RIGHT ATRIUM The right atrial cavity is normal in size. Inferior Vena Cava: The inferior vena cava appears normal measuring 1.2 cm. The vessel decreases greater than 50 percent with inspiration. MITRAL VALVE There is trace (trace - 1+) mitral valve regurgitation. There is mild thickening. The pressure half time is 57 msec. The peak mitral E/A ratio is 0.99. The average mitral E/e' ratio is 7.7. The mitral flow deceleration time is 197 msec. TRICUSPID VALVE There is trace tricuspid valve regurgitation. There is no thickening. AORTIC VALVE There is trace aortic valve regurgitation. Tricuspid aortic valve. There is mild thickening. The peak gradient is 8 mmHg (peak velocity = 145.0 cm/s). PULMONIC VALVE The pulmonic valve was not seen or not interrogated. There is trace pulmonic valve regurgitation. AORTA The visualized aorta is normal in size. Measurements - Sinus: 3.2 cm. Mid ascending aorta 3.2 cm. PULMONARY ARTERIES The pulmonary arteries are unseen or not interrogated. INTERATRIAL SEPTUM There is no obvious evidence of intracardiac shunting as detected by Doppler. PERICARDIUM There is an epicardial fat pad. Alexis Andrews MD ECHO Final Result [facility] [address] [place] [address] * LVEF TRANSTHORACIC ECHO (09/17/2024 1:26 PM EDT) LV Ejection Fraction 60 % [facility] Comment: (visual est.) EF > 52 An LV Ejection Fraction of > 50% is normal 09/17/2024 1:26 PM EDT us Alexis Andrews MD LVEF RESULTS Final Result [facility] [address] [place] [address] * CTA CHEST (GATED) W IVCON (09/17/2024 11:00 AM EDT) Anatomical Region Laterality Modality Chest Computed Tomogra phy 09/17/2024 11:0 0 AM EDT Impressions 09/17/2024 11:46 AM EDT IMPRESSION: 1. Normal caliber of the thoracic aorta with no significant calcifications in the ascending thoracic aorta and only mild calcifications of the distal arch and descending aorta. No acute aortic pathology. 2. Severe diffuse coronary calcifications. RCA stent noted. Vp Customer Development: [facility] Transcribe Date/Time: Sep 17 2024 11:29A Dictated by : JACOBY GREEN MD This examination was interpreted and the report reviewed and electronically signed by: JACOBY GREEN MD on Sep 17 2024 11:44AM EST Narrative 09/17/2024 11:46 AM EDT * * *Final Report* * * DATE OF EXAM: Sep 17 2024 11:00AM JQC 0125 - CTA CHEST (GATED) W IVCON / PROCEDURE REASON: multiple diagnoses * * * * Physician Interpretation * * * * CTA Aorta chest Direct Image Comparison: None HISTORY: 73 years old Male with h/o severe triple-vessel coronary artery disease (left main disease, diffuse disease of the left anterior descending, a chronic totally occluded left circumflex and diffuse disease in the distal right coronary artery status post stent) and recent Covid infection being evaluated for CABG. Evaluation for further treatment options There is request to define thoracic and aortic anatomy TECHNIQUE: SCANNER: Multi-detector scanner PROTOCOL: Prospectively triggered helical high-pitch acquisitions ( triggered Flash-mode ) was performed following the intravenous administration of contrast material. Scan Range: thoracic inlet to the diaphragm CT Dose-Length Product (DLP): 180 mGy*cm CT Dose Reduction Employed: Automated exposure control(AEC) and iterative recon CONTRAST: IV administration of 70 ml Omnipaque 350 Scan acquisition: uncomplicated For optimization of anatomic evaluation, advanced 3-D off-line postprocessing was performed on a dedicated workstation by the interpreting physician. STUDY LIMITATIONS: None. RESULT: LINES, TUBES and DEVICES: None CHEST: Chest wall anatomy: unremarkable LUNGS: unremarkable aside from a punctate calcified granuloma in the left upper lobe MEDIASTINUM: unremarkable small hiatal hernia PERICARDIUM: unremarkable CENTRAL PULMONARY ARTERY: normal dimensions, assessment is limited due to limited contrast enhancement CARDIAC CHAMBERS: LEFT VENTRICLE: normal size Right ventricle: normal size Left atrium: dilated JAKI: normal Right atrium: prominent CENTRAL VENOUS and PULMONARY VENOUS RETURN: normal Coronary Sinus: unremarkable MITRAL and TRICUSPID VALVE: Assessment is limited in the current study no leaflet calcification, No annular calcification PULMONIC VALVE: Assessment is limited in the current study; no leaflet calcification CORONARY ANATOMY: Normal origin of the coronary arteries Diffuse, calcified atherosclerotic changes of the coronary arteries, precluding precise assessment with CT. Coronary stents in the RCA; assessment is limited due to metal artifact AORTIC VALVE: appears trileaflet; no leaflet calcification AORTA: -Size: Normal size thoracic aorta -Pathology: No acute aortic pathology -STJ: maintained -Wall Changes: no evidence of calcification of the ascending aorta; mild calcifications in the distal aortic arch and descending thoracic aorta. -Arch Branch Vessels: unremarkable visualized proximal segments of the aortic branch vessels mild noncalcified plaque along the ostial/proximal portion of the left subclavian artery. AORTIC DIMENSIONS: AORTIC ROOT: 3.3 x 3.0 cm measured [id number], , Area 7.4 cm2 mid ASCENDING THORACIC AORTA: 3.5 cm, , Area cm2 mid AORTIC ARCH: 2.7 cm mid DESCENDING THORACIC AORTA: 2.5 cm RELATIONSHIP OF THE CARDIOVASCULAR STRUCTURES OF THE STERNUM: The left brachio-cephalic vein lies 27 mm behind the manubrium sternum The aorta lies 41 mm behind the upper sternum The RV lies 12 mm behind the lower sternum The right and left internal thoracic arteries are patent, normal to mildly diminutive in caliber and do not cross the midline. limited upper ABDOMEN: Suspect mild hepatic steatosis BONES: Degenerative changes in the thoracic spine. Ehr Trainer (topogram) images: No additional findings. Procedure Note Provider, [facility] [place] - 07/30/2025 * * *Final Report* * * DATE OF EXAM: Sep 17 2024 11:00AM JQC 0125 - CTA CHEST (GATED) W IVCON / PROCEDURE REASON: multiple diagnoses * * * * Physician Interpretation * * * * CTA Aorta chest Direct Image Comparison: None HISTORY: 73 years old Male with h/o severe triple-vessel coronary artery disease (left main disease, diffuse disease of the left anterior descending, a chronic totally occluded left circumflex and diffuse disease in the distal right coronary artery status post stent) and recent Covid infection being evaluated for CABG. Evaluation for further treatment options There is request to define thoracic and aortic anatomy TECHNIQUE: SCANNER: Multi-detector scanner PROTOCOL: Prospectively triggered helical high-pitch acquisitions ( triggered Flash-mode ) was performed following the intravenous administration of contrast material. Scan Range: thoracic inlet to the diaphragm CT Dose-Length Product (DLP): 180 mGy*cm CT Dose Reduction Employed: Automated exposure control(AEC) and iterative recon CONTRAST: IV administration of 70 ml Omnipaque 350 Scan acquisition: uncomplicated For optimization of anatomic evaluation, advanced 3-D off-line postprocessing was performed on a dedicated workstation by the interpreting physician. STUDY LIMITATIONS: None. RESULT: LINES, TUBES and DEVICES: None CHEST: Chest wall anatomy: unremarkable LUNGS: unremarkable aside from a punctate calcified granuloma in the left upper lobe MEDIASTINUM: unremarkable small hiatal hernia PERICARDIUM: unremarkable CENTRAL PULMONARY ARTERY: normal dimensions, assessment is limited due to limited contrast enhancement CARDIAC CHAMBERS: LEFT VENTRICLE: normal size Right ventricle: normal size Left atrium: dilated JAKI: normal Right atrium: prominent CENTRAL VENOUS and PULMONARY VENOUS RETURN: normal Coronary Sinus: unremarkable MITRAL and TRICUSPID VALVE: Assessment is limited in the current study no leaflet calcification, No annular calcification PULMONIC VALVE: Assessment is limited in the current study; no leaflet calcification CORONARY ANATOMY: Normal origin of the coronary arteries Diffuse, calcified atherosclerotic changes of the coronary arteries, precluding precise assessment with CT. Coronary stents in the RCA; assessment is limited due to metal artifact AORTIC VALVE: appears trileaflet; no leaflet calcification AORTA: -Size: Normal size thoracic aorta -Pathology: No acute aortic pathology -STJ: maintained -Wall Changes: no evidence of calcification of the ascending aorta; mild calcifications in the distal aortic arch and descending thoracic aorta. -Arch Branch Vessels: unremarkable visualized proximal segments of the aortic branch vessels mild noncalcified plaque along the ostial/proximal portion of the left subclavian artery. AORTIC DIMENSIONS: AORTIC ROOT: 3.3 x 3.0 cm measured [id number], , Area 7.4 cm2 mid ASCENDING THORACIC AORTA: 3.5 cm, , Area cm2 mid AORTIC ARCH: 2.7 cm mid DESCENDING THORACIC AORTA: 2.5 cm RELATIONSHIP OF THE CARDIOVASCULAR STRUCTURES OF THE STERNUM: The left brachio-cephalic vein lies 27 mm behind the manubrium sternum The aorta lies 41 mm behind the upper sternum The RV lies 12 mm behind the lower sternum The right and left internal thoracic arteries are patent, normal to mildly diminutive in caliber and do not cross the midline. limited upper ABDOMEN: Suspect mild hepatic steatosis BONES: Degenerative changes in the thoracic spine. Ehr Trainer (topogram) images: No additional findings. IMPRESSION IMPRESSION: 1. Normal caliber of the thoracic aorta with no significant calcifications in the ascending thoracic aorta and only mild calcifications of the distal arch and descending aorta. No acute aortic pathology. 2. Severe diffuse coronary calcifications. RCA stent noted. [facility] Transcribe Date/Time: Sep 17 2024 11:29A Dictated by : JACOBY GREEN MD This examination was interpreted and the report reviewed and electronically signed by: JACOBY GREEN MD on Sep 17 2024 11:44AM EST Alexis Andrews MD CT-PAMA Final Result * (ABNORMAL) URINALYSIS, DIPSTICK ONLY (09/17/2024 10:56 AM EDT) Color Yellow Yellow 09/17/2024 11:38 AM EDT [facility] Clarity Cloudy(A) Clear 09/17/2024 11:38 AM EDT [facility] Glucose, Urine Negative Negative 09/17/2024 11:38 AM EDT [facility] Bilirubin, Urine Negative Negative 09/18/19 25 11:38 AM EDT [facility] Ketones, Urine Negative Negative 09/17/2024 11:38 AM EDT [facility] Specific [place], Ur 1.025 1.005 - 1.030 09/17/2024 11:38 AM EDT [facility] Hemoglobin/Blood ,Ur Negative Negative 09/17/2024 11:38 AM EDT [facility] pH, Urine 5.5 5.0 - 8.0 09/17/2024 11:38 AM EDT [facility] Protein, Urine Trace(A) Negative 09/17/2024 11:38 AM EDT [facility] Urobilinogen 0.2 EU/dL 0.2-1.0 EU/dL 09/17/2024 11:38 AM EDT [facility] Nitrites Negative Negative 09/17/2024 11:38 AM EDT [facility] Leuk Esterase 2+(A) Negative 09/17/2024 11:38 AM EDT [facility] Urine URINE SPECIMEN / Unknown Non Blood / Unknown 09/17/2024 10:56 AM EDT 09/17/2024 10:56 AM EDT Alexis Andrews MD LABORATORY Final Result Performing Organization Address City/[facility] Co de Phone Number [facility] [address] [place] [address] * CREATININE, BLOOD (POC) (09/17/2024 10:53 AM EDT) Creatinine (POCT) 1.40 0.7 - 1.4 mg/dL [facility] eGFR (POCT) 53 mL/min/1.7 3 m2 [facility] 09/17/2024 10:5 3 AM EDT Narrative [facility] - 09/17/2024 10:53 AM EDT Location:Radiology [facility], [address] [place] [address], [facility] Adults (18+): eGFR is calculated using the 2020 CKD-EPI Creatinine Equation. Pediatric patients (<18): eGFR should be clinically calculated using the 2020 Rossi Equation. The [employer] provides online calculators. Cc Provider POC TESTING Final Result Performing Organization Address [facility]/ZIP Co de Phone Number [facility] * CONFIRM BLOOD TYPE (09/17/2024 9:51 AM EDT) ABO B 09/17/2024 4:35 PM EDT [facility] Rh(D) Positive 09/17/2024 4:35 PM EDT [facility] Blood BLOOD SPECIMEN / Unknown Venipuncture / Unknown 09/17/2024 9:51 AM EDT 09/17/2024 9:51 AM EDT Alexis Andrews MD BLOOD BANK Final Result Performing Organization Address City/[facility]/ZIP Co de Phone Number [facility] [address] [place] [address], [place] * TYPE AND SCREEN,30 DAY (09/17/2024 9:41 AM EDT) ABO B 09/17/2024 5:45 PM EDT [facility] Rh(D) Positive 09/17/2024 5:45 PM EDT MAIN BLOOD B[facility] Antibody Screen Negative 09/17/2024 5:45 PM EDT CC MAIN BLOOD BANK Blood BLOOD SPECIMEN / Unknown Venipuncture / Unknown 09/17/2024 9:41 AM EDT 09/17/2024 9:41 AM EDT us Alexis Andrews MD BLOOD BANK Final Result Performing Organization Address City/[facility]/ZIP Co de Phone Number MAIN BLOOD BANK [address] [id number], [place] * LACTATE DEHYDROGENASE (09/17/2024 9:41 AM EDT) LD 156 135 - 225 U/L 09/17/2024 3:02 PM EDT [facility] Blood BLOOD SPECIMEN / Unknown Venipuncture / Unknown 09/17/2024 9:41 AM EDT 09/17/2024 9:41 AM EDT us Alexis Andrews MD LABORATORY Final Result [facility] [address] [facility] [address] [place] [address], [place] * LIPOPROTEIN (A) (09/17/2024 9:41 AM EDT) Lipoprotein (a) 7 <30 mg/dL 6:22 PM EDT [facility] Blood BLOOD SPECIMEN / Unknown Venipuncture / Unknown 09/17/2024 9:41 AM EDT 09/17/2024 9:41 AM EDT Alexis Andrews MD LABORATORY Final Result [facility] [address] [facility] [address] [address], [place] * (ABNORMAL) LIPID PANEL, FASTING (09/17/2024 9:41 AM EDT) Cholesterol, Total 190 <200 mg/dL 09/17/2024 3:02 PM EDT [facility] Comment: <200 mg/dL, Desirable 200-239 mg/dL, Borderline high >239 mg/dL, High Triglyceride 166(H) <150 mg/dL 09/17/2024 3:02 PM EDT [facility] Comment: <150 mg/dL, Normal 150-199 mg/dL, Borderline high 200-499 mg/dL, High >499 mg/dL, Very high HDL Cholesterol 34(L) >39 mg/dL 3:02 PM EDT [facility] Comment: 40-59 mg/dL, Acceptable >59 mg/dL, High: Negative risk factor for coronary heart disease <40 mg/dL, Low: Positive risk factor for coronary heart disease LDL Cholesterol, Calculated 126(H) <100 mg/dL 09/17/2024 3:02 PM EDT [facility] Comment: <100 mg/dL, Optimal 100-129 mg/dL, Near optimal/above optimal 130-159 mg/dL, Borderline high 160-189 mg/dL, High >189 mg/dL, Very high Secondary prevention optimal LDL Cholesterol levels are recommended to be <70 mg/dL LDL cholesterol is calculated using the Negron-NIH equation. Non HDL Cholesterol 156(H) <130 mg/dL 09/17/2024 3:02 PM EDT [facility] Comment: <130 mg/dL, Optimal 130-159 mg/dL, Near optimal/above optimal 160-189 mg/dL, Borderline high 190-219 mg/dL, High >219 mg/dL, Very high Secondary prevention optimal non HDL Cholesterol levels are recommended to be <100 mg/dL VLDL Cholesterol 29 <30 mg/dL 09/18/19 3:02 PM EDT [facility] TC:HDL Ratio 5.59(H) <5.10 09/17/2024 3:02 PM EDT [facility] LDL:HDL Ratio 3.71(H) <2.54 09/17/2024 3:02 PM EDT [facility] Comment: Reference: 1. National Cholesterol Education Program ATP III Guideline At-A-Glance Quick Desk Reference: National Heart, Lung, and Blood [place]. National Institutes of Health. 2001: NIH Publication No. 01-3305. 2. An International Atherosclerosis Society position paper: global recommendations for the management of dyslipidemia: executive summary, Atherosclerosis. 2014: 232(2):410-413. Fasting Time 12 hrs 09/17/2024 3:02 PM EDT [facility] Blood BLOOD SPECIMEN / Unknown Venipuncture / Unknown 09/17/2024 9:41 AM EDT 09/17/2024 9:41 AM EDT us Favio Ko MD LABORATORY Final Result [facility] [address] [place] [address], * COMPLETE BLOOD COUNT AND DIFFERENTIAL (09/17/2024 9:41 AM EDT) WBC 6.95 3.70 - 11.00 k/uL 09/17/2024 10:30 AM EDT [facility] RBC 4.95 4.20 - 6.00 m/uL 09/17/2024 10:30 AM EDT [facility] Hemoglobin 13.6 13.0 - 17.0 g/dL 09/17/2024 10:30 AM EDT [facility] Hematocrit 41.1 39.0 - 51.0 % 09/17/2024 10:30 AM EDT [facility] MCV 83.0 80.0 - 100.0 fL 09/17/2024 10:30 AM EDT [facility] MCH 27.5 26.0 - 34.0 pg 09/17/2024 10:30 AM EDT [facility] MCHC 33.1 30.5 - 36.0 g/dL 09/17/2024 10:30 AM EDT [facility] RDW-CV 12.4 11.5 - 15.0 % 09/17/2024 10:30 AM EDT [facility] Platelet Count 275 150 - 400 k/uL 09/17/2024 10:30 AM EDT [facility] MPV 10.3 9.0 - 12.7 fL 09/17/2024 10:30 AM EDT [facility] Neutrophils % 59.2 % 09/17/2024 10:30 AM EDT [facility] Abs Neut 4.12 1.45 - 7.50 k/uL 09/17/2024 10:30 AM EDT [facility] Lymphocytes % 30.4 % 09/17/2024 10:30 AM EDT [facility] Abs Lymph 2.11 1.00 - 4.00 k/uL 09/17/2024 10:30 AM EDT [facility] Monocytes % 7.5 % 09/17/2024 10:30 AM EDT [facility] Abs Sauk 0.52 <0.87 k/uL 09/17/2024 10:30 AM EDT [facility] Eosinophils % 1.9 % 09/17/2024 10:30 AM EDT [facility] Abs Eosin 0.13 <0.46 k/uL 09/17/2024 10:30 AM EDT [facility] Basophils % 0.7 % 09/17/2024 10:30 AM EDT [facility] Abs Baso 0.05 <0.11 k/uL 09/17/2024 10:30 AM EDT [facility] Immature Granulocytes % 0.3 % 09/17/2024 10:30 AM EDT [facility] Abs Immature Gran <0.03 <0.10 k/uL 09/17/2 025 10:30 AM EDT [facility] NRBC 0.0 /100 WBC 09/17/2024 10:30 AM EDT [facility] Absolute nRBC <0.01 <0.01 k/uL 09/17/2024 10:30 AM EDT [facility] Diff Type Auto 09/17/2024 10:30 AM EDT [facility] Blood BLOOD SPECIMEN / Unknown Venipuncture / Unknown 09/17/2024 9:41 AM EDT 09/17/2024 9:41 AM EDT us Alexis Andrews MD LABORATORY Final Result [facility] [address] [place] [address], * US LEG VEIN MAP [facility] (09/17/2024 8:09 AM EDT) 09/17/2024 8:09 AM EDT [facility] - 09/17/2024 11:23 PM EDT Non-Invasive Vascular Laboratory [facility] J35 Lower Extremity Vein Mapping Bilateral/Complete Date of service/time: 09/17/2024 8:09:15 AM Name: FUAD JAMES Date of : 1950 Age: 73 years Gender: M Clinical Indication Pre-op open heart surgery. FINDINGS -------- RIGHT Great saphenous vein: Saphenofemoral junction: 5.6 mm Proximal thigh: 3.8 mm Mid thigh: 3.4 mm Distal thigh: 3.5 mm Knee: 3.4 mm Proximal calf: 2.8 mm Mid calf: 3.1 mm Distal calf: 3.8 mm Small saphenous vein: Proximal calf: 3.1 mm Mid calf: 2.5 mm Distal calf: 2.6 mm LEFT Great saphenous vein: Saphenofemoral junction: 6.2 mm Proximal thigh: 3.6 mm Mid thigh: 4.2 mm Distal thigh: 4.2 mm Knee: 4.5 mm Proximal calf: 4.0 mm Mid calf: 3.5 mm Distal calf: 3.2 mm Small saphenous vein: Proximal calf: 3.1 mm Mid calf: 2.3 mm Distal calf: 2.2 mm IMPRESSION . RIGHT Great saphenous vein: Patent with measurements as indicated above. Branches noted at the mid thigh, at the distal thigh, at the knee, at the proximal calf, at the mid calf and at the distal calf. Small saphenous vein: Patent with measurements as indicated above. Branches noted at the mid calf and at the distal calf. LEFT Great saphenous vein: Patent with measurements as indicated above. Branches noted at the proximal thigh, at the mid thigh, at the distal thigh, at the knee and at the proximal calf. Small saphenous vein: Patent with measurements as indicated above. Branches noted at the distal calf and at the mid calf. Technologist: Martha Avalos RVT Ordering physician: ALEXIS ANDREWS Ordering physician: Alexis Macias Interpreting physician: Bao Hu DO, RVT, RPVI Final See Link below for Image Alexis Andrews MD VASCULAR LAB Final Result [facility] [address] [place] [id number] * [place] RADIAL ARTERY MAP [facility] (09/17/2024 8:03 AM EDT) 09/17/2024 8:03 AM EDT Narrative [facility] - 09/17/2024 11:20 PM EDT Non-Invasive Vascular Laboratory [facility] J35 Artery Mapping Study Bilateral/Complete Date of service/time: 09/17/2024 8:03:29 AM Name: FUAD JAMES Date of : 1950 Age: 73 years Gender: M Clinical Indication Pre-op open heart surgery. FINDINGS -------- RIGHT Radial artery Distal: PSV 71 cm/s. EDV 8 cm/s. Monophasic, intermediate resistive waveform. LEFT Radial artery Distal: PSV 63 cm/s. EDV 0 cm/s. Multiphasic waveform. IMPRESSION RIGHT Measurements listed above; patent radial artery. Compression of the radial artery compromises flow to the digits. LEFT Measurements listed above; patent radial artery. Compression of the radial artery compromises flow to the digits. Technologist: Martha Avalos RVT Ordering physician: ALEXIS ANDREWS Interpreting physician: Bao Hu DO, RVT, RPVI Final See Link below for Image us Alexis Andrews MD VASCULAR LAB Final Result Performing Organization Address City/State/[facility] Co de Phone Number [facility] [address] [place], [place] [phone] * CAROTID ARTERIES [facility] (09/17/2024 7:23 AM EDT) 09/17/2024 7:23 AM EDT [facility] - 09/17/2024 12:54 PM EDT Non-Invasive Vascular Laboratory [facility] J35 Carotid Duplex Bilateral/Complete Date of service/time: 09/17/2024 7:23:16 AM Name: FUAD JAMES Date of : 1950 Age: 73 years Gender: M Clinical Indication Pre op for cardiac surgery. TECHNIQUE -------- A carotid duplex ultrasound examination was performed, including grayscale imaging and color Doppler and spectral Doppler examination of the below mentioned arteries. FINDINGS -------- RIGHT SIDE Common carotid artery: Origin: PSV: 154 cm/s. EDV: 27 cm/s. Proximal: PSV: 93 cm/s. EDV: 16 cm/s. Mid: PSV: 111 cm/s. EDV: 21 cm/s. Distal: PSV: 95 cm/s. EDV: 22 cm/s. Mild heterogeneous plaque at distal. Internal carotid artery: Origin: PSV: 102 cm/s. EDV: 24 cm/s. Proximal: PSV: 91 cm/s. EDV: 27 cm/s. Mid: PSV: 80 cm/s. EDV: 20 cm/s. Distal: PSV: 90 cm/s. EDV: 28 cm/s. ICA/CCA Ratio: 1.1 External carotid artery: Proximal: PSV: 143 cm/s. EDV: 14 cm/s. Subclavian artery: Origin: PSV: 213 cm/s. EDV: 0 cm/s. Innominate artery: PSV: 194 cm/s. EDV: 31 cm/s. Vertebral artery: PSV: 41 cm/s. EDV: 7 cm/s. LEFT SIDE Common carotid artery: Proximal: PSV: 127 cm/s. EDV: 24 cm/s. Mid: PSV: 94 cm/s. EDV: 18 cm/s. Distal: PSV: 99 cm/s. EDV: 21 cm/s. Internal carotid artery: Proximal: PSV: 111 cm/s. EDV: 26 cm/s. Mid: PSV: 89 cm/s. EDV: 23 cm/s. Distal: PSV: 88 cm/s. EDV: 22 cm/s. Mild heterogeneous plaque from origin to proximal. ICA/CCA Ratio: 1.1 External carotid artery: Proximal: PSV: 118 cm/s. EDV: 13 cm/s. Vertebral artery: PSV: 45 cm/s. EDV: 13 cm/s. IMPRESSION Please note: the new carotid interpretation criteria are used as recommended by Intersocietal Accreditation Commission. RIGHT SIDE Common carotid artery: Plaque visualized without evidence of hemodynamically significant stenosis. Internal carotid artery: Normal study. Vertebral artery: Patent and antegrade flow noted. Innominate artery: Patent. Subclavian artery: Patent. LEFT SIDE Internal carotid artery: <50% stenosis consistent with mild carotid artery disease. Vertebral artery: Patent and antegrade flow noted. Subclavian artery: Patent. Technologist: Martha Avalos RVT Ordering physician: ALEXIS ANDREWS Interpreting physician: Bao Hu DO, RVT, RPVI Final See Link below for Image us Alexis Andrews MD VASCULAR LAB Final Result Performing Organization Address City/[facility]/ZIP Co de Phone Number [facility] [address] [place] [address] * HANDY WHAT TO EXPECT DURING YOUR HOSPITAL STAY (09/06/2024) 09/06/2024 Narrative HANDY - 09/20/2024 Provider DARRYL your patient FUAD JAMES has not started their Handy program, time has . Handy program: [employer] PATIENT VIDEO us Alexis Andrews MD HANDY Final Result Performing Organization Address [facility] Co de Phone Number HANDY * EXTERNAL CARDIOLOGY (09/03/2024 3:57 PM EDT) External Provider PA-C CARDIOLOGY Final Res ult * EXTERNAL CARDIOLOGY (09/03/2024 3:57 PM EDT) External Provider PA-C CARDIOLOGY Final Res ult * EXTERNAL CARDIOLOGY (09/03/2024 3:57 PM EDT) External Provider PA-C CARDIOLOGY Final Res ult * EXTERNAL CARDIOLOGY (09/03/2024 3:57 PM EDT) External Provider PA-C CARDIOLOGY Final Res ult * XA-CORONARY ANGIOGRAPHY IMPORT (08/13/2024) Anatomical Region Laterality Modality Other 08/13/2024 Narrative 09/04/2024 2:42 AM EDT Images were obtained outside of [facility] Procedure Note Provider, [facility] [place] - 09/04/2024 Images were obtained outside of [facility] Cc Provider RADIOLOGY Final Result from Last 3 Months Insurance MEDICARE Advance Directives Documents on File Type Date Recorded Patient Physician Assistant Certified Expl anation Advance Directive(s) 09/24/2024 2:12 PM Care Teams Charter Coach Driver Relationship Specialty Start Date End Date Chris Villanueva MD [address] [place] [address] PCP - General Family Medicine 09/09/24 Antoine Steven MD [address] [place] [address] Referring Cardiology 09/03/24 Alexis Andrews MD [address] [place] [address] Surgeon Cardiac Surg 09/05/24
--- OUTSIDE RECORDS SUMMARY | 2024-10-13 12:32 | XMS_ITS | Clinical Summary ---
Author Organization [facility] Address [address] [place] [address] Care Team Providers Care Cosmetology Educator Name Role Phone Chris Villanueva MD Primary Care Provider [phone] Allergies Active Allergy Reactions Criticality Noted Date Comments Rosuvastatin 04/25/2023 cramping Medications aspirin 81 mg EC tablet Take 1 tablet every day by oral route. Active atorvastatin (Lipitor) 40 mg tablet Take 40 mg by mouth in the morning. Active ezetimibe (Zetia) 10 mg tabletIndications: Hyperlipidemia, unspecified hyperlipidemia type Take 1 tablet (10 mg) by mouth once daily as directed. 90 tablet 3 5 Active carvedilol (Coreg) 25 mg tabletIndications: Coronary artery disease, unspecified vessel or lesion type, unspecified whether angina present, unspecified whether yocha dehe or transplanted heart Take 1 tablet (25 mg) by mouth with breakfast and with evening meal. STOP METOPROLOL 180 tablet 3 5 026 Active lisinopril 20 mg tabletIndications: Essential hypertension Take 1 tablet (20 mg) by mouth in the morning. 90 tablet 3 5 Active amLODIPine (Norvasc) 5 mg tabletIndications: Essential hypertension Take 1 tablet (5 mg) by mouth once daily as directed. 90 tablet 3 5 026 Active Active Problems Problem Noted Date Diagnosed Date Abnormal stress test 07/25/2024 Tinnitus 05/14/2024 Depression screen 01/31/2023 04/25/2023 Dyslipidemia 01/31/2023 04/25/2023 Malaise and fatigue 11/03/2013 Palpitations 03/27/2012 Benign prostatic hyperplasia 03/06/2012 Coronary atherosclerosis 03/06/2012 Essential hypertension 03/06/2012 Kidney stone 03/06/2012 Old myocardial infarction 03/06/2012 Sleep apnea 03/06/2012 Encounters Date Type Department Care Team Description 08/29/2024 [facility] [address] [place] [address] Lasha Yee CNP 08/25/2024 Abstract [facility] Vascular Cardiothoracic Surgery [place] [address] [place] [address] Berna Carrasco, JOSE 08/21/2024 11:15 AM EDT Office Visit [facility] [address] [place] [address] Antoine Steven MD Coronary artery disease involving yocha dehe coronary artery of yocha dehe heart without angina pectoris (Primary Dx); Essential hypertension 08/21/2024 Orders Only [facility] [address] [place] [address] nAita Gray MA Coronary artery disease due to lipid rich plaque (Primary Dx) 08/20/2024 Orders Only [facility] Heart [facility] Vascular [facility]oracic Surgery [place] [address] [facility] [place] [address] Aureliano Barker MA 08/20/2024 Orders Only [facility] Vascular Cardiothoracic Surgery [place] [address] [place] [address] Berna Carrasco, RN Type 2 diabetes mellitus without complication, unspecified whether buttermaker helper insulin use ([facility]) (Primary Dx) 08/19/2024 3:00 PM EDT Consult [facility] Vascular Cardiothoracic Surgery [place] [address] [facility] [place] [address] Lasha Yee CNP Shortness of breath (Primary Dx); Atherosclerosis of yocha dehe coronary artery of yocha dehe heart without angina pectoris; Essential hypertension; Dyslipidemia; Abnormal stress test; Sleep apnea, unspecified type; Benign prostatic hyperplasia with lower urinary tract symptoms, symptom details unspecified 08/19/2024 12:10 AM EDT - 08/19/2024 11:59 PM EDT [facility] [address] [place] [address] Discharge Disposition: Home or Self Care () 08/19/2024 12:05 AM EDT - 08/19/2024 12:09 AM EDT Hospital [facility] [address] [place] [address] Discharge Disposition: Home or Self Care () 08/19/2024 - 08/19/2024 12:04 AM EDT Hospital [facility] External [facility] [address] [place] [address] Discharge Disposition: Home or Self Care () 08/19/2024 Telephone [facility] Heart and Vascular Cardiothoracic Surgery Center [address] [place] [address] Aureliano Barker MA images being pushed to PAC's 08/13/2024 10:35 AM EDT - 08/13/2024 11:35 AM EDT Surgery [facility] [place] [facility] [address] [place] [address] Antoine Steven MD Coronary angiography 08/13/2024 7:44 AM EDT - 08/13/2024 1:50 PM EDT Hospital [facility] [place] [facility] [address] [place] [address] Antoine Steven MD Atherosclerosis of yocha dehe coronary artery of yocha dehe heart with unstable angina pectoris (CMS/HCC) (Primary Dx); Abnormal stress test Discharge Disposition: Home or Self Care () 08/13/2024 Travel 08/05/2024 Travel 08/04/2024 Refill [facility] [address] [place] [address] Anita Gray MA Essential hypertension 07/28/2024 Telephone [facility] [address] [place] [address] Anita Gray MA 07/28/2024 Orders Only [facility] [address] [place] [address] ProviderParis MD 07/25/2024 Orders [facility] Vascular Lab [address] [place] [address] Kathy Garcia RN Coronary atherosclerosis (Primary Dx) 07/25/2024 Orders Only [facility] [address] [place] [address] Anita Gray MA Abnormal stress test; Dyspnea, unspecified type; Encounter for pre-operative examination; Abnormal findings on diagnostic imaging of heart and coronary circulation 07/23/2024 11:00 AM EDT Office Visit [place] [address] [facility] [place] [address] Antoine Steven MD Coronary artery disease, unspecified vessel or lesion type, unspecified whether angina present, unspecified whether yocha dehe or transplanted heart (Primary Dx); MCMAHON (dyspnea on exertion); Essential hypertension from Last 3 Months Family History Medical [...] Recorded Patient Health Questionnaire-2 Score 0 08/19/2024 [place] Safety & Environment Answer Date Rec orded [...] Heterosexual or Straight 09/19 4:07 PM EDT Last Filed Vital Signs Vital Sign Reading Time Taken Comments Blood Pressure 105/53 08/21/2024 11:23 AM EDT Pulse 66 08/21/2024 11:23 AM EDT Temperature - - Respiratory Rate 22 08/13/2024 1:30 PM EDT Oxygen Saturation 96% 08/21/2024 11:23 AM EDT Inhaled Oxygen Concentration - - Weight 102 kg (225 lb) 08/21/2024 11:23 AM EDT Height 175.3 cm (5' 9 ) 08/21/2024 11:23 AM EDT Body Mass Index 33.23 08/21/2024 11:23 AM EDT Plan of Treatment Upcoming Encounters Date Type Department Care Team (Late st Contact Info) Description 10/15/2024 9:45 AM EDT Follow-Up [facility] [address] [place] [address] Antoine Steven MD [address] [place] [address] [facility] [place] [address] Health Maintenance Due Date Last Done Comments CT Colonography 1950 Colonoscopy 1950 Colorectal Cancer Screening 1950 Diabetes: Hemoglobin A1C 1950 FIT-DNA 1950 FIT 1950 FOBT 1950 Medicare Annual Wellness (AWV) 1950 Sigmoidoscopy 1950 Diabetes: Retinopathy Screening 10/28/1959 Diabetes: Urine Protein Screening 1968 Adult Tetanus 10/28/1971 COVID-19 Vaccine ( season) 2023 07/22/2021, 12/16/2020, 05/18/2020, Additional history exists Influenza Vaccine (#1) 2024 3, 11/20/2019, 11/07/2019, Additional history exists Depression Screening [...] not contain a result. Alphonso Dillon MD [facility] US PROCEDURES Final Result IMAGING * XR transfer of outside films (08/19/2024 12:05 AM EDT) Only the most recent of2 resultswithin the time period is included. Narrative IMAGING - 08/19/2024 9:22 AM EDT This order has been auto-finalized and does not contain a result. Alphonso Dillon MD IMG XR PROCEDURES Final Result IMAGING * CORONARY ANGIOGRAPHY (08/13/2024 10:15 AM [...] inhibitor Follow-up with Dr. Steven in the [place] office in the next 2 to 4 [...] left radial artery was obtained. A 6 Tajik glide sheath was inserted without difficulty. Bilateral [...] Oct. Intervention No interventions have been documented. Antoine Steven MD CV CARDIAC CATH PROCEDURES Tena jameson Result * ECG 12 lead (08/13/2024 9:29 AM EDT) [facility] Ventricular Rate 61 BPM GE MUSE Atrial Rate 61 BPM GE MUSE MA Interval 174 ms GE MUSE QRS DURATION 86 ms GE MUSE QT Interval 402 ms GE MUSE QTC CALCULATION(BAZE TT) 404 ms GE MUSE P [place] 3 degrees GE MUSE R-[place] 41 degrees GE MUSE T Wave [place] 44 degrees GE MUSE 08/13/2024 8:23 AM [...] HAMIDA Flores (56) on 08/13/2024 10:43:16 AM Antoine Steven MD ECG ORDERABLES Final Result GE MUSE * Treadmill Stress Myocardial Perfusion Imaging (07/24/2024 8:40 AM EDT) Anatomical Region Laterality Modality Other Historical Provider CV STRESS PROCEDURES Tena l Result from Last 3 Months Insurance MEDICARE Care Teams Cosmetology Educator Relationship Specialty Start Date End Date Chris Villanueva MD [address] [place] [address] PCP - General 10/30/22
--- OUTSIDE RECORDS SUMMARY | 2024-10-13 12:33 | XMS_ITS | Encounter Summary ---
Author Organization [facility] Address [address] [place] [address] Care Team Providers Care Drug And Alcohol Counsellor Name Role Phone Unspecified, Cardiac Surgeon - Unavailable U tiffanyailable Antoine Steven MD Unavailable [phone] Alexis Rizzo MD Unavailable [phone] Chris Villanueva MD Primary Care Provider [phone] Source Comments In the event this information is protected by the Federal Confidentiality of Alcohol and Drug AbusePatient Records regulations: The Federal rules restrict any use of the information to criminally investigate or prosecute any alcohol or drug abuse patient.[facility] Encounter Details Date Type Department Care Team (Late st Contact Info) Description 09/03/2024 Patient Update Cardiothoracic [address] [place] [address] Care Everywhere, Provider [address] [place] [address] Social History Tobacco Use Types Packs/Day Years Used Date Smoking Tobacco: Never Assessed Sex and Gender Information Value Date Recorded Sex Assigned at Not on file Legal Sex Male 10:29 AM EDT Gender Identity Not on file Sexual Orientation Not on file documented as of this encounter Plan of Treatment Not on file documented as of this encounter Visit Diagnoses Not on filedocumented in this encounter Care Teams Drug And Alcohol Counsellor Relationship Specialty Start Date End Date Chris Villanueva MD [address] [place] [address] PCP - General Family Medicine 09/09/24 Unspecified, Cardiac Surgeon - [address] [place] [address] Surgeon Cardiac Surg 09/03/24 09/04/24 Antoine Steven MD [address] [place] [address] Referring Cardiology 09/03/24 Alexis Rizzo MD [address] [place] [address] Surgeon Cardiac Surg 09/05/24 documented as of this encounter
--- OUTSIDE RECORDS SUMMARY | 2024-10-13 12:33 | XMS_ITS | Encounter Summary ---
Author Organization [facility] Address [address] [place] [address] Care Team Providers Care Textile Converter Name Role Phone Unspecified, Cardiac Surgeon - Unavailable U tiffanyailable Antoine Steven MD Unavailable [phone] Alexis Rizzo MD Unavailable [phone] Chris Villanueva MD Primary Care Provider [phone] Source Comments In the event this information is protected by the Federal Confidentiality of Alcohol and Drug AbusePatient Records regulations: The Federal rules restrict any use of the information to criminally investigate or prosecute any alcohol or drug abuse patient.[facility] Reason for Visit * Reason Comments Insurance Inquiry Encounter Details Date Type Department Care Team (Late st Contact Info) Description 09/03/2024 Telephone Cardiothoracic [address] [place] [address] Unspecified, Cardiac Surgeon - [address] [place] [id number] Insurance Inquiry Social History Tobacco Use Types Packs/Day Years Used Date Smoking Tobacco: Never Assessed Sex and Gender Information Value Date Recorded Sex Assigned at Not on file Legal Sex Male 10:29 AM EDT Gender Identity Not on file Sexual Orientation Not on file documented as of this encounter Miscellaneous Notes * Telephone Encounter - Marissa Nieves - 09/03/2024 4:16 PM EDT IN documented in this encounter Plan of Treatment Not on file documented as of this encounter Visit Diagnoses Not on filedocumented in this encounter Care Teams Textile Converter Relationship Specialty Start Date End Date Chris Villanueva MD [address] [place] [address] PCP - General Family Medicine 09/09/24 Unspecified, Cardiac Surgeon - [address] [place] [address] Surgeon Cardiac Surg 09/03/24 09/04/24 Antoine Steven MD [address] [place] [address] Referring Cardiology 09/03/24 Alexis Rizzo MD [address] [facility] [place] [place] [id number] Surgeon Cardiac Surg 09/05/24 documented as of this encounter
--- OUTSIDE RECORDS SUMMARY | 2024-10-13 12:33 | XMS_ITS | Clinical Summary ---
Author Organization [facility] Healthcare Address [address] [place] [address] Care Team Providers Care Nonprofit Financial Controller Name Role Phone Chris Villanueva MD Primary Care Provider Allergies No known active allergies Medications aspirin 81 MG EC tablet Take 81 mg by mouth in the morning. Active atorvastatin (Lipitor) 40 MG tablet Take 40 mg by mouth in the morning. Active amLODIPine (Norvasc) 5 MG tablet Take 5 mg by mouth Daily Active carvedilol (Coreg) 25 MG tablet Take 25 mg by mouth in the morning and 25 mg in the evening. Take with meals. 5 07/24/19 26 Active ezetimibe (Zetia) 10 MG tablet Take 10 mg by mouth 5 Active acetaminophen (Tylenol) 325 MG tablet 650 mg by Enteral route every 4 (four) hours if needed 5 Active Ferrous Sulfate (IRON PO) Take 1 tablet by mouth in the morning. Take with meals. 5 Active pantoprazole (ProtoNix) 20 MG EC tablet Take 20 mg by mouth in the morning. Take before meals. 5 Active senna-docusate (Silvia-Colace) 8.6-50 MG tablet Take 1 tablet by mouth in the morning. 5 Active lisinopril 5 MG tablet Take 5 mg by mouth Daily 5 Active rosuvastatin (Crestor) 40 MG tablet Take 40 mg by mouth at bedtime 5 Active lisinopril 10 MG tablet Take 10 mg by mouth in the morning. 09/30/19 25 Discontinue d(Dose adjustment) rosuvastatin (Crestor) 40 MG tablet Take 40 mg by mouth at bedtime 09/30/19 25 Discontinue d(Discontin ued by another clinician) furosemide (Lasix) 40 MG tablet Take 40 mg by mouth in the morning. 5 10/11/19 25 Lidocaine 4 % patch Place 1 patch on the skin in the morning. 10/11/19 25 oxyCODONE (Roxicodone) 5 MG immediate release tablet Take 5-10 mg by mouth every 4 (four) hours if needed 10/11/19 25 potassium chloride CR (Klor-Con M20) 20 MEQ ER tablet Take 40 mEq by mouth in the morning. 10/11/19 25 Active Problems Problem Noted Date Diagnosed Date Encounter for long-term (current) use of medicat ions 10/10/2024 SOB (shortness of breath) on exertion 10/10/2024 Ischemic cardiomyopathy 09/19/2024 Assessment & Plan (10/10/2024 12:08 PM EDT): Follow with specialists. Medicare annual wellness visit, subsequent 09/05 Assessment & Plan (09/05/2024 12:25 PM EDT): Reviewed labs. Discussed proper diet and regular aerobic exercise. Need aerobic exercise 5-6 days a week for 30 minutes at a time. Smaller portions and limit total calories. Due for colon cancer screening and willing to have cologuard. Tetanus every 10 years. Advised not to smoke. Discussed daily Aspirin therapy. Benign hypertension 01/31/2023 Assessment & Plan (10/10/2024 12:07 PM EDT): BP controlled and monitor PRN. Coronary atherosclerosis of [place] coronary latisha ry 01/31/2023 Assessment & Plan (10/10/2024 12:07 PM EDT): Doing well after CABG and follow with specialists. Repeat labs, EKG, and CXR. Assessment & Plan (09/05/2024 12:25 PM EDT): Follow with specialists for CABG and follow up care. Depression screen 01/31/2023 Dyslipidemia 01/31/2023 Encounters Date Type Department Care Team Description 10/10/2024 11:00 AM EDT Office Visit [facility] [address] [place] [address] Chris Villanueva MD Atherosclerosis of [place]mi[place] coronary artery of [place] heart without angina pectoris (Primary Dx); Benign hypertension ; Ischemic cardiomyopathy ; SOB (shortness of breath) on exertion; Encounter for long-term (current) use of medications 10/10/2024 Telephone [facility] [address] [place] [address] Chris Villanueva MD 10/06/2024 Telephone [facility] [address] [place] [address] Chris Villanueva MD Error (VOID this visit) 10/01/2024 Clinisync Result Encounter [facility] External Department Unsolicited Provider, Generic External Data 10/01/2024 Clinisync Result Encounter [facility] External Department Unsolicited Provider, Generic External Data 09/29/2024 Patient Outreach [facility] [address] [place] [address] Hallie Andres LPN 09/19/2024 Clinisync Result Encounter [facility] External Department Unsolicited Provider, Generic External Data 09/19/2024 Clinisync Result Encounter [facility] External Department Unsolicited Provider, Generic External Data 09/17/2024 Clinisync Result Encounter [facility] External Department Unsolicited Provider, Generic External Data 09/17/2024 Clinisync Result Encounter [facility] External Department Unsolicited Provider, Generic External Data 09/05/2024 10:45 AM EDT Office Visit [facility] [address] [place] [address] Chris Villanueva MD Medicare annual wellness visit, subsequent (Primary Dx); Atherosclerosis of [place] coronary artery of [place] heart without angina pectoris ; Colon cancer screening 09/05/2024 Bamboo flowsheet [facility] [address] [phone] Chris Villanueva MD 08/20/2024 Clinisync Result Encounter [facility] External Department Unsolicited Provider, Generic External Data 08/20/2024 Clinisync Result Encounter [facility] External Department Unsolicited Provider, Generic External Data 08/06/2024 Clinisync Result Encounter [facility] External Department Unsolicited Provider, Generic External Data 07/28/2024 Clinisync Result Encounter [facility] External Department Unsolicited Provider, Generic External Data 07/25/[address] [facility] [address] [place] [address] Antoine Albright MD 07/24/2024 Clinisync Result Encounter [facility] External Department Unsolicited Provider, Generic External Data from Last 3 Months Family History Medical History Relation Name Comments Coronary artery disease Father Relation Name Status Comments Father Social History Tobacco Use Types Packs/Day Years Used Date Smoking Tobacco: Never Smokeless Tobacco: Never Tobacco Cessation:Counseling Given: Not Answered PHQ-2 Answer Date Recorded Patient Health Questionnaire-2 [...] Mass Index 31.62 10/10/2024 11:17 AM EDT Plan of Treatment Upcoming Encounters Date Type Department Care Team (Late st Contact Info) Description 03/11/2025 10:30 AM EST Office Visit [facility] [address] [place] [address] Chris Villanueva MD [address] [place] [address] Health Maintenance Due Date Last Done Comments CT Colonography 1950 Colonoscopy 1950 Colorectal Cancer Screening 1950 FIT-DNA 1950 FIT 1950 FOBT 1950 Sigmoidoscopy 1950 Influenza Vaccine (#1) 2024 3, 11/20/2019, 11/07/2019, Additional history exists Medicare Annual Wellness (AWV) 09/05/2025 09/05/2024 Pneumococcal Vaccine: 65+ Years Completed 09/28/2022, 06/10/2016, 01/01/2015 Procedures Procedure Name Priority Date/Time Associated Diagnosis Comments [facility] COMP METAB 2000 PNL SERPL Routine 10/01/2024 10:50 AM EDT CCF CBC PNL BLD AUTO Routine 10/01/2024 10:50 AM EDT XR CHEST 2V FRONTAL/LAT 10/02/19 10:30 AM EDT INTRAOPERATIVE ECHO PRE 09/20/19 5:41 PM EDT INTRAOPERATIVE ECHO PRE 09/20/19 11:22 AM EDT CTA CHEST (GATED) W IVCON 09/17/2024 11:00 AM EDT ALL URINALYSIS Routine 09/17/2024 10:56 AM EDT CCF CONFIRM BLOOD TYPE Routine 9:51 AM EDT CCF LPA SERPL-MCNC Routine 09/17/2024 9: 41 AM EDT CCF TYPE AND SCREEN,30 DAY Routine 09/17/2024 9:41 AM EDT CCF STAPH AUREUS PCR Routine 09/17/2024 9:41 AM EDT CCF LIPID 1996 PNL SERPL Routine 09/17/2024 9:41 AM EDT CCF LDH SERPL-CCNC Routine 09/17/2024 9: 41 AM EDT CCF COMP METAB 2000 PNL SERPL Routine 09/17/2024 9:41 AM EDT CCF CBC W AUTO DIFF BLD Routine 09/18/19 9:41 AM EDT CCF APTT PPP Routine 09/17/2024 9:41 AM EDT CCF PT PNL PPP Routine 09/17/2024 9:41 AM EDT XR CHEST 2V 08/20/2024 1:43 PM EDT ALL THYROID STIM HORMONE Routine 08/20/2024 12:31 PM EDT MLR HEMOGLOBIN A1C Routine 08/20/2024 12 :31 PM EDT ALL CBC WITH AUTO DIFF Routine 1:29 PM EDT ALL BASIC METABOLIC PANEL Routine 08/06/2024 1:29 PM EDT ALL CBC WITH AUTO DIFF Routine 1:32 PM EDT STRESS TEST Routine 07/25/2024 9:55 AM EDT NM MEÑO PERF SPECT REST STR 07/24/2024 1:52 PM EDT from Last 3 Months Results * (ABNORMAL) CCF CBC PNL BLD AUTO (10/01/2024 10:50 AM EDT) CCF WBC # BLD AUTO 12.78(H) 3.70 - 11.00 k/uL CCF CCF RBC # BLD AUTO 4.17(L) 4.20 - 6.00 m/uL CCF CCF HGB BLD-MCNC 11.8(L) 13.0 - 17.0 g/dL CCF CCF HCT VFR BLD AUTO 35.2(L) 39.0 - 51.0 % CCF CCF MCV RBC AUTO 84.4 80.0 - 100.0 fL CCF CCF MCH RBC QN AUTO 28.3 26.0 - 34.0 pg CCF CCF MCHC RBC AUTO-MCNC 33.5 30.5 - 36.0 g/dL CCF CCF RDW RBC-RTO 14.3 11.5 - 15.0 % CCF CCF PLATELET # BLD AUTO 750(H) 150 - 400 k/uL CCF CCF PMV BLD AUTO 9.2 9.0 - 12.7 fL CCF CCF NRBC # BLD AUTO <0.01 <0.01 k/uL CCF 10/01/2024 10:5 0 AM EDT 10/01/2024 11:18 AM EDT Narrative MILI - 10/01/2024 11:43 AM EDT Specimen Type: BLOOD SPECIMEN Ordering Facility: [facility] Address: [address] [place] [address] Original Ordering Provider: NOEMÍ ANDREWS us Generic External Data Provider MILI yadav Result [facility] [address] [facility] [place] [address] * (ABNORMAL) CCF COMP METAB 1999 PNL SERPL (10/01/2024 10:50 AM EDT) Only the most recent of2 resultswithin the time period is included. CCF PROT SERPL-MCNC 7.5 6.3 - 8.0 g/dL CCF CCF ALBUMIN SERPL-MCNC 3.9 3.9 - 4.9 g/dL CCF CCF CALCIUM SERPL-MCNC 9.5 8.5 - 10.2 mg/dL CCF CCF BILIRUB SERPL-MCNC 0.7 0.2 - 1.3 mg/dL CCF CCF ALP SERPL-CCNC 119(H) 38 - 113 U/L CCF CCF AST SERPL-CCNC 19 14 - 40 U/L CCF CCF ALT SERPL-CCNC 45 10 - 54 U/L CCF CCF GLUCOSE SERPL-MCNC 122(H) 74 - 99 mg/dL CCF Comment: The [place] Diabetes Association (ADA) provides guidance for cutoff [...] Standards of Medical Care in Diabetes 2016, [place] Diabetes Association. Diabetes Care. 2016.39(Suppl 1). CCF BUN SERPL-MCNC 21 9 - 24 mg/dL CCF CCF CREAT SERPL-MCNC 1.21 0.73 - 1.22 mg/dL CCF CCF SODIUM SERPL-SCNC 134(L) 136 - 144 mmol/L CCF CCF POTASSIUM SERPL-SCNC 5.4(H) 3.7 - 5.1 mmol/L CCF CCF CHLORIDE SERPL-SCNC 101 98 - 107 mmol/L CCF CCF CO2 SERPL-SCNC 19(L) 22 - 30 mmol/L CCF CCF ANION GAP SERPL-SCNC 14 8 - 15 mmol/L CCF EGFRCR SERPLBLD CKD-EPI 2020 63 >=60 mL/min/1.7 3m??? CCF Comment:Estimated Glomerular Filtration Rate (eGFR) is calculated using the 2020 CKD-EPI creatinine equation. This equation utilizes serum creatinine, sex, and age as parameters. The creatinine assay has traceable calibration to isotope dilution- mass spectrometry. Refer to KDIGO guidelines for clinical interpretation. In patients with unstable renal function, e.g. those with acute kidney injury, the eGFR may not accurately reflect actual GFR. 10/01/2024 10:5 0 AM EDT 10/01/2024 12:06 PM EDT Narrative MILI - 10/01/2024 7:15 PM EDT Specimen Type: BLOOD SPECIMEN Ordering Facility: [facility] Address: [address] [place] [address] Original Ordering Provider: NOEMÍ ANDREWS us Generic External Data Provider MILI Carreon inal Result [facility] [address] [facility] [place] [address] * XR CHEST 2V FRONTAL/LAT (10/01/2024 10:30 AM EDT) Anatomical Region Laterality Modality Other 10/01/2024 10:3 0 AM EDT Narrative 10/01/2024 2:01 PM EDT * * *Final Report* * * DATE OF EXAM: Oct 01 2024 10:30AM [id number] - XR CHEST 2V FRONTAL/LAT / PROCEDURE REASON: Surgery follow-up * * * * Physician Interpretation * * * * EXAMINATION: CHEST RADIOGRAPH (2 VIEW FRONTAL and LATERAL) CLINICAL HISTORY: Surgery follow-up MQ: XC2_6 [...] changes are present within the thoracic spine. IMPRESSION: Mildly improving. Assistant Manager Retail: PSCB Transcribe Date/Time: Oct 01 2024 1:55P Dictated by : KAL VANN MD This examination was interpreted and the report reviewed and electronically signed by: KAL VANN MD on Oct 01 2024 1:59PM EST [id number]^[email or web address]^SI^ACN Procedure Note Radiology, Radiologist, - 10/01/2024 * * *Final Report* * * DATE OF EXAM: Oct 01 2024 10:30AM [id number] - XR CHEST 2V FRONTAL/LAT / PROCEDURE REASON: Surgery follow-up * * * * Physician Interpretation * * * * EXAMINATION: CHEST RADIOGRAPH (2 VIEW FRONTAL and LATERAL) CLINICAL HISTORY: Surgery follow-up MQ: XC2_6 [...] changes are present within the thoracic spine. IMPRESSION: Mildly improving. Assistant Manager Retail: PSCB Transcribe Date/Time: Oct 01 2024 1:55P Dictated by : KAL VANN MD This examination was interpreted and the report reviewed and electronically signed by: KAL VANN MD on Oct 01 2024 1:59PM EST [id number]^[email or web address]^SI^ACN Generic External Data Provider [facility] Final Result * INTRAOPERATIVE ECHO PRE (09/19/2024 5:41 PM EDT) Only the most recent of2 resultswithin the time period is included. Anatomical Region Laterality Modality Other 09/19/2024 5:41 PM EDT Narrative 09/23/2024 8:45 AM EDT Echocardiography Report: Intraoperative Echo Pre (NAIF) [facility] OR - J4 Date of service: 09/19/2024 5:41:21 PM CHEF Exam indication: Chest Pain Technologist: staff Interpreting physician: Caroline Cohn MD PATIENT: Name: FUAD JAMES : 1950 Age: 73 years Gender: M Height: 175.30 cm BSA: 2.22 m??? Weight: 101.15 kg BMI: 32.9 kg/m??? (PRE PROCEDURE) MEASUREMENTS: (PRE PROCEDURE) FINDINGS: (PRE [...] All findings discussed with surgical team. Final CC [employer] Image : [id number]^[employer]^SI^SUID See Link below for Image Procedure Note Radiology, Radiologist, - 09/23/2024 Echocardiography Report: Intraoperative Echo Pre (NAIF) [facility] OR - J4 Date of service: 09/19/2024 5:41:21 PM CHEF Exam indication: Chest Pain Technologist: staff Interpreting physician: Caroline Cohn MD PATIENT: Name: FUAD JAMES : 1950 Age: 73 years Gender: M Height: 175.30 cm BSA: 2.22 m??? Weight: 101.15 kg BMI: 32.9 kg/m??? (PRE PROCEDURE) MEASUREMENTS: (PRE PROCEDURE) FINDINGS: (PRE PROCEDURE) LEFT VENTRICLE RIGHT VENTRICLE MITRAL VALVE TRICUSPID VALVE AORTIC VALVE PULMONIC VALVE An intraoperative echo exam was not performed prior to the procedure. CONCLUSIONS: (PRE PROCEDURE) - Exam indication: Chest Pain - Exam was compared with the prior CC echocardiographic exam performedon CONCLUSIONS: (POST PROCEDURE) s/p CABG imemdiate post CPB X 2, hypokinesis of the inferior wall of LV, improvedon inotropic support. Normal LV function on inotorpes. Normal RV function post CPB. trace tR. No AI. 1-2+ MR immediate post CPB, improved to 1+ after chest closure. visualzied portions of the aorta are intact. Images 1-18 acquired and interpreted by Dr. Nikos Veras All findings discussed with surgical team. Final CC [employer] Image :[id number]^[employer]^SI^SUID See Link below for Image us Generic External Data Provider [email or web address] Final Result * CTA CHEST (GATED) W IVCON (09/17/2024 11:00 AM EDT) Anatomical Region Laterality Modality Other 09/17/2024 11:0 0 AM EDT Narrative 09/17/2024 11:46 AM EDT * * [...] AORTIC ROOT: 3.3 x 3.0 cm measured [id number], , Area 7.4 cm2 mid ASCENDING THORACIC [...] BONES: Degenerative changes in the thoracic spine. Keno Clerk (topogram) images: No additional findings. IMPRESSION: 1. Normal caliber of the thoracic aorta with no significant calcifications in the ascending thoracic aorta and only mild calcifications of the distal arch and descending aorta. No acute aortic pathology. 2. Severe diffuse coronary calcifications. RCA stent noted. Assistant Manager Retail: PSCB Transcribe Date/Time: Sep 17 2024 11:29A Dictated by : JACOBY GREEN MD This examination was interpreted and the report reviewed and electronically signed by: JACOBY GREEN MD on Sep 17 2024 11:44AM EST [id number]^[email or web address]^SI^ACN Procedure Note Radiology, Radiologist, - 09/17/2024 * * *Final Report* * * DATE [...] AORTIC ROOT: 3.3 x 3.0 cm measured [id number], , Area 7.4 cm2 mid ASCENDING THORACIC [...] BONES: Degenerative changes in the thoracic spine. Keno Clerk (topogram) images: No additional findings. IMPRESSION: 1. Normal caliber of the thoracic aorta with no significant calcifications in the ascending thoracic aorta and only mild calcifications of the distal arch and descending aorta. No acute aortic pathology. 2. Severe diffuse coronary calcifications. RCA stent noted. Assistant Manager Retail: MCKENZIE Transcribe Date/Time: Sep 17 2024 11:29A Dictated by : JACOBY GREEN MD This examination was interpreted and the report reviewed and electronically signed by: JACOBY GREEN MD on Sep 17 2024 11:44AM EST [id number]^SI^ACN Generic External Data Provider [facility] Final Result * (ABNORMAL) ALL URINALYSIS (09/17/2024 10:56 AM EDT) CCF COLOR UR Yellow Yellow CCF CCF CLARITY SPEC Cloudy(A) Clear CCF CCF GLUCOSE UR STRIP-MCNC Negative Negative CCF CCF BILIRUB UR QL STRIP Negative Negative CCF CCF KETONES UR QL STRIP Negative Negative CCF CCF SP GR UR STRIP 1.025 1.005 - 1.030 CCF CCF HGB UR QL STRIP Negative Negative CCF CCF PH UR STRIP 5.5 5.0 - 8.0 CCF CCF PROT UR STRIP-MCNC Trace(A) Negative CCF CCF UROBILINOGEN UR QL STRIP 0.2 EU/dL 0.2-1.0 EU/dL CCF CCF NITRITE UR QL STRIP Negative Negative CCF CCF LEUKOCYTE ESTERASE UR QL STRIP 2+(A) Negative CCF 09/17/2024 10:5 6 AM EDT 09/17/2024 11:27 AM EDT Narrative CLINISYNC - 09/17/2024 11:38 AM EDT Specimen Type: URINE SPECIMEN Ordering Facility: [facility] Address: [address] [place] [address] Original Ordering Provider: NOEMÍ ANDREWS Generic External Data Provider CLINIS[facility]TA F inal Result Performing Organization Address City/State/[place]UST Co de Phone Number [facility] [address] [facility] [place] [address] * CCF CONFIRM BLOOD TYPE (09/17/2024 9:51 AM EDT) ABO B CCF RH Positive CCF 09/17/2024 9:51 AM EDT 09/17/2024 9:51 AM EDT Narrative CLINISYNC - 09/17/2024 4:35 PM EDT Specimen Type: BLOOD SPECIMEN Ordering Facility: [facility] Address: [address] [place] [address] CC MAIN BLOOD BANK CLIA [id number] [address] [facility] [address] [address] [facility] Generic External Data Provider CLINISYNC F inal Result Performing Organization Address [facility]/[place]UST Co de Phone Number [facility]CF [address] [address] * CCF TYPE AND SCREEN,30 DAY (09/17/2024 9:41 AM EDT) ABO B CCF RH Positive CCF ANTIBODY SCREEN Negative CCF 09/17/2024 9:41 AM EDT 09/17/2024 9:41 AM EDT Narrative CLINISYNC - 09/17/2024 5:45 PM EDT Specimen Type: BLOOD SPECIMEN Ordering Facility: [facility] Address: [address] [place] [address] CC MAIN BLOOD BANK CLIA [id number] [address] [place] [id number] [facility] Generic External Data Provider CLINISYNC F inal Result Performing Organization Address [facility] de Phone Number [facility] [address] [address] * CCF STAPH AUREUS PCR (09/17/2024 9:41 AM EDT) CCF SA+MRSA PNL NOSE REAGAN+PROBE Not Detected Not Detected CCF 09/17/2024 9:41 AM EDT 09/17/2024 12:00 PM EDT Narrative CLINISYNC - 09/17/2024 3:18 PM EDT Specimen Type: SWAB Ordering Facility: [facility] Address: [address] [place] [address] Original Ordering Provider: NOEMÍ ANDREWS Generic External Data Provider CLIN[facility]NC F inal Result Performing Organization Address City/[facility]/ZIP Co de Phone Number [facility] [address] [address] * CCF PT PNL PPP (09/17/2024 9:41 AM EDT) CCF PROTHROMBIN TIME 10.8 9.7 - 13.0 sec CCF CCF INR PPP 1.0 0.9 - 1.3 CCF Comment: Vitamin K Antagonist (VKA) Therapeutic Range: INR 2 to 3 (Target INR of 2.5) Note: For patients treated with VKA drugs, such as warfarin, the [place] [employer] Chest Physicians 2012 Guideline recommends [...] GH, et al. Chest 2012, 141:7S-47S Isabelle RA, et al. [facility] 2017, 70: 252-289 09/17/2024 9:41 AM EDT 09/17/2024 10:09 AM EDT Narrative MILI - 09/17/2024 10:26 AM EDT Specimen Type: BLOOD SPECIMEN Ordering Facility: [facility] Address: [address] [place] [address] Original Ordering Provider: NOEMÍ ANDREWS us Generic External Data Provider CLINHORACIO F inatrino Result [facility]NC CC [address] [facility] [address] [address] * CCF LPA SERPL-MCNC (09/17/2024 9:41 AM EDT) Pathologist [facility] CCF LPA SERPL-MCNC 7 <30 mg/dL CCF 09/17/2024 9:41 AM EDT 09/17/2024 4:11 PM EDT Narrative CLINISYNC - 09/17/2024 6:22 PM EDT Specimen Type: BLOOD SPECIMEN Ordering Facility: [facility] Address: [address] [place] [address] Original Ordering Provider: NOEMÍ ANDREWS us Generic External Data Provider MILI F inal Result [facility] [address] [facility] [address] [place] [address] * (ABNORMAL) CCF LIPID 1995 PNL SERPL (09/17/2024 9:41 AM EDT) CCF CHOLEST SERPL-MCNC 190 <200 mg/dL CCF Comment: <200 mg/dL, Desirable 200-239 mg/dL, Borderline high >239 mg/dL, High CCF TRIGL SERPL-MCNC 166(H) <150 mg/dL CCF Comment: <150 mg/dL, Normal 150-199 mg/dL, Borderline high 200-499 mg/dL, High >499 mg/dL, Very high CCF HDLC SERPL-MCNC 34(L) >39 mg/dL CCF Comment: 40-59 mg/dL, Acceptable >59 mg/dL, High: Negative risk factor for coronary heart disease <40 mg/dL, Low: Positive risk factor for coronary heart disease CCF LDLC SERPL-MCNC 126(H) <100 mg/dL CCF Comment: <100 mg/dL, Optimal 100-129 mg/dL, Near optimal/above optimal 130-159 mg/dL, Borderline high 160-189 mg/dL, High >189 mg/dL, Very high Secondary prevention optimal LDL Cholesterol levels are recommended to be <70 mg/dL LDL cholesterol is calculated using the Negron-NIH equation. CCF NONHDLC SERPL-MCNC 156(H) <130 mg/dL CCF Comment: <130 mg/dL, Optimal 130-159 mg/dL, Near optimal/above optimal 160-189 mg/dL, Borderline high 190-219 mg/dL, High >219 mg/dL, Very high Secondary prevention optimal non HDL Cholesterol levels are recommended to be <100 mg/dL CCF VLDLC SERPL CALC-MCNC 29 <30 mg/dL CCF CCF CHOLEST/HDLC SERPL 5.59(H) <5.10 CCF CCF LDLC/HDLC SERPL 3.71(H) <2.54 CCF Comment: Reference: 1. National Cholesterol Education Program ATP III Guideline At-A-Glance Quick Desk Reference: National Heart, Lung, and Blood Treadwell. National Institutes of Health. 2001: NIH Publication No. 01-3305. 2. An International Atherosclerosis Society position paper: global recommendations for the management of dyslipidemia: executive summary, Atherosclerosis. 2014: 232(2):410-413. CCF FASTING TIME 12 hrs CCF 09/17/2024 9:41 AM EDT 09/17/2024 11:32 AM EDT Narrative CLINISYNC - 09/17/2024 3:02 PM EDT Specimen Type: BLOOD SPECIMEN Ordering Facility: [facility] Address: [address] [place] [address] Original Ordering Provider: JONAH LANGLEY us Generic External Data Provider CLIN[facility]YNC F inal Result Performing Organization Address [facility] de Phone Number [facility] [address] [place] [address] * CCF LDH SERPL-CCNC (09/17/2024 9:41 AM EDT) Pathologist [facility] CCF LDH SERPL-CCNC 156 135 - 225 U/L CCF 09/17/2024 9:41 AM EDT 09/17/2024 11:32 AM EDT Narrative CLINISYNC - 09/17/2024 3:02 PM EDT Specimen Type: BLOOD SPECIMEN Ordering Facility: [facility] Address: [address] [place] [address] Original Ordering Provider: NOEMÍ ANDREWS us Generic External Data Provider CLIN[facility]YNC F inal Result Performing Organization Address [facility] de Phone Number [facility] [address] [place] [address] * CCF CBC W AUTO DIFF BLD (09/17/2024 9:41 AM EDT) CCF WBC # BLD AUTO 6.95 3.70 - 11.00 k/uL CCF CCF RBC # BLD AUTO 4.95 4.20 - 6.00 m/uL CCF CCF HGB BLD-MCNC 13.6 13.0 - 17.0 g/dL CCF CCF HCT VFR BLD AUTO 41.1 39.0 - 51.0 % CCF CCF MCV RBC AUTO 83.0 80.0 - 100.0 fL CCF CCF MCH RBC QN AUTO 27.5 26.0 - 34.0 pg CCF CCF MCHC RBC AUTO-MCNC 33.1 30.5 - 36.0 g/dL CCF CCF RDW RBC-RTO 12.4 11.5 - 15.0 % CCF CCF PLATELET # BLD AUTO 275 150 - 400 k/uL CCF CCF PMV BLD AUTO 10.3 9.0 - 12.7 fL CCF CCF NEUTROPHILS/LEUK NFR BLD AUTO 59.2 % CCF CCF NEUTROPHILS # BLD AUTO 4.12 1.45 - 7.50 k/uL CCF CCF LYMPHOCYTES/LEUK NFR BLD AUTO 30.4 % CCF CCF LYMPHOCYTES # BLD AUTO 2.11 1.00 - 4.00 k/uL CCF CCF MONOCYTES/LEUK NFR BLD AUTO 7.5 % CCF CCF MONOCYTES # BLD AUTO 0.52 <0.87 k/uL CCF CCF EOSINOPHIL/LEUK NFR BLD AUTO 1.9 % CCF CCF EOSINOPHIL # BLD AUTO 0.13 <0.46 k/uL [facility] BASOPHILS/LEUK NFR BLD AUTO 0.7 % [facility] BASOPHILS # BLD AUTO 0.05 <0.11 k/uL [facility] IMM GRANULOCYTES/LEUK NFR BLD AUTO 0.3 % [facility] IMM GRANULOCYTES # BLD AUTO <0.03 <0.10 k/uL [facility] NRBC/100 WBC BLD-RTO 0.0 /100 WBC [facility] NRBC # BLD AUTO <0.01 <0.01 k/uL [facility] DIFFERENTIAL METHOD BLD Auto [facility] 09/17/2024 9:41 AM EDT 09/17/2024 10:12 AM EDT Narrative CLINISYNC - 09/17/2024 10:30 AM EDT Specimen Type: BLOOD SPECIMEN Ordering Facility: [facility] Address: [address] [place] [address] Original Ordering Provider: NOEMÍ ANDREWS Generic External Data Provider CLINISYNC F inal Result Performing Organization Address [facility] de Phone Number MILI CC [address] [place] [id number] * [facility] APTT PPP (09/17/2024 9:41 AM EDT) [facility] APTT PPP 25.7 23.0 - 32.4 sec [facility] 09/17/2024 9:41 AM EDT 09/17/2024 10:09 AM EDT Narrative CLINISYNC - 09/17/2024 10:26 AM EDT Specimen Type: BLOOD SPECIMEN Ordering Facility: [facility] Address: [address] [place] [address] Original Ordering Provider: NOEMÍ ANDREWS Generic External Data Provider CLINISYNC F inal Result Performing Organization Address [facility] de Phone Number MILI CC [address] [address] * XR CHEST 2V (08/20/2024 1:43 PM EDT) Anatomical Region Laterality Modality Other 08/20/2024 1:43 PM EDT Narrative 08/20/2024 1:45 [place] [address] XRay Report Signed Patient: FUAD JAMES MR#: [id number] : 1950 Acct:[id number] Age/Sex: 73 / M ADM Date: 08/20/24 Loc: LAB Attending Dr: Lasha Patricia BAND BOOKER Ordering Physician: Lasha Patricia NP Date of Service: 08/20/24 Procedure(s): XR chest 2V Accession Number(s): [id number] cc: Lasha Patricia NP; Chris Villanueva M.D. The [address] [address] Patient Name: FUAD JAMES MRN: [id number] date: 1950 Sex: M Assigned Patient Location: LAB Current Patient Location: LAB Accession/Order Number: [id number] Exam Date: 08/20/2024 13:43 Report Date: 08/20/2024 13:43 At the request of: LASHA PATRICIA NP Procedure: XR chest 2V Chest 2 views CLINICAL HISTORY: Shortness of breath, Sleep apnea COMPARISON: None FINDINGS: Heart normal in size. Lungs are clear. No free air. XR/XR chest 2V IMPRESSION: NO ACUTE CARDIOPULMONARY ABNORMALITY. Impression dictated by: Fritz Gonzalez Jr., DBrodieOBrodie 08/20/2024 1:43 PM Dictation Location: [place] [address] Electronically authenticated by: [id number] Y Date: 08/20/2024 13:43 Dictated By: Fritz Gonzalez M.D. Signed By: 08/20/24 1345 DD/ 1343 TD/TT: Assistant Manager Retail: Procedure Note Radiology, Radiologist, MD - 08/20/2024 [place] [address] XRay Report Signed Patient: FUAD JAMESMR#: [id number] : 1950Acct:[id number] Age/Sex: 73 / MADM Date: 08/20/24 Loc: LAB Attending Dr: Lasha Patricia NP Ordering Physician: Lasha Patricia NP Date of Service: 08/20/24 Procedure(s): XR chest 2V Accession Number(s): [id number] cc: Lasha Patricia NP; Chris Villanueva M.D. [address] [address] Patient Name: FUAD JAMES MRN: [facility]:[id number] date: 1950 Sex: M Assigned Patient Location: LAB Current Patient Location: LAB Accession/Order Number: [id number] Exam Date: 08/20/2024 13:43 Report Date: 08/20/2024 13:43 At the request of: LASHA PATRICIA NP Procedure: XR chest 2V Chest 2 views CLINICAL HISTORY: Shortness of breath, Sleep apnea COMPARISON: None FINDINGS: Heart normal in size. Lungs are clear. No free air. XR/XR chest 2V IMPRESSION: NO ACUTE CARDIOPULMONARY ABNORMALITY. Impression dictated by: Fritz Gonzalez Jr., D.O. 08/20/2024 1:43 PM Dictation Location: [place] [address] Electronically authenticated by: [id number] Y Date: 3:43 Dictated By: Fritz Gonzalez M.D. Signed By:08/20/245 DD/ 42 TD/TT: Assistant Manager Retail: Generic External Data Provider CLINHORACIO IMAGING Final Result * (ABNORMAL) MLR HEMOGLOBIN A1C (08/20/2024 12:31 PM EDT) GLYCOHEMOGLOBIN A1C 6.4(H) 4.5 - 6.2 % TB Comment: ADA RECOMMENDED LIMIT 4.0 - 6.0 ADA THERAPEUTIC TARGET < 7.0 ACTION SUGGESTED > 7.0 ESTIMATED AVERAGE GLUCOSE 137 mg/dL TB 08/20/2024 12:3 1 PM EDT 08/20/2024 12:37 PM EDT Narrative CLINISYNC - 08/20/2024 1:10 PM EDT Generic External Data Provider OSMANYNC F inal Result CLINISYMAMTA [facility] * ALL THYROID STIM HORMONE (08/20/2024 12:31 PM EDT) THYROID STIMULATING HORMONE 1.789 0.358 - 3.740 uIU/mL TB 08/20/2024 12:3 1 PM EDT 08/20/2024 12:37 PM EDT Narrative CLINMICKIENC - 08/20/2024 1:32 PM EDT us Generic External Data Provider MILI Lauri inal Result MILI [facility] * (ABNORMAL) ALL CBC WITH AUTO DIFF (08/06/2024 1:29 PM EDT) Only the most recent of2 resultswithin the time period is included. Pathologist [facility] TB WBC 7.2 4.0 - 11.0 10 3/uL [...] Narrative CLINISYNC - 08/06/2024 2:36 PM EDT Generic External Data Provider CLINISYNC F inal Result [facility] * (ABNORMAL) ALL BASIC METABOLIC PANEL (08/06/2024 [...] 0.70 - 1.30 mg/dL TBH TBH EGFR-AF CITIZEN [place] >60 >=60 mL/min/1.7 3m 2 TBH TBH EGFR-NON AF CITIZ[place] >60 >=60 mL/min/1.7 3m 2 TBH BUN CREATININE RATIO 12.2 TBH CALCIUM 8.7 8.5 - 10.1 mg/dL TBH 08/06/2024 1:29 PM EDT 08/06/2024 1:30 PM EDT Narrative CLINISYNC - 08/06/2024 1:56 PM EDT Generic External Data Provider CLINISYNC F inal Result [facility] * STRESS TEST (07/25/2024 9:55 AM EDT) Anatomical Region Laterality Modality Radiographic Josi ging Antoine Albright MD IMG XR PROCEDURES Final Result * NM MEÑO PERF SPECT REST STR (07/24/2024 1:52 PM EDT) Anatomical Region Laterality Modality Other 07/24/2024 1:52 PM EDT Narrative 07/24/2024 1:53 [place] [address] Nuclear Medicine Report Signed Patient: FUAD JAMES MR#: [id number] : 1950 Acct:[id number] Age/Sex: 73 / M ADM Date: 07/24/24 Loc: NM Attending Dr: Antoine Albright M.D. Ordering Physician: Antoine Albright M.D. Date of Service: 07/24/24 Procedure(s): NM meño perf SPECT rest str Accession Number(s): [id number] cc: Antoine Albright M.D.; Chris Villanueva M.D. Patient Name: FUAD JAMES MR#: [id number] : 1950 Exam Date: 07/24/2024 Ordering Doctor: DR ANTOIEN ALBRIGHT M.D. RADIOLOGY REPORT PROCEDURE: NM MEÑO [...] the study was pending per attending physician [facility] . For more details please see separate [...] Stubbs M.D. Signed By: 07/24/24 1353 DD/ 135 TD/TT: Assistant Manager Retail: Procedure Note Radiology, Radiologist, MD - 07/24/2024 [place] [address] Nuclear Medicine Report Signed Patient: FUAD JAMESMR#: [id number] : 1950Acct:[id number] Age/Sex: 73 / MADM Date: 07/24/24 Loc: [place] Attending Dr: Antoine Albright M.D. Ordering Physician: Antoine Albright M.D. Date of Service: 07/24/24 Procedure(s): NM meño perf SPECT rest str Accession Number(s): [id number] cc: Antoine Albright M.D.; Chris Villanueva M.D. Patient Name: FUAD JAMES MR#: [id number] : 1950 Exam Date: 07/24/2024 Ordering Doctor: [...] ofthe study was pending per attending physician [facility] . For more details pleasesee separate cardiac [...] M.D. Signed By:07/24/24 1353 DD/ 1352 TD/TT: Assistant Manager Retail: Generic External Data Provider CLINISYNC IMAGING Final Result from Last 3 Months Insurance MEDICARE Care Teams Nonprofit Financial Controller Relationship Specialty Start Date End Date Chris Villanueva MD [address] [place] [phone] PCP - General Family Medicine 09/05/24
--- OUTSIDE RECORDS SUMMARY | 2024-10-13 12:33 | XMS_ITS | Encounter Summary ---
Author Organization [facility] Address [address] [facility] [place] [address] Care Team Providers Care Hourly Sales Staff Name Role Phone Chris Villanueva MD Primary Care Provider [phone] Reason for Visit * Reason Onset Date Comments Error (VOID this visit) 10/06/2024 Encounter Details Date Type Department Care Team ([facility] Contact Info) Description 10/06/2024 Telephone [facility] [address] [place] [address] Chris Villanueva MD [address] [place] [phone] Error (VOID this visit) Social History Tobacco Use Types Packs/Day Years [...] Upcoming Encounters Date Type Department Care Team ([facility] Contact Info) Description 03/11/2025 10:30 AM EST [facility] [address] [place] [address] Chris Villanueva MD [address] [place] [address] documented as of this encounter Visit Diagnoses Not on filedocumented in this encounter Additional Health Concerns Assessment Noted Time PHQ-9 Depression Total Score: 0 09/06/19 25 11:00 AM EDT documented as of this encounter Care Teams Hourly Sales Staff Relationship Specialty Start Date End Date Chris Villanueva MD [address] [place] [address] PCP - General Family Medicine 09/05/24 documented as of this encounter
--- OUTSIDE RECORDS SUMMARY | 2024-10-13 12:33 | XMS_ITS | Encounter Summary ---
Author Organization [facility] Healthcare Address [address] [place] [address] Care Team Providers Care Floral Department Specialist Name Role Phone Chris Villanueva MD Primary Care Provider [phone] Encounter Details Date Type Department Care Team (Late st Contact Info) Description 09/29/2024 Patient Outreach [facility] [address] [place] [address] Hallie Andres LPN Social History Tobacco Use Types Packs/Day Years Used Date Smoking Tobacco: Never Smokeless Tobacco: Never PHQ-2 Answer Date Recorded Patient Health Questionnaire-2 Score 0 09/05/2024 Sex and Gender Information Value Date Recorded Sex Assigned at Not on file Legal Sex Male 6:37 PM EDT Gender Identity Not on file Sexual Orientation Not on file documented as of this encounter Progress Notes * Hallie Andres LPN - 09/29/2024 3:27 PM EDT Images from the original note were not included. Flowsheet Row Patient Outreach from 09/29/2024 in [facility] with Hallie Andres LPN Hospital Information ED, Hospital or Fpc Facility Discharge? 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 Yes [START: Tylenol, lasix x 7 days, lidocaine patch, centrum, oxycodone, pantoprazole, potassium, senna CHANGE: Lisinopril] Is the patient having any side effects they believe may be caused by any medication additions or changes? No Does the patient have all medications ordered at discharge? Yes Nursing Interventions No intervention needed Is the patient taking all medications as directed (includes completed medication regime)? Yes Nursing Interventions Nurse provided patient education Appointments Does the patient have a primary care provider? Yes Nursing Interventions Patient declined follow up appointment w/ PCP Does the patient have any upcoming specialty appointments? Yes [10/01 Cardiothoracic] Nursing Interventions Advised patient to keep appointment Does patient have any post discharge follow up testing that needs to be completed? Labwork, X-Ray, Other (specify) [EKG, CXR, labs on 10/01] Self Management Does patient have home health? yes What is the home health agency? [facility] Patient Teaching Does the patient have access to their discharge instructions? Yes Nursing Interventions Reviewed instructions with patient What is the patient's perception of their health status since discharge? Improving Is the patient/caregiver able to teach back the hierarchy of who to call/visit for symptoms/problems? PCP, Specialist, Home Health nurse, Urgent Care, ED, 911 Yes Wrap Up Wrap Up Additional Comments had labs, Echo, EKG, XR SURGERY: CABG x4 Call End Time 1530 Called and spoke to spouse, Kinjal as [facility] Health nurse doing assessment on pt. States he is fatigue but overall doing well. Incision site without s/s of infection. Has not voiced any pain. Bowels are moving. He is scheduled for EKG, CXR and lab prior to seeing Cardiothoracic Doctor on 10/01. Medications reconciled. Declined HFU at this time. 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
--- OUTSIDE RECORDS SUMMARY | 2024-10-13 12:33 | XMS_ITS ---
Author Organization [facility] Address [address] [place] [address] Care Team Providers Care Wind Energy Mechanic Name Role Phone Chris Villanueva MD Primary Care Provider [phone] Inpatient Discharge Transitional Care Management (TCM) Status:Declined (Declined) Start date:09/26/2024 Enrollment date:09/29/2024 Enrollment reason:Identified using hospital discharge data End date:09/29/2024 Decline reason:Uninterested Overview Patient discharged from [facility] on 09[facility]. Please contact for hospital JAYSON and schedule follow-up appointment within 7-14 days. Continued Care and Services Coordination
--- OUTSIDE RECORDS SUMMARY | 2024-10-13 12:33 | XMS_ITS | Encounter Summary ---
Author Organization [facility] Address [address] [place] [address] Care Team Providers Care Meter Changes Records Clerk Name Role Phone Chris Villanueva MD Primary Care Provider [phone] Reason for Visit * Reason Comments Med Refill Encounter Details Date Type Department Care Team (Late st Contact Info) Description 12/27/2021 Refill [facility] Cardiology [address] [place] [address] Pamela Martínez STEEL DETAILER [address] [place] [phone] Hyperlipidemia, unspecified hyperlipidemia type Social History Tobacco [...] Info) Description 10/15/2024 9:45 AM EDT Follow-Up [facility] [address] [place] [address] Antoine Steven MD [address] [facility] [place] [address] documented as of this encounter Visit Diagnoses Diagnosis Hyperlipidemia, unspecified hyperlipidemia type documented in this encounter Care Teams Meter Changes Records Clerk Relationship Specialty Start Date End Date Chris Villanueva MD [address] [place] [address] PCP - General 10/30/22 documented as of this encounter
--- OUTSIDE RECORDS SUMMARY | 2024-10-13 12:33 | XMS_ITS | Encounter Summary ---
Author Organization [facility] Address [address] [place] [address] Care Team Providers Care Occupational Therapy Specialist Name Role Phone Chris Villanueva MD Primary Care Provider [phone] Encounter Details Date Type Department Care Team (Late st Contact Info) Description 10/01/2024 Clinisync Result Encounter [facility] External Department [...] 03/11/2025 10:30 AM EST [facility] [address] [place] [address] Chris Villanueva MD [address] [place] [address] documented as of this encounter Procedures Procedure Name Priority Date/Time Associated Diagnosis Comments [facility] CBC PNL BLD AUTO Routine 10/01/2024 10:50 AM EDT documented in this encounter Results * (ABNORMAL) [facility] CBC PNL BLD [...] AM EDT 10/01/2024 11:18 AM EDT Narrative CYNDYISYNC - 10/01/2024 11:43 AM EDT Specimen Type: BLOOD SPECIMEN Ordering Facility: [facility] Address: [address] [place] [address] Original Ordering Provider: NOEMÍ ANDREWS us Generic External Data Provider CLINISYNC F inal Result CLINISYNC [facility] [address] [facility] [place] [address] documented in this encounter Visit Diagnoses Not on filedocumented in this encounter Additional Health Concerns Assessment Noted Time PHQ-9 Depression Total Score: 0 09/06/19 11:00 AM EDT documented as of this encounter Care Teams Occupational Therapy Specialist Relationship Specialty Start Date End Date Chris Villanueva MD [address] [place] [address] PCP - General Family Medicine 09/05/24 documented as of this encounter
--- OUTSIDE RECORDS SUMMARY | 2024-10-13 12:33 | XMS_ITS | Encounter Summary ---
Author Organization [facility] Address [address] [place] [address] Care Team Providers Care Store Clerk Checker Name Role Phone Chris Villanueva MD Primary Care Provider [phone] Encounter Details Date Type Department Care Team [...] 03/11/2025 10:30 AM EST Office Visit [facility] [address] [place] [address] Chris Villanueva MD [address] [place] [address] documented as of this encounter Procedures Procedure Name Priority Date/Time Associated Diagnosis Comments [facility] COMP METAB 1999 PNL SERPL Routine 10/01/2024 10:50 AM EDT XR CHEST 2V FRONTAL/LAT 10/01/2024 10:30 AM EDT documented in this encounter Results * (ABNORMAL) [facility] COMP METAB 1999 PNL SERPL (10/01/2024 10:50 AM EDT) [facility] PROT SERPL-MCNC 7.5 6.3 - 8.0 [...] 74 - 99 mg/dL [facility] Comment: The [place] Diabetes Association (ADA) provides guidance for cutoff [...] Standards of Medical Care in Diabetes 2016, [place] Diabetes Association. Diabetes Care. 2016.39(Suppl 1). [facility] [...] AM EDT 10/01/2024 12:06 PM EDT Narrative CYNDYISYNC - 10/01/2024 7:15 PM EDT Specimen Type: BLOOD SPECIMEN Ordering Facility: [facility] Address: [address] [place] [address] Original Ordering Provider: NOEMÍ ANDREWS us Generic External Data Provider MILI F inatrino Result Performing Organization Address City/State/[facility] Co de Phone Number MILI [facility] [address] [facility] [place] [address] * XR CHEST 2V FRONTAL/LAT (10/01/2024 10:30 AM EDT) Anatomical Region Laterality Modality Other 10/01/2024 10:3 0 AM EDT Narrative 10/01/2024 2:01 PM EDT * * *Final Report* * * DATE OF EXAM: Oct 01 2024 10:30AM ALYCIAX [id number] - XR CHEST 2V FRONTAL/LAT / [...] within the thoracic spine. IMPRESSION: Mildly improving. Smelter Liner: MCKENZIE Transcribe Date/Time: Oct 01 2024 1:55P Dictated by : KAL VANN MD This examination was interpreted and the report reviewed and electronically signed by: KAL VANN MD on Oct 01 2024 1:59PM EST [id number]^AGFA_IDC^SI^ACN Procedure Note Radiology, Radiologist, MD - 10/01/2024 * * *Final Report* * [...] within the thoracic spine. IMPRESSION: Mildly improving. Smelter Liner: MCKENZIE Transcribe Date/Time: Oct 01 2024 1:55P Dictated by : KAL VANN MD This examination was interpreted and the report reviewed and electronically signed by: KAL VANN MD on Oct 01 2024 1:59PM EST [id number]^AGFA_IDC^SI^ACN us Generic External Data Provider CLINISYNC IMAGING Final Result documented in this encounter Visit Diagnoses Not on filedocumented in this encounter Additional Health Concerns Assessment Noted Time PHQ-9 Depression Total Score: 0 09/06/19 11:00 AM EDT documented as of this encounter Care Teams Store Clerk Checker Relationship Specialty Start Date End Date Chris iVllanueva MD [address] [place] [address] PCP - General Family Medicine 09/05/24 documented as of this encounter
[2024-10-13 12:46] LABS: Hematocrit 36.3 % (42.0-54.0); Hemoglobin 12.2 g/dL (14.0-18.0); Immature Granulocytes Abs Auto 0.02 10^3/uL (0.00-0.03); Immature Granulocytes Pct Auto 0.2 % (0.0-0.5); Lymphocytes Absolute Auto 1.4 10^3/uL (1.2-3.8); Mean Corpuscular HGB Conc 33.6 g/dL (29.9-35.2); Mean Corpuscular Hemoglobin 28.6 pg (25.9-34.0); Mean Corpuscular Volume 85.2 fL (80.0-94.0); Platelet Count 347 10^3/uL (150-450); Red Blood Count 4.26 10^6/uL (4.70-6.10); White Blood Count 8.2 10^3/uL (4.0-11.0)
--- NOTE | 2024-10-13 12:48 | XR_ITS ---
The [place] [id number] Patient Name: FUAD PATEL MRN: [id number] date: 1950 Sex: M Assigned Patient Location: LAB Current Patient Location: LAB Accession/Order Number: [id number] Exam Date: 10/13/2024 12:56 Report Date: 10/13/2024 13:40 At the request of: NETTA CHAUDHARI MD Procedure: XR chest 2V Chest 2 views CLINICAL HISTORY: shortness of breath, recent CABG COMPARISON: Chest 08/20/2024 FINDINGS: New post CABG changes are noted. Heart appears normal in size. No lung consolidation pneumothorax pleural effusion or free air. XR/XR chest 2V IMPRESSION: NEW POST CABG CHANGES SINCE THE PRIOR STUDY. NO CONSOLIDATION TO SUGGEST PNEUMONIA. Impression dictated by: Fritz Gonzalez Jr., DBrodieOBrodie 10/13/2024 1:40 PM Dictation Location: [place] [address] Electronically authenticated by: [id number] Y Date: 10/13/2024 13:40
--- NOTE | 2024-10-13 13:10 | ECG_ITS ---
The [facility] Test Date: 2024-10-13 Pat Name: FUAD PATEL Department: Room: - Gender: Male Metal Template Maker: : 1950 Requested By: NETTA CHAUDHARI Order Number: [id number] Reading MD: TIERRA ALBRIGHT Measurements Intervals [place] Rate: 86 P: 60 [place]: 158 QRS: 81 QRSD: 98 T: 110 QT: 339 QTc: 406 Interpretive Statements SINUS RHYTHM T wave inversion possible septal ischemia Abnormal ECG No previous ECG available for comparison Electronically Signed On 10-15-2024 15:50:18 EDT by TIERRA ALBRIGHT
[2024-10-13 13:40] LABS: Alanine Aminotransferase 26 U/L (16-63); Albumin Globulin Ratio 0.7; Albumin Level 3.2 g/dL (3.4-5.0); Alkaline Phosphatase 138 U/L (46-116); Anion Gap 16.6; Aspartate Amino Transferase 15 U/L (15-37); Blood Urea Nitrogen 13.0 mg/dL (7.0-18.0); Calcium 9.0 mg/dL (8.5-10.1); Carbon Dioxide 22.6 mmol/L (21.0-32.0); Chloride 106 mmol/L (98-107); Estimated GFR (African America >60 (>=60 mL/min/1.73m^2); Estimated GFR (Non-African Ame >60 (>=60 mL/min/1.73m^2); Globulin 4.6 g/dL; Glucose 161 mg/dL (74-106); Potassium 4.2 mmol/L (3.5-5.1); Sodium 141 mmol/L (136-145); Total Protein 7.8 g/dL (6.4-8.2)
== END 2024-10-13 12:29 | disposition home or self-care (01) ==
LOC: LAB 12:30
PROVIDERS: PCP Family Medicine; Visit Provider Family Medicine
DX: R06.02 Shortness of breath (principal); I10 Essential (primary) hypertension; Z79.899 Other long term (current) drug therapy; I25.5 Ischemic cardiomyopathy
CPT/HCPCS: 36415; 71046; 80053; 85025; 93005

== ENCOUNTER 2025-01-22 08:26 | Outpatient (RCR) | payer MEDICARE, SELFPAY ==
--- NOTE | 2024-11-04 14:38 | CR1_ITS ---
The [facility] Test Date: 2024-11-04 Pat Name: FUAD PATEL Department: Room: - Gender: Male Heel Cementer Machine: : 1950 Requested By: TIERRA ALBRIGHT Order Number: [id number] Regina MD: MARI WAKEFIELD M.D. Interpretive Statements Patient may start cardiac rehab as outlined in the treatment plan. Electronically Signed On 11-05-2024 18:02:53 EDT by MAIR WAKEFIELD M.D.
--- NOTE | 2024-11-06 14:41 | CR1_ITS ---
The [facility] Test Date: 2024-11-06 Pat Name: FUAD PATEL Department: Room: - Gender: Male Laundry Aid: : 1950 Requested By: TIERRA ALBRIGHT Order Number: [id number] Regina MD: MARI WAKEFIELD M.D. Interpretive Statements Patient may start cardiac rehab as outlined in the treatment plan. Electronically Signed On 11-06-2024 18:18:38 EDT by MARI WAKEFIELD M.D.
--- NOTE | 2024-11-27 09:21 | CR1_ITS ---
The [facility] Test Date: 2024-11-27 Pat Name: FUAD PATEL Department: Room: - Gender: Male Rodeo Rider: : 1950 Requested By: TIERRA ALBRIGHT Order Number: [id number] Regina MD: MARI WAKEFIELD M.D. Interpretive Statements Patient may continue cardiac rehab as outlined in the treatment plan. Electronically Signed On 11-27-2024 10:52:26 EDT by MARI WAKEFIELD M.D.
--- NOTE | 2024-12-29 07:59 | CR1_ITS ---
The [facility] Test Date: 2024-12-29 Pat Name: FUAD PATEL Department: Room: - Gender: Male Second Officer: : 1950 Requested By: TIERRA ALBRIGHT Order Number: [id number] Regina MD: MARI WAKEFIELD M.D. Interpretive Statements Patient may continue cardiac rehab as outlined in the treatment plan. Electronically Signed On 12-29-2024 19:24:52 EST by MARI WAKEFIELD M.D.
--- NOTE | 2025-01-22 13:25 | CR1_ITS ---
The [facility] Test Date: 2025-01-22 Pat Name: FUAD PATEL Department: Room: - Gender: Male Maintenance Repairer: : 1950 Requested By: TIERRA ALBRIGHT Order Number: [id number] Regina MD: MARI WAKEFIELD M.D. Interpretive Statements Patient has completed rehab program and have noted outcomes. Electronically Signed On 01-22-2025 20:53:35 EST by MARI WAKEFIELD M.D.
== END 2025-01-22 13:28 | disposition home or self-care (01) ==
LOC: CR 08:26
PROVIDERS: PCP Family Medicine; Visit Provider Internal Medicine Interventional Cardiology
DX: I25.119 Atherosclerotic heart disease of native coronary artery with unspecified angina pectoris (principal); Z95.1 Presence of aortocoronary bypass graft; I10 Essential (primary) hypertension
CPT/HCPCS: 93798